=== PATIENT | male | born 1955 | race Caucasian/White ===

== ENCOUNTER 2021-06-13 21:01 | Inpatient (IN) ==
--- NOTE | 2021-06-13 21:17 | Emergency Department Note ---
Impression & Plan Respiratory failure, Abnormal EKG, Elevated troponin I level ED Provider Note Is whyNAME: KAMILA JOSE AGE: 65 SEX: M : 1955 ARRIVES VIA: Ambulance INFORMANT: Patient, EMS ED PROVIDER(S): Moises Young DO CHIEF COMPLAINT: Shortness of breath HPI: The patient is a 65-year-old male who presented to emergency department for an evaluation of shortness of breath. The patient has a history of renal disease. He had also has a history of hypertension. The patient was diagnosed with COVID-19 recently. He was treated with monoclonal antibody therapy recently as well. He was seen at [facility] after a fall. He presents emergency department today because of shortness of breath. He presented via ambulance. He was noted to have an oxygen saturation of 83%. He was placed on BiPAP. The patient's symptoms were moderate to severe. Upon arrival to the emergency department he states his symptoms are significantly improved after BiPAP. He denies having any hemoptysis. He denies having any lower extremity pain he does complain of lower extremity swelling which is not new. The patient has not seen his family doctor recently. He states has been compliant with his usual outpatient medications. ROS: See above HPI for pertinent positives & negatives. A total of 10 systems reviewed and were otherwise negative. PAST MEDICAL HISTORY: See Below PAST SURGICAL HISTORY: See Below FAMILY HISTORY: See Below SOCIAL HISTORY: See Below HOME MEDICATIONS: See Below ALLERGIES: See Below VITALS: See Below PHYSICAL EXAMINATION: GENERAL: The patient is awake and alert. The patient is somewhat anxious sanjiv earing. EYES: The conjunctivae are clear. The pupils are round and reactive. EARS, NOSE, MOUTH AND THROAT: The nose is without any evidence of any deformity. NECK: The neck is nontender and supple. RESPIRATORY: Shallow respirations were noted. Rales were noted throughout. There was significant conversational dyspnea. CARDIOVASCULAR: Tachycardic rate with regular rhythm was noted. There is no def inite murmur. GASTROINTESTINAL: Abdomen was pendulous. There is no tenderness guarding rigidity noted. MUSCULOSKELETAL/EXTREMITIES: There is no evidence of gross deformity full range of motion is noted in the hips and shoulders. SKIN: Chronic venous stasis changes were noted. There is pedal edema bi laterally. NEUROLOGIC: Patient is awake alert and oriented x3. MEDICAL DECISION MAKING: The patient is a 65-year-old male who presented to emergency department for an evaluation of difficulty breathing. The patient presented via ambulance from [facility]. He was placed on BiPAP prior to arrival. He was noted to have an oxygen saturation of 83%. He was recently diagnosed with COVID-19. History and physical exam appears to be consistent with COVID-19 but could also be consistent with a cardiac source given the patient's chest pain initially as well as EKG findings. I discussed the patient's laboratory and radiographic studies with him. Given his recent diagnosis of Covid he was treated with Decadron. He was continued on BiPAP. He was feeling somewhat better on subsequent reevaluation. I did discuss his case with the on-call [facility]. They have agreed to evaluate the patient in the emergency department for further management and disposition. Triage Nursing notes reviewed. Prior medical records reviewed Vital Signs: reviewed and remarkable for tachycardia and hypoxia Differential diagnosis: Reactive airway disease, pneumonia, pneumothorax, COPD, CHF, infections, cardiac ischemia, pulmonary embolism, musculoskeletal, gastrointestinal, as well as other pathologies. ER treatment provided: See below Diagnostics interpreted by me: ECG: EKG was obtained in the emergency department. My interpretation is sinus tachycardia 118 bpm. There is no ectopy. Left bundle branch block pattern was suggested. This was compared to a tracing from June 182013. Otherwise no significant changes were noted. Cardiac Monitoring: An order was placed for continuous cardiac monitoring. The monitor shows a rate of 105 bpm with sinus tachycardia. Laboratory studies: As stated above and show below. Imaging studies: See below Consultation(s): I discussed this case with Dr. Butler who is on-call for the [facility] group. He will evaluate the patient in the emergency department for further management and disposition. ED COURSE: Procedures: none PDMP:reviewed and no issues Critical Care: I have personally spent greater than 40 minutes of critical care time in the direct management of this patient. This includes bedside care, interpretation of diagnostic studies, and testing, discussion with consultants, patient, and family members, and other required patient management activities. This 40 minutes is in excess of all separately billable procedures. Past Med/Surg History Medical History Diabetes High cholesterol Hypertension Social History Smoking Status: Never smoker Feels Safe at Home: Yes Allergies Allergies Allergy/AdvReac Type Severity Reaction Status Date / Time No Known Allergies Allergy Unverified 06/18/13 09:21 Home Meds Home Medications Medication Instructions Recorded Confirmed aspirin 81 mg tablet,delayed 81 mg PO DAILY 06/13/21 06/13/21 release (Aspirin Low Dose) carvedilol 6.25 mg tablet 6.25 mg PO BID 06/13/21 06/13/21 duloxetine 30 mg capsule,delayed 30 mg PO DAILY 06/13/21 06/13/21 release folic acid 1 mg tablet 1 mg PO DAILY 06/13/21 06/13/21 gabapentin 300 mg capsule 300 mg PO BID 06/13/21 06/13/21 losartan 50 mg tablet 50 mg PO DAILY 06/13/21 06/13/21 metformin 500 mg tablet 500 mg PO BID 06/13/21 06/13/21 pantoprazole 40 mg tablet,delayed 40 mg PO DAILYBB 06/13/21 06/13/21 release rosuvastatin 40 mg tablet 40 mg PO DAILY 06/13/21 06/13/21 semaglutide (Ozempic) 0.5 mg SUBCUT WK 06/13/21 06/13/21 spironolactone 25 mg tablet 25 mg PO DAILY 06/13/21 06/13/21 Results & Data (ED) Vital Signs Vital Signs - 24 hr 06/13/21 21:00 06/13/21 21:10 06/13/21 21:20 Temperature 36.8 C Temperature Source Axillary Pulse Rate 117 H 117 H Pulse Rate [Right Finger] Respiratory Rate 36 H 32 H Respiratory Effort / Characteristics Spontaneous Labored Short of Breath SOB on Exertion Respiratory Depth Shallow Normal Respiratory Pattern Tachypnea Regular Blood Pressure 125/78 Blood Pressure [Right Arm] Blood Pressure Mean 93 Blood Pressure Mean [Right Arm] Blood Pressure Position Lying Blood Pressure Position [Right Arm] Pulse Oximetry 100 98 98 Oxygen Delivery Method BiPAP BiPAP Fraction of Inspired Oxygen 100 Sepsis Recent Fever Within 48 Hours No Sepsis New/Unexplained Change in Mental Status No Sepsis Action Taken by Nursing No Action Required 06/13/21 21:49 06/13/21 23:29 Temperature Temperature Source Pulse Rate 108 H Pulse Rate [Right Finger] 105 H 108 H Respiratory Rate 16 36 H Respiratory Effort / Characteristics Spontaneous Labored Short of Breath SOB on Exertion Respiratory Depth Normal Respiratory Pattern Tachypnea Blood Pressure Blood Pressure [Right Arm] 112/72 Blood Pressure Mean Blood Pressure Mean [Right Arm] 85 Blood Pressure Position Blood Pressure Position [Right Arm] Lying Pulse Oximetry 97 97 Oxygen Delivery Method Room Air BiPAP Fraction of Inspired Oxygen 40 Sepsis Recent Fever Within 48 Hours Sepsis New/Unexplained Change in Mental Status Sepsis Action Taken by [facility] Medications Current Medication List: was personally reviewed by me Laboratory Data Attestation: I reviewed the patient's lab results. Result diagrams: 06/13/21 21:10 06/13/21 21:10 Lab Results 06/13/21 06/13/21 06/13/21 Range/Units 21:10 21:10 21:10 WBC 15.79 H (4.8-10.8) K/uL RBC 4.19 L (4.7-6.1) M/uL Hgb 12.3 L (14.0-18.0) g/dL Hct 39.0 L (42-52) % MCV 93.1 (80-100) fL MCH 29.4 (25-34) pg MCHC 31.5 L (32-36) g/dL RDW Std Deviation 48.6 H (36.4-46.3) fL RDW Coeff of Miguel 14.2 (11.5-14.5) % Plt Count 164 (130-400) K/uL MPV 10.4 (7.4-10.4) fL Immature Gran % (Auto) 0.2 % Neut % (Auto) 43.4 % Lymph % (Auto) 51.6 % [place] % (Auto) 4.3 % Eos % (Auto) 0.4 % Baso % (Auto) 0.1 % Neut # (Auto) 6.87 H (1.4-6.5) K/uL Lymph # (Auto) 8.14 H (1.2-3.4) K/uL [place] # (Auto) 0.68 H (0.11-0.59) K/uL Eos # (Auto) 0.06 (0-0.5) K/uL Baso # (Auto) 0.01 (0-0.2) K/uL Immature Gran # (Auto) 0.03 H (0.00-0.02) K/uL ESR (0-20) mm/hr PT 10.5 (9.0-12.0) Seconds INR 1.0 (0.9-1.1) APTT 28.2 (21.0-31.0) Seconds PTT Ratio 1.1 ABG pH (7.35-7.45) ABG pCO2 (35-46) mmHg ABG pO2 (80-95) mmHg ABG HCO3 (19-24) mmol/L ABG O2 Saturation (90-95) % ABG Base Excess (-9-1.8) mEq/L Ten Test (Pos) VBG pH (7.36-7.41) VBG pCO2 (38-50) mmHg VBG pO2 mmHg VBG HCO3 mmol/L VBG O2 Saturation % VBG Base Excess mEq/L Barometric Pressure mm/Hg Oxygen Given Sodium 138 (136-145) mmol/L Potassium 4.2 (3.5-5.1) mmol/L Chloride 105 (98-107) mmol/L Carbon Dioxide 27 (21-32) mmol/L Anion Gap 6.0 (3-11) BUN 38 H (7-18) mg/dl Creatinine 2.22 H (0.6-1.4) mg/dl Est Cr Clr Drug Dosing 51.0 ml/min Est GFR ( Amer) 34.7 ml/min Est GFR (Non-Af Amer) 30.0 ml/min BUN/Creatinine Ratio 17.1 (10-20) Glucose 248 H (70-99) mg/dl Lactate (0.4-2.0) mmol/L Calcium 8.7 (8.5-10.1) mg/dl Magnesium 2.1 (1.8-2.4) mg/dl Total Bilirubin 0.4 (0.2-1) mg/dl AST 46 H (15-37) U/L ALT 32 (12-78) Alkaline Phosphatase 90 (45-117) U/L Troponin I 0.184 H* (0-0.045) ng/ml C-Reactive Protein 3.84 H (0-0.29) mg/dl NT-Pro-B Natriuret Pep 724 (0-900) pg/ml Total Protein 7.5 (6.4-8.2) gm/dl Albumin 3.0 L (3.4-5.0) gm/dl Globulin 4.5 H (2.5-4.0) gm/dl Albumin/Globulin Ratio 0.7 L (0.9-2) SARS-CoV-2 (PCR) (Negative) Influenza Type A (PCR) (Neg) Influenza Type B (PCR) (Neg) RSV (RT-PCR) (Neg) 06/13/21 06/13/21 06/13/21 Range/Units 21:10 21:19 21:29 WBC (4.8-10.8) K/uL RBC (4.7-6.1) M/uL Hgb (14.0-18.0) g/dL Hct (42-52) % MCV (80-100) fL MCH (25-34) pg MCHC (32-36) g/dL RDW Std Deviation (36.4-46.3) fL RDW Coeff of Miguel (11.5-14.5) % Plt Count (130-400) K/uL MPV (7.4-10.4) fL Immature Gran % (Auto) % Neut % (Auto) % Lymph % (Auto) % [place] % (Auto) % Eos % (Auto) % Baso % (Auto) % Neut # (Auto) (1.4-6.5) K/uL Lymph # (Auto) (1.2-3.4) K/uL [place] # (Auto) (0.11-0.59) K/uL Eos # (Auto) (0-0.5) K/uL Baso # (Auto) (0-0.2) K/uL Immature Gran # (Auto) (0.00-0.02) K/uL ESR 94 H (0-20) mm/hr PT (9.0-12.0) Seconds INR (0.9-1.1) APTT (21.0-31.0) Seconds PTT Ratio ABG pH (7.35-7.45) ABG pCO2 (35-46) mmHg ABG pO2 (80-95) mmHg ABG HCO3 (19-24) mmol/L ABG O2 Saturation (90-95) % ABG Base Excess (-9-1.8) mEq/L Ten Test (Pos) VBG pH 7.43 H (7.36-7.41) VBG pCO2 42 (38-50) mmHg VBG pO2 55 mmHg VBG HCO3 28 mmol/L VBG O2 Saturation 89.0 % VBG Base Excess 3.1 mEq/L Barometric Pressure 733.5 mm/Hg Oxygen Given Sodium (136-145) mmol/L Potassium (3.5-5.1) mmol/L Chloride (98-107) mmol/L Carbon Dioxide (21-32) mmol/L Anion Gap (3-11) BUN (7-18) mg/dl Creatinine (0.6-1.4) mg/dl Est Cr Clr Drug Dosing ml/min Est GFR ( Amer) ml/min Est GFR (Non-Af Amer) ml/min BUN/Creatinine Ratio (10-20) Glucose (70-99) mg/dl Lactate (0.4-2.0) mmol/L Calcium (8.5-10.1) mg/dl Magnesium (1.8-2.4) mg/dl Total Bilirubin (0.2-1) mg/dl AST (15-37) U/L ALT (12-78) Alkaline Phosphatase (45-117) U/L Troponin I (0-0.045) ng/ml C-Reactive Protein (0-0.29) mg/dl NT-Pro-B Natriuret Pep (0-900) pg/ml Total Protein (6.4-8.2) gm/dl Albumin (3.4-5.0) gm/dl Globulin (2.5-4.0) gm/dl Albumin/Globulin Ratio (0.9-2) SARS-CoV-2 (PCR) POSITIVE A* (Negative) Influenza Type A (PCR) Negative (Neg) Influenza Type B (PCR) Negative (Neg) RSV (RT-PCR) Negative (Neg) 06/13/21 06/13/21 Range/Units 23:36 23:36 WBC (4.8-10.8) K/uL RBC (4.7-6.1) M/uL Hgb (14.0-18.0) g/dL Hct (42-52) % MCV (80-100) fL MCH (25-34) pg MCHC (32-36) g/dL RDW Std Deviation (36.4-46.3) fL RDW Coeff of Miguel (11.5-14.5) % Plt Count (130-400) K/uL MPV (7.4-10.4) fL Immature Gran % (Auto) % Neut % (Auto) % Lymph % (Auto) % [place] % (Auto) % Eos % (Auto) % Baso % (Auto) % Neut # (Auto) (1.4-6.5) K/uL Lymph # (Auto) (1.2-3.4) K/uL [place] # (Auto) (0.11-0.59) K/uL Eos # (Auto) (0-0.5) K/uL Baso # (Auto) (0-0.2) K/uL Immature Gran # (Auto) (0.00-0.02) K/uL ESR (0-20) mm/hr PT (9.0-12.0) Seconds INR (0.9-1.1) APTT (21.0-31.0) Seconds PTT Ratio ABG pH 7.43 (7.35-7.45) ABG pCO2 39 (35-46) mmHg ABG pO2 77 L (80-95) mmHg ABG HCO3 25 H (19-24) mmol/L ABG O2 Saturation 96.0 H (90-95) % ABG Base Excess 0.5 (-9-1.8) mEq/L Ten Test POS (Pos) VBG pH (7.36-7.41) VBG pCO2 (38-50) mmHg VBG pO2 mmHg VBG HCO3 mmol/L VBG O2 Saturation % VBG Base Excess mEq/L Barometric Pressure 733.8 mm/Hg Oxygen Given FIO2 40% Sodium (136-145) mmol/L Potassium (3.5-5.1) mmol/L Chloride (98-107) mmol/L Carbon Dioxide (21-32) mmol/L Anion Gap (3-11) BUN (7-18) mg/dl Creatinine (0.6-1.4) mg/dl Est Cr Clr Drug Dosing ml/min Est GFR ( Amer) ml/min Est GFR (Non-Af Amer) ml/min BUN/Creatinine Ratio (10-20) Glucose (70-99) mg/dl Lactate 0.9 (0.4-2.0) mmol/L Calcium (8.5-10.1) mg/dl Magnesium (1.8-2.4) mg/dl Total Bilirubin (0.2-1) mg/dl AST (15-37) U/L ALT (12-78) Alkaline Phosphatase (45-117) U/L Troponin I (0-0.045) ng/ml C-Reactive Protein (0-0.29) mg/dl NT-Pro-B Natriuret Pep (0-900) pg/ml Total Protein (6.4-8.2) gm/dl Albumin (3.4-5.0) gm/dl Globulin (2.5-4.0) gm/dl Albumin/Globulin Ratio (0.9-2) SARS-CoV-2 (PCR) (Negative) Influenza Type A (PCR) (Neg) Influenza Type B (PCR) (Neg) RSV (RT-PCR) (Neg) Administered Medications Discontinued Medications Dexamethasone Sodium Phosphate (DexamethasonePf 10 Mg/Ml Vial) 10 mg IV NOW ONE Stop: 06/13/21 22:00 Last Admin: 06/13/21 22:36 Dose: 10 mg Documented by: [id number] Ipratropium [place] (Ipratropium [place] Neb Soln 0.02% 2.5 Ml Vial) 0.5 mg INH NOW STA Stop: 06/13/21 23:11 Last Admin: 06/13/21 23:28 Dose: 0.5 mg Documented by: [id number] Levalbuterol HCl (Levalbuterol 1.25mg/0.5ml Neb) 1.25 mg INH NOW STA Stop: 06/13/21 23:12 Last Admin: 06/13/21 23:28 Dose: 1.25 mg Documented by: [id number] Imaging Data Radiologist's Impression: Chest X-Ray 06/13/21 21:13 XR chest 1V portable CLINICAL HISTORY: Dyspnea. COMPARISON STUDY: No previous studies for comparison. TECHNIQUE: 1 view of the chest FINDINGS: Single frontal view of the chest demonstrates heart size to be enlarged. There is indistinctness of the central hilar vessels characteristic of mild vascular congestion. Minimal peripheral interstitial edema is also seen. There is no evidence for pleural effusion. No confluent alveolar opacities are identified. There is no acute osseous pathology. IMPRESSION: Cardiomegaly with evidence for vascular congestion and early cardiac decompensation. ACT 112: Negative or not required by law. Electronically signed by: James Mcneal M.D. 06/13/2021 9:47 PM Discharge Plan Visit Data Chief Complaint: Shortness of Breath/Dyspnea ED Provider: Moises Young Discharge Problem: Respiratory failure, Abnormal EKG, Elevated troponin I level Patient Disposition: Being Evaluated by Hospitalist Forms Stand Alone Forms: My [facility] Prescriptions Prescriptions: No Action losartan 50 mg tablet 50 mg PO DAILY RF: 0 metformin 500 mg tablet 500 mg PO BID RF: 0 carvedilol 6.25 mg tablet 6.25 mg PO BID RF: 0 spironolactone 25 mg tablet 25 mg PO DAILY RF: 0 pantoprazole 40 mg tablet,delayed release (DR/EC) 40 mg PO DAILYBB RF: 0 gabapentin 300 mg capsule 300 mg PO BID RF: 0 folic acid 1 mg tablet 1 mg PO DAILY RF: 0 rosuvastatin 40 mg tablet 40 mg PO DAILY RF: 0 duloxetine 30 mg capsule,delayed release(DR/EC) 30 mg PO DAILY RF: 0 Ozempic 0.25 mg or 0.5 mg(2 mg/1.5 mL) pen injector 0.5 mg SUBCUT WK RF: 0 aspirin [Aspirin Low Dose] 81 mg Tablet,Delayed Release (Dr/Ec) 81 mg PO DAILY RF: 0 Referrals Referrals: PCP,NO [Primary Care Provider] - Discharge Problem: Respiratory failure Qualifiers: Chronicity: acute Respiratory failure complication: hypoxia Qualified Code(s): J96.01 - Acute respiratory failure with hypoxia
[2021-06-13 21:20] LABS: Hemoglobin 12.3 g/dL (14.0-18.0); Mean Corpuscular Hemoglobin 29.4 pg (25-34); Mean Corpuscular Hgb Conc 31.5 g/dL (32-36); Mean Corpuscular Volume 93.1 fL (80-100); Mean Platelet Volume 10.4 fL (7.4-10.4); Platelet Count 164 K/uL (130-400); RDW Coefficient of Variation 14.2 % (11.5-14.5); RDW Standard Deviation 48.6 fL (36.4-46.3); Red Blood Count 4.19 M/uL (4.7-6.1); White Blood Count 15.79 K/uL (4.8-10.8)
[2021-06-13 21:35] LABS: Base Excess VBG 3.1 mEq/L; pH VBG 7.43 (7.36-7.41)
[2021-06-13 21:35] LABS: Partial Thromboplastin Ratio 1.1; Partial Thromboplastin Time 28.2 Seconds (21.0-31.0); Prothrombin Time 10.5 Seconds (9.0-12.0)
[2021-06-13 21:37] LABS: BUN Creatinine Ratio 17.1 (10-20); Calcium 8.7 mg/dl (8.5-10.1); Est GFR (African American) 34.7 ml/min; Magnesium 2.1 mg/dl (1.8-2.4); Potassium 4.2 mmol/L (3.5-5.1)
--- NOTE | 2021-06-13 21:48 | XRay Report ---
XR chest 1V portable CLINICAL HISTORY: Dyspnea. COMPARISON STUDY: No previous studies for comparison. TECHNIQUE: 1 view of the chest FINDINGS: Single frontal view of the chest demonstrates heart size to be enlarged. There is indistinctness of t he central hilar vessels characteristic of mild vascular congestion. Minimal peripheral interstitial edema is also seen. There is no evidence for pleural effusion. No confluent alveolar opacities are id entified. There is no acute osseous pathology. IMPRESSION: Cardiomegaly with evidence for vascular congestion and early cardiac decompensation. ACT 112: Negative or not required by law. Electronically signed by: James Mcneal M.D. 06/13/2021 9:47 PM
[2021-06-13 21:50] LABS: Albumin Globulin Ratio 0.7 (0.9-2); Globulin 4.5 gm/dl (2.5-4.0); Total Protein 7.5 gm/dl (6.4-8.2); Troponin I 0.184 ng/ml (0-0.045)
[2021-06-13] MEDS ORDERED: dexAMETHasone**PF** 10 MG/ML VIAL IV ONE (21:59)
[2021-06-13 22:17] LABS: Influenza A virus by PCR Negative (Neg); Influenza B virus by PCR Negative (Neg); RSV by PCR Negative (Neg)
[2021-06-13 22:42] LABS: C Reactive Protein 3.84 mg/dl (0-0.29)
[2021-06-13 22:45] LABS: SARS CoV2 RNA(COVID-19) InHosp POSITIVE (Negative)
[2021-06-13 22:47] LABS: Bilirubin,Total 0.4 mg/dl (0.2-1)
--- NOTE | 2021-06-13 22:57 | History & Physical Report ---
Date of Service June 13, 2021 Assessment & Plan (1) Respiratory failure: Plan: Secondary to severe COVID-19 pneumonia Status post outpatient monoclonal antibody infusion Possible pulmonary embolism given significant troponin elevation chronic systolic heart failure EF 45 to 49% (TTE 2020) secondary to nonischemic cardiomyopathy, euvolemic to baseline congestion hx LBBB pulmonary hypertension secondary to DICK/pickwickian syndrome on CPAP hypertension, stable hyperlipidemia on statin Rx DM2 on oral medications and Ozempic, suboptimal control as of recent hemoglobin A1c of 9.08 January 2021 CRI, creatinine better than baseline chronic anemia, hemoglobin at baseline PCU Continue BiPAP Decadron course Remdesivir contraindicated with abnormal kidney function. IV Heparin for NSTEMI/possible pulmonary embolism TTE Re: NSTEMI LE venous Dopplers for PE work-up, CT angio precluded by abnormal kidney function Pulmonary consult for severe Covid-19 pneumonia if without improvement. Cardiology consult for NSTEMI if PE work-up unremarkable Basal insulin, ISS BG goal 1 10-1 40, update hemoglobin A1c DVT prophylaxis IV Heparin Full code Total critical care time was 50 minutes. Text document was generated using [employer] voice recognition software. It may contain grammatical or spelling errors. Kindly contact undersigned for clarification of any documentation item in question. History of Present Illness Chief Complaint: Covid, worsening shortness of breath Primary Care Provider: Dr. Hernández History obtained from patient and records. History somewhat limited by patient's current BiPAP use. Medical history significant for chronic systolic heart failure EF 45 to 49% (TTE 2020) secondary to nonischemic cardiomyopathy, chronic LBBB, pulmonary hypertension secondary to DICK/pickwickian syndrome on CPA, hypertension, hyperlipidemia, DM2 on oral medications and Ozempic, CRI (baseline creatinine 2.5), chronic anemia (baseline hemoglobin 11-12). 3 days history of dry cough symptoms, flulike symptoms with shortness of breath without fluid retention as per patient. Patient has not received COVID-19 vaccination. No known recent sick contacts but also sick with respiratory illness as per patient. Patient seen at [facility] ER after a fall and positive outpatient COVID-19 test2 days ago. Chest x-ray showed mild CHF. Monoclonal antibody infusion administered at the ER. Patient noted worsening symptoms at home. O2 sats noted to be 80s on room air. No chest pain or unusual fluid retention as per patient. BiPAP initiated by EMS at patient's home. Patient brought to the ER for evaluation. IV Decadron given at the ER. Medical History as above Surgical History : None Family History : DM, heart disease Personal/Social history : Non-smoker, no EtOH intake, retired cook Allergies Allergy/AdvReac Type Severity Reaction Status Date / Time No Known Allergies Allergy Unverified 06/18/13 09:21 Home Medications Medication Instructions Recorded Confirmed Type aspirin 81 mg tablet,delayed 81 mg PO DAILY 06/13/21 06/13/21 History release (Aspirin Low Dose) carvedilol 6.25 mg tablet 6.25 mg PO BID 06/13/21 06/13/21 History duloxetine 30 mg capsule,delayed 30 mg PO DAILY 06/13/21 06/13/21 History release folic acid 1 mg tablet 1 mg PO DAILY 06/13/21 06/13/21 History gabapentin 300 mg capsule 300 mg PO BID 06/13/21 06/13/21 History losartan 50 mg tablet 50 mg PO DAILY 06/13/21 06/13/21 History metformin 500 mg tablet 500 mg PO BID 06/13/21 06/13/21 History pantoprazole 40 mg tablet,delayed 40 mg PO DAILYBB 06/13/21 06/13/21 History release rosuvastatin 40 mg tablet 40 mg PO DAILY 06/13/21 06/13/21 History semaglutide (Ozempic) 0.5 mg SUBCUT WK 06/13/21 06/13/21 History spironolactone 25 mg tablet 25 mg PO DAILY 06/13/21 06/13/21 History Past Med/Surg History Medical History Diabetes High cholesterol Hypertension Social History Smoking Status: Never smoker Feels Safe at Home: Yes Review of Systems Review of Systems: As per HPI, all 10 systems reviewed, all other ROS negative Physical Exam Physical Exam: GENERAL: Slightly uncomfortable, morbidly obese, respiratory distress SKIN: Pallor , warm HEENT: Partial alopecia, pale palpebral conjunctivae, no ptosis, dry buccal mucosa, BiPAP in place NECK : Supple, short neck, no tenderness CHEST : Decreased breath sounds, expiratory wheezes, no tenderness HEART : Tachycardic, no obvious murmurs ABDOMEN: Some distention, nontender EXTREMITIES : Bilateral LE venous stasis, no LE tenderness, no other conspicuous deformities noted NEUROLOGIC : Coherent, no facial asymmetry, no other gross focality Results & Data Results & Data ([facility]) Vital Signs (Past 12 Hours) Vital Signs Temp Pulse Pulse Resp BP BP Pulse Ox 06/13/21 21:49 105 H 16 112/72 97 06/13/21 21:20 98 06/13/21 21:10 36.8 C 117 H 32 H 125/78 98 06/13/21 21:00 117 H 36 H 100 Laboratory Results Laboratory Results WBC 15.79 K/uL (4.8-10.8) H 06/13/21 21:10 RBC 4.19 M/uL (4.7-6.1) L 06/13/21 21:10 Hgb 12.3 g/dL (14.0-18.0) L 06/13/21 21:10 Hct 39.0 % (42-52) L 06/13/21 21:10 MCV 93.1 fL (80-100) 06/13/21 21:10 MCH 29.4 pg (25-34) 06/13/21 21:10 MCHC 31.5 g/dL (32-36) L 06/13/21 21:10 RDW Std Deviation 48.6 fL (36.4-46.3) H 06/13/21 21:10 RDW Coeff of Miguel 14.2 % (11.5-14.5) 06/13/21 21:10 Plt Count 164 K/uL (130-400) 06/13/21 21:10 MPV 10.4 fL (7.4-10.4) 06/13/21 21:10 PT 10.5 Seconds (9.0-12.0) 06/13/21 21:10 INR 1.0 (0.9-1.1) 06/13/21 21:10 APTT 28.2 Seconds (21.0-31.0) 06/13/21 21:10 PTT Ratio 1.1 06/13/21 21:10 VBG pH 7.43 (7.36-7.41) H 06/13/21 21:19 VBG pCO2 42 mmHg (38-50) 06/13/21 21:19 VBG pO2 55 mmHg 06/13/21 21:19 VBG HCO3 28 mmol/L 06/13/21 21:19 VBG O2 Saturation 89.0 % 06/13/21 21:19 VBG Base Excess 3.1 mEq/L 06/13/21 21:19 Barometric Pressure 733.5 mm/Hg 06/13/21 21:19 Sodium 138 mmol/L (136-145) 06/13/21 21:10 Potassium 4.2 mmol/L (3.5-5.1) 06/13/21 21:10 Chloride 105 mmol/L (98-107) 06/13/21 21:10 Carbon Dioxide 27 mmol/L (21-32) 06/13/21 21:10 Anion Gap 6.0 (3-11) 06/13/21 21:10 BUN 38 mg/dl (7-18) H 06/13/21 21:10 Creatinine 2.22 mg/dl (0.6-1.4) H 06/13/21 21:10 Est Cr Clr Drug Dosing 51.0 ml/min 06/13/21 21:10 Est GFR ( Amer) 34.7 ml/min 06/13/21 21:10 Est GFR (Non-Af Amer) 30.0 ml/min 06/13/21 21:10 BUN/Creatinine Ratio 17.1 (10-20) 06/13/21 21:10 Glucose 248 mg/dl (70-99) H 06/13/21 21:10 Calcium 8.7 mg/dl (8.5-10.1) 06/13/21 21:10 Magnesium 2.1 mg/dl (1.8-2.4) 06/13/21 21:10 Total Bilirubin 0.4 mg/dl (0.2-1) 06/13/21 21:10 AST 46 U/L (15-37) H 06/13/21 21:10 ALT 32 (12-78) 06/13/21 21:10 Alkaline Phosphatase 90 U/L (45-117) 06/13/21 21:10 Troponin I 0.184 ng/ml (0-0.045) H* 06/13/21 21:10 C-Reactive Protein 3.84 mg/dl (0-0.29) H 06/13/21 21:10 NT-Pro-B Natriuret Pep 724 pg/ml (0-900) 06/13/21 21:10 Total Protein 7.5 gm/dl (6.4-8.2) 06/13/21 21:10 Albumin 3.0 gm/dl (3.4-5.0) L 06/13/21 21:10 Globulin 4.5 gm/dl (2.5-4.0) H 06/13/21 21:10 Albumin/Globulin Ratio 0.7 (0.9-2) L 06/13/21 21:10 SARS-CoV-2 (PCR) POSITIVE (Negative) A* 06/13/21 21:29 Influenza Type A (PCR) Negative (Neg) 06/13/21 21: Influenza Type B (PCR) Negative (Neg) 06/13/21 21: RSV (RT-PCR) Negative (Neg) 06/13/21 21:29 Impressions Chest X-Ray 06/13/21 21:13 XR chest 1V portable CLINICAL HISTORY: Dyspnea. COMPARISON STUDY: No previous studies for comparison. TECHNIQUE: 1 view of the chest FINDINGS: Single frontal view of the chest demonstrates heart size to be enlarged. There is indistinctness of the central hilar vessels characteristic of mild vascular congestion. Minimal peripheral interstitial edema is also seen. There is no evidence for pleural effusion. No confluent alveolar opacities are identified. There is no acute osseous pathology. IMPRESSION: Cardiomegaly with evidence for vascular congestion and early cardiac decompensation. ACT 112: Negative or not required by law. Electronically signed by: James Mcneal M.D. 06/13/2021 9:47 PM Diagnostic Findings EKG as per my interpretation: Rate 120, sinus tachycardia, LAD, LAFB, LBBB (1) Respiratory failure Chronicity: acute Respiratory failure complication: hypoxia Qualified Code(s): J96.01 - Acute respiratory failure with hypoxia
[2021-06-13] MEDS ORDERED: XOPENEX/ATROVENT 1.25mg/0.5MG NEB COMBO NEB STA (22:58)
[2021-06-13 22:59] LABS: Basophils # (auto) 0.01 K/uL (0-0.2); Basophils % (auto) 0.1 %; Eosinophils # (auto) 0.06 K/uL (0-0.5); Eosinophils % (auto) 0.4 %; Immature Granulocytes # (auto) 0.03 K/uL (0.00-0.02); Immature Granulocytes % (auto) 0.2 %; Lymphocytes # (auto) 8.14 K/uL (1.2-3.4); Lymphocytes % (auto) 51.6 %; Monocytes # (auto) 0.68 K/uL (0.11-0.59); Monocytes % (auto) 4.3 %; Neutrophils # (auto) 6.87 K/uL (1.4-6.5); Neutrophils % (auto) 43.4 %
[2021-06-13] MEDS ORDERED: ALBUMIN 25% 100 mL 25 GM/100 ML VIAL IV ONE (22:59)
[2021-06-13] MEDS ORDERED: INSULIN ASPART PER UNIT SC SCH (23:10)
[2021-06-13] MEDS ORDERED: IPRATROPIUM BROMIDE NEB SOLN 0.02% 2.5 ML VIAL INH STA (23:10)
[2021-06-13] MEDS ORDERED: CARBOHYDRATES FOR HYPOGLYCEMIA PO PRN (23:10)
[2021-06-13] MEDS ORDERED: DEXTROSE 50% 50 ML SYRINGE IV PRN (23:10)
[2021-06-13] MEDS ORDERED: GLUCOSE 40% GEL 15 GM TUBE PO PRN (23:10)
[2021-06-13] MEDS ORDERED: GLUCOSE 10 TABS/TUBE PO PRN (23:10)
[2021-06-13] MEDS ORDERED: INSULIN GLARGINE SOLOSTAR 100 UNITS/ML 3 ML PEN SC STA (23:10)
[2021-06-13] MEDS ORDERED: GLUCAGON FOR INJ 1 MG VIAL SQ PRN (23:10)
[2021-06-13] MEDS ORDERED: LEVALBUTEROL 1.25MG/0.5ML NEB INH STA (23:11)
[2021-06-14] LABS: Base Excess ABG 0.5 mEq/L (-9-1.8); HCO3 ABG 25 mmol/L (19-24); PCO2 ABG 39 mmHg (35-46); PO2 ABG 77 mmHg (80-95); pH ABG 7.43 (7.35-7.45)
[2021-06-14 00:01] LABS: Allen Test POS (Pos)
[2021-06-14 00:29] LABS: Thyroid Stimulating Hormone 1.17 uIu/ml (0.300-4.500); Troponin I 1.3 ng/ml (0-0.045)
[2021-06-14] MEDS ORDERED: LEVALBUTEROL 1.25MG/0.5ML NEB INH PRN (01:07)
[2021-06-14] MEDS ORDERED: IPRATROPIUM BROMIDE NEB SOLN 0.02% 2.5 ML VIAL INH PRN (01:07)
[2021-06-14] MEDS ORDERED: PROMETHAZINE HCL 12.5 MG in SODIUM CHLORIDE 0.9% 50 ML IV PRN (01:07)
[2021-06-14] MEDS ORDERED: XOPENEX/ATROVENT 1.25mg/0.5MG NEB COMBO NEB PRN (01:07)
[2021-06-14] MEDS ORDERED: Heparin IV Adult Wt-Based Standard *NO* Bolus Protocol IV SCH (01:12)
[2021-06-14] MEDS: HEPARIN SODIUM/DEXTROSE 25,000 UNITS/500 ML BAG IV SCH ×3 (03:58→20:26)
[2021-06-14 05:57] LABS: Hematocrit (blood only) 37.2 % (42-52); Hemoglobin 11.7 g/dL (14.0-18.0); Mean Corpuscular Hemoglobin 29.5 pg (25-34); Mean Corpuscular Hgb Conc 31.5 g/dL (32-36); Mean Corpuscular Volume 93.9 fL (80-100); Mean Platelet Volume 10.8 fL (7.4-10.4); Platelet Count 163 K/uL (130-400); RDW Coefficient of Variation 14.1 % (11.5-14.5); RDW Standard Deviation 48.8 fL (36.4-46.3); Red Blood Count 3.96 M/uL (4.7-6.1); White Blood Count 18.57 K/uL (4.8-10.8)
[2021-06-14] MEDS ORDERED: HEPARIN SOD 5,000 UNIT/0.5 ML VIAL SQ SCH (06:00)
[2021-06-14] MEDS: PANTOprazole 40 MG TAB PO SCH (06:21)
[2021-06-14] MEDS: INSULIN ASPART PER UNIT SC SCH ×4 (06:21→21:58)
[2021-06-14] MEDS ORDERED: INSULIN GLARGINE SOLOSTAR 100 UNITS/ML 3 ML PEN SC STA ×2 (06:34)
[2021-06-14 06:50] LABS: Albumin Globulin Ratio 0.7 (0.9-2); BUN Creatinine Ratio 16.4 (10-20); Bilirubin,Total 0.5 mg/dl (0.2-1); C Reactive Protein 6.29 mg/dl (0-0.29); Creatinine Clr Calc Pharmacy 53.7 ml/min; Est GFR (Non-African American) 31.9 ml/min; Globulin 4.5 gm/dl (2.5-4.0); Magnesium 2.1 mg/dl (1.8-2.4); Potassium 4.2 mmol/L (3.5-5.1); Total Protein 7.5 gm/dl (6.4-8.2); Troponin I 3.76 ng/ml (0-0.045)
[2021-06-14 07:05] LABS: Basophils # (auto) 0.01 K/uL (0-0.2); Basophils % (auto) 0.1 %; Eosinophils # (auto) 0.01 K/uL (0-0.5); Eosinophils % (auto) 0.1 %; Immature Granulocytes # (auto) 0.03 K/uL (0.00-0.02); Immature Granulocytes % (auto) 0.2 %; Lymphocytes # (auto) 9.13 K/uL (1.2-3.4); Lymphocytes % (auto) 49.2 %; Monocytes # (auto) 0.61 K/uL (0.11-0.59); Monocytes % (auto) 3.3 %; Neutrophils # (auto) 8.78 K/uL (1.4-6.5); Neutrophils % (auto) 47.1 %; Smudge Cells Present
[2021-06-14 07:07] LABS: Beta-Hydroxybutyrate 7.73 mg/dl (0.2-2.81)
--- NOTE | 2021-06-14 07:09 | Ultrasound Report ---
BILATERAL LOWER EXTREMITY VENOUS DOPPLER HISTORY: leg swelling COMPARISON STUDY: None. FINDINGS: There is normal compressibility, flow, and augmentation within the bilateral lower extremit y deep venous systems. IMPRESSION: No DVT within the right or left lower extremity. ACT 112: Negative or not required by law. Electronically signed by: Juan Benjamin M.D. 06/14/2021 7:08 AM
[2021-06-14] MEDS: ASPIRIN 81 MG ECTAB PO SCH (08:23)
[2021-06-14] MEDS: dexAMETHasone 6 MG in SYRINGE 0 ML IV SCH (08:25)
[2021-06-14] MEDS: DULoxetine HCL 30 MG CAP PO SCH (08:25)
[2021-06-14] MEDS: carvediloL 6.25 MG TAB PO SCH ×2 (08:26→23:25)
[2021-06-14 08:27] LABS: Estimated Average Glucose 206 mg/dl; Hemoglobin A1C 8.8 % (4.5-5.6)
[2021-06-14] MEDS: FOLIC ACID 1 MG TAB PO SCH (08:27)
[2021-06-14] MEDS: GABAPENTIN 300 MG CAP PO SCH ×2 (08:27→23:25)
[2021-06-14] MEDS: LOSARTAN POTASSIUM 50 MG TAB PO SCH (08:30)
[2021-06-14] MEDS: ROSUVASTATIN CALCIUM 20 MG TAB PO SCH (08:31)
[2021-06-14] MEDS: SPIRONOLACTONE 25 MG TAB PO SCH (08:31)
[2021-06-14 10:42] LABS: Partial Thromboplastin Ratio 2.6
[2021-06-14 10:44] LABS: Partial Thromboplastin Time 66.7 Seconds (21.0-31.0)
--- NOTE | 2021-06-14 12:49 | Electrocardiogram Report ---
Test Reason : Blood Pressure : / mmHG Vent. Rate : 118 BPM Atrial Rate : 118 BPM P-R Int : 146 ms QRS Dur : 132 ms QT Int : 350 ms P-R-T Axes : -21 -31 044 degrees QTc Int : 490 ms Sinus tachycardia with Premature atrial complexes Left axis deviation Left bundle branch block Abnormal ECG When compared with ECG of 18-JUN-2013 09:00, Premature atrial complexes are now Present Vent. rate has increased BY 47 BPM Left bundle branch block is now Present Confirmed by Moises Mak ([id number]) on 06/14/2021 12:49:08 PM Referred By: REFERRED SELF Confirmed By:Moises Mak
[2021-06-14] MEDS ORDERED: PNEUMOCOCCAL Polysaccharide Vaccine 25mcg/0.5mL vial/Syr IM ONE (14:00)
--- NOTE | 2021-06-14 15:16 | Cardiology Consultation ---
Date of Consultation June 14, 2021 Assessment & Plan (1) Respiratory failure: (2) Elevated troponin I level: (3) COVID: (4) LBBB (left bundle branch block): The patient's left bundle branch block is old. The patient's elevated troponin can certainly be multifactorial including strain from hypoxia and/or chronic renal insufficiency. I would treat the patient conservatively. He needs to be treated for his Covid. He is high risk with this disease because of his morbid obesity and other risk factors. Currently he is comfortable on supplemental oxygen. History of Present Illness Attending Physician: Donna Adams MD History of Present Illness This is a 65-year-old male patient with a past history as outlined below. He is unvaccinated. He was infected with Covid several days ago and has been trying to remain at home but has gotten progressively more short of breath. Paramedics were dispatched and the patient was markedly hypoxic and recovered after being placed on supplemental oxygen. After reviewing his previous clinic EKGs he has a chronic left bundle branch block. His cardiac markers are mildly elevated which may be multifactorial including chronic renal insufficiency and several days of hypoxia. He has no current cardiac complaints currently. No chest pain no dizziness or lightheadedness. His shortness of breath has improved with oxygen. Past medical history: 1. Past nonischemic congestive cardiomyopathy. 2. Cardiac catheterization demonstrating no obstructive coronary disease June 2013. 3. Chronic left bundle branch block. 4. Obstructive sleep apnea with chronic hypoxia and right heart failure secondary to morbid obesity with pickwickian syndrome. 5. Hypertension. Allergies Allergy/AdvReac Type Severity Reaction Status Date / Time No Known Allergies Allergy Unverified 06/18/13 09:21 Home Medications Medication Instructions Recorded Confirmed Type aspirin 81 mg tablet,delayed 81 mg PO DAILY 06/13/21 06/13/21 History release (Aspirin Low Dose) carvedilol 6.25 mg tablet 6.25 mg PO BID 06/13/21 06/13/21 History duloxetine 30 mg capsule,delayed 30 mg PO DAILY 06/13/21 06/13/21 History release folic acid 1 mg tablet 1 mg PO DAILY 06/13/21 06/13/21 History gabapentin 300 mg capsule 300 mg PO BID 06/13/21 06/13/21 History losartan 50 mg tablet 50 mg PO DAILY 06/13/21 06/13/21 History metformin 500 mg tablet 500 mg PO BID 06/13/21 06/13/21 History pantoprazole 40 mg tablet,delayed 40 mg PO DAILYBB 06/13/21 06/13/21 History release rosuvastatin 40 mg tablet 40 mg PO DAILY 06/13/21 06/13/21 History semaglutide (Ozempic) 0.5 mg SUBCUT WK 06/13/21 06/13/21 History spironolactone 25 mg tablet 25 mg PO DAILY 06/13/21 06/13/21 History Patient History Medical History Diabetes High cholesterol Hypertension Social History Smoking Status: Never smoker Hx Alcohol Use: No Hx Substance Use: No Preferred Language: Maltese Communication Ability: Effective Hydrodynamics Professor Required: No Beliefs That Will Affect Care: None Current Living Situation: Spouse and Family Feels Safe at Home: Yes Safety Concerns: Feels Safe At This Time Assistive Devices: None Assistive Devices Comment: CPAP on 2 per patient Review of Systems Review of Systems: Review of Systems: See HPI for pertinent positives. All other 10 point review of systems are negative. Physical Exam Physical Exam: General: no acute distress and stated age Head: normocephalic, no masses, lesions, tenderness or abnormalities Eyes: conjunctiva are pink and non-injected, sclera clear Neck: supple, no adenopathy, no bruits, normal jugular venous pulse, no hepatoj ugular reflux Chest: normal shape and normal respiratory effort Lungs: clear to auscultation and percussion Cardiac Exam: - regular rate & rhythm, no murmurs gallops or rubs - normal S1, normal S2 Pulses: 2(+) throughout Abdomen: abdomen soft, non-tender, no abnormal masses and no hepatosplenomegaly Musculoskeletal: no gait disturbance, no joint inflammation, no deforming arthritis Extremities: no edema and no cyanosis Neuro: grossly normal exam Results & Data ([facility]) Vital Signs (Past 12 Hours) Vital Signs Pulse Pulse Resp BP BP Pulse Ox Pulse Ox 06/14/21 14:00 88 21 110/77 95 06/14/21 13:00 81 31 H 102/69 94 06/14/21 11:12 87 21 120/65 95 06/14/21 09:00 86 12 157/126 H 94 06/14/21 08:34 91 H 14 114/75 98 06/14/21 07:22 82 24 92 06/14/21 05:47 100 H 23 128/86 97 06/14/21 04:18 96 06/14/21 04:17 90 28 H 128/80 96 06/14/21 03:40 101 H 34 H 97 Laboratory Results Laboratory Results - last 24 hr 06/13/21 06/13/21 06/13/21 21:10 21:10 21:10 WBC 15.79 H RBC 4.19 L Hgb 12.3 L Hct 39.0 L MCV 93.1 MCH 29.4 MCHC 31.5 L RDW Std Deviation 48.6 H RDW Coeff of Miguel 14.2 Plt Count 164 MPV 10.4 Immature Gran % (Auto) 0.2 Neut % (Auto) 43.4 Lymph % (Auto) 51.6 Hooker % (Auto) 4.3 Eos % (Auto) 0.4 Baso % (Auto) 0.1 Neut # (Auto) 6.87 H Lymph # (Auto) 8.14 H Hooker # (Auto) 0.68 H Eos # (Auto) 0.06 Baso # (Auto) 0.01 Immature Gran # (Auto) 0.03 H Smudge Cells Blood Smear Review ESR PT 10.5 INR 1.0 APTT 28.2 PTT Ratio 1.1 ABG pH ABG pCO2 ABG pO2 ABG HCO3 ABG O2 Saturation ABG Base Excess Ten Test VBG pH VBG pCO2 VBG pO2 VBG HCO3 VBG O2 Saturation VBG Base Excess Barometric Pressure Oxygen Given Sodium 138 Potassium 4.2 Chloride 105 Carbon Dioxide 27 Anion Gap 6.0 BUN 38 H Creatinine 2.22 H Est Cr Clr Drug Dosing 51.0 Est GFR ( Amer) 34.7 Est GFR (Non-Af Amer) 30.0 BUN/Creatinine Ratio 17.1 Glucose 248 H POC Glucose Estimat Average Glucose Hemoglobin A1c Lactate Calcium 8.7 Magnesium 2.1 Total Bilirubin 0.4 AST 46 H ALT 32 Alkaline Phosphatase 90 Troponin I 0.184 H* C-Reactive Protein 3.84 H NT-Pro-B Natriuret Pep 724 Total Protein 7.5 Albumin 3.0 L Globulin 4.5 H Albumin/Globulin Ratio 0.7 L Beta-Hydroxybutyric Acd Procalcitonin TSH SARS-CoV-2 (PCR) Influenza Type A (PCR) Influenza Type B (PCR) RSV (RT-PCR) Flow Cytometry Comment 06/13/21 06/13/21 06/13/21 21:10 21:19 21:29 WBC RBC Hgb Hct MCV MCH MCHC RDW Std Deviation RDW Coeff of Miguel Plt Count MPV Immature Gran % (Auto) Neut % (Auto) Lymph % (Auto) Hooker % (Auto) Eos % (Auto) Baso % (Auto) Neut # (Auto) Lymph # (Auto) Hooker # (Auto) Eos # (Auto) Baso # (Auto) Immature Gran # (Auto) Smudge Cells Blood Smear Review ESR 94 H PT INR APTT PTT Ratio ABG pH ABG pCO2 ABG pO2 ABG HCO3 ABG O2 Saturation ABG Base Excess Ten Test VBG pH 7.43 H VBG pCO2 42 VBG pO2 55 VBG HCO3 28 VBG O2 Saturation 89.0 VBG Base Excess 3.1 Barometric Pressure 733.5 Oxygen Given Sodium Potassium Chloride Carbon Dioxide Anion Gap BUN Creatinine Est Cr Clr Drug Dosing Est GFR ( Amer) Est GFR (Non-Af Amer) BUN/Creatinine Ratio Glucose POC Glucose Estimat Average Glucose Hemoglobin A1c Lactate Calcium Magnesium Total Bilirubin AST ALT Alkaline Phosphatase Troponin I C-Reactive Protein NT-Pro-B Natriuret Pep Total Protein Albumin Globulin Albumin/Globulin Ratio Beta-Hydroxybutyric Acd Procalcitonin TSH SARS-CoV-2 (PCR) POSITIVE A* Influenza Type A (PCR) Negative Influenza Type B (PCR) Negative RSV (RT-PCR) Negative Flow Cytometry Comment 06/13/21 06/13/21 06/13/21 23:35 23:35 23:35 WBC RBC Hgb Hct MCV MCH MCHC RDW Std Deviation RDW Coeff of Miguel Plt Count MPV Immature Gran % (Auto) Neut % (Auto) Lymph % (Auto) Hooker % (Auto) Eos % (Auto) Baso % (Auto) Neut # (Auto) Lymph # (Auto) Hooker # (Auto) Eos # (Auto) Baso # (Auto) Immature Gran # (Auto) Smudge Cells Blood Smear Review ESR PT INR APTT PTT Ratio ABG pH ABG pCO2 ABG pO2 ABG HCO3 ABG O2 Saturation ABG Base Excess Etn Test VBG pH VBG pCO2 VBG pO2 VBG HCO3 VBG O2 Saturation VBG Base Excess Barometric Pressure Oxygen Given Sodium Potassium Chloride Carbon Dioxide Anion Gap BUN Creatinine Est Cr Clr Drug Dosing Est GFR ( Amer) Est GFR (Non-Af Amer) BUN/Creatinine Ratio Glucose POC Glucose Estimat Average Glucose 206 Hemoglobin A1c 8.8 H Lactate Calcium Magnesium Total Bilirubin AST ALT Alkaline Phosphatase Troponin I 1.300 H* C-Reactive Protein NT-Pro-B Natriuret Pep Total Protein Albumin Globulin Albumin/Globulin Ratio Beta-Hydroxybutyric Acd Procalcitonin 0.18 TSH 1.170 SARS-CoV-2 (PCR) Influenza Type A (PCR) Influenza Type B (PCR) RSV (RT-PCR) Flow Cytometry Comment 06/13/21 06/13/21 06/14/21 23:36 23:36 00:16 WBC RBC Hgb Hct MCV MCH MCHC RDW Std Deviation RDW Coeff of Miguel Plt Count MPV Immature Gran % (Auto) Neut % (Auto) Lymph % (Auto) Hooker % (Auto) Eos % (Auto) Baso % (Auto) Neut # (Auto) Lymph # (Auto) Hooker # (Auto) Eos # (Auto) Baso # (Auto) Immature Gran # (Auto) Smudge Cells Blood Smear Review ESR PT INR APTT PTT Ratio ABG pH 7.43 ABG pCO2 39 ABG pO2 77 L ABG HCO3 25 H ABG O2 Saturation 96.0 H ABG Base Excess 0.5 Ten Test POS VBG pH VBG pCO2 VBG pO2 VBG HCO3 VBG O2 Saturation VBG Base Excess Barometric Pressure 733.8 Oxygen Given FIO2 40% Sodium Potassium Chloride Carbon Dioxide Anion Gap BUN Creatinine Est Cr Clr Drug Dosing Est GFR ( Amer) Est GFR (Non-Af Amer) BUN/Creatinine Ratio Glucose POC Glucose 281 H Estimat Average Glucose Hemoglobin A1c Lactate 0.9 Calcium Magnesium Total Bilirubin AST ALT Alkaline Phosphatase Troponin I C-Reactive Protein NT-Pro-B Natriuret Pep Total Protein Albumin Globulin Albumin/Globulin Ratio Beta-Hydroxybutyric Acd Procalcitonin TSH SARS-CoV-2 (PCR) Influenza Type A (PCR) Influenza Type B (PCR) RSV (RT-PCR) Flow Cytometry Comment 06/14/21 06/14/21 06/14/21 05:30 05:30 05:30 WBC 18.57 H RBC 3.96 L Hgb 11.7 L Hct 37.2 L MCV 93.9 MCH 29.5 MCHC 31.5 L RDW Std Deviation 48.8 H RDW Coeff of Miguel 14.1 Plt Count 163 MPV 10.8 H Immature Gran % (Auto) 0.2 Neut % (Auto) 47.1 Lymph % (Auto) 49.2 Hooker % (Auto) 3.3 Eos % (Auto) 0.1 Baso % (Auto) 0.1 Neut # (Auto) 8.78 H Lymph # (Auto) 9.13 H Hooker # (Auto) 0.61 H Eos # (Auto) 0.01 Baso # (Auto) 0.01 Immature Gran # (Auto) 0.03 H Smudge Cells Present Blood Smear Review ESR PT INR APTT PTT Ratio ABG pH ABG pCO2 ABG pO2 ABG HCO3 ABG O2 Saturation ABG Base Excess Ten Test VBG pH VBG pCO2 VBG pO2 VBG HCO3 VBG O2 Saturation VBG Base Excess Barometric Pressure Oxygen Given Sodium 136 Potassium 4.2 Chloride 104 Carbon Dioxide 24 Anion Gap 8.0 BUN 35 H Creatinine 2.11 H Est Cr Clr Drug Dosing 53.7 Est GFR ( Amer) 37.0 Est GFR (Non-Af Amer) 31.9 BUN/Creatinine Ratio 16.4 Glucose 362 H* POC Glucose Estimat Average Glucose Hemoglobin A1c Lactate Calcium 9.0 Magnesium 2.1 Total Bilirubin 0.5 AST 98 H ALT 34 Alkaline Phosphatase 81 Troponin I 3.760 H* C-Reactive Protein 6.29 H NT-Pro-B Natriuret Pep Total Protein 7.5 Albumin 3.0 L Globulin 4.5 H Albumin/Globulin Ratio 0.7 L Beta-Hydroxybutyric Acd 7.73 H Procalcitonin TSH SARS-CoV-2 (PCR) Influenza Type A (PCR) Influenza Type B (PCR) RSV (RT-PCR) Flow Cytometry Comment Pending 06/14/21 06/14/21 06/14/21 06:04 08:19 09:48 WBC RBC Hgb Hct MCV MCH MCHC RDW Std Deviation RDW Coeff of Miguel Plt Count MPV Immature Gran % (Auto) Neut % (Auto) Lymph % (Auto) Hooker % (Auto) Eos % (Auto) Baso % (Auto) Neut # (Auto) Lymph # (Auto) Hooker # (Auto) Eos # (Auto) Baso # (Auto) Immature Gran # (Auto) Smudge Cells Blood Smear Review ESR PT INR APTT 66.7 H* PTT Ratio 2.6 ABG pH ABG pCO2 ABG pO2 ABG HCO3 ABG O2 Saturation ABG Base Excess Ten Test VBG pH VBG pCO2 VBG pO2 VBG HCO3 VBG O2 Saturation VBG Base Excess Barometric Pressure Oxygen Given Sodium Potassium Chloride Carbon Dioxide Anion Gap BUN Creatinine Est Cr Clr Drug Dosing Est GFR ( Amer) Est GFR (Non-Af Amer) BUN/Creatinine Ratio Glucose POC Glucose 352 H* 365 H* Estimat Average Glucose Hemoglobin A1c Lactate Calcium Magnesium Total Bilirubin AST ALT Alkaline Phosphatase Troponin I C-Reactive Protein NT-Pro-B Natriuret Pep Total Protein Albumin Globulin Albumin/Globulin Ratio Beta-Hydroxybutyric Acd Procalcitonin TSH SARS-CoV-2 (PCR) Influenza Type A (PCR) Influenza Type B (PCR) RSV (RT-PCR) Flow Cytometry Comment 06/14/21 06/14/21 11:16 15:17 WBC RBC Hgb Hct MCV MCH MCHC RDW Std Deviation RDW Coeff of Miguel Plt Count MPV Immature Gran % (Auto) Neut % (Auto) Lymph % (Auto) Hooker % (Auto) Eos % (Auto) Baso % (Auto) Neut # (Auto) Lymph # (Auto) Hooker # (Auto) Eos # (Auto) Baso # (Auto) Immature Gran # (Auto) Smudge Cells Blood Smear Review ESR PT INR APTT PTT Ratio ABG pH ABG pCO2 ABG pO2 ABG HCO3 ABG O2 Saturation ABG Base Excess Ten Test VBG pH VBG pCO2 VBG pO2 VBG HCO3 VBG O2 Saturation VBG Base Excess Barometric Pressure Oxygen Given Sodium Potassium Chloride Carbon Dioxide Anion Gap BUN Creatinine Est Cr Clr Drug Dosing Est GFR ( Amer) Est GFR (Non-Af Amer) BUN/Creatinine Ratio Glucose POC Glucose 361 H* Estimat Average Glucose Hemoglobin A1c Lactate Calcium Magnesium Total Bilirubin AST ALT Alkaline Phosphatase Troponin I 3.940 H* C-Reactive Protein NT-Pro-B Natriuret Pep Total Protein Albumin Globulin Albumin/Globulin Ratio Beta-Hydroxybutyric Acd Procalcitonin TSH SARS-CoV-2 (PCR) Influenza Type A (PCR) Influenza Type B (PCR) RSV (RT-PCR) Flow Cytometry Comment Diagnostic Findings Echocardiogram report reviewed dated August 15, 2017, performed at [facility], scanned into chart: The left ventricle is normal in size with borderline normal ejection fraction. EF = 50%. Mild concentric LVH. Left atrium is mildly dilated. Right ventricle is mildly dilated with normal function. Trace mitral regurgitation. Aortic valve is not well seen. Medications Administered Current Inpatient Medications Acetaminophen (Acetaminophen 325 Mg Tab) 650 mg PO Q4H PRN PRN Reason: Pain or Fever Stop: 07/14/21 01:06 Aspirin (Aspirin 81 Mg Ectab) 81 mg PO DAILY IRENE Stop: 07/14/21 08:59 Last Admin: 06/14/21 08:23 Dose: 81 mg Documented by: Carvedilol (Carvedilol 6.25 Mg Tab) 6.25 mg PO BID IRENE Stop: 07/14/21 08:59 Last Admin: 06/14/21 08:26 Dose: 6.25 mg Documented by: Dextrose (Dextrose 50% 50 Ml Syringe) 25 - 50 ml IV UD PRN; Protocol PRN Reason: Hypoglycemia Protocol Stop: 07/13/21 23:09 Duloxetine HCl (Duloxetine Hcl 30 Mg Cap) 30 mg PO DAILY IRENE Stop: 07/14/21 08:59 Last Admin: 06/14/21 08:25 Dose: 30 mg Documented by: Folic Acid (Folic Acid 1 Mg Tab) 1 mg PO DAILY IRENE Stop: 07/14/21 08:59 Last Admin: 06/14/21 08:27 Dose: 1 mg Documented by: Gabapentin (Gabapentin 300 Mg Cap) 300 mg PO BID IRENE Stop: 07/14/21 08:59 Last Admin: 06/14/21 08:27 Dose: 300 mg Documented by: Glucagon (Glucagon For Inj 1 Mg Vial) 1 mg SQ UD PRN; Protocol PRN Reason: Hypoglycemia Protocol Stop: 07/13/21 23:09 Glucose (Glucose 10 Tabs/Tube) 4 - 8 tabs PO UD PRN; Protocol PRN Reason: Hypoglycemia Protocol Stop: 07/13/21 23:09 Glucose (Glucose 40% Gel 15 Gm Tube) 15 - 30 gm PO UD PRN; Protocol PRN Reason: Hypoglycemia Protocol Stop: 07/13/21 23:09 Dexamethasone 6 mg/ Syringe 1.5 mls @ 1 mls/min IV DAILY IRENE Stop: 07/14/21 08:59 Last Admin: 06/14/21 08:25 Dose: 1 mls/min Documented by: Promethazine HCl 12.5 mg/ (Sodium Chloride) 50.5 mls @ 202 mls/hr IV Q6H PRN PRN Reason: Nausea And Vomiting Stop: 07/14/21 01:06 Heparin Sodium/Dextrose (Heparin Sodium/Dextrose) 25,000 units in 500 mls @ 37 mls/hr IV .[id number] [facility]; Protocol Stop: 07/14/21 01:29 Last Admin: 06/14/21 14:17 Dose: 1,850 units/hr, 37 mls/hr Documented by: Insulin Aspart (Insulin Aspart Per Unit) 0 units SC ACHS [facility] Stop: 07/14/21 05:34 Last Admin: 06/14/21 11:50 Dose: 9 units Documented by: Insulin Glargine (Insulin Glargine Solostar 100 Units/Ml 3 Ml Pen) 30 units SC BID [facility] Stop: 07/14/21 20:59 Ipratropium [place] (Ipratropium [place] Neb Soln 0.02% 2.5 Ml Vial) 0.5 mg INH Q4H PRN PRN Reason: SOB, WHEEZE Stop: 07/14/21 01:06 Levalbuterol HCl (Levalbuterol 1.25mg/0.5ml Neb) 1.25 mg INH Q4H PRN PRN Reason: SOB, WHEEZE Stop: 07/14/21 01:06 Losartan Potassium (Losartan Potassium 50 Mg Tab) 50 mg PO DAILY [facility] Stop: 07/14/21 08:59 Last Admin: 06/14/21 08:30 Dose: 50 mg Documented by: Miscellaneous (Carbohydrates For Hypoglycemia ) 15 - 30 gm PO UD PRN PRN Reason: Hypoglycemia Protocol Stop: 07/13/21 23:09 Miscellaneous Information (Pharmacy Glycemic Mgmt Consult) 1 ea N/A UD PRN PRN Reason: Consult Stop: 07/14/21 15:23 Pantoprazole Sodium (Pantoprazole 40 Mg Tab) 40 mg PO DAILYBB [facility] Stop: 07/14/21 06:29 Last Admin: 06/14/21 06:21 Dose: 40 mg Documented by: Rosuvastatin Calcium (Rosuvastatin Calcium 20 Mg Tab) 40 mg PO DAILY [facility] Stop: 07/14/21 08:59 Last Admin: 06/14/21 08:31 Dose: 40 mg Documented by: Spironolactone (Spironolactone 25 Mg Tab) 25 mg PO DAILY IRENE Stop: 07/14/21 08:59 Last Admin: 06/14/21 08:31 Dose: 25 mg Documented by: (1) Respiratory failure Chronicity: acute Respiratory failure complication: hypoxia Qualified Code(s): J96.01 - Acute respiratory failure with hypoxia
[2021-06-14] MEDS ORDERED: PHARMACY GLYCEMIC MGMT CONSULT PRN (15:24)
--- NOTE | 2021-06-14 15:27 | Hospitalist Progress Note ---
Date of Service June 14, 2021 Assessment & Plan (1) Respiratory failure: Plan: Acute hypoxic respiratory failure due to COVID-19 pneumonia Status post outpatient monoclonal antibody infusion SIRS+ likely due to COVID 19 pneumonia. Sepsis is possible. Follow up blood cultures Procal is 0.18 Continue oxygen supplementation. Educated on self proning if able, incentive spirometry and flutter Continue CPAP at bedtime Continue dexamethasone Remdesivir is contraindicated due to renal function Elevated troponin Elevated troponin could be multifactorial with possibilities including NSTEMI, PE, background of CKD/HFrEF Continue to trend troponin and monitor Appreciate cardiology evaluation and recommendations Continue heparin drip EKG showed LBBB which is old Cannot get CT PE due to renal function Get VQ scan. Dopplers negative Patient has chronic systolic heart failure EF 45 to 49% (TTE 2020) secondary to nonischemic cardiomyopathy, euvolemic to baseline congestion Pulmonary hypertension secondary to DICK/pickwickian syndrome on CPAP Get 2D Echo Hypertension BP is stable DM2 On oral medications and Ozempic, Last hemoglobin A1c of 9.08 January 2021 Currently 8.8 yes Hold home meds Pharm on board for glycemic control CKD 3-4 Creatinine better than baseline (2.5-2.7 in the past 3 months) Monitor Avoid nephrotonxins Chronic anemia Monitor DVT prophylaxis IV Heparin Full code Admission and Anticipated Discharge Date Admission Date: June 13, 2021 Subjective Patient seen and examined. Reports cough and occasional shortness of breath. Currently on oxygen mask at 7 L/min Denies chest pain, sore throat, congestion Denies fever, chills, nausea, vomiting, abdominal pain or diarrhea Denies dysuria, frequency or urgency. Physical Exam Constitutional: + well hydrated and + morbidly obese; no acute distress Eyes: PERRL, conjunctivae normal, anicteric sclerae ENMT: external ear and nose normal, oropharynx normal Respiratory: On oxygen mask, diminished breath sounds globally Cardiovascular: Rate/Rhythm: regular rate and regular rhythm S1-S2 Gastrointestinal (Abdomen): normal bowel sounds, soft, nontender, no hepatosplenomegaly Musculoskeletal: no cyanosis or clubbing, extremities motor strength 5/5 Neurologic: PERRL, EOMI, accommodation nl, no face palsy, no dysarthria Psychiatric: A+Ox3, euthymic affect Results & Data Results & Data ([facility]) Vital Signs (Past 12 Hours) Vital Signs Pulse Pulse Resp BP BP Pulse Ox Pulse Ox 06/14/21 14:00 88 21 110/77 95 06/14/21 13:00 81 31 H 102/69 94 06/14/21 11:12 87 21 120/65 95 06/14/21 09:00 86 12 157/126 H 94 06/14/21 08:34 91 H 14 114/75 98 06/14/21 07:22 82 24 92 06/14/21 05:47 100 H 23 128/86 97 06/14/21 04:18 96 06/14/21 04:17 90 28 H 128/80 96 06/14/21 03:40 101 H 34 H 97 Laboratory Results Abnormal lab results 06/13/21 06/13/21 06/13/21 Range/Units 21:10 21:10 21:10 WBC 15.79 H (4.8-10.8) K/uL RBC 4.19 L (4.7-6.1) M/uL Hgb 12.3 L (14.0-18.0) g/dL Hct 39.0 L (42-52) % MCHC 31.5 L (32-36) g/dL RDW Std Deviation 48.6 H (36.4-46.3) fL MPV (7.4-10.4) fL Neut # (Auto) 6.87 H (1.4-6.5) K/uL Lymph # (Auto) 8.14 H (1.2-3.4) K/uL [place] # (Auto) 0.68 H (0.11-0.59) K/uL Immature Gran # (Auto) 0.03 H (0.00-0.02) K/uL ESR 94 H (0-20) mm/hr APTT (21.0-31.0) Seconds ABG pO2 (80-95) mmHg ABG HCO3 (19-24) mmol/L ABG O2 Saturation (90-95) % VBG pH (7.36-7.41) BUN 38 H (7-18) mg/dl Creatinine 2.22 H (0.6-1.4) mg/dl Glucose 248 H (70-99) mg/dl POC Glucose (70-99) mg/dl Hemoglobin A1c (4.5-5.6) % AST 46 H (15-37) U/L Troponin I 0.184 H* (0-0.045) ng/ml C-Reactive Protein 3.84 H (0-0.29) mg/dl Albumin 3.0 L (3.4-5.0) gm/dl Globulin 4.5 H (2.5-4.0) gm/dl Albumin/Globulin Ratio 0.7 L (0.9-2) Beta-Hydroxybutyric Acd (0.2-2.81) mg/dl SARS-CoV-2 (PCR) (Negative) 06/13/21 06/13/21 06/13/21 Range/Units 21:19 21:29 23:35 WBC (4.8-10.8) K/uL RBC (4.7-6.1) M/uL Hgb (14.0-18.0) g/dL Hct (42-52) % MCHC (32-36) g/dL RDW Std Deviation (36.4-46.3) fL MPV (7.4-10.4) fL Neut # (Auto) (1.4-6.5) K/uL Lymph # (Auto) (1.2-3.4) K/uL [place] # (Auto) (0.11-0.59) K/uL Immature Gran # (Auto) (0.00-0.02) K/uL ESR (0-20) mm/hr APTT (21.0-31.0) Seconds ABG pO2 (80-95) mmHg ABG HCO3 (19-24) mmol/L ABG O2 Saturation (90-95) % VBG pH 7.43 H (7.36-7.41) BUN (7-18) mg/dl Creatinine (0.6-1.4) mg/dl Glucose (70-99) mg/dl POC Glucose (70-99) mg/dl Hemoglobin A1c 8.8 H (4.5-5.6) % AST (15-37) U/L Troponin I (0-0.045) ng/ml C-Reactive Protein (0-0.29) mg/dl Albumin (3.4-5.0) gm/dl Globulin (2.5-4.0) gm/dl Albumin/Globulin Ratio (0.9-2) Beta-Hydroxybutyric Acd (0.2-2.81) mg/dl SARS-CoV-2 (PCR) POSITIVE A* (Negative) 06/13/21 06/13/21 06/14/21 Range/Units 23:35 23:36 00:16 WBC (4.8-10.8) K/uL RBC (4.7-6.1) M/uL Hgb (14.0-18.0) g/dL Hct (42-52) % MCHC (32-36) g/dL RDW Std Deviation (36.4-46.3) fL MPV (7.4-10.4) fL Neut # (Auto) (1.4-6.5) K/uL Lymph # (Auto) (1.2-3.4) K/uL Clayton # (Auto) (0.11-0.59) K/uL Immature Gran # (Auto) (0.00-0.02) K/uL ESR (0-20) mm/hr APTT (21.0-31.0) Seconds ABG pO2 77 L (80-95) mmHg ABG HCO3 25 H (19-24) mmol/L ABG O2 Saturation 96.0 H (90-95) % VBG pH (7.36-7.41) BUN (7-18) mg/dl Creatinine (0.6-1.4) mg/dl Glucose (70-99) mg/dl POC Glucose 281 H (70-99) mg/dl Hemoglobin A1c (4.5-5.6) % AST (15-37) U/L Troponin I 1.300 H* (0-0.045) ng/ml C-Reactive Protein (0-0.29) mg/dl Albumin (3.4-5.0) gm/dl Globulin (2.5-4.0) gm/dl Albumin/Globulin Ratio (0.9-2) Beta-Hydroxybutyric Acd (0.2-2.81) mg/dl SARS-CoV-2 (PCR) (Negative) 06/14/21 06/14/21 06/14/21 Range/Units 05:30 05:30 06:04 WBC 18.57 H (4.8-10.8) K/uL RBC 3.96 L (4.7-6.1) M/uL Hgb 11.7 L (14.0-18.0) g/dL Hct 37.2 L (42-52) % MCHC 31.5 L (32-36) g/dL RDW Std Deviation 48.8 H (36.4-46.3) fL MPV 10.8 H (7.4-10.4) fL Neut # (Auto) 8.78 H (1.4-6.5) K/uL Lymph # (Auto) 9.13 H (1.2-3.4) K/uL Clayton # (Auto) 0.61 H (0.11-0.59) K/uL Immature Gran # (Auto) 0.03 H (0.00-0.02) K/uL ESR (0-20) mm/hr APTT (21.0-31.0) Seconds ABG pO2 (80-95) mmHg ABG HCO3 (19-24) mmol/L ABG O2 Saturation (90-95) % VBG pH (7.36-7.41) BUN 35 H (7-18) mg/dl Creatinine 2.11 H (0.6-1.4) mg/dl Glucose 362 H* (70-99) mg/dl POC Glucose 352 H* (70-99) mg/dl Hemoglobin A1c (4.5-5.6) % AST 98 H (15-37) U/L Troponin I 3.760 H* (0-0.045) ng/ml C-Reactive Protein 6.29 H (0-0.29) mg/dl Albumin 3.0 L (3.4-5.0) gm/dl Globulin 4.5 H (2.5-4.0) gm/dl Albumin/Globulin Ratio 0.7 L (0.9-2) Beta-Hydroxybutyric Acd 7.73 H (0.2-2.81) mg/dl SARS-CoV-2 (PCR) (Negative) 06/14/21 06/14/21 06/14/21 Range/Units 08:19 09:48 11:16 WBC (4.8-10.8) K/uL RBC (4.7-6.1) M/uL Hgb (14.0-18.0) g/dL Hct (42-52) % MCHC (32-36) g/dL RDW Std Deviation (36.4-46.3) fL MPV (7.4-10.4) fL Neut # (Auto) (1.4-6.5) K/uL Lymph # (Auto) (1.2-3.4) K/uL Clayton # (Auto) (0.11-0.59) K/uL Immature Gran # (Auto) (0.00-0.02) K/uL ESR (0-20) mm/hr APTT 66.7 H* (21.0-31.0) Seconds ABG pO2 (80-95) mmHg ABG HCO3 (19-24) mmol/L ABG O2 Saturation (90-95) % VBG pH (7.36-7.41) BUN (7-18) mg/dl Creatinine (0.6-1.4) mg/dl Glucose (70-99) mg/dl POC Glucose 365 H* 361 H* (70-99) mg/dl Hemoglobin A1c (4.5-5.6) % AST (15-37) U/L Troponin I (0-0.045) ng/ml C-Reactive Protein (0-0.29) mg/dl Albumin (3.4-5.0) gm/dl Globulin (2.5-4.0) gm/dl Albumin/Globulin Ratio (0.9-2) Beta-Hydroxybutyric Acd (0.2-2.81) mg/dl SARS-CoV-2 (PCR) (Negative) 06/14/21 06/14/21 Range/Units 15:17 16:20 WBC (4.8-10.8) K/uL RBC (4.7-6.1) M/uL Hgb (14.0-18.0) g/dL Hct (42-52) % MCHC (32-36) g/dL RDW Std Deviation (36.4-46.3) fL MPV (7.4-10.4) fL Neut # (Auto) (1.4-6.5) K/uL Lymph # (Auto) (1.2-3.4) K/uL Clayton # (Auto) (0.11-0.59) K/uL Immature Gran # (Auto) (0.00-0.02) K/uL ESR (0-20) mm/hr APTT (21.0-31.0) Seconds ABG pO2 (80-95) mmHg ABG HCO3 (19-24) mmol/L ABG O2 Saturation (90-95) % VBG pH (7.36-7.41) BUN (7-18) mg/dl Creatinine (0.6-1.4) mg/dl Glucose (70-99) mg/dl POC Glucose 353 H* (70-99) mg/dl Hemoglobin A1c (4.5-5.6) % AST (15-37) U/L Troponin I 3.940 H* (0-0.045) ng/ml C-Reactive Protein (0-0.29) mg/dl Albumin (3.4-5.0) gm/dl Globulin (2.5-4.0) gm/dl Albumin/Globulin Ratio (0.9-2) Beta-Hydroxybutyric Acd (0.2-2.81) mg/dl SARS-CoV-2 (PCR) (Negative) (1) Respiratory failure Chronicity: acute Respiratory failure complication: hypoxia Qualified Code(s): J96.01 - Acute respiratory failure with hypoxia
[2021-06-14 16:43] LABS: Partial Thromboplastin Ratio 4.9
[2021-06-14 18:17] LABS: Partial Thromboplastin Time 128.2 Seconds (21.0-31.0)
[2021-06-14] MEDS ORDERED: INSULIN ASPART PER UNIT SC ONE (19:00)
[2021-06-14] MEDS ORDERED: INSULIN GLARGINE SOLOSTAR 100 UNITS/ML 3 ML PEN SC SCH ×2 (21:00)
[2021-06-14] MEDS ORDERED: diphenhydrAMINE HCL 25 MG/10 ML UDC PO ONE (22:31)
[2021-06-15] MEDS: INSULIN ASPART PER UNIT SC SCH ×6 (00:44→22:50)
[2021-06-15 04:24] LABS: Partial Thromboplastin Ratio 2.9
[2021-06-15] MEDS: PANTOprazole 40 MG TAB PO SCH (06:12)
[2021-06-15 07:29] LABS: Hematocrit (blood only) 36.6 % (42-52); Hemoglobin 11.5 g/dL (14.0-18.0); Mean Corpuscular Hemoglobin 29.2 pg (25-34); Mean Corpuscular Hgb Conc 31.4 g/dL (32-36); Mean Corpuscular Volume 92.9 fL (80-100); Mean Platelet Volume 10.7 fL (7.4-10.4); Platelet Count 185 K/uL (130-400); RDW Coefficient of Variation 14.2 % (11.5-14.5); RDW Standard Deviation 48.3 fL (36.4-46.3); Red Blood Count 3.94 M/uL (4.7-6.1); White Blood Count 22.09 K/uL (4.8-10.8)
[2021-06-15 07:57] LABS: BUN Creatinine Ratio 19.9 (10-20); Calcium 8.9 mg/dl (8.5-10.1); Creatinine Clr Calc Pharmacy 44.9 ml/min; Est GFR (African American) 29.8 ml/min; Est GFR (Non-African American) 25.7 ml/min; Magnesium 2.4 mg/dl (1.8-2.4)
[2021-06-15 08:12] LABS: Basophils # (auto) 0.01 K/uL (0-0.2); Immature Granulocytes # (auto) 0.05 K/uL (0.00-0.02); Immature Granulocytes % (auto) 0.2 %; Lymphocytes # (auto) 10.95 K/uL (1.2-3.4); Lymphocytes % (auto) 49.6 %; Monocytes # (auto) 1.17 K/uL (0.11-0.59); Monocytes % (auto) 5.3 %; Neutrophils # (auto) 9.91 K/uL (1.4-6.5); Neutrophils % (auto) 44.9 %; Smudge Cells Present
[2021-06-15] MEDS: GABAPENTIN 300 MG CAP PO SCH ×2 (08:15→22:50)
[2021-06-15] MEDS: ASPIRIN 81 MG ECTAB PO SCH (08:15)
[2021-06-15] MEDS: LOSARTAN POTASSIUM 50 MG TAB PO SCH (08:16)
[2021-06-15] MEDS: DULoxetine HCL 30 MG CAP PO SCH (08:16)
[2021-06-15] MEDS: SPIRONOLACTONE 25 MG TAB PO SCH (08:16)
[2021-06-15] MEDS: carvediloL 6.25 MG TAB PO SCH ×2 (08:16→22:50)
[2021-06-15] MEDS: ROSUVASTATIN CALCIUM 20 MG TAB PO SCH (08:17)
[2021-06-15] MEDS: FOLIC ACID 1 MG TAB PO SCH (08:52)
[2021-06-15] MEDS: dexAMETHasone 6 MG in SYRINGE 0 ML IV SCH (08:53)
[2021-06-15] MEDS: INSULIN GLARGINE SOLOSTAR 100 UNITS/ML 3 ML PEN SC SCH (08:58)
[2021-06-15] MEDS ORDERED: INSULIN HUMAN NPH SC SCH (09:00)
[2021-06-15] MEDS: HEPARIN SODIUM/DEXTROSE 25,000 UNITS/500 ML BAG IV SCH (09:12)
[2021-06-15 11:31] LABS: Partial Thromboplastin Ratio 2.6
[2021-06-15 11:31] LABS: Appearance Urine Cloudy (Clear); Bacteria Urine Automated Negative (Negative); Bilirubin Urine Negative (Negative); Blood Urine 2+ (Negative); Color Urine Dark Yellow; Epithelial Cell Urine Auto >30 /lpf (0-5); Glucose Urine UA Negative (Negative); Ketones Urine Trace (Negative); Leukocyte Esterase Urine Negative (Negative); Nitrite Urine Negative (Negative); Protein Urine 2+ (Negative); RBC Urine Automated 0-4 /hpf (0-4); Specific Gravity Urine 1.021 (1.000-1.030); Urobilinogen Urine Negative (Negative)
[2021-06-15 11:36] LABS: Partial Thromboplastin Time 69.4 Seconds (21.0-31.0)
--- NOTE | 2021-06-15 11:36 | Hospitalist Progress Note ---
Date of Service June 15, 2021 Assessment & Plan (1) Respiratory failure: Plan: Acute hypoxic respiratory failure due to COVID-19 pneumonia Status post outpatient monoclonal antibody infusion SIRS+ likely due to COVID 19 pneumonia. Blood cultures negative so far Procal is 0.18 Continue oxygen supplementation. Continue incentive spirometry and flutter Continue CPAP at bedtime. Patient reported daughter is bringing own CPAP Continue dexamethasone Remdesivir is contraindicated due to renal function Monitor inflammatory markers Elevated troponin Elevated troponin could be multifactorial with possibilities including NSTEMI, PE, background of CKD/HFrEF Trop peaked at 3.9 and trended down Appreciate cardiology evaluation and recommendations Continue heparin drip EKG showed LBBB which is old Cannot get CT PE due to renal function Dopplers negative Awaiting VQ scan Patient has chronic systolic heart failure EF 45 to 49% (TTE 2020) secondary to nonischemic cardiomyopathy, euvolemic to baseline congestion Pulmonary hypertension secondary to DICK/pickwickian syndrome on CPAP Echo reviewed reduced EF of between 30 and 35% which is worse than before. cardiology on board Hypertension BP is stable DM2 On oral medications and Ozempic, Last hemoglobin A1c of 9.08 January 2021 Currently 8.8 Hold home meds Pharm on board for glycemic control CKD 3-4 Cr baseline (2.5-2.7 in the past 3 months) Cr is 2.52 today Monitor Avoid nephrotonxins Chronic anemia Monitor DVT prophylaxis IV Heparin Full code Admission and Anticipated Discharge Date Admission Date: June 13, 2021 Subjective Patient seen and examined. Still reports cough and occasional shortness of breath. Currently on oxygen mask at 4 L/min Denies chest pain, sore throat, congestion Denies fever, chills, nausea, vomiting, abdominal pain or diarrhea Denies dysuria, frequency or urgency. Per RN, not on CPAP overnight possibly due to none available Physical Exam Constitutional: + well hydrated and + morbidly obese; no acute distress Eyes: PERRL, conjunctivae normal, anicteric sclerae ENMT: external ear and nose normal, oropharynx normal Respiratory: On oxymask, diminished breath sounds globally Cardiovascular: Rate/Rhythm: regular rate and regular rhythm S1 S2 Gastrointestinal (Abdomen): normal bowel sounds, soft, nontender, no hepatosplenomegaly Musculoskeletal: no cyanosis or clubbing, extremities motor strength 5/5 Neurologic: PERRL, EOMI, accommodation nl, no face palsy, no dysarthria Psychiatric: A+Ox3, euthymic affect Results & Data Results & Data ([facility]) Vital Signs (Past 12 Hours) Vital Signs Temp Pulse Resp BP Pulse Ox 06/15/21 11:11 36.8 C 78 13 115/65 91 06/15/21 07:44 36.9 C 76 22 112/72 95 06/15/21 03:57 36.6 C 75 18 104/59 L 95 06/14/21 23:37 36.8 C 79 22 106/60 95 Laboratory Results Abnormal lab results 06/14/21 06/14/21 06/14/21 Range/Units 15:17 16:11 16:20 WBC (4.8-10.8) K/uL RBC (4.7-6.1) M/uL Hgb (14.0-18.0) g/dL Hct (42-52) % MCHC (32-36) g/dL RDW Std Deviation (36.4-46.3) fL MPV (7.4-10.4) fL Neut # (Auto) (1.4-6.5) K/uL Lymph # (Auto) (1.2-3.4) K/uL [place] # (Auto) (0.11-0.59) K/uL Immature Gran # (Auto) (0.00-0.02) K/uL APTT 128.2 H* (21.0-31.0) Seconds BUN (7-18) mg/dl Creatinine (0.6-1.4) mg/dl Glucose (70-99) mg/dl POC Glucose 353 H* (70-99) mg/dl Troponin I 3.940 H* (0-0.045) ng/ml C-Reactive Protein (0-0.29) mg/dl Procalcitonin (0-0.5) ng/ml Urine Appearance (Clear) Urine Protein (Negative) Urine Ketones (Negative) Urine Blood (Negative) 06/14/21 06/14/21 06/14/21 Range/Units 20:40 21:30 23:56 WBC (4.8-10.8) K/uL RBC (4.7-6.1) M/uL Hgb (14.0-18.0) g/dL Hct (42-52) % MCHC (32-36) g/dL RDW Std Deviation (36.4-46.3) fL MPV (7.4-10.4) fL Neut # (Auto) (1.4-6.5) K/uL Lymph # (Auto) (1.2-3.4) K/uL [place] # (Auto) (0.11-0.59) K/uL Immature Gran # (Auto) (0.00-0.02) K/uL APTT (21.0-31.0) Seconds BUN (7-18) mg/dl Creatinine (0.6-1.4) mg/dl Glucose (70-99) mg/dl POC Glucose 267 H 224 H (70-99) mg/dl Troponin I 2.790 H* (0-0.045) ng/ml C-Reactive Protein (0-0.29) mg/dl Procalcitonin (0-0.5) ng/ml Urine Appearance (Clear) Urine Protein (Negative) Urine Ketones (Negative) Urine Blood (Negative) 06/15/21 06/15/21 06/15/21 Range/Units 03:40 03:40 03:58 WBC (4.8-10.8) K/uL RBC (4.7-6.1) M/uL Hgb (14.0-18.0) g/dL Hct (42-52) % MCHC (32-36) g/dL RDW Std Deviation (36.4-46.3) fL MPV (7.4-10.4) fL Neut # (Auto) (1.4-6.5) K/uL Lymph # (Auto) (1.2-3.4) K/uL [place] # (Auto) (0.11-0.59) K/uL Immature Gran # (Auto) (0.00-0.02) K/uL APTT 75.0 H* (21.0-31.0) Seconds BUN (7-18) mg/dl Creatinine (0.6-1.4) mg/dl Glucose (70-99) mg/dl POC Glucose 199 H (70-99) mg/dl Troponin I 2.210 H* (0-0.045) ng/ml C-Reactive Protein (0-0.29) mg/dl Procalcitonin (0-0.5) ng/ml Urine Appearance (Clear) Urine Protein (Negative) Urine Ketones (Negative) Urine Blood (Negative) 06/15/21 06/15/21 06/15/21 Range/Units 07:01 07:01 07:01 WBC 22.09 H (4.8-10.8) K/uL RBC 3.94 L (4.7-6.1) M/uL Hgb 11.5 L (14.0-18.0) g/dL Hct 36.6 L (42-52) % MCHC 31.4 L (32-36) g/dL RDW Std Deviation 48.3 H (36.4-46.3) fL MPV 10.7 H (7.4-10.4) fL Neut # (Auto) 9.91 H (1.4-6.5) K/uL Lymph # (Auto) 10.95 H (1.2-3.4) K/uL [place] # (Auto) 1.17 H (0.11-0.59) K/uL Immature Gran # (Auto) 0.05 H (0.00-0.02) K/uL APTT (21.0-31.0) Seconds BUN 50 H (7-18) mg/dl Creatinine 2.52 H D (0.6-1.4) mg/dl Glucose 185 H (70-99) mg/dl POC Glucose (70-99) mg/dl Troponin I (0-0.045) ng/ml C-Reactive Protein 5.11 H (0-0.29) mg/dl Procalcitonin (0-0.5) ng/ml Urine Appearance (Clear) Urine Protein (Negative) Urine Ketones (Negative) Urine Blood (Negative) 06/15/21 06/15/21 06/15/21 Range/Units 07:01 07:42 10:54 WBC (4.8-10.8) K/uL RBC (4.7-6.1) M/uL Hgb (14.0-18.0) g/dL Hct (42-52) % MCHC (32-36) g/dL RDW Std Deviation (36.4-46.3) fL MPV (7.4-10.4) fL Neut # (Auto) (1.4-6.5) K/uL Lymph # (Auto) (1.2-3.4) K/uL [place] # (Auto) (0.11-0.59) K/uL Immature Gran # (Auto) (0.00-0.02) K/uL APTT 69.4 H* (21.0-31.0) Seconds BUN (7-18) mg/dl Creatinine (0.6-1.4) mg/dl Glucose (70-99) mg/dl POC Glucose 186 H (70-99) mg/dl Troponin I (0-0.045) ng/ml C-Reactive Protein (0-0.29) mg/dl Procalcitonin 1.20 H (0-0.5) ng/ml Urine Appearance (Clear) Urine Protein (Negative) Urine Ketones (Negative) Urine Blood (Negative) 06/15/21 Range/Units Unknown WBC (4.8-10.8) K/uL RBC (4.7-6.1) M/uL Hgb (14.0-18.0) g/dL Hct (42-52) % MCHC (32-36) g/dL RDW Std Deviation (36.4-46.3) fL MPV (7.4-10.4) fL Neut # (Auto) (1.4-6.5) K/uL Lymph # (Auto) (1.2-3.4) K/uL [place] # (Auto) (0.11-0.59) K/uL Immature Gran # (Auto) (0.00-0.02) K/uL APTT (21.0-31.0) Seconds BUN (7-18) mg/dl Creatinine (0.6-1.4) mg/dl Glucose (70-99) mg/dl POC Glucose (70-99) mg/dl Troponin I (0-0.045) ng/ml C-Reactive Protein (0-0.29) mg/dl Procalcitonin (0-0.5) ng/ml Urine Appearance Cloudy A (Clear) Urine Protein 2+ H (Negative) Urine Ketones Trace H (Negative) Urine Blood 2+ H (Negative) (1) Respiratory failure Chronicity: acute Respiratory failure complication: hypoxia Qualified Code(s): J96.01 - Acute respiratory failure with hypoxia
[2021-06-15 11:54] LABS: Amorphous Sediment Urine Present (None Prsent); Sperm Urine Present (None Prsent)
--- NOTE | 2021-06-15 12:06 | Pharmacy Report ---
Pharmacy Glycemic Short Note 2 - Date of Service June 15, 2021 - Glycemic Short BSG Results (Last 24 hours): 06/14/21 06/14/21 06/14/21 16:20 21:30 23:56 Glucose POC Glucose 353 H* 267 H 224 H 06/15/21 06/15/21 06/15/21 03:58 07:01 07:42 Glucose 185 H POC Glucose 199 H 186 H OUTPATIENT ANTIDIABETIC REGIMEN: * Metformin 500mg PO BID * Semaglutide 0.5mg SQ weekly * A1c = 8.8% 06/13/21 ASSESSMENT: * Type 2 diabetic admitted for COVID19 viral pneumonia * BSGs have improved over the last 24 hrs and are getting closer to goal. * 113 units SQ insulin given in the last 24 hrs. Uncertain how much PO patient consumed yesterday but it appears to be limited based upon Novolog doses given. * He is ordered dexamethasone IV once daily in the AM. Will given NPH in the AM with the dexamethasone dose to offset steroid induced hyperglycemia. Will reduce the Lantus dose given and move the majority of the dose to the AM to allow for some wearing off of effects overnight. * Novolog CF and CR are appropriate starting points for someone anticipated to require 120-130 units of insulin per day with current stressors. PLAN FOR INPATIENT GLYCEMIC CONTROL: * Hold outpatient oral diabetes medications (metformin, semaglutide) * Basal insulin * Lantus 30 units SQ Q AM. Will give additional 10 units this PM if BSG > 180 * NPH 30 units SQ Q AM with IV dexamethasone * Bolus insulin * NovoLog per scale ACHS and at 0000 + 0400 initially * Goal Range: Low 110 mg/dL - High 140 mg/dL * Correction Factor: 12 mg/dL/unit during the day, 15mg/dL/unit on overnight checks (will only admin correctional insulin overnight if BSG > 160) * Nutritional / Prandial insulin per carb ratio of 1 unit per 4 grams CHO consumed PLAN FOR DISCHARGE: * to be determined
--- NOTE | 2021-06-15 18:27 | Nuclear Medicine Report ---
NM pul perfusion CLINICAL HISTORY: Rule out PE Technique: Perfusion imaging was performed in multiple projections after the intravenous injection of 5.3 mCi of Tc-99m labeled macroaggregated albumin (MAA). Comparison: None available at the time of this dictation. FINDINGS/IMPRESSION: Homogeneous perfusion was seen bilaterally. Low probability of pulmonary emboli sm. ACT 112: Negative or not required by law. Electronically signed by: Tristian Benton M.D. 06/15/2021 6:26 PM
[2021-06-15 20:04] LABS: Partial Thromboplastin Time 53.2 Seconds (21.0-31.0)
[2021-06-15] MEDS ORDERED: INSULIN GLARGINE SOLOSTAR 100 UNITS/ML 3 ML PEN SC ONE (21:00)
[2021-06-16] MEDS: INSULIN ASPART PER UNIT SC SCH ×6 (00:30→22:42)
[2021-06-16] MEDS: HEPARIN SODIUM/DEXTROSE 25,000 UNITS/500 ML BAG IV SCH (00:30)
[2021-06-16 06:13] LABS: Hematocrit (blood only) 37.7 % (42-52); Hemoglobin 11.9 g/dL (14.0-18.0); Mean Corpuscular Hemoglobin 29.1 pg (25-34); Mean Corpuscular Hgb Conc 31.6 g/dL (32-36); Mean Corpuscular Volume 92.2 fL (80-100); Mean Platelet Volume 10.8 fL (7.4-10.4); Platelet Count 226 K/uL (130-400); RDW Coefficient of Variation 14.2 % (11.5-14.5); RDW Standard Deviation 47.9 fL (36.4-46.3); Red Blood Count 4.09 M/uL (4.7-6.1); White Blood Count 22.69 K/uL (4.8-10.8)
[2021-06-16] MEDS: PANTOprazole 40 MG TAB PO SCH ×2 (06:21→07:39)
[2021-06-16 06:47] LABS: BUN Creatinine Ratio 24.3 (10-20); Calcium 9.1 mg/dl (8.5-10.1); Creatinine Clr Calc Pharmacy 45.6 ml/min; D Dimer 480 ug/L FEU (0-500); Est GFR (African American) 32.6 ml/min; Est GFR (Non-African American) 28.1 ml/min; Potassium 4.2 mmol/L (3.5-5.1)
[2021-06-16 07:28] LABS: Partial Thromboplastin Time 53.9 Seconds (21.0-31.0)
[2021-06-16] MEDS: carvediloL 6.25 MG TAB PO SCH ×2 (07:37→20:05)
[2021-06-16] MEDS: DULoxetine HCL 30 MG CAP PO SCH (07:37)
[2021-06-16] MEDS: GABAPENTIN 300 MG CAP PO SCH ×2 (07:37→20:05)
[2021-06-16] MEDS: ASPIRIN 81 MG ECTAB PO SCH (07:37)
[2021-06-16] MEDS: FOLIC ACID 1 MG TAB PO SCH (07:37)
[2021-06-16] MEDS: LOSARTAN POTASSIUM 50 MG TAB PO SCH (07:37)
[2021-06-16] MEDS: SPIRONOLACTONE 25 MG TAB PO SCH (07:38)
[2021-06-16] MEDS: dexAMETHasone 6 MG in SYRINGE 0 ML IV SCH ×2 (07:38→08:56)
[2021-06-16] MEDS: ROSUVASTATIN CALCIUM 20 MG TAB PO SCH (07:38)
[2021-06-16] MEDS: INSULIN HUMAN NPH SC SCH (08:56)
[2021-06-16] MEDS: INSULIN GLARGINE SOLOSTAR 100 UNITS/ML 3 ML PEN SC SCH (08:56)
--- NOTE | 2021-06-16 11:06 | Hospitalist Progress Note ---
Date of Service June 16, 2021 Assessment & Plan (1) Respiratory failure: Plan: Acute hypoxic respiratory failure due to COVID-19 pneumonia Status post outpatient monoclonal antibody infusion SIRS+ likely due to COVID 19 pneumonia. Blood cultures negative so far Procal is 0.18>1.2>0.53 CRP trending down Was started on ceftriaxone and doxycycline Continue oxygen supplementation and wean as tolerated. Continue incentive spirometry and flutter Continue CPAP at bedtime. Continue dexamethasone Remdesivir is contraindicated due to renal function Monitor inflammatory markers Leukocytosis - ?due to infection + steroid. Will monitor Elevated troponin Elevated troponin could be multifactorial with possibilities including NSTEMI, PE, background of CKD/HFrEF Trop peaked at 3.9 and trended down Appreciate cardiology evaluation and recommendations Was on heparin drip EKG showed LBBB which is old Cannot get CT PE due to renal function Dopplers negative VQ scan negative Stop heparin drip Patient has chronic systolic heart failure EF 45 to 49% (TTE 2020) secondary to nonischemic cardiomyopathy, euvolemic to baseline congestion Pulmonary hypertension secondary to DICK/pickwickian syndrome on CPAP Echo reviewed reduced EF of between 30 and 35% which is worse than before. Possible acute on chronic systolic HF. Volume status tough to assess due to body habitus IV lasix Hypertension BP is stable DM2 On oral medications and Ozempic, Last hemoglobin A1c of 9.08 January 2021 Currently 8.8 Hold home meds Pharm on board for glycemic control Provided DM education Will need supplies on dc CKD 3-4 Cr baseline (2.5-2.7 in the past 3 months) Cr is 2.34 today Monitor Avoid nephrotoxins Chronic anemia Monitor DVT prophylaxis - Hep sq Full code Admission and Anticipated Discharge Date Admission Date: June 13, 2021 Subjective Patient seen and examined. Still reports cough and occasional shortness of breath. Currently on home nasal CPAP Denies chest pain, sore throat, congestion Denies fever, chills, nausea, vomiting, abdominal pain or diarrhea Denies dysuria, frequency or urgency. Physical Exam Constitutional: + well hydrated and + morbidly obese; no acute distress Eyes: PERRL, conjunctivae normal, anicteric sclerae ENMT: external ear and nose normal, oropharynx normal Respiratory: On CPAP (for comfort), diminished breath sounds globally Cardiovascular: Rate/Rhythm: regular rate and regular rhythm S1 S2 Gastrointestinal (Abdomen): normal bowel sounds, soft, nontender, no hepatosplenomegaly Musculoskeletal: no cyanosis or clubbing, extremities motor strength 5/5 Neurologic: PERRL, EOMI, accommodation nl, no face palsy, no dysarthria Psychiatric: A+Ox3, euthymic affect Results & Data Results & Data ([facility]) Vital Signs (Past 12 Hours) Vital Signs Temp Pulse Pulse Resp BP Pulse Ox 06/16/21 09:07 87 06/16/21 08:52 36.8 C 83 25 H 149/99 H 94 06/16/21 05:23 36.4 C L 82 20 133/77 95 Laboratory Results Abnormal lab results 06/15/21 06/15/21 06/15/21 Range/Units 16:31 19:15 20:01 WBC (4.8-10.8) K/uL RBC (4.7-6.1) M/uL Hgb (14.0-18.0) g/dL Hct (42-52) % MCHC (32-36) g/dL RDW Std Deviation (36.4-46.3) fL MPV (7.4-10.4) fL APTT 53.2 H* (21.0-31.0) Seconds BUN (7-18) mg/dl Creatinine (0.6-1.4) mg/dl BUN/Creatinine Ratio (10-20) Glucose (70-99) mg/dl POC Glucose 263 H 230 H (70-99) mg/dl C-Reactive Protein (0-0.29) mg/dl Procalcitonin (0-0.5) ng/ml 06/16/21 06/16/21 06/16/21 Range/Units 00:27 05:22 05:31 WBC 22.69 H (4.8-10.8) K/uL RBC 4.09 L (4.7-6.1) M/uL Hgb 11.9 L (14.0-18.0) g/dL Hct 37.7 L (42-52) % MCHC 31.6 L (32-36) g/dL RDW Std Deviation 47.9 H (36.4-46.3) fL MPV 10.8 H (7.4-10.4) fL APTT (21.0-31.0) Seconds BUN (7-18) mg/dl Creatinine (0.6-1.4) mg/dl BUN/Creatinine Ratio (10-20) Glucose (70-99) mg/dl POC Glucose 174 H 190 H (70-99) mg/dl C-Reactive Protein (0-0.29) mg/dl Procalcitonin (0-0.5) ng/ml 06/16/21 06/16/21 06/16/21 Range/Units 05:31 05:31 05:31 WBC (4.8-10.8) K/uL RBC (4.7-6.1) M/uL Hgb (14.0-18.0) g/dL Hct (42-52) % MCHC (32-36) g/dL RDW Std Deviation (36.4-46.3) fL MPV (7.4-10.4) fL APTT 53.9 H* (21.0-31.0) Seconds BUN 57 H (7-18) mg/dl Creatinine 2.34 H (0.6-1.4) mg/dl BUN/Creatinine Ratio 24.3 H (10-20) Glucose 174 H (70-99) mg/dl POC Glucose (70-99) mg/dl C-Reactive Protein 2.00 H (0-0.29) mg/dl Procalcitonin 0.53 H (0-0.5) ng/ml 06/16/21 06/16/21 Range/Units 07:56 11:55 WBC (4.8-10.8) K/uL RBC (4.7-6.1) M/uL Hgb (14.0-18.0) g/dL Hct (42-52) % MCHC (32-36) g/dL RDW Std Deviation (36.4-46.3) fL MPV (7.4-10.4) fL APTT (21.0-31.0) Seconds BUN (7-18) mg/dl Creatinine (0.6-1.4) mg/dl BUN/Creatinine Ratio (10-20) Glucose (70-99) mg/dl POC Glucose 162 H 274 H (70-99) mg/dl C-Reactive Protein (0-0.29) mg/dl Procalcitonin (0-0.5) ng/ml (1) Respiratory failure Chronicity: acute Respiratory failure complication: hypoxia Qualified Code(s): J96.01 - Acute respiratory failure with hypoxia
[2021-06-16] MEDS ORDERED: cefTRIAXone SODIUM 1,000 MG in DEXTROSE 5% 50 ML IV SCH (11:15)
[2021-06-16] MEDS: DOXYCYCLINE HYCLATE 100 MG CAP PO SCH ×2 (12:42→20:04)
[2021-06-16] MEDS: cefTRIAXone SODIUM 2,000 MG in DEXTROSE 5% 50 ML IV SCH (12:42)
--- NOTE | 2021-06-16 12:56 | Pharmacy Report ---
Pharmacy Glycemic Short Note 2 - Date of Service June 16, 2021 - Glycemic Short BSG Results (Last 24 hours): 06/15/21 06/15/21 06/16/21 16:31 20:01 00:27 Glucose POC Glucose 263 H 230 H 174 H 06/16/21 06/16/21 06/16/21 05:22 05:31 07:56 Glucose 174 H POC Glucose 190 H 162 H 06/16/21 11:55 Glucose POC Glucose 274 H OUTPATIENT ANTIDIABETIC REGIMEN: * Metformin 500mg PO BID * Semaglutide 0.5mg SQ weekly * A1c = 8.8% 06/13/21 ASSESSMENT: 06/16 * BSGs continue to improve however daytime steroid induced hyperglycemia still problematic. Will increase AM NPH dose and also increase the Novolog prandial insulin dose. 06/15 * Type 2 diabetic admitted for COVID19 viral pneumonia * BSGs have improved over the last 24 hrs and are getting closer to goal. * 113 units SQ insulin given in the last 24 hrs. Uncertain how much PO patient consumed yesterday but it appears to be limited based upon Novolog doses given. * He is ordered dexamethasone IV once daily in the AM. Will given NPH in the AM with the dexamethasone dose to offset steroid induced hyperglycemia. Will reduce the Lantus dose given and move the majority of the dose to the AM to allow for some wearing off of effects overnight. * Novolog CF and CR are appropriate starting points for someone anticipated to require 120-130 units of insulin per day with current stressors. PLAN FOR INPATIENT GLYCEMIC CONTROL: * Hold outpatient oral diabetes medications (metformin, semaglutide) * Basal insulin * Lantus 30 units SQ Q AM. Will give additional 10 units this PM if BSG > 180 * NPH 40 units SQ Q AM with IV dexamethasone * Bolus insulin * NovoLog per scale ACHS and at 0200 initially as insulin doses are still being titrated * Goal Range: Low 110 mg/dL - High 140 mg/dL * Correction Factor: 12 mg/dL/unit during the day, 15mg/dL/unit on overnight checks (will only admin correctional insulin overnight if BSG > 160) * Nutritional / Prandial insulin per carb ratio of 1 unit per 3 grams CHO consumed PLAN FOR DISCHARGE: * to be determined
[2021-06-16] MEDS ORDERED: FUROSEMIDE INJ 20 MG/2 ML VIAL IV ONE (15:23)
[2021-06-16] MEDS: ACETAMINOPHEN 325 MG TAB PO PRN (20:04)
[2021-06-16] MEDS: HEPARIN SOD 5,000 UNIT/0.5 ML VIAL SQ SCH (20:07)
[2021-06-16] MEDS ORDERED: INSULIN GLARGINE SOLOSTAR 100 UNITS/ML 3 ML PEN SC ONE (21:00)
[2021-06-17] MEDS: INSULIN ASPART PER UNIT SC SCH ×5 (02:40→22:15)
[2021-06-17] MEDS: ACETAMINOPHEN 325 MG TAB PO PRN ×4 (04:29→22:16)
[2021-06-17] MEDS: HEPARIN SOD 5,000 UNIT/0.5 ML VIAL SQ SCH ×3 (06:15→22:15)
[2021-06-17] MEDS: INSULIN GLARGINE SOLOSTAR 100 UNITS/ML 3 ML PEN SC SCH (08:00)
[2021-06-17] MEDS: INSULIN HUMAN NPH SC SCH (08:00)
[2021-06-17 08:21] LABS: Hematocrit (blood only) 37.8 % (42-52); Hemoglobin 12.1 g/dL (14.0-18.0); Mean Corpuscular Hemoglobin 29.6 pg (25-34); Mean Corpuscular Volume 92.4 fL (80-100); Mean Platelet Volume 10.4 fL (7.4-10.4); Platelet Count 235 K/uL (130-400); RDW Coefficient of Variation 14.1 % (11.5-14.5); RDW Standard Deviation 47.6 fL (36.4-46.3); Red Blood Count 4.09 M/uL (4.7-6.1)
[2021-06-17 08:38] LABS: BUN Creatinine Ratio 27.9 (10-20); Calcium 9.2 mg/dl (8.5-10.1); Creatinine Clr Calc Pharmacy 56.3 ml/min; Est GFR (African American) 38.7 ml/min; Est GFR (Non-African American) 33.4 ml/min; Potassium 4.1 mmol/L (3.5-5.1)
[2021-06-17] MEDS: ROSUVASTATIN CALCIUM 20 MG TAB PO SCH (08:48)
[2021-06-17] MEDS: ASPIRIN 81 MG ECTAB PO SCH (08:48)
[2021-06-17] MEDS: FOLIC ACID 1 MG TAB PO SCH (08:48)
[2021-06-17] MEDS: DULoxetine HCL 30 MG CAP PO SCH (08:48)
[2021-06-17] MEDS: SPIRONOLACTONE 25 MG TAB PO SCH (08:48)
[2021-06-17] MEDS: GABAPENTIN 300 MG CAP PO SCH ×2 (08:49→19:26)
[2021-06-17] MEDS: DOXYCYCLINE HYCLATE 100 MG CAP PO SCH ×2 (08:49→19:25)
[2021-06-17] MEDS: LOSARTAN POTASSIUM 50 MG TAB PO SCH (08:49)
[2021-06-17] MEDS: carvediloL 6.25 MG TAB PO SCH ×2 (08:50→19:26)
[2021-06-17] MEDS: cefTRIAXone SODIUM 2,000 MG in DEXTROSE 5% 50 ML IV SCH (10:53)
--- NOTE | 2021-06-17 12:55 | Hospitalist Progress Note ---
Date of Service June 17, 2021 Assessment & Plan (1) Respiratory failure: Plan: Acute hypoxic respiratory failure due to COVID-19 pneumonia Status post outpatient monoclonal antibody infusion SIRS+ likely due to COVID 19 pneumonia. Blood cultures negative so far Procal is 0.18>1.2>0.53 CRP trending down Was started on ceftriaxone and doxycycline Continue to wean oxygen as tolerated. Continue incentive spirometry and flutter Continue CPAP at bedtime. Continue dexamethasone Remdesivir is contraindicated due to renal function Monitor inflammatory markers Leukocytosis. Patient has known CLL. Follows with hematology outpatient Elevated troponin Elevated troponin could be multifactorial with possibilities including NSTEMI, PE, background of CKD/HFrEF Trop peaked at 3.9 and trended down Appreciate cardiology evaluation and recommendations Was on heparin drip, now off EKG showed LBBB which is old Could not get CT PE due to renal function Dopplers negative VQ scan negative Patient has chronic systolic heart failure EF 45 to 49% (TTE 2020) secondary to nonischemic cardiomyopathy, euvolemic to baseline congestion Pulmonary hypertension secondary to DICK/pickwickian syndrome on CPAP Echo reviewed reduced EF of between 30 and 35% which is worse than before. Possible acute on chronic systolic HF. Volume status tough to assess due to body habitus IV lasix 20mg today and monitor Hypertension BP is stable DM2 On oral medications and Ozempic, Last hemoglobin A1c of 9.08 January 2021 Currently 8.8 Hold home meds Pharm on board for glycemic control Provided DM education Will need supplies on dc CKD 3-4 Cr baseline (2.5-2.7 in the past 3 months) Cr is 2.03 today Monitor Avoid nephrotoxins Chronic anemia Monitor DVT prophylaxis - Hep sq Full code Admission and Anticipated Discharge Date Admission Date: June 13, 2021 Subjective Patient seen and examined. Reports improvement in cough and shortness of breath. Denies chest pain, sore throat, congestion Denies fever, chills, nausea, vomiting, abdominal pain or diarrhea Denies dysuria, frequency or urgency. Physical Exam Constitutional: + well hydrated and + morbidly obese; no acute distress Eyes: PERRL, conjunctivae normal, anicteric sclerae ENMT: external ear and nose normal, oropharynx normal Respiratory: On 2 L/min nasal cannula. Diminished breath sounds globally Cardiovascular: Rate/Rhythm: regular rate and regular rhythm S1-S2 Gastrointestinal (Abdomen): normal bowel sounds, soft, nontender, no hepatosplenomegaly Musculoskeletal: no cyanosis or clubbing, extremities motor strength 5/5 Neurologic: PERRL, EOMI, accommodation nl, no face palsy, no dysarthria Psychiatric: A+Ox3, euthymic affect Results & Data Results & Data ([facility]) Vital Signs (Past 12 Hours) Vital Signs Temp Pulse Pulse Resp BP Pulse Ox 06/17/21 11:09 36.6 C 78 19 114/66 93 06/17/21 11:06 17 89 L 06/17/21 09:11 73 06/17/21 07:26 36.4 C 86 16 130/73 97 06/17/21 04:06 36.6 C 73 24 139/92 94 Laboratory Results Abnormal lab results 06/16/21 06/16/21 06/17/21 Range/Units 16:23 19:35 02:02 WBC (4.8-10.8) K/uL RBC (4.7-6.1) M/uL Hgb (14.0-18.0) g/dL Hct (42-52) % RDW Std Deviation (36.4-46.3) fL BUN (7-18) mg/dl Creatinine (0.6-1.4) mg/dl BUN/Creatinine Ratio (10-20) Glucose (70-99) mg/dl POC Glucose 185 H 161 H 158 H (70-99) mg/dl 06/17/21 06/17/21 06/17/21 Range/Units 07:53 07:57 07:57 WBC 19.50 H (4.8-10.8) K/uL RBC 4.09 L (4.7-6.1) M/uL Hgb 12.1 L (14.0-18.0) g/dL Hct 37.8 L (42-52) % RDW Std Deviation 47.6 H (36.4-46.3) fL BUN 57 H (7-18) mg/dl Creatinine 2.03 H D (0.6-1.4) mg/dl BUN/Creatinine Ratio 27.9 H (10-20) Glucose 109 H (70-99) mg/dl POC Glucose 104 H (70-99) mg/dl 06/17/21 Range/Units 12:02 WBC (4.8-10.8) K/uL RBC (4.7-6.1) M/uL Hgb (14.0-18.0) g/dL Hct (42-52) % RDW Std Deviation (36.4-46.3) fL BUN (7-18) mg/dl Creatinine (0.6-1.4) mg/dl BUN/Creatinine Ratio (10-20) Glucose (70-99) mg/dl POC Glucose 208 H (70-99) mg/dl (1) Respiratory failure Chronicity: acute Respiratory failure complication: hypoxia Qualified Code(s): J96.01 - Acute respiratory failure with hypoxia
[2021-06-17] MEDS ORDERED: FUROSEMIDE INJ 20 MG/2 ML VIAL IV ONE (13:15)
[2021-06-17] MEDS: MELATONIN 3 MG TAB PO PRN (22:16)
[2021-06-18] MEDS: INSULIN ASPART PER UNIT SC SCH ×5 (02:36→22:48)
[2021-06-18] MEDS: ACETAMINOPHEN 325 MG TAB PO PRN ×3 (04:34→21:06)
[2021-06-18] MEDS: PANTOprazole 40 MG TAB PO SCH (05:47)
[2021-06-18] MEDS: HEPARIN SOD 5,000 UNIT/0.5 ML VIAL SQ SCH ×3 (05:47→21:02)
[2021-06-18 05:53] LABS: Hematocrit (blood only) 37.5 % (42-52); Hemoglobin 11.8 g/dL (14.0-18.0); Mean Corpuscular Hgb Conc 31.5 g/dL (32-36); Mean Corpuscular Volume 92.1 fL (80-100); Mean Platelet Volume 10.3 fL (7.4-10.4); Platelet Count 229 K/uL (130-400); Red Blood Count 4.07 M/uL (4.7-6.1); White Blood Count 18.72 K/uL (4.8-10.8)
[2021-06-18 06:42] LABS: BUN Creatinine Ratio 26.1 (10-20); C Reactive Protein 0.49 mg/dl (0-0.29); Calcium 9.3 mg/dl (8.5-10.1); Creatinine Clr Calc Pharmacy 56.1 ml/min; Est GFR (African American) 40.2 ml/min; Est GFR (Non-African American) 34.6 ml/min; Magnesium 2.2 mg/dl (1.8-2.4); Potassium 3.9 mmol/L (3.5-5.1)
[2021-06-18] MEDS: DOXYCYCLINE HYCLATE 100 MG CAP PO SCH ×2 (08:14→21:01)
[2021-06-18] MEDS: FOLIC ACID 1 MG TAB PO SCH (08:14)
[2021-06-18] MEDS: carvediloL 6.25 MG TAB PO SCH ×2 (08:14→21:02)
[2021-06-18] MEDS: ROSUVASTATIN CALCIUM 20 MG TAB PO SCH (08:14)
[2021-06-18] MEDS: SPIRONOLACTONE 25 MG TAB PO SCH (08:15)
[2021-06-18] MEDS: ASPIRIN 81 MG ECTAB PO SCH (08:15)
[2021-06-18] MEDS: DULoxetine HCL 30 MG CAP PO SCH (08:15)
[2021-06-18] MEDS: GABAPENTIN 300 MG CAP PO SCH ×2 (08:15→21:01)
[2021-06-18] MEDS: LOSARTAN POTASSIUM 50 MG TAB PO SCH (08:15)
[2021-06-18] MEDS: dexAMETHasone 6 MG in SYRINGE 0 ML IV SCH (09:19)
[2021-06-18] MEDS: INSULIN HUMAN NPH SC SCH (09:44)
[2021-06-18] MEDS: INSULIN GLARGINE SOLOSTAR 100 UNITS/ML 3 ML PEN SC SCH (09:44)
[2021-06-18] MEDS: cefTRIAXone SODIUM 2,000 MG in DEXTROSE 5% 50 ML IV SCH (11:39)
--- NOTE | 2021-06-18 13:41 | Hospitalist Progress Note ---
Date of Service June 18, 2021 Assessment & Plan (1) Respiratory failure: Plan: Acute hypoxic respiratory failure due to COVID-19 pneumonia Status post outpatient monoclonal antibody infusion SIRS+ likely due to COVID 19 pneumonia. Blood cultures negative so far Procal is 0.18>1.2>0.53 CRP trended down Continue incentive spirometry and flutter Continue CPAP at bedtime. Continue dexamethasone Currently on ceft + doxycycline Remdesivir is contraindicated due to renal function Leukocytosis. Patient has known CLL. Follows with hematology outpatient Plan to do 2 step tomorrow. Possible dc in 24-48h Elevated troponin Elevated troponin could be multifactorial with possibilities including NSTEMI, PE, background of CKD/HFrEF Trop peaked at 3.9 and trended down Appreciate cardiology evaluation and recommendations Was on heparin drip, now off EKG showed LBBB which is old Could not get CT PE due to renal function Dopplers negative VQ scan negative Patient has chronic systolic heart failure EF 45 to 49% (TTE 2020) secondary to nonischemic cardiomyopathy, euvolemic to baseline congestion Pulmonary hypertension secondary to DICK/pickwickian syndrome on CPAP Echo reviewed reduced EF of between 30 and 35% which is worse than before. Possible acute on chronic systolic HF. Volume status tough to assess due to body habitus IV lasix 20mg today and monitor. May benefit from low dose lasix on discharge Continue home spironolactone and carvedilol Hypertension BP is stable DM2 On oral medications and Ozempic, Last hemoglobin A1c of 9.08 January 2021 Currently 8.8 Hold home meds Pharm on board for glycemic control Provided DM education Will need supplies on dc CKD 3-4 Cr baseline (2.5-2.7 in the past 3 months) Cr is 1.97 today Monitor Avoid nephrotoxins Chronic anemia Monitor DVT prophylaxis - Hep sq Full code Admission and Anticipated Discharge Date Admission Date: June 13, 2021 Subjective Patient seen and examined. Cough and shortness of breath continue to improve Intermittently on room air Denies chest pain, sore throat, congestion Denies fever, chills, nausea, vomiting, abdominal pain or diarrhea Denies dysuria, frequency or urgency. Physical Exam Constitutional: + well hydrated and + morbidly obese; no acute distress Eyes: PERRL, conjunctivae normal, anicteric sclerae ENMT: external ear and nose normal, oropharynx normal Respiratory: Globally diminished breath sounds Cardiovascular: Rate/Rhythm: regular rate and regular rhythm S1 S2 Gastrointestinal (Abdomen): normal bowel sounds, soft, nontender, no hepatosplenomegaly Musculoskeletal: no cyanosis or clubbing, extremities motor strength 5/5 Neurologic: PERRL, EOMI, accommodation nl, no face palsy, no dysarthria Psychiatric: A+Ox3, euthymic affect Results & Data Results & Data ([facility]) Vital Signs (Past 12 Hours) Vital Signs Temp Pulse Pulse Resp BP Pulse Ox 06/18/21 11:21 36.6 C 82 19 126/71 92 06/18/21 10:11 67 06/18/21 07:17 36.7 C 75 24 123/59 L 90 06/18/21 04:30 36.7 C 74 20 143/72 H 90 Laboratory Results Abnormal lab results 06/17/21 06/17/21 06/18/21 Range/Units 16:47 20:59 05:40 WBC 18.72 H (4.8-10.8) K/uL RBC 4.07 L (4.7-6.1) M/uL Hgb 11.8 L (14.0-18.0) g/dL Hct 37.5 L (42-52) % MCHC 31.5 L (32-36) g/dL RDW Std Deviation 47.0 H (36.4-46.3) fL BUN (7-18) mg/dl Creatinine (0.6-1.4) mg/dl BUN/Creatinine Ratio (10-20) Glucose (70-99) mg/dl POC Glucose 164 H 141 H (70-99) mg/dl C-Reactive Protein (0-0.29) mg/dl 06/18/21 06/18/21 Range/Units 05:40 11:44 WBC (4.8-10.8) K/uL RBC (4.7-6.1) M/uL Hgb (14.0-18.0) g/dL Hct (42-52) % MCHC (32-36) g/dL RDW Std Deviation (36.4-46.3) fL BUN 51 H (7-18) mg/dl Creatinine 1.97 H (0.6-1.4) mg/dl BUN/Creatinine Ratio 26.1 H (10-20) Glucose 104 H (70-99) mg/dl POC Glucose 156 H (70-99) mg/dl C-Reactive Protein 0.49 H (0-0.29) mg/dl (1) Respiratory failure Chronicity: acute Respiratory failure complication: hypoxia Qualified Code(s): J96.01 - Acute respiratory failure with hypoxia
[2021-06-18] MEDS ORDERED: FUROSEMIDE INJ 20 MG/2 ML VIAL IV ONE (14:22)
--- NOTE | 2021-06-18 14:29 | Pharmacy Report ---
Pharmacy Glycemic Short Note 2 - Date of Service June 18, 2021 - Glycemic Short BSG Results (Last 24 hours): 06/17/21 06/17/21 06/18/21 16:47 20:59 02:04 Glucose POC Glucose 164 H 141 H 96 06/18/21 06/18/21 06/18/21 05:40 07:55 11:44 Glucose 104 H POC Glucose 84 156 H OUTPATIENT ANTIDIABETIC REGIMEN: * Metformin 500mg PO BID * Semaglutide 0.5mg SQ weekly * A1c = 8.8% 06/13/21 ASSESSMENT: 06/18: * Patient received total 133 units of insulin yesterday; 70 units basal (30 units Lantus + 40 units NPH) and 63 units bolus. * Fasting BSG = 84 mg/dl today. Basal insulin doses reduced slightly this AM. Pt continues to be on IV Dex 6 mg daily, so NPH is continued. * BSG trended down to 141 mg/dl at HS yesterday and pre-lunch BSG was 156 mg/dl today. Novolog CR loosened slightly with lunch today. 06/16 * BSGs continue to improve however daytime steroid induced hyperglycemia still problematic. Will increase AM NPH dose and also increase the Novolog prandial insulin dose. 06/15 * Type 2 diabetic admitted for COVID19 viral pneumonia * BSGs have improved over the last 24 hrs and are getting closer to goal. * 113 units SQ insulin given in the last 24 hrs. Uncertain how much PO patient consumed yesterday but it appears to be limited based upon Novolog doses given. * He is ordered dexamethasone IV once daily in the AM. Will given NPH in the AM with the dexamethasone dose to offset steroid induced hyperglycemia. Will reduce the Lantus dose given and move the majority of the dose to the AM to allow for some wearing off of effects overnight. * Novolog CF and CR are appropriate starting points for someone anticipated to require 120-130 units of insulin per day with current stressors. PLAN FOR INPATIENT GLYCEMIC CONTROL: * Hold outpatient oral diabetes medications (metformin, semaglutide) * Basal insulin: doses reduced * Lantus 25 units SQ Q AM. * NPH 35 units SQ Q AM with IV dexamethasone * Bolus insulin: loosened CR * NovoLog per scale ACHS and at 0200 initially as insulin doses are still being titrated * Goal Range: Low 110 mg/dL - High 140 mg/dL * Correction Factor: 12 mg/dL/unit during the day, 15mg/dL/unit on overnight checks (will only admin correctional insulin overnight if BSG > 160) * Nutritional / Prandial insulin per carb ratio of 1 unit per 4 grams CHO consumed PLAN FOR DISCHARGE: * to be determined
[2021-06-18] MEDS: MELATONIN 3 MG TAB PO PRN (21:12)
[2021-06-19] MEDS: INSULIN ASPART PER UNIT SC SCH ×3 (03:07→12:36)
[2021-06-19] MEDS: PANTOprazole 40 MG TAB PO SCH (05:58)
[2021-06-19] MEDS: HEPARIN SOD 5,000 UNIT/0.5 ML VIAL SQ SCH (05:58)
[2021-06-19] MEDS: ACETAMINOPHEN 325 MG TAB PO PRN ×2 (06:09→10:21)
[2021-06-19 06:38] LABS: Hematocrit (blood only) 38.2 % (42-52); Hemoglobin 12.2 g/dL (14.0-18.0); Mean Corpuscular Hemoglobin 29.3 pg (25-34); Mean Corpuscular Hgb Conc 31.9 g/dL (32-36); Mean Corpuscular Volume 91.6 fL (80-100); Mean Platelet Volume 10.7 fL (7.4-10.4); Platelet Count 259 K/uL (130-400); RDW Coefficient of Variation 14.1 % (11.5-14.5); RDW Standard Deviation 47.3 fL (36.4-46.3); Red Blood Count 4.17 M/uL (4.7-6.1); White Blood Count 19.82 K/uL (4.8-10.8)
[2021-06-19 07:05] LABS: BUN Creatinine Ratio 25.3 (10-20); Calcium 9.5 mg/dl (8.5-10.1); Creatinine Clr Calc Pharmacy 58.3 ml/min; Est GFR (African American) 42.2 ml/min; Est GFR (Non-African American) 36.4 ml/min; Magnesium 2.1 mg/dl (1.8-2.4)
[2021-06-19] MEDS: SPIRONOLACTONE 25 MG TAB PO SCH (08:17)
[2021-06-19] MEDS: carvediloL 6.25 MG TAB PO SCH (08:17)
[2021-06-19] MEDS: DULoxetine HCL 30 MG CAP PO SCH (08:18)
[2021-06-19] MEDS: LOSARTAN POTASSIUM 50 MG TAB PO SCH (08:18)
[2021-06-19] MEDS: FOLIC ACID 1 MG TAB PO SCH (08:18)
[2021-06-19] MEDS: ROSUVASTATIN CALCIUM 20 MG TAB PO SCH (08:18)
[2021-06-19] MEDS: GABAPENTIN 300 MG CAP PO SCH (08:19)
[2021-06-19] MEDS: ASPIRIN 81 MG ECTAB PO SCH (08:19)
[2021-06-19] MEDS: DOXYCYCLINE HYCLATE 100 MG CAP PO SCH (08:20)
[2021-06-19] MEDS: dexAMETHasone 6 MG in SYRINGE 0 ML IV SCH (08:23)
[2021-06-19] MEDS ORDERED: FUROSEMIDE 40 MG/4 ML VIAL IV ONE (08:32)
[2021-06-19] MEDS: INSULIN GLARGINE SOLOSTAR 100 UNITS/ML 3 ML PEN SC SCH (09:14)
[2021-06-19] MEDS: INSULIN HUMAN NPH SC SCH (09:14)
[2021-06-19] MEDS: cefTRIAXone SODIUM 2,000 MG in DEXTROSE 5% 50 ML IV SCH (10:57)
--- NOTE | 2021-06-19 12:50 | Discharge Summary ---
Date of Service June 19, 2021 Admission HPI Per Admitting Provider History obtained from patient and records. History somewhat limited by patient's current BiPAP use. Medical history significant for chronic systolic heart failure EF 45 to 49% (TTE 2020) secondary to nonischemic cardiomyopathy, chronic LBBB, pulmonary hypertension secondary to DICK/pickwickian syndrome on CPA, hypertension, hyperlipidemia, DM2 on oral medications and Ozempic, CRI (baseline creatinine 2.5), chronic anemia (baseline hemoglobin 11-12). 3 days history of dry cough symptoms, flulike symptoms with shortness of breath without fluid retention as per patient. Patient has not received COVID-19 vaccination. No known recent sick contacts but also sick with respiratory illness as per patient. Patient seen at [facility] ER after a fall and positive outpatient COVID-19 test2 days ago. Chest x-ray showed mild CHF. Monoclonal antibody infusion administered at the ER. Patient noted worsening symptoms at home. O2 sats noted to be 80s on room air. No chest pain or unusual fluid retention as per patient. BiPAP initiated by EMS at patient's home. Patient brought to the ER for evaluation. IV Decadron given at the ER. Medical History as above Surgical History : None Family History : DM, heart disease Personal/Social history : Non-smoker, no EtOH intake, retired [employer] Admission Exam Per Admitting Provider GENERAL: Slightly uncomfortable, morbidly obese, respiratory distress SKIN: Pallor , warm HEENT: Partial alopecia, pale palpebral conjunctivae, no ptosis, dry buccal mucosa, BiPAP in place NECK : Supple, short neck, no tenderness CHEST : Decreased breath sounds, expiratory wheezes, no tenderness HEART : Tachycardic, no obvious murmurs ABDOMEN: Some distention, nontender EXTREMITIES : Bilateral LE venous stasis, no LE tenderness, no other conspicuous deformities noted NEUROLOGIC : Coherent, no facial asymmetry, no other gross focality Principal Diagnosis Acute hypoxic respiratory failure due to COVID-19 pneumonia Acute on chronic systolic heart failure Discharge Exam Constitutional + well hydrated and + morbidly obese; no acute distress Eyes PERRL, conjunctivae normal, anicteric sclerae ENMT external ear and nose normal, oropharynx normal Respiratory Not in respiratory distress, on room air, diminished breath sounds lung bases Cardiovascular Rate/Rhythm: regular rate and regular rhythm S1 S2 Gastrointestinal (Abdomen) normal bowel sounds, soft, nontender, no hepatosplenomegaly Musculoskeletal no cyanosis or clubbing, extremities motor strength 5/5 Neurologic PERRL, EOMI, accommodation nl, no face palsy, no dysarthria Psychiatric A+Ox3, euthymic affect Discharge Data Allergies Allergy/AdvReac Type Severity Reaction Status Date / Time No Known Allergies Allergy Unverified 06/18/13 09:21 Consultations 06/13/21 22:07 ED Decision to Admit Stat 06/14/21 14:59 Consult Cardiology Routine Ordered Studies 06/14/21 01:14 US venous doppler LE BI Routine Hospital Course (1) Respiratory failure: Acute hypoxic respiratory failure due to COVID-19 pneumonia Status post outpatient monoclonal antibody infusion SIRS+ likely due to COVID 19 pneumonia. Blood cultures negative Procal is 0.18>1.2>0.53 CRP trended down Managed with dexamethasone Also got antibiotics ceftriaxone and doxycycline due to elevated procalcitonin Discharged on augmentin and doxycycline for another day to complete treatment Remdesivir is contraindicated due to renal function Leukocytosis. Patient has known CLL. Follows with hematology outpatient Required oxygen while inpatient which was weaned off. 2 Step did not indicate oxygen requirement with activity Elevated troponin Elevated troponin due to NSTEMI on background of CKD/HFrEF Trop peaked at 3.9 and trended down Was on heparin drip briefly EKG showed LBBB which is old Could not get CT PE due to renal function Dopplers negative VQ scan negative Patient has chronic systolic heart failure EF 45 to 49% (TTE 2020) secondary to nonischemic cardiomyopathy, euvolemic to baseline congestion Pulmonary hypertension secondary to DICK/pickwickian syndrome on CPAP Echo reviewed reduced EF of between 30 and 35% which is worse than before. Acute on chronic systolic HF Got IV lasix inpatient. Review of outpatient records show patient was also on lasix outpatient. Home meds list updated Continue home spironolactone, lasix and carvedilol Patient needs to follow up with Cardiology within 1-2 weeks Hypertension Continue home meds DM2 On oral medications and Ozempic, Last hemoglobin A1c of 9.08 January 2021 Currently 8.8 Continue home antidiabetics Provided DM education CKD 3-4 Cr baseline (2.5-2.7 in the past 3 months) Cr is 1.89 today Chronic anemia Monitor. Hb 12.2 today Total Time Total Time Spent Total Time Spent (In Minutes): 50 Total Time Includes: Examination of the Patient, Discharge Planning, Medication Reconciliation and Communication With Other Providers Discharge Plan Discharge Items Patient Disposition: Home - Self-Care Discharge Diagnosis: Acute hypoxic respiratory failure due to COVID-19 pneumonia Acute on chronic systolic heart failure Activity: Resume your previous activity Non-emergency contact: Primary Care Provider Call non-emergency contact if: you have any medication questions and your symptoms worsen Follow-up/Referrals: Gaetano Hernández MD [Outside Practitioners] - 06/26/21 12:00 pm (Date & Time 06/26/2021 12:00 PM Provider Ena Caba DO Department Family [facility] PLEASE NOTE THAT THIS IS A TELEHEALTH VIDEO APPOINTMENT. PLEASE FOLLOW THE INSTRUCTIONS PROVIDED IN YOUR EMAIL. IF YOU HAVE ANY QUESTIONS REGARDING THIS APPOINTMENT, PLEASE CALL ) Angel Putnam DO [Receiving And Processing Supervisor] - 08/08/21 9:00 am (Date & Time 08/08/2021 9:00 AM Provider Angel Putnam DO Department Cardiology, [place] [facility] will call you with an sooner appointment as Dr Putnam would like to see you in 1-2 weeks. ) Diet: Carb Consistent or DM2 and Heart Healthy Addtl Attending Provider Instructions: Mr. Vang Came to the hospital complaining of worsening cough and shortness of breath. You were evaluated and treated for COVID-19 pneumonia with acute hypoxic respiratory failure. You required oxygen but was successfully weaned off. Your Echocardiogram also showed worsening ejection fraction at 30-35%. Please ensure you continue to take your medications including your diuretics as prescribed. You are being discharged home. Please ensure follow up with your Primary Doctor, Wrap Checker and Receiving And Processing Supervisor. Please call your Cardiology office for an earlier appointment within 1 - 2 weeks. It was a pleasure taking care of you. Pending Studies at Discharge: No Stand-Alone Forms: My [employer], Smoking Cessation Medications and DC Order Prescriptions: New doxycycline hyclate 100 mg Capsule 100 mg PO BID Qty: 3 RF: 0 amoxicillin-pot clavulanate [Augmentin] 875-125 mg tablet 1 tab PO BID Qty: 3 RF: 0 (DME) lancets [OneTouch Delica Lancets] 33 gauge misc See Rx Instructions .Route Qty: 100 RF: 0 (DME) OneTouch Verio test strips Strip See Rx Instructions .Route Qty: 100 RF: 0 Continued losartan 50 mg tablet 50 mg PO DAILY RF: 0 metformin 500 mg tablet 500 mg PO BID RF: 0 carvedilol 6.25 mg tablet 6.25 mg PO BID RF: 0 spironolactone 25 mg tablet 25 mg PO DAILY RF: 0 pantoprazole 40 mg tablet,delayed release (DR/EC) 40 mg PO DAILYBB RF: 0 gabapentin 300 mg capsule 300 mg PO BID RF: 0 folic acid 1 mg tablet 1 mg PO DAILY RF: 0 rosuvastatin 40 mg tablet 40 mg PO DAILY RF: 0 duloxetine 30 mg capsule,delayed release(DR/EC) 30 mg PO DAILY RF: 0 Ozempic 0.25 mg or 0.5 mg(2 mg/1.5 mL) pen injector 0.5 mg SUBCUT WK RF: 0 aspirin [Aspirin Low Dose] 81 mg Tablet,Delayed Release (Dr/Ec) 81 mg PO DAILY RF: 0 furosemide 40 mg tablet 40 mg PO BID RF: 0 Discharge Orders: Discharge Order (Routine); Ordered 06/19/21 Ordered By: Donna Burrows/Other Patient Handouts: A1C, Managing Type 2 Diabetes, 5 Steps for Eating Healthier Admission Data Admit Date/Time: 06/13/21 23:04 Attending Provider: Donna Adams I. Admit Provider: Wilmar Butler Primary Care Provider: PCP,NO Other Providers: Wilmar Butler ; Dileep Mcallister Other Interventions: Discharge Summary Assessment (RN) Last Done: 06/19/21 13:06
== END 2021-06-19 14:01 | disposition home or self-care (01) | DRG 871 ==
LOC: ED 21:01 → EDINP 23:04 → 2E 06-14 20:39

== ENCOUNTER 2022-05-27 22:36 | Inpatient (IN) ==
[2022-05-27 23:24] LABS: Hematocrit (blood only) 34.1 % (40.1-51.0); Mean Corpuscular Hemoglobin 29.6 pg (25.0-34.0); Mean Corpuscular Hgb Conc 32.3 g/dL (32.0-36.0); Mean Corpuscular Volume 91.9 fL (80.0-100.0); Mean Platelet Volume 10.7 fL (9.4-12.4); Platelet Count 156 K/uL (130-400); RDW Coefficient of Variation 12.8 % (11.5-14.5); RDW Standard Deviation 42.7 fL (36.4-46.3); Red Blood Count 3.71 M/uL (4.63-6.08); White Blood Count 21.57 K/ul (4.8-10.8)
[2022-05-27 23:34] LABS: INR 1.1 (0.9-1.1); Prothrombin Time 11.9 Seconds (9.0-12.0)
[2022-05-27 23:52] LABS: Troponin I High Sensitivity 26.9 pg/ml (0-20)
[2022-05-28 00:03] LABS: Basophils # (auto) 0.06 K/uL (0-0.2); Basophils % (auto) 0.3 %; Eosinophils # (auto) 0.15 K/uL (0-0.50); Eosinophils % (auto) 0.7 %; Immature Granulocytes # (auto) 0.09 K/uL (0.00-0.02); Immature Granulocytes % (auto) 0.4 %; Lymphocytes # (auto) 8.71 K/uL (1.2-3.4); Lymphocytes % (auto) 40.4 %; Monocytes # (auto) 1.48 K/uL (0.24-0.82); Monocytes % (auto) 6.9 %; Neutrophils # (auto) 11.08 K/uL (1.4-6.5); Neutrophils % (auto) 51.3 %
[2022-05-28] MEDS ORDERED: ACETAMINOPHEN 1,000 MG/100 ML VIAL IV STA (00:09)
[2022-05-28] MEDS ORDERED: PIPERACILLIN/TAZOBACTAM 4.5 GM/120 ML BAG IV ONE (00:13)
--- NOTE | 2022-05-28 00:14 | Emergency Department Note ---
Impression & Plan Acute UTI, CKD (chronic kidney disease), stage IV, Weakness, Kidney stone ED Provider Note Provider: Steven Fraser MD DATE OF SERVICE: 05/27/2022 CHIEF COMPLAINT: Weakness HISTORY OF PRESENT ILLNESS: Patient is a 66-year-old gentleman with a history of CLL, CKD, and diabetes presenting via ambulance from his home. Patient evidently recently had kidney stones and urinary stents removed. Patient states he was feeling well but then this evening when getting to get out of bed became weak and slumped to the ground. Denies striking his head or significantly falling. Evidently was very weak and they were unable to get him up to walk much at all. States his legs just feel weak. Denies URI symptoms or chest pain. Denies nausea or vomiting. Bit of some chronic mid to right lower back discomfort. Denies any abdominal pain. Again denies any significant trauma to the head. No fevers reported. REVIEW OF SYSTEMS: A total of 10 review of systems was obtained and negative except as stated above in the HPI. PAST MEDICAL HISTORY: As noted above MEDICATIONS: Reviewed home medications SOCIAL HISTORY: Lives at home PHYSICAL EXAM: GENERAL: alert and oriented in no acute distress on stretcher Head: normocephalic and atraumatic EYES: No injection, discharge or icterus. PERRL, EOMI. NECK: Trachea midline. ENT: Mucous membranes pink and moist. LUNGS: Airway patent. No retractions. Breath sounds clear with good air entry bilaterally. HEART: Regular rate and rhythm. No chest wall tenderness ABDOMEN: Soft and non-tender, without guarding or rebound. BACK: No midline tenderness, No bilateral flank tenderness. SKIN: Acyanotic, warm, dry EXTREMITIES: No significant tenderness. Some chronic stasis change of the bilateral calves without significant tenderness or severe erythema. No bony tenderness of the lower extremities. NEUROLOGICAL: No focal deficits. No aphasia. No facial droop or slurred speech. Normal strength and tone in the extremities. Sensation to gross touch normal. Ambulatory. EK bpm sinus tachycardia with PVC. Left bundle branch block is noted. No acute ST segment elevation is noted. QTc 483. CONTINUOUS CARDIAC MONITORING: was ordered and showed a heart rate of 80s-100s bpm in normal sinus rhythm and sinus tachycardia 1 view chest x-ray by my interpretation without pneumonia or pneumothorax with cardiomegaly noted. No free air. Patient's laboratory studies and imaging reviewed. Differential includes Infection, dehydration, metabolic abnormality, hypo/hyperglycemia, electrolyte disturbance, anemia, hypoxia, cardiac sources, intracerebral event, toxicologic, neurologic, as well as other pathologies. IMPRESSION/MEDICAL DECISION MAKING: Patient with some generalized lower extremity weakness. Maybe a little bit of right lower back discomfort. No abdominal pain. No fevers reported. Does not sound like a significant trauma when he went to the floor. Not on Eliquis or formal anticoagulants but on low-dose aspirin. CT of the head as well as abdomen pelvis was obtained given his recent stenting and generalized weakness. Not having significant numbness focally in the extremities. Denies severe back pain. History of CLL but white count is elevated at 21 today as well as a mildly elevated procalcitonin. Stable mild anemia. Lactate is not elevated however. No fever or tachycardia or hypotension here. Imaging as below questions a possible small left-sided kidney stone. Urinalysis sent which appears grossly infected. History of CKD. We will give some Zosyn at this time. Later a bit of a headache and given some Tylenol. Not having significant left-sided pain or signs of sepsis at this point. Blood cultures are pending. Stable CKD. Was able ambulate some with nursing assistance to the bathroom. Still fairly weak and with the elevated white blood cell count and evidence of UTI will bring into the hospital. DIAGNOSIS: Weakness, UTI, left-sided kidney stone, CKD DISPOSITION: Hospitalist will evaluate Patient was agreeable with this plan. Preliminary Findings Only See Final Report For Complete Findings CT HEAD: No ICH, mass effect or edema. No evidence of acute cortical stroke. Visualized sinuses and mastoid air cells are clear. Radiologist: Aravind Costa MD Study ready at 23:56 and initial results transmitted at 23:58 Preliminary Findings Only See Final Report For Complete Findings CT ABDOMEN & PELVIS Without Contrast: Prior examination dated 04/06/22 is reviewed. Despite the given history, no ureteral stents are seen. There is persistent mild left-sided hydroureteronephrosis with multiple small calculi. There is a punctate left distal ureteral calculus (image 160 series 2). No change in small right lower pole intrarenal calculi. The patient is status post cholecystectomy. Radiologist: Aravind Costa MD Study ready at 23:56 and initial results transmitted at 00:00 Past Med/Surg History Medical History (Updated 05/28/22 @ 00:35 by Steven Fraser M.D.) KATRINA (acute kidney injury) Chronic back pain CKD (chronic kidney disease), stage IV CLL (chronic lymphocytic leukemia) Per records Pt's denies Depression DM type 2 (diabetes mellitus, type 2) Uncontrolled - Hgb A1C 13.9 on 04/08/22 Started on Lantus 30 units BID and Novolog after [facility] admission 04/09/22 ; Ozempic increased by PCP 04/12/22 DVT prophylaxis Dyslipidemia GERD (gastroesophageal reflux disease) Hydronephrosis with urinary obstruction due to renal calculus Hypertension LBBB (left bundle branch block) Follows with [facility]- last visit August 2021 Nonischemic cardiomyopathy EF 45-49% per 07/2021 ECHO (improved from 25% in Jun 2021 while admitted with Covid pneumonia and acute CHF- patient close to baseline EF per cardio records August 2021) DICK on CPAP Surgical History History of cholecystectomy History of cystoscopy Family History Father Diabetes Mother Diabetes Social History Smoking Status: Never smoker Second Hand Exposure: No; Hx Alcohol Use: No Hx Substance Use: No Preferred Language: Bahamian Communication Ability: Effective Cable Wirer Required: No Beliefs That Will Affect Care: None Current Living Situation: Spouse Feels Safe at Home: Yes Assistive Devices: CPAP and Denture - Upper Allergies Allergies Allergy/AdvReac Type Severity Reaction Status Date / Time No Known Allergies Allergy Verified 05/28/22 00:12 Home Meds Home Medications Medication Instructions Recorded Confirmed aspirin 81 mg tablet,delayed 81 mg PO DAILY 06/13/21 05/28/22 release (Alejandro Low Dose Aspirin) carvedilol 6.25 mg tablet 6.25 mg PO BID 06/13/21 05/28/22 duloxetine 30 mg capsule,delayed 30 mg PO QAM 06/13/21 05/28/22 release folic acid 1 mg tablet 1 mg PO QAM 06/13/21 05/28/22 gabapentin 300 mg capsule 300 mg PO BID 06/13/21 05/28/22 pantoprazole 40 mg tablet,delayed 40 mg PO DAILYBB 06/13/21 05/28/22 release rosuvastatin 40 mg tablet 40 mg PO QAM 06/13/21 05/28/22 semaglutide 0.25 mg or 0.5 mg (2 0.5 mg subcut WK 06/13/21 05/28/22 mg/1.5 mL) subcutaneous pen injector (Ozempic) tramadol 50 mg tablet 50 mg PO Q6H PRN Pain 04/06/22 05/28/22 trazodone 50 mg tablet 50 mg PO HS 04/06/22 05/28/22 ergocalciferol (vitamin D2) 50 mcg 50 mcg PO DAILY 05/28/22 05/28/22 (2,000 unit) tablet furosemide 40 mg tablet 40 mg PO .AM &HS 05/28/22 05/28/22 loperamide 2 mg tablet 2 mg PO Q4H PRN Diarrhea 05/28/22 05/28/22 losartan 50 mg tablet 50 mg PO QAM 05/28/22 05/28/22 oxybutynin chloride 5 mg tablet 5 mg PO BID PRN Bladder Spasms 05/28/22 05/28/22 potassium citrate 10 mEq (1,080 10 meq PO TID 05/28/22 05/28/22 mg) tablet,extended release tamsulosin 0.4 mg capsule 0.4 mg PO QPM 05/28/22 05/28/22 Previous Rx's Medication Instructions Recorded blood sugar diagnostic (Artisan MobileTouch #100 ea 06/19/21 Verio test strips) lancets 33 gauge (Artisan MobileTouch Delica #100 ea 06/19/21 Lancets) blood sugar diagnostic (OneTouch #100 ea 04/09/22 Verio test strips) insulin aspart U-100 100 unit/mL 20 unit (0.2 mL) subcut TID #15 mL 04/09/22 (3 mL) subcutaneous pen (Novolog Flexpen U-100 Insulin aspart) insulin glargine 100 unit/mL (3 30 unit (0.3 mL) subcut BID #15 mL 04/09/22 mL) subcutaneous pen (Basaglar KwikPen U-100 Insulin) lancets 33 gauge (Artisan MobileTouch Delica #100 ea 04/09/22 Lancets) pen needle, diabetic 32 gauge x #100 ea 04/09/22 5/32" (Pen Needle) Results & Data (ED) Vital Signs Vital Signs - 24 hr 05/27/22 22:56 05/27/22 23:08 05/28/22 00:06 Temperature 37.3 C Temperature Source Oral Pulse Rate 94 H Pulse Rate [Apical] 80 Respiratory Rate 18 16 Respiratory Effort / Characteristics Non-Labored Spontaneous Non-Labored Spontaneous Respiratory Depth Normal Normal Respiratory Pattern Regular Regular Blood Pressure 145/87 H Blood Pressure [Left Arm] 163/80 H Blood Pressure Mean 106 Blood Pressure Mean [Left Arm] 107 Blood Pressure Position Semi-fowlers Blood Pressure Position [Left Arm] Semi-fowlers Pulse Oximetry 93 92 94 Oxygen Delivery Method Room Air Room Air Room Air Sepsis Recent Fever Within 48 Hours No Sepsis New/Unexplained Change in Mental Status N/A Sepsis Action Taken by Nursing No Action Required 05/28/22 01:06 Temperature Temperature Source Pulse Rate Pulse Rate [Apical] 80 Respiratory Rate 16 Respiratory Effort / Characteristics Non-Labored Spontaneous Respiratory Depth Normal Respiratory Pattern Regular Blood Pressure Blood Pressure [Left Arm] 122/63 Blood Pressure Mean Blood Pressure Mean [Left Arm] 82 Blood Pressure Position Blood Pressure Position [Left Arm] Semi-fowlers Pulse Oximetry 91 Oxygen Delivery Method Room Air Sepsis Recent Fever Within 48 Hours Sepsis New/Unexplained Change in Mental Status Sepsis Action Taken by Nursing Laboratory Data Result diagrams: 05/27/22 22:50 05/27/22 22:50 Lab Results 05/27/22 05/27/22 05/27/22 Range/Units 22:50 22:50 22:50 WBC 21.57 H (4.8-10.8) K/ul RBC 3.71 L (4.63-6.08) M/uL Hgb 11.0 L (14.0-18.0) g/dl Hct 34.1 L (40.1-51.0) % MCV 91.9 (80.0-100.0) fL MCH 29.6 (25.0-34.0) pg MCHC 32.3 (32.0-36.0) g/dL RDW Std Deviation 42.7 (36.4-46.3) fL RDW Coeff of Miguel 12.8 (11.5-14.5) % Plt Count 156 (130-400) K/uL MPV 10.7 (9.4-12.4) fL Immature Gran % (Auto) 0.4 % Neut % (Auto) 51.3 % Lymph % (Auto) 40.4 % [place] % (Auto) 6.9 % Eos % (Auto) 0.7 % Baso % (Auto) 0.3 % Neut # (Auto) 11.08 H (1.4-6.5) K/uL Lymph # (Auto) 8.71 H (1.2-3.4) K/uL [place] # (Auto) 1.48 H (0.24-0.82) K/uL Eos # (Auto) 0.15 (0-0.50) K/uL Baso # (Auto) 0.06 (0-0.2) K/uL Immature Gran # (Auto) 0.09 H (0.00-0.02) K/uL PT 11.9 (9.0-12.0) Seconds INR 1.1 (0.9-1.1) Sodium 133 L (136-145) mmol/L Potassium 4.8 (3.5-5.1) mmol/L Chloride 102 (98-107) mmol/L Carbon Dioxide 21 (21-32) mmol/L Anion Gap 10 (3-11) BUN 40 H (6-23) mg/dl Creatinine 2.31 H (0.6-1.4) mg/dl Est Cr Clr Drug Dosing Not Reportable Est GFR ( Amer) 32.9 ml/min Est GFR (Non-Af Amer) 28.4 ml/min BUN/Creatinine Ratio 17.3 (10-20) Glucose 309 H* (70-99(Fasting)) mg/dl Lactate (0.4-2.0) mmol/L Calcium 8.3 L (8.5-10.1) mg/dl Magnesium 1.8 (1.7-2.4) mg/dl Total Bilirubin 0.5 (0.2-1.0) mg/dl AST 22 (13-39) U/L ALT 21 (7-52) U/L Alkaline Phosphatase 100 (34-104) U/L Total Creatine Kinase 103 (30-223) U/L Troponin I High Sens 26.9 H (0-20) pg/ml Total Protein 7.5 (6.0-8.3) gm/dl Albumin 3.8 (3.4-5.0) gm/dl Globulin 3.7 (2.5-4.0) gm/dl Albumin/Globulin Ratio 1.0 (0.9-2) Procalcitonin (0-0.5) ng/ml TSH (0.300-4.500) uIu/ml Urine Color Urine Appearance (Clear) Urine pH (4.5-7.5) Ur Specific [place] (1.000-1.030) Urine Protein (Negative) Urine Glucose (UA) (Negative) Urine Ketones (Negative) Urine Blood (Negative) Urine Nitrite (Negative) Urine Bilirubin (Negative) Urine Urobilinogen (Negative) Ur Leukocyte Esterase (Negative) Urine WBC (Auto) (0-5) /hpf Urine RBC (Auto) (0-4) /hpf U Hyaline Cast (Auto) (0-5) /lpf U Epithel Cells (Auto) (0-5) /lpf Urine Bacteria (Auto) (Negative) SARS-CoV-2 (PCR) (Negative) Influenza Type A (PCR) (Neg) Influenza Type B (PCR) (Neg) RSV (RT-PCR) (Neg) 05/27/22 05/27/22 05/27/22 Range/Units 22:50 22:50 22:50 WBC (4.8-10.8) K/ul RBC (4.63-6.08) M/uL Hgb (14.0-18.0) g/dl Hct (40.1-51.0) % MCV (80.0-100.0) fL MCH (25.0-34.0) pg MCHC (32.0-36.0) g/dL RDW Std Deviation (36.4-46.3) fL RDW Coeff of Miguel (11.5-14.5) % Plt Count (130-400) K/uL MPV (9.4-12.4) fL Immature Gran % (Auto) % Neut % (Auto) % Lymph % (Auto) % [place] % (Auto) % Eos % (Auto) % Baso % (Auto) % Neut # (Auto) (1.4-6.5) K/uL Lymph # (Auto) (1.2-3.4) K/uL [place] # (Auto) (0.24-0.82) K/uL Eos # (Auto) (0-0.50) K/uL Baso # (Auto) (0-0.2) K/uL Immature Gran # (Auto) (0.00-0.02) K/uL PT (9.0-12.0) Seconds INR (0.9-1.1) Sodium (136-145) mmol/L Potassium (3.5-5.1) mmol/L Chloride (98-107) mmol/L Carbon Dioxide (21-32) mmol/L Anion Gap (3-11) BUN (6-23) mg/dl Creatinine (0.6-1.4) mg/dl Est Cr Clr Drug Dosing Est GFR ( Amer) ml/min Est GFR (Non-Af Amer) ml/min BUN/Creatinine Ratio (10-20) Glucose (70-99(Fasting)) mg/dl Lactate (0.4-2.0) mmol/L Calcium (8.5-10.1) mg/dl Magnesium (1.7-2.4) mg/dl Total Bilirubin (0.2-1.0) mg/dl AST (13-39) U/L ALT (7-52) U/L Alkaline Phosphatase (34-104) U/L Total Creatine Kinase (30-223) U/L Troponin I High Sens (0-20) pg/ml Total Protein (6.0-8.3) gm/dl Albumin (3.4-5.0) gm/dl Globulin (2.5-4.0) gm/dl Albumin/Globulin Ratio (0.9-2) Procalcitonin 0.65 H (0-0.5) ng/ml TSH 2.687 (0.300-4.500) uIu/ml Urine Color Urine Appearance (Clear) Urine pH (4.5-7.5) Ur Specific [place] (1.000-1.030) Urine Protein (Negative) Urine Glucose (UA) (Negative) Urine Ketones (Negative) Urine Blood (Negative) Urine Nitrite (Negative) Urine Bilirubin (Negative) Urine Urobilinogen (Negative) Ur Leukocyte Esterase (Negative) Urine WBC (Auto) (0-5) /hpf Urine RBC (Auto) (0-4) /hpf U Hyaline Cast (Auto) (0-5) /lpf U Epithel Cells (Auto) (0-5) /lpf Urine Bacteria (Auto) (Negative) SARS-CoV-2 (PCR) NEGATIVE (Negative) Influenza Type A (PCR) Negative (Neg) Influenza Type B (PCR) Negative (Neg) RSV (RT-PCR) Negative (Neg) 05/27/22 05/27/22 Range/Units 23:25 23:53 WBC (4.8-10.8) K/ul RBC (4.63-6.08) M/uL Hgb (14.0-18.0) g/dl Hct (40.1-51.0) % MCV (80.0-100.0) fL MCH (25.0-34.0) pg MCHC (32.0-36.0) g/dL RDW Std Deviation (36.4-46.3) fL RDW Coeff of Miguel (11.5-14.5) % Plt Count (130-400) K/uL MPV (9.4-12.4) fL Immature Gran % (Auto) % Neut % (Auto) % Lymph % (Auto) % [place] % (Auto) % Eos % (Auto) % Baso % (Auto) % Neut # (Auto) (1.4-6.5) K/uL Lymph # (Auto) (1.2-3.4) K/uL [place] # (Auto) (0.24-0.82) K/uL Eos # (Auto) (0-0.50) K/uL Baso # (Auto) (0-0.2) K/uL Immature Gran # (Auto) (0.00-0.02) K/uL PT (9.0-12.0) Seconds INR (0.9-1.1) Sodium (136-145) mmol/L Potassium (3.5-5.1) mmol/L Chloride (98-107) mmol/L Carbon Dioxide (21-32) mmol/L Anion Gap (3-11) BUN (6-23) mg/dl Creatinine (0.6-1.4) mg/dl Est Cr Clr Drug Dosing Est GFR ( Amer) ml/min Est GFR (Non-Af Amer) ml/min BUN/Creatinine Ratio (10-20) Glucose (70-99(Fasting)) mg/dl Lactate 0.8 (0.4-2.0) mmol/L Calcium (8.5-10.1) mg/dl Magnesium (1.7-2.4) mg/dl Total Bilirubin (0.2-1.0) mg/dl AST (13-39) U/L ALT (7-52) U/L Alkaline Phosphatase (34-104) U/L Total Creatine Kinase (30-223) U/L Troponin I High Sens (0-20) pg/ml Total Protein (6.0-8.3) gm/dl Albumin (3.4-5.0) gm/dl Globulin (2.5-4.0) gm/dl Albumin/Globulin Ratio (0.9-2) Procalcitonin (0-0.5) ng/ml TSH (0.300-4.500) uIu/ml Urine Color Yellow Urine Appearance Turbid A (Clear) Urine pH 5.5 (4.5-7.5) Ur Specific [place] 1.016 (1.000-1.030) Urine Protein 3+ H (Negative) Urine Glucose (UA) 1+ H (Negative) Urine Ketones Negative (Negative) Urine Blood 3+ H (Negative) Urine Nitrite Positive A (Negative) Urine Bilirubin Negative (Negative) Urine Urobilinogen Negative (Negative) Ur Leukocyte Esterase 3+ H (Negative) Urine WBC (Auto) >30 H (0-5) /hpf Urine RBC (Auto) 5-10 H (0-4) /hpf U Hyaline Cast (Auto) 0 (0-5) /lpf U Epithel Cells (Auto) >30 H (0-5) /lpf Urine Bacteria (Auto) 1+ H (Negative) SARS-CoV-2 (PCR) (Negative) Influenza Type A (PCR) (Neg) Influenza Type B (PCR) (Neg) RSV (RT-PCR) (Neg) Administered Medications Discontinued Medications Acetaminophen (Ofirmev) 1,000 mg in 100 mls @ 400 mls/hr IV NOW STA Stop: 05/28/22 00:23 Last Infusion: 05/28/22 00:28 Dose: 0 mls/hr Documented By: Admin: 05/28/22 00:13 Dose: 400 mls/hr Documented By: SATNAM Piperacillin Sod/Tazobactam Sod (Zosyn) 4.5 gm in 120 mls @ 240 mls/hr IV NOW ONE Stop: 05/28/22 00:42 Last Admin: 05/28/22 00:39 Dose: 240 mls/hr Documented By: SATNAM Discharge Plan Visit Data Chief Complaint: Weakness Stated Complaint: fall ED Provider: Steven Fraser Discharge Problem: Acute UTI, CKD (chronic kidney disease), stage IV, Weakness, Kidney stone Patient Disposition: Being Evaluated by Hospitalist Forms Stand Alone Forms: [facility] Prescriptions Prescriptions: No Action carvedilol 6.25 mg tablet 6.25 mg PO BID pantoprazole 40 mg tablet,delayed release (DR/EC) 40 mg PO DAILYBB gabapentin 300 mg capsule 300 mg PO BID folic acid 1 mg tablet 1 mg PO QAM rosuvastatin 40 mg tablet 40 mg PO QAM duloxetine 30 mg capsule,delayed release(DR/EC) 30 mg PO QAM Ozempic 0.25 mg or 0.5 mg(2 mg/1.5 mL) pen injector 0.5 mg SUBCUT WK Rx Instructions: INJECT EVERY SATURDAY aspirin [Alejandro Low Dose Aspirin] 81 mg Tablet,Delayed Release (Dr/Ec) 81 mg PO DAILY (DME) lancets [Kupoya DelzePASS Lancets] 33 gauge misc See Rx Instructions .Route Qty: 100 0RF Rx Instructions: As directed. To check 1x/day (DME) OneTouch Verio test strips Strip See Rx Instructions .Route Qty: 100 0RF Rx Instructions: As directed. To check 1x/day trazodone 50 mg tablet 50 mg PO HS tramadol 50 mg tablet 50 mg PO Q6H PRN (Reason: Pain) insulin aspart U-100 [Novolog Flexpen U-100 Insulin] 100 unit/mL (3 mL) insulin pen 20 unit subcut TID Qty: 15 0RF insulin glargine [Basaglar KwikPen U-100 Insulin] 100 unit/mL (3 mL) insulin pen 30 unit subcut BID Qty: 15 0RF (DME) pen needle, diabetic [Pen Needle] 32 gauge x 5/32" needle See Rx Instructions .Route Qty: 100 0RF Rx Instructions: As directed (DME) OneTouch Verio test strips Strip See Rx Instructions .Route Qty: 100 0RF Rx Instructions: As directed (DME) lancets [OneTouch Delica Lancets] 33 gauge misc See Rx Instructions .Route Qty: 100 0RF Rx Instructions: As directed oxybutynin chloride 5 mg tablet 5 mg PO BID PRN (Reason: Bladder Spasms) Rx Instructions: May take for bladder spasms up to twice daily. tamsulosin 0.4 mg capsule 0.4 mg PO QPM Rx Instructions: Take one tablet at night time. losartan 50 mg tablet 50 mg PO QAM potassium citrate 10 mEq (1,080 mg) tablet extended release 10 meq PO TID ergocalciferol (vitamin D2) 50 mcg (2,000 unit) Tablet 50 mcg PO DAILY furosemide 40 mg tablet 40 mg PO .AM &HS Rx Instructions: MAY TAKE AN EXTRA TABLET IN THE AM FOR FLUID RETENTION. loperamide 2 mg Tablet 2 mg PO Q4H MDD 8MG PRN (Reason: Diarrhea) Rx Instructions: administer after each loose stool until symptoms controlled; do not exceed 8 mg per 24 hrs. Referrals Referrals: Valentina Scott DO [Primary Care Provider] -
[2022-05-28 00:16] LABS: Appearance Urine Turbid (Clear); Bacteria Urine Automated 1+ (Negative); Bilirubin Urine Negative (Negative); Blood Urine 3+ (Negative); Color Urine Yellow; Epithelial Cell Urine Auto >30 /lpf (0-5); Glucose Urine UA 1+ (Negative); Ketones Urine Negative (Negative); Leukocyte Esterase Urine 3+ (Negative); Nitrite Urine Positive (Negative); Protein Urine 3+ (Negative); Specific Gravity Urine 1.016 (1.000-1.030); Urobilinogen Urine Negative (Negative); WBC Urine Automated >30 /hpf (0-5); pH Urine 5.5 (4.5-7.5)
[2022-05-28 00:27] LABS: Alanine Aminotransferase 21 U/L (7-52); Albumin Level 3.8 gm/dl (3.4-5.0); Alkaline Phosphatase 100 U/L (34-104); Anion Gap 10 (3-11); Aspartate Aminotransferase 22 U/L (13-39); BUN Creatinine Ratio 17.3 (10-20); Bilirubin,Total 0.5 mg/dl (0.2-1.0); Blood Urea Nitrogen 40 mg/dl (6-23); Calcium 8.3 mg/dl (8.5-10.1); Carbon Dioxide 21 mmol/L (21-32); Chloride 102 mmol/L (98-107); Creatine Kinase 103 U/L (30-223); Est GFR (African American) 32.9 ml/min; Est GFR (Non-African American) 28.4 ml/min; Globulin 3.7 gm/dl (2.5-4.0); Glucose 309 mg/dl (70-99(Fasting)); Magnesium 1.8 mg/dl (1.7-2.4); Potassium 4.8 mmol/L (3.5-5.1); Sodium 133 mmol/L (136-145); Total Protein 7.5 gm/dl (6.0-8.3)
[2022-05-28 00:28] LABS: Cast Urine Automated 0 /lpf (0-5)
[2022-05-28 00:51] LABS: Influenza A virus by PCR Negative (Neg); Influenza B virus by PCR Negative (Neg); RSV by PCR Negative (Neg); SARS CoV2 RNA(COVID-19) Ceph NEGATIVE (Negative)
[2022-05-28] MEDS ORDERED: carvediloL 3.125 MG TAB PO STA (00:56)
[2022-05-28] MEDS ORDERED: ALBUMIN 25% 100 mL 25 GM/100 ML VIAL IV STA (01:20)
--- NOTE | 2022-05-28 01:27 | History & Physical Report ---
Date of Service May 28, 2022 Assessment & Plan (1) Complicated UTI (urinary tract infection): Plan: Persistent left hydroureteronephrosis, history urolithiasis History stent placement status post spontaneous extrusion Possible sepsis chronic systolic heart failure EF 45 to 49% (TTE 2020) secondary to nonischemic cardiomyopathy, euvolemic to baseline congestion hx nonobstructive CAD CAD/LBBB as per records pulmonary hypertension secondary to DICK/pickwickian syndrome on CPAP hypertension, stable hyperlipidemia on statin Rx DM2 on oral medications and Ozempic, suboptimal control as of recent hemoglobin A1c of 13.9 last March 2022 CLL, currently on folic acid supplementation, patient follows with [facility] [place] CRI, creatinine better than baseline chronic anemia, hemoglobin at baseline GMF CS, Cefepime Continue home Flomax Strain urine Urology consult Re: Obstructive uropathy, recurrent UTI N.p.o. until patient seen by Urology in anticipation of procedural intervention Basal bolus insulin adjusted for n.p.o. status, insulin, ISS BG goal 1 10-1 40 DVT prophylaxis Heparin subcu Full code Text document was generated using [employer] voice recognition software. It may contain grammatical or spelling errors. Kindly contact undersigned for clarification of any documentation item in question. History of Present Illness Chief Complaint: Weakness Primary Care Provider: Valentina Scott DO History obtained from patient and records. Medical history significant for chronic systolic heart failure secondary to nonischemic cardiomyopathy (EF 45 to 49% TTE 2021), chronic LBBB, nonobstructive CAD as per records, pulmonary hypertension secondary to DICK/pickwickian syndrome on CPAP,hypertension, hyperlipidemia, DM2 on oral medications and Ozempic, CLL, CRI (baseline creatinine 2.5), chronic anemia (baseline hemoglobin 11-12), buried penis as per records, urolithiasis. Last confinement March 2022 for ARF on CKD, hydronephrosis urinary obstruction secondary to renal calculus status post left ureter stent placement. [place] [facility] 2 weeks ago for stent removal. Strings no longer present and stent could not be identified when provider attempted to remove stent. No stents will be identified on KUB x-ray. Patient recalled finding a slightly curly shoelace like object on the bathroom floor sometime before visit as per documentation. Patient got out of bed feeling weak today. Slumped to the ground without syncope, chest pain, shortness of breath. Usual right flank discomfort similar to stent pain. No gross hematuria at home. Patient brought to the ER for evaluation. Zosyn administered at the ER for UTI. Medical Historyas above Surgical History : Cholecystectomy, urologic procedures Family History : DM, heart disease Personal/Social history : Non-smoker, no EtOH intake, retired cook Allergies Allergy/AdvReac Type Severity Reaction Status Date / Time No Known Allergies Allergy Verified 05/28/22 00:12 Home Medications Medication Instructions Recorded Confirmed Type aspirin 81 mg tablet,delayed 81 mg PO DAILY 06/13/21 05/28/22 History release (Alejandro Low Dose Aspirin) carvedilol 6.25 mg tablet 6.25 mg PO BID 06/13/21 05/28/22 History duloxetine 30 mg capsule,delayed 30 mg PO QAM 06/13/21 05/28/22 History release folic acid 1 mg tablet 1 mg PO QAM 06/13/21 05/28/22 History gabapentin 300 mg capsule 300 mg PO BID 06/13/21 05/28/22 History pantoprazole 40 mg tablet,delayed 40 mg PO DAILYBB 06/13/21 05/28/22 History release rosuvastatin 40 mg tablet 40 mg PO QAM 06/13/21 05/28/22 History semaglutide 0.25 mg or 0.5 mg (2 0.5 mg subcut WK 06/13/21 05/28/22 History mg/1.5 mL) subcutaneous pen injector (Ozempic) blood sugar diagnostic (FilecoinTouch #100 ea 06/19/21 05/01/22 Rx Verio test strips) lancets 33 gauge (OneTouch Delica #100 ea 06/19/21 05/01/22 Rx Lancets) tramadol 50 mg tablet 50 mg PO Q6H PRN Pain 04/06/22 05/28/22 History trazodone 50 mg tablet 50 mg PO HS 04/06/22 05/28/22 History blood sugar diagnostic (OneTouch #100 ea 04/09/22 05/01/22 Rx Verio test strips) insulin aspart U-100 100 unit/mL 20 unit (0.2 mL) subcut TID #15 mL 04/09/22 05/28/22 Rx (3 mL) subcutaneous pen (Novolog Flexpen U-100 Insulin aspart) insulin glargine 100 unit/mL (3 30 unit (0.3 mL) subcut BID #15 mL 04/09/22 05/28/22 Rx mL) subcutaneous pen (Basaglar KwikPen U-100 Insulin) lancets 33 gauge (OneTouch Delica #100 ea 04/09/22 05/01/22 Rx Lancets) pen needle, diabetic 32 gauge x #100 ea 04/09/22 05/01/22 Rx 5/32" (Pen Needle) ergocalciferol (vitamin D2) 50 mcg 50 mcg PO DAILY 05/28/22 05/28/22 History (2,000 unit) tablet furosemide 40 mg tablet 40 mg PO .AM &HS 05/28/22 05/28/22 History loperamide 2 mg tablet 2 mg PO Q4H PRN Diarrhea 05/28/22 05/28/22 History losartan 50 mg tablet 50 mg PO QAM 05/28/22 05/28/22 History oxybutynin chloride 5 mg tablet 5 mg PO BID PRN Bladder Spasms 05/28/22 05/28/22 History potassium citrate 10 mEq (1,080 10 meq PO TID 05/28/22 05/28/22 History mg) tablet,extended release tamsulosin 0.4 mg capsule 0.4 mg PO QPM 05/28/22 05/28/22 History Past Med/Surg History Medical History (Updated 05/28/22 @ 05:56 by Wilmar Butler MD) KATRINA (acute kidney injury) Chronic back pain CKD (chronic kidney disease), stage IV CLL (chronic lymphocytic leukemia) Per records Pt's denies Depression DM type 2 (diabetes mellitus, type 2) Uncontrolled - Hgb A1C 13.9 on 04/08/22 Started on Lantus 30 units BID and Novolog after [facility] admission 04/09/22 ; Ozempic increased by PCP 04/12/22 DVT prophylaxis Dyslipidemia GERD (gastroesophageal reflux disease) Hydronephrosis with urinary obstruction due to renal calculus Hypertension LBBB (left bundle branch block) Follows with [facility] Cardio- last visit August 2021 Nonischemic cardiomyopathy EF 45-49% per 07/2021 ECHO (improved from 25% in Jun 2021 while admitted with Covid pneumonia and acute CHF- patient close to baseline EF per cardio records August 2021) DICK on CPAP Surgical History History of cholecystectomy History of cystoscopy Family History Father Diabetes Mother Diabetes Social History Smoking Status: Never smoker Second Hand Exposure: No; Hx Alcohol Use: No Hx Substance Use: No Preferred Language: Yakut Communication Ability: Effective 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 Beliefs That Will Affect Care: None Current Living Situation: Spouse Feels Safe at Home: Yes Safety Concerns: Feels Safe At This Time Assistive Devices: CPAP Review of Systems Review of Systems: As per HPI, all other systems reviewed and negative Physical Exam Physical Exam: GENERAL: Slightly uncomfortable, morbidly obese, pleasant, respiratory distress SKIN: Pallor, warm HEENT: Partial alopecia, pale palpebral conjunctivae, no ptosis, dry buccal mucosa NECK : Supple, short neck, no tenderness CHEST : Decreased breath sounds, no tenderness HEART : RRR, no obvious murmurs ABDOMEN: Some distention, nontender EXTREMITIES : Bilateral LE venous stasis, no LE tenderness, no other conspicuous deformities noted NEUROLOGIC : Coherent, no facial asymmetry, no other gross focality Results & Data Results & Data ([facility] [place]) Vital Signs (Past 12 Hours) Vital Signs Temp Pulse Pulse Resp BP BP Pulse Ox 05/28/22 01:06 80 16 122/63 91 05/28/22 00:06 80 16 163/80 H 94 05/27/22 23:08 92 05/27/22 22:56 37.3 C 94 H 18 145/87 H 93 O2 Del Method 05/28/22 01:06 Room Air 05/28/22 00:06 Room Air 05/27/22 23:08 Room Air 05/27/22 22:56 Room Air Laboratory Results Laboratory Results WBC 21.57 K/ul (4.8-10.8) H 05/27/22 22:50 RBC 3.71 M/uL (4.63-6.08) L 05/27/22 22:50 Hgb 11.0 g/dl (14.0-18.0) L 05/27/22 22:50 Hct 34.1 % (40.1-51.0) L 05/27/22 22:50 MCV 91.9 fL (80.0-100.0) 05/27/22 22:50 MCH 29.6 pg (25.0-34.0) 05/27/22 22:50 MCHC 32.3 g/dL (32.0-36.0) 05/27/22 22:50 RDW Std Deviation 42.7 fL (36.4-46.3) 05/27/22 22:50 RDW Coeff of Miguel 12.8 % (11.5-14.5) 05/27/22 22:50 Plt Count 156 K/uL (130-400) 05/27/22 22:50 MPV 10.7 fL (9.4-12.4) 05/27/22 22:50 Immature Gran % (Auto) 0.4 % 05/27/22 22:50 Neut % (Auto) 51.3 % 05/27/22 22:50 Lymph % (Auto) 40.4 % 05/27/22 22:50 Traill % (Auto) 6.9 % 05/27/22 22:50 Eos % (Auto) 0.7 % 05/27/22 22:50 Baso % (Auto) 0.3 % 05/27/22 22:50 Neut # (Auto) 11.08 K/uL (1.4-6.5) H 05/27/22 22:50 Lymph # (Auto) 8.71 K/uL (1.2-3.4) H 05/27/22 22:50 Traill # (Auto) 1.48 K/uL (0.24-0.82) H 05/27/22 22:50 Eos # (Auto) 0.15 K/uL (0-0.50) 05/27/22 22:50 Baso # (Auto) 0.06 K/uL (0-0.2) 05/27/22 22:50 Immature Gran # (Auto) 0.09 K/uL (0.00-0.02) H 05/27/22 22:50 PT 11.9 Seconds (9.0-12.0) 05/27/22 22:50 INR 1.1 (0.9-1.1) 05/27/22 22:50 Sodium 133 mmol/L (136-145) L 05/27/22 22:50 Potassium 4.8 mmol/L (3.5-5.1) 05/27/22 22:50 Chloride 102 mmol/L (98-107) 05/27/22 22:50 Carbon Dioxide 21 mmol/L (21-32) 05/27/22 22:50 Anion Gap 10 (3-11) 05/27/22 22:50 BUN 40 mg/dl (6-23) H 05/27/22 22:50 Creatinine 2.31 mg/dl (0.6-1.4) H 05/27/22 22:50 Est Cr Clr Drug Dosing Not Reportable 05/27/22 22:50 Est GFR ( Amer) 32.9 ml/min 05/27/22 22:50 Est GFR (Non-Af Amer) 28.4 ml/min 05/27/22 22:50 BUN/Creatinine Ratio 17.3 (10-20) 05/27/22 22:50 Glucose 309 mg/dl (70-99(Fasting)) H* 05/27/22 22:50 Lactate 0.8 mmol/L (0.4-2.0) 05/27/22 23:25 Calcium 8.3 mg/dl (8.5-10.1) L 05/27/22 22:50 Magnesium 1.8 mg/dl (1.7-2.4) 05/27/22 22:50 Total Bilirubin 0.5 mg/dl (0.2-1.0) 05/27/22 22:50 AST 22 U/L (13-39) 05/27/22 22:50 ALT 21 U/L (7-52) 05/27/22 22:50 Alkaline Phosphatase 100 U/L (34-104) 05/27/22 22:50 Total Creatine Kinase 103 U/L (30-223) 05/27/22 22:50 Troponin I High Sens 26.9 pg/ml (0-20) H 05/27/22 22:50 Total Protein 7.5 gm/dl (6.0-8.3) 05/27/22 22:50 Albumin 3.8 gm/dl (3.4-5.0) 05/27/22 22:50 Globulin 3.7 gm/dl (2.5-4.0) 05/27/22 22:50 Albumin/Globulin Ratio 1.0 (0.9-2) 05/27/22 22:50 Procalcitonin 0.65 ng/ml (0-0.5) H 05/27/22 22:50 TSH 2.687 uIu/ml (0.300-4.500) 05/27/22 22:50 Urine Color Yellow 05/27/22 23:53 Urine Appearance Turbid (Clear) A 05/27/22 23:53 Urine pH 5.5 (4.5-7.5) 05/27/22 23:53 Ur Specific Ashley 1.016 (1.000-1.030) 05/27/22 23:53 Urine Protein 3+ (Negative) H 05/27/22 23:53 Urine Glucose (UA) 1+ (Negative) H 05/27/22 23:53 Urine Ketones Negative (Negative) 05/27/22 23:53 Urine Blood 3+ (Negative) H 05/27/22 23:53 Urine Nitrite Positive (Negative) A 05/27/22 23:53 Urine Bilirubin Negative (Negative) 05/27/22 23:53 Urine Urobilinogen Negative (Negative) 05/27/22 23:53 Ur Leukocyte Esterase 3+ (Negative) H 05/27/22 23:53 Urine WBC (Auto) >30 /hpf (0-5) H 05/27/22 23:53 Urine RBC (Auto) 5-10 /hpf (0-4) H 05/27/22 23:53 U Hyaline Cast (Auto) 0 /lpf (0-5) 05/27/22 23:53 U Epithel Cells (Auto) >30 /lpf (0-5) H 05/27/22 23:53 Urine Bacteria (Auto) 1+ (Negative) H 05/27/22 23:53 SARS-CoV-2 (PCR) NEGATIVE (Negative) 05/27/22 22:50 Influenza Type A (PCR) Negative (Neg) 05/27/22 22:50 Influenza Type B (PCR) Negative (Neg) 05/27/22 22:50 RSV (RT-PCR) Negative (Neg) 05/27/22 22:[address] head initial read: No ICH, mass effect or edema. No evidence of acute cortical stroke. Visualized sinuses and mastoid air cells are clear CT abdomen pelvis initial read: Despite the given history, no ureteral stents are seen. There is persistent mild left-sided hydroureteronephrosiswith multiple small calculi. There is a punctate left distal ureteral calculus (image 160 series 2). No change in small right lower pole intrarenal calculi. The patient is status post cholecystectomy EKG as per my interpretation :Rate 110, sinus tachycardia, LAD, LAFB, LBBB
[2022-05-28] MEDS ORDERED: LANTUS PER UNIT CHARGE SQ STA ×2 (01:36)
[2022-05-28] MEDS ORDERED: GLUCOSE 40% GEL 15 GM TUBE PO PRN (04:00)
[2022-05-28] MEDS ORDERED: CARBOHYDRATES FOR HYPOGLYCEMIA PO PRN (04:00)
[2022-05-28] MEDS ORDERED: HYDROmorphone INJ 0.5 MG/0.5 ML SYR IV PRN (04:00)
[2022-05-28] MEDS ORDERED: PROMETHAZINE HCL 12.5 MG in SODIUM CHLORIDE 0.9% 50 ML IV PRN (04:00)
[2022-05-28] MEDS ORDERED: INSULIN ASPART PER UNIT SC SCH ×2 (04:00→06:00)
[2022-05-28] MEDS ORDERED: GLUCAGON FOR INJ 1 MG VIAL SQ PRN (04:00)
[2022-05-28] MEDS ORDERED: DEXTROSE 50% 50 ML SYRINGE IV PRN (04:00)
[2022-05-28] MEDS ORDERED: OXYBUTYNIN CHLORIDE 5 MG TAB PO PRN (04:00)
[2022-05-28] MEDS ORDERED: GLUCOSE 10 TAB/TUBE PO PRN (04:00)
[2022-05-28] MEDS: traZODone HCL 50 MG TAB PO SCH ×2 (04:29→20:11)
[2022-05-28] MEDS: ACETAMINOPHEN 325 MG TAB PO PRN ×2 (04:29→19:10)
[2022-05-28] MEDS: HEPARIN SOD 5,000 UNIT/0.5 ML VIAL SQ SCH ×3 (06:13→21:15)
[2022-05-28] MEDS: PANTOprazole 40 MG TAB PO SCH (06:13)
--- NOTE | 2022-05-28 07:17 | CT Scan Report ---
HEAD CT NONCONTRAST CT DOSE: 687.98 mGy.cm HISTORY: weakness TECHNIQUE: Multiaxial CT images of the head were performed without the use of intravenous contrast. A utomated exposure control was utilized for this study. A dose lowering technique was utilized adheri ng to the principles of ALARA. Comparison: None. Findings: Small amount of bubbly secretions within the left maxillary sinus. The mastoid air cells ar e clear. The calvarium and skull base are intact. There is no mass, hematoma, midline shift, acute in farct. White matter hypodensity is nonspecific but suggestive of microvascular ischemic change. The v entricles and sulci demonstrate mild age-related involutional changes. Impression: No acute intracranial abnormality. ACT 112: Negative or not required by law. Electronically signed by: Juan Benjamin M.D. 05/28/2022 7:15 AM
[2022-05-28] MEDS ORDERED: CEFEPIME 2,000 MG in SYRINGE 0 ML IV SCH (08:00)
--- NOTE | 2022-05-28 08:09 | Urology Consultation ---
Date of Consultation May 28, 2022 Assessment & Plan (1) Complicated UTI (urinary tract infection): (2) Kidney stone: Plan 66yo M admitted with weakness, complicated UTI. -CT a/p demonstrated tiny stone fragments within the left renal collecting system, mild left hydronephrosis, a small calculus within the bladder lumen possibly representing a recently passed stone, question of a punctate calculus within/adjacent to the left UVJ, additional stones in the right kidney, no ri ght-sided hydronephrosis. -Pt subjectively feeling much better today. No reported pain. -He is afebrile and hemodynamically stable. -Labs reviewed -Leukocytosis improving 17.59 today, Creatinine 2.47. Continue to trend. -Urine and blood cultures pending, on IV Cefepime. -Voiding spontaneously, continue to monitor. Bladder scan prn. -No plan for intervention at this point. Ok to have a diet back from our standpoint. -Suspect the left hydro with associated urothelial thickening/inflammation due to possible recently passed stone and infection. -For now, would recommend continuing with supportive care and antibiotic therapy. -Please contact our service urgently if patient develops fevers or other acute changes, as we may need to consider ureteral stent placement. -Urology will follow closely. Case discussed with Dr. Higgins, on-call urologist. History of Present Illness Reason for Consultation: Urolithiasis, hydronephrosis Attending Physician: Jose Morales MD History of Present Illness 66yo M with a PMHx including CLL, CKD, DM2, DICK, HLD, HTN, CAD who presented with weakness and was admitted with complicated UTI. On arrival he was afebrile and hemodynamically stable. Labs revealed a leukocytosis of 21.57 and creatinine 2.31. Urinalysis appeared grossly infected. CT abdomen pelvis demonstrated- 1. There are tiny stone fragments within the left renal collecting system. There is mild left hydroureteronephrosis with associated urothelial thickening and perinephric/periureteric inflammation. A small calculus is seen within the bladder lumen and this could represent the sequelae of a recently passed kidney stone. Question a punctate calculus within or adjacent to the left vesicoureteral junction. Correlate with clinical findings for evidence of superimposed urinary tract infection. 2. Additional stones/fragments are seen in the right kidney. 3. There is no right-sided hydronephrosis. 4. Hepatomegaly and hepatic steatosis. Pt was admitted in March 2022 for ARF on CKD and obstructing left ureteral stone and underwent left ureteral stent placement. He then had cystoscopy, stone treatment, stent exchange in April 2022. The stent was left on a tether to facilitate removal. He presented 1 week later in the urology office for stent removal however the strings were no longer present and no stent could be identified. The patient did recall a slightly curly shoelace like object on his bathroom floorwhich could possibly have represented the stent. A KUB was obtained and did not identify a ureteral stent. Patient was examined at bedside this AM. Awake, resting bed on arrival. No acute distress. Denies any pain or discomfort. Denies fevers or chills. Denies nausea or vomiting. Voiding without issue, denies hematuria or dysuria. Feels he is emptying his bladder well. States he is feeling much better since his arrival in the ED. No additional complaints or concerns at time of exam. Allergies Allergy/AdvReac Type Severity Reaction Status Date / Time No Known Allergies Allergy Verified 05/28/22 00:12 Home Medications Medication Instructions Recorded Confirmed Type aspirin 81 mg tablet,delayed 81 mg PO DAILY 06/13/21 05/28/22 History release (Alejandro Low Dose Aspirin) carvedilol 6.25 mg tablet 6.25 mg PO BID 06/13/21 05/28/22 History duloxetine 30 mg capsule,delayed 30 mg PO QAM 06/13/21 05/28/22 History release folic acid 1 mg tablet 1 mg PO QAM 06/13/21 05/28/22 History gabapentin 300 mg capsule 300 mg PO BID 06/13/21 05/28/22 History pantoprazole 40 mg tablet,delayed 40 mg PO DAILYBB 06/13/21 05/28/22 History release rosuvastatin 40 mg tablet 40 mg PO QAM 06/13/21 05/28/22 History semaglutide 0.25 mg or 0.5 mg (2 0.5 mg subcut WK 06/13/21 05/28/22 History mg/1.5 mL) subcutaneous pen injector (Ozempic) blood sugar diagnostic (TabSys #100 ea 06/19/21 05/01/22 Rx Verio test strips) lancets 33 gauge (TabSys Delica #100 ea 06/19/21 05/01/22 Rx Lancets) tramadol 50 mg tablet 50 mg PO Q6H PRN Pain 04/06/22 05/28/22 History trazodone 50 mg tablet 50 mg PO HS 04/06/22 05/28/22 History blood sugar diagnostic (OneTouch #100 ea 04/09/22 05/01/22 Rx Verio test strips) insulin aspart U-100 100 unit/mL 20 unit (0.2 mL) subcut TID #15 mL 04/09/22 05/28/22 Rx (3 mL) subcutaneous pen (Novolog Flexpen U-100 Insulin aspart) insulin glargine 100 unit/mL (3 30 unit (0.3 mL) subcut BID #15 mL 04/09/22 05/28/22 Rx mL) subcutaneous pen (Basaglar KwikPen U-100 Insulin) lancets 33 gauge (OneTouch Delica #100 ea 04/09/22 05/01/22 Rx Lancets) pen needle, diabetic 32 gauge x #100 ea 04/09/22 05/01/22 Rx 5/32" (Pen Needle) ergocalciferol (vitamin D2) 50 mcg 50 mcg PO DAILY 05/28/22 05/28/22 History (2,000 unit) tablet furosemide 40 mg tablet 40 mg PO .AM &HS 05/28/22 05/28/22 History loperamide 2 mg tablet 2 mg PO Q4H PRN Diarrhea 05/28/22 05/28/22 History losartan 50 mg tablet 50 mg PO QAM 05/28/22 05/28/22 History oxybutynin chloride 5 mg tablet 5 mg PO BID PRN Bladder Spasms 05/28/22 05/28/22 History potassium citrate 10 mEq (1,080 10 meq PO TID 05/28/22 05/28/22 History mg) tablet,extended release tamsulosin 0.4 mg capsule 0.4 mg PO QPM 05/28/22 05/28/22 History Patient History Medical History (Updated 05/28/22 @ 05:56 by Wilmar Butler MD) KATRINA (acute kidney injury) Chronic back pain CKD (chronic kidney disease), stage IV CLL (chronic lymphocytic leukemia) Per records Pt's denies Depression DM type 2 (diabetes mellitus, type 2) Uncontrolled - Hgb A1C 13.9 on 04/08/22 Started on Lantus 30 units BID and Novolog after [facility] admission 04/09/22 ; Ozempic increased by PCP 04/12/22 DVT prophylaxis Dyslipidemia GERD (gastroesophageal reflux disease) Hydronephrosis with urinary obstruction due to renal calculus Hypertension LBBB (left bundle branch block) Follows with [facility]- last visit August 2021 Nonischemic cardiomyopathy EF 45-49% per 07/2021 ECHO (improved from 25% in Jun 2021 while admitted with Covid pneumonia and acute CHF- patient close to baseline EF per cardio records August 2021) DICK on CPAP Surgical History History of cholecystectomy History of cystoscopy Family History Father Diabetes Mother Diabetes Social History Smoking Status: Never smoker Second Hand Exposure: No; Hx Alcohol Use: No Hx Substance Use: No Preferred Language: Polish Communication Ability: Effective Record Changer Required: No Beliefs That Will Affect Care: None Current Living Situation: Spouse Feels Safe at Home: Yes Safety Concerns: Feels Safe At This Time Assistive Devices: CPAP Review of Systems Review of Systems: All systems reviewed & are unremarkable except as noted in HPI & below Physical Exam Constitutional: well developed, well nourished and + obese; no acute distress Neck: normal visual inspection Respiratory: no respiratory distress and no labored breathing Gastrointestinal (Abdomen): Percussion/Palpation: abdomen soft; abdomen nontender Musculoskeletal: Head/Neck/Chest: normocephalic Skin: No visible rashes or lesions to exposed skin areas Neurologic: awake Psychiatric: Orientation: alert and oriented x 3 Genitourinary: no CVA tenderness Results & Data ([facility]) Vital Signs (Past 12 Hours) Vital Signs Temp Pulse Pulse Pulse Resp BP BP 05/28/22 07:54 37.1 C 86 18 127/77 05/28/22 03:45 05/28/22 03:45 36.6 C 83 18 150/96 H 05/28/22 03:21 79 16 128/62 05/28/22 02:44 70 16 123/70 05/28/22 01:06 80 16 122/63 05/28/22 00:06 80 16 163/80 H 05/27/22 23:08 05/27/22 22:56 37.3 C 94 H 18 145/87 H Pulse Ox O2 Del Method 05/28/22 07:54 93 Room Air 05/28/22 03:45 CPAP 05/28/22 03:45 95 Room Air 05/28/22 03:21 97 Room Air 05/28/22 02:44 94 Room Air 05/28/22 01:06 91 Room Air 05/28/22 00:06 94 Room Air 05/27/22 23:08 92 Room Air 05/27/22 22:56 93 Room Air PG Care Time/CCT Total # of Minutes Spent Total Time Spent with Patient: Total time spent is greater than 50% in coordination of care (as documented) at patient's floor/unit and/or counseling patient: Coding Level of Care Code 02508 Initial Inpt Care Lvl 2 Diagnoses Complicated UTI (urinary tract infection) N39.0 Kidney stone N20.0
[2022-05-28 08:29] LABS: Hematocrit (blood only) 31.7 % (40.1-51.0); Hemoglobin 10.2 g/dl (14.0-18.0); Mean Corpuscular Hemoglobin 29.5 pg (25.0-34.0); Mean Corpuscular Hgb Conc 32.2 g/dL (32.0-36.0); Mean Corpuscular Volume 91.6 fL (80.0-100.0); Mean Platelet Volume 10.9 fL (9.4-12.4); Platelet Count 151 K/uL (130-400); RDW Coefficient of Variation 12.7 % (11.5-14.5); RDW Standard Deviation 42.3 fL (36.4-46.3); Red Blood Count 3.46 M/uL (4.63-6.08); White Blood Count 17.59 K/ul (4.8-10.8)
[2022-05-28] MEDS: FOLIC ACID 1 MG TAB PO SCH (08:39)
[2022-05-28] MEDS: carvediloL 6.25 MG TAB PO SCH ×2 (08:39→20:12)
[2022-05-28] MEDS: ROSUVASTATIN CALCIUM 20 MG TAB PO SCH (08:40)
[2022-05-28] MEDS: DULoxetine HCL 30 MG CAP PO SCH (08:40)
[2022-05-28] MEDS: GABAPENTIN 300 MG CAP PO SCH ×2 (08:40→20:12)
[2022-05-28] MEDS: ASPIRIN 81 MG ECTAB PO SCH (08:40)
[2022-05-28 08:48] LABS: Est GFR (African American) 30.3 ml/min; Potassium 4.2 mmol/L (3.5-5.1)
[2022-05-28 08:49] LABS: BUN Creatinine Ratio 16.2 (10-20); Calcium 8.4 mg/dl (8.5-10.1); Est GFR (Non-African American) 26.2 ml/min
--- NOTE | 2022-05-28 08:51 | CT Scan Report ---
CT SCAN OF THE ABDOMEN AND PELVIS WITHOUT IV CONTRAST CLINICAL HISTORY: Generalized weakness. Right buttock pain. COMPARISON STUDY: Abdominal CT dated 04/06/2022. TECHNIQUE: CT scan of the abdomen and pelvis is performed from the lung bases to the proximal femora. Images are reviewed in the axial, sagittal, and coronal planes. IV contrast was not administered for this examination. A dose lowering technique was utilized adhering to the principles of ALARA. The ex amination is degraded by large body habitus, and by streak artifact from the body wall abutting the C T gantry. CT DOSE: 2127.07 mGy.cm FINDINGS: Lung bases: The heart is top normal in size and without pericardial effusion. There are scattered cor onary artery calcifications. The lung bases are clear noted bibasilar scarring/atelectasis. A small h iatal hernia is noted. Liver: The unenhanced liver is enlarged, measuring 22 cm in length. The liver demonstrates diffusely diminished attenuation indicating steatosis. There is no intrahepatic biliary ductal dilatation. Gallbladder: Surgically absent noting clips in the gallbladder fossa. Spleen: Normal in size and attenuation. Pancreas: The unenhanced pancreas is moderately atrophic and grossly unremarkable. Adrenal glands: Unremarkable. Kidneys: The unenhanced kidneys demonstrate mild cortical atrophy. No ureteral stent is seen. There a re numerous tiny stones/fragments in the right renal collecting system and pelvis measuring up to 9 m m. Punctate stone fragments are seen within the lower pole of the left kidney. There may be a punctat e calculus within or adjacent to the distal left ureter on axial image #399. There is urothelial thic kening seen involving the left ureter and renal pelvis with surrounding inflammation. There is at brenda st mild left-sided hydronephrosis. No hydronephrosis is seen on the right. There is no evidence of co ntour deforming renal mass lesion. Abdominal vasculature: The abdominal aorta is normal in course and caliber. Bowel: There is moderate colonic fecal retention. No bowel obstruction is seen. There are scattered c olonic diverticula without CT evidence of acute diverticulitis. The appendix is well-visualized and normal. Peritoneum: There is no intraperitoneal free air or abdominal ascites. There is a large fat-containin g umbilical hernia. Lymphadenopathy: None. Pelvic viscera: The prostate gland is enlarged and heterogeneous. A punctate bladder calculus is seen image 418. The bladder wall is thickened/trabeculated indicating chronic outlet obstruction. Skeletal structures: The skeletal structures are osteopenic. Moderate lumbosacral spondylosis is obse rved. No lytic or blastic lesions are seen. IMPRESSION: 1. There are tiny stone fragments within the left renal collecting system. There is mild left hydrour eteronephrosis with associated urothelial thickening and perinephric/periureteric inflammation. A sma ll calculus is seen within the bladder lumen and this could represent the sequelae of a recently pass ed kidney stone. Question a punctate calculus within or adjacent to the left vesicoureteral junction. Correlate with clinical findings for evidence of superimposed urinary tract infection. 2. Additional stones/fragments are seen in the right kidney. 3. There is no right-sided hydronephrosis. 4. Hepatomegaly and hepatic steatosis. 5. Additional findings as above. ACT 112: Negative or not required by law. Electronically signed by: Enrique Sheppard M.D. 05/28/2022 8:50 AM
[2022-05-28] MEDS ORDERED: LANTUS PER UNIT CHARGE SQ SCH (09:00)
--- NOTE | 2022-05-28 09:04 | XRay Report ---
XR chest 1V portable HISTORY: weakness COMPARISON: Chest 06/13/2021. FINDINGS: No pneumothorax. No pleural effusions. The cardiac silhouette remains mildly enlarged. Ther e is mild central pulmonary vascular congestion without overt edema. This has improved in the interva l. No new focal lung consolidations. There are calcifications within the aortic knob. IMPRESSION: Interval improvement in the mild pulmonary vascular congestion. ACT 112: Negative or not required by law. Electronically signed by: Juan Benjamin M.D. 05/28/2022 9:03 AM
[2022-05-28 10:07] LABS: Basophils # (auto) 0.06 K/uL (0-0.2); Basophils % (auto) 0.3 %; Eosinophils # (auto) 0.19 K/uL (0-0.50); Eosinophils % (auto) 1.1 %; Immature Granulocytes # (auto) 0.07 K/uL (0.00-0.02); Immature Granulocytes % (auto) 0.4 %; Lymphocytes # (auto) 7.23 K/uL (1.2-3.4); Lymphocytes % (auto) 41.1 %; Monocytes # (auto) 1.33 K/uL (0.24-0.82); Monocytes % (auto) 7.6 %; Neutrophils # (auto) 8.71 K/uL (1.4-6.5); Neutrophils % (auto) 49.5 %; Smudge Cells Present
[2022-05-28] MEDS: INSULIN ASPART PER UNIT SC SCH ×3 (12:32→21:14)
[2022-05-28] MEDS: traMADol HCL 50 MG TABLET PO PRN ×3 (12:39→23:31)
--- NOTE | 2022-05-28 13:31 | Hospitalist Progress Note ---
Date of Service May 28, 2022 Assessment & Plan (1) Complicated UTI (urinary tract infection): Plan 66-year-old male with PMH of chronic systolic heart failure secondary to nonischemic CM [EF 45 to 49% TTE 2021], chronic LBBB, nonobstructive CAD, pulmonary HTN secondary to DICK/pickwickian syndrome on CPAP, HTN, HLD, DM2 on oral meds and Ozempic, CLL, CRI [baseline creatinine around 2.5], chronic anemia [baseline hemoglobin around 11-12], buried penis as per records, urolithiasis came into the ED 05/28 after he slipped to the floor while trying to get out of the bed and feeling weak. Patient also had usual right flank pain discomfort similar to stent pain. Is being managed for the following: Complicated UTI Persistent left hydroureteronephrosis, history of urolithiasis History of stent placement status post spontaneous extrusion Possible sepsis POA: Doubtful as patient has chronically elevated WBC, heart rate was elevated at presentation, UA positive for UTI. Patient came in with weakness and with history of recent spontaneous extrusion of his stent on the left side. Admitting UA suggestive of UTI, WBC elevated, Pro-Edis elevated. Admitting CTAP: Tiny stone fragments within the left renal collecting system with mild left hydroureteronephrosis with associated urothelial thickening and perinephric/periureteric inflammation. A small calculus is seen within the bladder lumen and this could represent the sequelae of recently passed kidney stone. Additional stone/fragments seen in the right kidney. No right-sided hydronephrosis. Admitting CT head and admitting CXR reviewed. Patient is started on cefepime 05/28, follow final urine culture results Urology evaluated, appreciate recommendation. History of chronic systolic heart failure: EF 45 to 49% on TTE 2021, secondary to nonischemic cardiomyopathy, euvolemic to baseline congestion, admitting CXR reviewed, continue home meds as able. Other chronic medical conditions: Nonobstructive CAD, LBBB, pulmonary hypertension secondary to DICK/pickwickian syndrome on CPAP, HTN, HLD, DM2, CLL, CRI, chronic anemia ---> home meds as able. Patient with poor control of diabetes, patient to follow-up with his diabetic clinic or PCP closely for ongoing management of his diabetes. DVT prophylaxis Heparin subcu Full code Admission and Anticipated Discharge Date Admission Date: May 28, 2022 Subjective Patient seen and examined at bedside as a follow-up of complicated UTI. Patient was lying in bed, on room air, NAD, reports no new acute event overnight, reports eating okay, reports some mild pain at right buttock where he landed when he slipped from bed while trying to get up, feels a lot better today, reports moving bowels okay, offers no other complaints. Reports being able to walk better today. Physical Exam Physical Exam: GENERAL: Alert and oriented x3. NAD, on RA. Obese Class III. HEENT: No pallor, no icterus. Pupils equal, round and reactive to light. Oral mucosa moist. NECK: No JVD, no neck masses. HEART: S1 and S2 heard. Regular rate and rhythm. No murmur, no gallop. RESPIRATORY SYSTEM: Normal AP diameter. No accessory muscle use. No wheezing, no crackles. ABDOMEN: Soft, bowel sounds present, nontender, no distention. CENTRAL NERVOUS SYSTEM: No facial droop. Speech is clear. Obeys simple commands. Moves extremities. EXTREMITIES: trace/1+ edema, dry scales ble noted. Results & Data Results & Data ([facility]) Vital Signs (Past 12 Hours) Vital Signs Temp Pulse Pulse Resp BP Pulse Ox O2 Del Method 05/28/22 10:58 Room Air 05/28/22 07:54 37.1 C 86 18 127/77 93 Room Air 05/28/22 03:45 CPAP 05/28/22 03:45 36.6 C 83 18 150/96 H 95 Room Air 05/28/22 03:21 79 16 128/62 97 Room Air 05/28/22 02:44 70 16 123/70 94 Room Air
[2022-05-28 18:44] LABS: A calco-baum cmplx NotReported Not Detected (NotDetected); Bact fragilis Not Reported Not Detected (NotDetected); C auris Not Reported Not Detected (NotDetected); Calbicans Not Reported Not Detected (NotDetected); Candida glabrata Not Reported Not Detected (NotDetected); Candida krusei Not Reported Not Detected (NotDetected); Cneoformans/gatti Not Reported Not Detected (NotDetected); Cparapsilosis Not Reported Not Detected (NotDetected); Ctropicalis Not Reported Not Detected (NotDetected); E cloacae compx Not Reported Not Detected (NotDetected); Efaecalis Not Reported Not Detected (NotDetected); Efaecium Not Reported Not Detected (NotDetected); Enterobacterales Not Reported Not Detected (NotDetected); Escherichia coli Not Reported Not Detected (NotDetected); H influenzae Not Reported Not Detected (NotDetected); K aerogenes Not Reported Not Detected (NotDetected); Koxytoca Not Reported Not Detected (NotDetected); Kpneumoniae grp Not Reported Not Detected (NotDetected); Lmonocyt Not Reported Not Detected (NotDetected); N meningitidis Not Reported Not Detected (NotDetected); P aeruginosa Not Reported Not Detected (NotDetected); Proteus spp Not Reported Not Detected (NotDetected); Salmonella spp Not Reported Not Detected (NotDetected); Smarcescens Not Reported Not Detected (NotDetected); Staph lugdunensis Not Reported Not Detected (NotDetected); Staph spp. Not Reported DETECTED (NotDetected); Staphaureus Not Reported DETECTED (NotDetected); Staphepi Not Reported Not Detected (NotDetected); Staphylococcus spp. DETECTED (NotDetected); Stenmaltophilia Not Reported Not Detected (NotDetected); Strep agal(GrpB) Not Reported Not Detected (NotDetected); Strep pneum Not Reported Not Detected (NotDetected); Strep pyog (GrpA) Not Reported Not Detected (NotDetected); Strep spp Not Reported Not Detected (NotDetected); mecAC+MREJ Resistant Gene MRSA Not Detected (NotDetected)
[2022-05-28] MEDS: LANTUS PER UNIT CHARGE SQ SCH (19:34)
[2022-05-28] MEDS: TAMSULOSIN HCL 0.4 MG CAP PO SCH (20:11)
[2022-05-29] MEDS: traMADol HCL 50 MG TABLET PO PRN (06:09)
[2022-05-29] MEDS: HEPARIN SOD 5,000 UNIT/0.5 ML VIAL SQ SCH ×3 (06:10→22:17)
[2022-05-29] MEDS: PANTOprazole 40 MG TAB PO SCH (06:10)
[2022-05-29 08:50] LABS: Hematocrit (blood only) 34.2 % (40.1-51.0); Hemoglobin 11.1 g/dl (14.0-18.0); Mean Corpuscular Hemoglobin 29.6 pg (25.0-34.0); Mean Corpuscular Hgb Conc 32.5 g/dL (32.0-36.0); Mean Corpuscular Volume 91.2 fL (80.0-100.0); Mean Platelet Volume 11.1 fL (9.4-12.4); Platelet Count 179 K/uL (130-400); RDW Coefficient of Variation 12.7 % (11.5-14.5); RDW Standard Deviation 41.9 fL (36.4-46.3); Red Blood Count 3.75 M/uL (4.63-6.08); White Blood Count 17.46 K/ul (4.8-10.8)
[2022-05-29] MEDS ORDERED: CEFEPIME 1,000 MG in SYRINGE 0 ML IV SCH (09:00)
[2022-05-29] MEDS: LANTUS PER UNIT CHARGE SQ SCH ×2 (09:05→22:24)
[2022-05-29] MEDS: INSULIN ASPART PER UNIT SC SCH ×4 (09:05→22:23)
[2022-05-29] MEDS: ASPIRIN 81 MG ECTAB PO SCH (09:28)
[2022-05-29] MEDS: carvediloL 6.25 MG TAB PO SCH ×2 (09:28→22:17)
[2022-05-29] MEDS: ceFAZolin 2000MG 2,000 MG/15 ML SYR IV SCH ×2 (09:28→17:52)
[2022-05-29] MEDS: GABAPENTIN 300 MG CAP PO SCH ×2 (09:29→22:17)
[2022-05-29] MEDS: DULoxetine HCL 30 MG CAP PO SCH (09:29)
[2022-05-29] MEDS: ROSUVASTATIN CALCIUM 20 MG TAB PO SCH (09:29)
[2022-05-29] MEDS: FOLIC ACID 1 MG TAB PO SCH (09:29)
[2022-05-29] MEDS: ACETAMINOPHEN 325 MG TAB PO PRN ×3 (09:38→22:22)
[2022-05-29 10:00] LABS: Creatinine Clr Calc Pharmacy 44.5 ml/min; Est GFR (African American) 29.9 ml/min; Est GFR (Non-African American) 25.8 ml/min; Magnesium 1.9 mg/dl (1.7-2.4); Phosphorus 2.5 mg/dl (2.5-4.9); Potassium 4.5 mmol/L (3.5-5.1)
--- NOTE | 2022-05-29 11:33 | Urology Progress Note ---
Date of Service May 29, 2022 Assessment & Plan (1) Complicated UTI (urinary tract infection): (2) Kidney stone: Plan 66yo M admitted with weakness, complicated UTI. -CT a/p demonstrated tiny stone fragments within the left renal collecting system, mild left hydronephrosis, a small calculus within the bladder lumen possibly representing a recently passed stone, question of a punctate calculus within/adjacent to the left UVJ, additional stones in the right kidney, no right-sided hydronephrosis. -Overall feeling well. No reported pain. -Remains afebrile and hemodynamically stable. -Labs reviewed -Leukocytosis improving 17.59 -17.46 today, Creatinine 2.50. Continue to trend. -Urine prelim with staph species, blood cultures prelim gram positive cocci/staph species, repeat pending -Voiding spontaneously, continue to monitor. Bladder scan prn. -Continue supportive care. -Continue antibiotics and tailor as culture data becomes available. -Urology will follow. Admission and Anticipated Discharge Date Admission Date: May 28, 2022 Subjective Patient examined at bedside this AM. Awake, sitting up in bedside chair on arrival. No acute distress. Denies any pain or discomfort. No fevers or chills. Denies nausea or vomiting. Voiding without issue. Denies hematuria dysuria. Feels he is emptying his bladder well. Eager to go home. Review of Systems Constitutional: as per Subjective / HPI Gastrointestinal: as per Subjective / HPI Genitourinary: + as per Subjective / HPI Physical Exam Constitutional: + obese; no acute distress Respiratory: no respiratory distress and no labored breathing Neurologic: moves all extremities and awake Psychiatric: Orientation: alert and oriented x 3 Results & Data ([facility]) Vital Signs (Past 12 Hours) Vital Signs Temp Pulse Resp BP Pulse Ox O2 Del Method 05/29/22 08:00 Room Air 05/29/22 08:07 36.7 C 90 20 119/60 93 Room Air 05/29/22 01:02 18 Room Air 05/28/22 23:37 36.7 C 95 H 22 149/88 H 94 Room Air PG Care Time/CCT Total # of Minutes Spent Total Time Spent with Patient: Total time spent is greater than 50% in coordination of care (as documented) at patient's floor/unit and/or counseling patient: Coding Level of Care Code 97065 Subseq Hosp Care Lvl 2 Diagnoses Complicated UTI (urinary tract infection) N39.0 Kidney stone N20.0
--- NOTE | 2022-05-29 15:03 | Hospitalist Progress Note ---
Date of Service May 29, 2022 Assessment & Plan (1) Complicated UTI (urinary tract infection): Plan 66-year-old male with PMH of chronic systolic heart failure secondary to nonischemic CM [EF 45 to 49% TTE 2021], chronic LBBB, nonobstructive CAD, pulmonary HTN secondary to DICK/pickwickian syndrome on CPAP, HTN, HLD, DM2 on oral meds and Ozempic, CLL, CRI [baseline creatinine around 2.5], chronic anemia [baseline hemoglobin around 11-12], buried penis as per records, urolithiasis came into the ED 05/28 after he slipped to the floor while trying to get out of the bed and feeling weak. Patient also had usual right flank pain discomfort similar to stent pain. Is being managed for the following: Complicated UTI Persistent left hydroureteronephrosis, history of urolithiasis History of stent placement status post spontaneous extrusion Possible sepsis POA: Doubtful as patient has chronically elevated WBC, heart rate was elevated at presentation, UA positive for UTI. Gram-positive cocci bacteremia Patient came in with weakness and with history of recent spontaneous extrusion of his stent on the left side. Admitting UA suggestive of UTI, WBC elevated, Pro-Edis elevated. Admitting CTAP: Tiny stone fragments within the left renal collecting system with mild left hydroureteronephrosis with associated urothelial thickening and perinephric/periureteric inflammation. A small calculus is seen within the bladder lumen and this could represent the sequelae of recently passed kidney stone. Additional stone/fragments seen in the right kidney. No right-sided hydronephrosis. Admitting CT head and admitting CXR reviewed. Admitting urine culture prelim staph species, follow final results Admitting blood culture prelim gram-positive cocci, follow final results 05/28 cefepime --> cefazolin 05/29 after serology Staph PCR negative for MRSA Echo ordered, follow. ID consult. Repeat blood culture sent 05/29 am, follow results. Repeat blood cultures until negative. Urology evaluated, appreciate recommendation. History of chronic systolic heart failure: EF 45 to 49% on TTE 2021, secondary to nonischemic cardiomyopathy, euvolemic to baseline congestion, admitting CXR reviewed, continue home meds as able. Other chronic medical conditions: Nonobstructive CAD, LBBB, pulmonary hypertension secondary to DICK/pickwickian syndrome on CPAP, HTN, HLD, DM2, CLL, CRI, chronic anemia ---> home meds as able. Patient with poor control of diabetes, patient to follow-up with his diabetic clinic or PCP closely for ongoing management of his diabetes. DVT prophylaxis Heparin subcu Full code Disposition: Pending negative blood culture results, pending ID eval, patient will likely need IV antibiotic upon discharge. Admission and Anticipated Discharge Date Admission Date: May 28, 2022 Subjective Patient seen and examined at bedside as a follow-up of complicated UTI. Patient was lying in bed, on room air, NAD, reports no new acute event overnight, reports eating okay, reports no pain today, feels better, reports moving bowels okay, offers no other complaints. Patient made aware of positive blood culture and plan of care necessitating his increased length of stay due to this, patient agreeable. Physical Exam Physical Exam: GENERAL: Alert and oriented x3. NAD, on RA. Obese Class III. HEENT: No pallor, no icterus. Pupils equal, round and reactive to light. Oral mucosa moist. NECK: No JVD, no neck masses. HEART: S1 and S2 heard. Regular rate and rhythm. No murmur, no gallop. RESPIRATORY SYSTEM: Normal AP diameter. No accessory muscle use. No wheezing, no crackles. ABDOMEN: Soft, bowel sounds present, nontender, no distention. CENTRAL NERVOUS SYSTEM: No facial droop. Speech is clear. Obeys simple commands. Moves extremities. EXTREMITIES: trace/1+ edema, dry scales ble noted. Results & Data Results & Data ([facility]) Vital Signs (Past 12 Hours) Vital Signs Temp Pulse Resp BP BP Pulse Ox O2 Del Method 05/29/22 14:45 36.6 C 82 20 162/76 H 95 Room Air 05/29/22 08:00 Room Air 05/29/22 08:07 36.7 C 90 20 119/60 93 Room Air
--- NOTE | 2022-05-29 21:32 | Electrocardiogram Report ---
Test Reason : Blood Pressure : / mmHG Vent. Rate : 107 BPM Atrial Rate : 107 BPM P-R Int : 186 ms QRS Dur : 140 ms QT Int : 362 ms P-R-T Axes : 039 -52 076 degrees QTc Int : 483 ms Sinus tachycardia with occasional Premature ventricular complexes Left bundle branch block Abnormal ECG When compared with ECG of 06-APR-2022 17:09, Premature ventricular complexes are now Present NH interval has decreased Confirmed by Jamie Menendez ([id number]) on 05/29/2022 9:31:33 PM Referred By: REFERRED SELF Confirmed By:Jamie Menendez
[2022-05-29] MEDS: traZODone HCL 50 MG TAB PO SCH (22:17)
[2022-05-29] MEDS: TAMSULOSIN HCL 0.4 MG CAP PO SCH (22:17)
[2022-05-30] MEDS: ceFAZolin 2000MG 2,000 MG/15 ML SYR IV SCH ×4 (00:22→23:31)
[2022-05-30] MEDS: PANTOprazole 40 MG TAB PO SCH (06:09)
[2022-05-30] MEDS: HEPARIN SOD 5,000 UNIT/0.5 ML VIAL SQ SCH ×3 (06:09→20:21)
[2022-05-30 06:24] LABS: Hematocrit (blood only) 32.8 % (40.1-51.0); Hemoglobin 10.5 g/dl (14.0-18.0); Mean Corpuscular Hemoglobin 29.3 pg (25.0-34.0); Mean Corpuscular Volume 91.6 fL (80.0-100.0); Mean Platelet Volume 10.8 fL (9.4-12.4); Platelet Count 186 K/uL (130-400); RDW Coefficient of Variation 12.8 % (11.5-14.5); RDW Standard Deviation 42.7 fL (36.4-46.3); Red Blood Count 3.58 M/uL (4.63-6.08); White Blood Count 14.23 K/ul (4.8-10.8)
[2022-05-30 06:36] LABS: Creatinine Clr Calc Pharmacy 44.5 ml/min; Est GFR (African American) 29.9 ml/min; Est GFR (Non-African American) 25.8 ml/min; Magnesium 1.9 mg/dl (1.7-2.4); Potassium 4.4 mmol/L (3.5-5.1)
[2022-05-30] MEDS: ACETAMINOPHEN 325 MG TAB PO PRN ×2 (08:21→23:30)
[2022-05-30] MEDS: LANTUS PER UNIT CHARGE SQ SCH ×2 (08:22→20:20)
[2022-05-30] MEDS: INSULIN ASPART PER UNIT SC SCH ×4 (08:23→20:20)
[2022-05-30] MEDS: GABAPENTIN 300 MG CAP PO SCH ×2 (08:24→20:08)
[2022-05-30] MEDS: carvediloL 6.25 MG TAB PO SCH ×2 (08:24→20:07)
[2022-05-30] MEDS: ASPIRIN 81 MG ECTAB PO SCH (08:25)
[2022-05-30] MEDS: DULoxetine HCL 30 MG CAP PO SCH (08:25)
[2022-05-30] MEDS: FOLIC ACID 1 MG TAB PO SCH (08:25)
[2022-05-30] MEDS: ROSUVASTATIN CALCIUM 20 MG TAB PO SCH (08:25)
--- NOTE | 2022-05-30 10:32 | Hospitalist Progress Note ---
Date of Service May 30, 2022 Assessment & Plan (1) Complicated UTI (urinary tract infection): Plan 66-year-old male with PMH of chronic systolic heart failure secondary to nonischemic CM [EF 45 to 49% TTE 2021], chronic LBBB, nonobstructive CAD, pulmonary HTN secondary to DICK/pickwickian syndrome on CPAP, HTN, HLD, DM2 on oral meds and Ozempic, CLL, CRI [baseline creatinine around 2.5], chronic anemia [baseline hemoglobin around 11-12], buried penis as per records, urolithiasis came into the ED 05/28 after he slipped to the floor while trying to get out of the bed and feeling weak. Patient also had usual right flank pain discomfort similar to stent pain. Is being managed for the following: Complicated UTI Persistent left hydroureteronephrosis, history of urolithiasis History of stent placement status post spontaneous extrusion Possible sepsis POA: Gram-positive cocci bacteremia Patient came in with weakness and with history of recent spontaneous extrusion of his stent on the left side. Has chronic leukocytosis likely due to CLL Admitting UA suggestive of UTI, WBC elevated, Pro-Edis elevated. Admitting CTAP: Tiny stone fragments within the left renal collecting system with mild left hydroureteronephrosis with associated urothelial thickening and perinephric/periureteric inflammation. A small calculus is seen within the bladder lumen and this could represent the sequelae of recently passed kidney stone. Additional stone/fragments seen in the right kidney. No right-sided hydronephrosis. Admitting urine culture growing MSSA Admitting blood culture growing MSSA Repeat blood culture from 05/29 negative so far Currently on Ancef Will follow up TTE. ID recs noted Urology recommendations noted History of chronic systolic heart failure: EF 45 to 49% on TTE 2021, secondary to nonischemic cardiomyopathy Continue home meds. Diabetes mellitus Last A1c was 13.9 on 04/08/22 Counselled on need for proper control Continue insulin per protocol while inpatient To continue follow up with PCp on discharge Morbid obesity BMI >50 Lifestyle modification counselling provided CKD3/4 Per Nephro outpatient note on 05/23/22, spironolactone was stopped but losartan and potassium were continued Resume home losartan Hypertension Continue carvedilol Resume home losartan Other chronic medical conditions: Nonobstructive CAD, LBBB, pulmonary hypertension secondary to DICK/pickwickian syndrome on CPAP, HTN, HLD, DM2, CLL, CRI, chronic anemia ---> home meds as able. P DVT prophylaxis Heparin subcu Full code Admission and Anticipated Discharge Date Admission Date: May 28, 2022 Subjective Patient seen and examined Reports feeling better today States generalized weakness is almost resolved Denied any headache, dizziness Denied nausea, vomiting,abd pain, diarrhea Denied dysuria, freq, urgency, hematuria Denied fevers, chills Denied chest pain, cough, shortness of breath Physical Exam Constitutional: + well hydrated and + morbidly obese; no acute distress Eyes: PERRL, conjunctivae normal, anicteric sclerae ENMT: external ear and nose normal, oropharynx normal Respiratory: normal respiratory effort, lungs clear to auscultation Cardiovascular: Rate/Rhythm: regular rate and regular rhythm S1 S2 Gastrointestinal (Abdomen): normal bowel sounds, soft, nontender, no hepatosplenomegaly Musculoskeletal: Trace pedal edema with stasis dermaititis changes Neurologic: PERRL, EOMI, accommodation nl, no face palsy, no dysarthria Psychiatric: A+Ox3, euthymic affect Genitourinary: No CVA tenderness Results & Data Results & Data ([facility] [place]) Vital Signs (Past 12 Hours) Vital Signs Temp Pulse Resp BP BP Pulse Ox O2 Del Method 05/30/22 08:06 36.9 C 76 16 145/81 H 96 Room Air 05/29/22 22:41 36.9 C 83 20 160/74 H 94 Room Air Laboratory Results Abnormal lab results 05/29/22 05/29/22 05/29/22 Range/Units 12:12 16:54 20:05 WBC (4.8-10.8) K/ul RBC (4.63-6.08) M/uL Hgb (14.0-18.0) g/dl Hct (40.1-51.0) % BUN (6-23) mg/dl Creatinine (0.6-1.4) mg/dl Glucose (70-99(Fasting)) mg/dl POC Glucose 284 H 182 H 184 H (70-99) mg/dl 05/30/22 05/30/22 05/30/22 Range/Units 05:55 05:55 08:00 WBC 14.23 H (4.8-10.8) K/ul RBC 3.58 L (4.63-6.08) M/uL Hgb 10.5 L (14.0-18.0) g/dl Hct 32.8 L (40.1-51.0) % BUN 45 H (6-23) mg/dl Creatinine 2.50 H (0.6-1.4) mg/dl Glucose 171 H (70-99(Fasting)) mg/dl POC Glucose 180 H (70-99) mg/dl
--- NOTE | 2022-05-30 10:54 | Urology Progress Note ---
Date of Service May 30, 2022 Assessment & Plan (1) Complicated UTI (urinary tract infection): (2) Kidney stone: Plan 66yo M admitted with weakness, complicated UTI. CT a/p on arrival demonstrated tiny stone fragments within the left renal collecting system, mild left hydronephrosis, a small calculus within the bladder lumen possibly representing a recently passed stone, question of a punctate calculus within/adjacent to the left UVJ, additional stones in the right kidney, no right-sided hydronephrosis. -Overall feeling well. No reported pain. -Remains afebrile and hemodynamically stable. -Labs reviewed -Leukocytosis improving, Creatinine 2.50. Continue to trend. -Urine/blood cultures with Staph aureus. Repeat blood cultures pending. -On IV cefazolin. ID consulted, note reviewed. -Voiding spontaneously, continue to monitor. Bladder scan prn. -Continue supportive care and antibiotic therapy. -Plan for outpatient follow-up as scheduled with our service. -Urology will follow peripherally. Admission and Anticipated Discharge Date Admission Date: May 28, 2022 Subjective Patient examined at bedside this AM. Awake, sitting up in bedside chair on arrival. No acute distress. Overall feeling well. Denies any pain or discomfort. No fevers or chills. Denies nausea or vomiting. Voiding without issue. Denies hematuria or dysuria. Feels he is emptying his bladder well. Review of Systems Constitutional: as per Subjective / HPI Gastrointestinal: as per Subjective / HPI Genitourinary: + as per Subjective / HPI Physical Exam Constitutional: + obese; no acute distress Respiratory: no respiratory distress and no labored breathing Neurologic: moves all extremities and awake Psychiatric: Orientation: alert and oriented x 3 Results & Data ([facility]) Vital Signs (Past 12 Hours) Vital Signs Temp Pulse Resp BP Pulse Ox O2 Del Method 05/30/22 08:06 36.9 C 76 16 145/81 H 96 Room Air PG Care Time/CCT Total # of Minutes Spent Total Time Spent with Patient: Total time spent is greater than 50% in coordination of care (as documented) at patient's floor/unit and/or counseling patient: Coding Level of Care Code 91529 Subseq Hosp Care Lvl 2 Diagnoses Complicated UTI (urinary tract infection) N39.0 Kidney stone N20.0
[2022-05-30] MEDS: LOSARTAN POTASSIUM 50 MG TAB PO SCH (11:31)
[2022-05-30] MEDS: traMADol HCL 50 MG TABLET PO PRN (12:13)
[2022-05-30] MEDS ORDERED: PHARMACY GLYCEMIC MGMT CONSULT PRN (12:14)
--- NOTE | 2022-05-30 15:00 | Pharmacy Report ---
Pharmacy Glycemic Short Note 2 - Date of Service May 30, 2022 - Glycemic Short BSG Results (Last 24 hours): 05/29/22 05/29/22 05/30/22 16:54 20:05 05:55 Glucose 171 H POC Glucose 182 H 184 H 05/30/22 05/30/22 08:00 11:48 Glucose POC Glucose 180 H 270 H OUTPATIENT ANTIDIABETIC REGIMEN: * Lantus 30 units BID * Novolog 20 units TIDM * Ozempic 0.5 mg SQ weekly * HbA1C - ordered for 05/31/22 ASSESSMENT: * Mr Whaley is a 66 y/o M with a PMH of T2DM. * Patient received 111 units of insulin yesterday (50 units of basal and 61 units of bolus) - BSGs yesterday were [phone] mg/dL. * BSGs today are 180-270 mg/dL. Pharmacy consulted after lunch BSG. * Increase basal to 30 units BID (20% increase) * Tighten CR since BSGs trend up throughout the day. PLAN FOR INPATIENT GLYCEMIC CONTROL: * Basal insulin * Lantus 30 units SQ BID * Bolus insulin * NovoLog per scale ACHS or Q6hrs while NPO * Goal Range: Low 110 mg/dL - High 140 mg/dL * Correction Factor: 15 mg/dL/unit * Nutritional / Prandial insulin per carb ratio of 1 unit per 4 grams CHO consumed
[2022-05-30] MEDS: TAMSULOSIN HCL 0.4 MG CAP PO SCH (20:07)
[2022-05-30] MEDS: traZODone HCL 50 MG TAB PO SCH (20:08)
[2022-05-31] MEDS: HEPARIN SOD 5,000 UNIT/0.5 ML VIAL SQ SCH ×3 (06:24→20:51)
[2022-05-31] MEDS: PANTOprazole 40 MG TAB PO SCH (06:24)
[2022-05-31] MEDS: ACETAMINOPHEN 325 MG TAB PO PRN ×2 (07:22→12:07)
[2022-05-31] MEDS: INSULIN ASPART PER UNIT SC SCH ×4 (08:09→20:49)
[2022-05-31] MEDS: LANTUS PER UNIT CHARGE SQ SCH ×2 (08:10→20:48)
[2022-05-31] MEDS: ceFAZolin 2000MG 2,000 MG/15 ML SYR IV SCH ×3 (08:10→23:30)
[2022-05-31] MEDS: ROSUVASTATIN CALCIUM 20 MG TAB PO SCH (08:11)
[2022-05-31] MEDS: DULoxetine HCL 30 MG CAP PO SCH (08:11)
[2022-05-31] MEDS: LOSARTAN POTASSIUM 50 MG TAB PO SCH (08:11)
[2022-05-31] MEDS: ASPIRIN 81 MG ECTAB PO SCH (08:11)
[2022-05-31] MEDS: carvediloL 6.25 MG TAB PO SCH ×2 (08:11→20:36)
[2022-05-31] MEDS: GABAPENTIN 300 MG CAP PO SCH ×2 (08:11→20:36)
[2022-05-31] MEDS: FOLIC ACID 1 MG TAB PO SCH (08:12)
[2022-05-31 08:17] LABS: Hematocrit (blood only) 35.6 % (40.1-51.0); Hemoglobin 11.3 g/dl (14.0-18.0); Mean Corpuscular Hemoglobin 29.1 pg (25.0-34.0); Mean Corpuscular Hgb Conc 31.7 g/dL (32.0-36.0); Mean Corpuscular Volume 91.8 fL (80.0-100.0); Platelet Count 212 K/uL (130-400); RDW Standard Deviation 42.8 fL (36.4-46.3); Red Blood Count 3.88 M/uL (4.63-6.08); White Blood Count 16.19 K/ul (4.8-10.8)
[2022-05-31 08:39] LABS: Estimated Average Glucose 258 mg/dl; Hemoglobin A1C 10.6 % (4.5-5.6)
[2022-05-31 08:50] LABS: BUN Creatinine Ratio 19.8 (10-20); Calcium 9.3 mg/dl (8.5-10.1); Est GFR (African American) 30.3 ml/min; Est GFR (Non-African American) 26.2 ml/min; Potassium 4.4 mmol/L (3.5-5.1)
--- NOTE | 2022-05-31 12:01 | Hospitalist Progress Note ---
Date of Service May 31, 2022 Assessment & Plan (1) Complicated UTI (urinary tract infection): Plan 66-year-old male with PMH of chronic systolic heart failure secondary to nonischemic CM [EF 45 to 49% TTE 2021], chronic LBBB, nonobstructive CAD, pulmonary HTN secondary to DICK/pickwickian syndrome on CPAP, HTN, HLD, DM2 on oral meds and Ozempic, CLL, CRI [baseline creatinine around 2.5], chronic anemia [baseline hemoglobin around 11-12], buried penis as per records, urolithiasis came into the ED 05/28 after he slipped to the floor while trying to get out of the bed and feeling weak. Patient also had usual right flank pain discomfort similar to stent pain. Is being managed for the following: Complicated UTI Persistent left hydroureteronephrosis, history of urolithiasis History of stent placement status post spontaneous extrusion Possible sepsis POA: Gram-positive cocci bacteremia Patient came in with weakness and with history of recent spontaneous extrusion of his stent on the left side. Has chronic leukocytosis likely due to CLL Admitting UA suggestive of UTI, WBC elevated, Pro-Edis elevated. Admitting CTAP: Tiny stone fragments within the left renal collecting system with mild left hydroureteronephrosis with associated urothelial thickening and perinephric/periureteric inflammation. A small calculus is seen within the bladder lumen and this could represent the sequelae of recently passed kidney stone. Additional stone/fragments seen in the right kidney. No right-sided hydronephrosis. Admitting urine culture growing MSSA Admitting blood culture growing MSSA Repeat blood culture from 05/29 negative so far Currently on Ancef TTE was limited with poor acoustic windows Will follow up with ID for final antibiotic recommendations Urology recommendations noted History of chronic systolic heart failure: EF 45 to 49% on TTE 2021, secondary to nonischemic cardiomyopathy Continue home meds. Diabetes mellitus Last A1c was 13.9 on 04/08/22 Counselled on need for proper control Continue insulin per protocol while inpatient To continue follow up with PCP on discharge Morbid obesity BMI >50 Lifestyle modification counselling provided CKD3/4 Per Nephro outpatient note on 05/23/22, spironolactone was stopped but losartan and potassium were continued Hypertension Continue carvedilol and losartan Other chronic medical conditions: Nonobstructive CAD, LBBB, pulmonary hypertension secondary to DICK/pickwickian syndrome on CPAP, HTN, HLD, DM2, CLL, CRI, chronic anemia ---> home meds as able. P DVT prophylaxis Heparin subcu Full code Admission and Anticipated Discharge Date Admission Date: May 28, 2022 Subjective Patient seen and examined Denied generalized weakness today Denied any headache, dizziness Denied nausea, vomiting,abd pain, diarrhea Denied dysuria, freq, urgency, hematuria Denied fevers, chills Denied chest pain, cough, shortness of breath Physical Exam Constitutional: + well hydrated and + morbidly obese; no acute distress Eyes: PERRL, conjunctivae normal, anicteric sclerae ENMT: external ear and nose normal, oropharynx normal Respiratory: normal respiratory effort, lungs clear to auscultation Cardiovascular: Rate/Rhythm: regular rate and regular rhythm S1 S2 Gastrointestinal (Abdomen): normal bowel sounds, soft, nontender, no hepatosplenomegaly Musculoskeletal: Trace pedal edema with stasis dermatitis changes Neurologic: PERRL, EOMI, accommodation nl, no face palsy, no dysarthria Psychiatric: A+Ox3, euthymic affect Results & Data Results & Data ([facility]) Vital Signs (Past 12 Hours) Vital Signs Temp Pulse Resp BP BP Pulse Ox O2 Del Method 05/31/22 11:45 36.8 C 60 16 143/72 H 96 Room Air 05/31/22 08:15 36.3 C L 82 16 168/67 H 96 Room Air 05/31/22 05:00 36.6 C 96 H 20 153/73 H 97 Room Air Laboratory Results Abnormal lab results 05/30/22 05/30/22 05/31/22 Range/Units 16:32 20:14 07:09 WBC 16.19 H (4.8-10.8) K/ul RBC 3.88 L (4.63-6.08) M/uL Hgb 11.3 L (14.0-18.0) g/dl Hct 35.6 L (40.1-51.0) % MCHC 31.7 L (32.0-36.0) g/dL BUN (6-23) mg/dl Creatinine (0.6-1.4) mg/dl Glucose (70-99(Fasting)) mg/dl POC Glucose 131 H 224 H (70-99) mg/dl Hemoglobin A1c (4.5-5.6) % 05/31/22 05/31/22 05/31/22 Range/Units 07:09 07:09 07:36 WBC (4.8-10.8) K/ul RBC (4.63-6.08) M/uL Hgb (14.0-18.0) g/dl Hct (40.1-51.0) % MCHC (32.0-36.0) g/dL BUN 49 H (6-23) mg/dl Creatinine 2.47 H (0.6-1.4) mg/dl Glucose 189 H (70-99(Fasting)) mg/dl POC Glucose 187 H (70-99) mg/dl Hemoglobin A1c 10.6 H (4.5-5.6) % 05/31/22 Range/Units 11:42 WBC (4.8-10.8) K/ul RBC (4.63-6.08) M/uL Hgb (14.0-18.0) g/dl Hct (40.1-51.0) % MCHC (32.0-36.0) g/dL BUN (6-23) mg/dl Creatinine (0.6-1.4) mg/dl Glucose (70-99(Fasting)) mg/dl POC Glucose 224 H (70-99) mg/dl Hemoglobin A1c (4.5-5.6) %
[2022-05-31] MEDS: FUROSEMIDE 40 MG TAB PO SCH (17:07)
[2022-05-31] MEDS: traZODone HCL 50 MG TAB PO SCH (20:36)
[2022-05-31] MEDS: TAMSULOSIN HCL 0.4 MG CAP PO SCH (20:36)
[2022-05-31] MEDS: traMADol HCL 50 MG TABLET PO PRN (23:30)
[2022-06-01] MEDS: ACETAMINOPHEN 325 MG TAB PO PRN ×2 (04:31→18:18)
[2022-06-01] MEDS: HEPARIN SOD 5,000 UNIT/0.5 ML VIAL SQ SCH ×3 (05:10→20:55)
[2022-06-01] MEDS: PANTOprazole 40 MG TAB PO SCH (05:10)
[2022-06-01 07:46] LABS: Hematocrit (blood only) 35.3 % (40.1-51.0); Hemoglobin 11.3 g/dl (14.0-18.0); Mean Corpuscular Hemoglobin 29.3 pg (25.0-34.0); Mean Corpuscular Volume 91.5 fL (80.0-100.0); Mean Platelet Volume 10.7 fL (9.4-12.4); Platelet Count 220 K/uL (130-400); RDW Standard Deviation 42.6 fL (36.4-46.3); Red Blood Count 3.86 M/uL (4.63-6.08); White Blood Count 16.06 K/ul (4.8-10.8)
[2022-06-01] MEDS: traMADol HCL 50 MG TABLET PO PRN (08:05)
[2022-06-01] MEDS: ceFAZolin 2000MG 2,000 MG/15 ML SYR IV SCH ×2 (08:06→17:50)
[2022-06-01] MEDS: GABAPENTIN 300 MG CAP PO SCH ×2 (08:07→20:54)
[2022-06-01] MEDS: carvediloL 6.25 MG TAB PO SCH ×2 (08:07→20:54)
[2022-06-01] MEDS: ROSUVASTATIN CALCIUM 20 MG TAB PO SCH (08:07)
[2022-06-01] MEDS: FUROSEMIDE 40 MG TAB PO SCH ×2 (08:07→17:50)
[2022-06-01] MEDS: ASPIRIN 81 MG ECTAB PO SCH (08:07)
[2022-06-01] MEDS: FOLIC ACID 1 MG TAB PO SCH (08:07)
[2022-06-01] MEDS: LOSARTAN POTASSIUM 50 MG TAB PO SCH (08:08)
[2022-06-01] MEDS: DULoxetine HCL 30 MG CAP PO SCH (08:08)
[2022-06-01 08:27] LABS: BUN Creatinine Ratio 21.4 (10-20); Calcium 9.6 mg/dl (8.5-10.1); Creatinine Clr Calc Pharmacy 44.9 ml/min; Est GFR (African American) 30.2 ml/min; Potassium 4.5 mmol/L (3.5-5.1)
--- NOTE | 2022-06-01 08:35 | Pharmacy Report ---
Pharmacy Glycemic Short Note 2 - Date of Service June 01, 2022 - Glycemic Short BSG Results (Last 24 hours): 05/31/22 05/31/22 05/31/22 07:09 11:42 17:46 Glucose 189 H POC Glucose 224 H 124 H 05/31/22 05/31/22 06/01/22 20:37 21:38 07:14 Glucose 221 H POC Glucose 142 H 162 H 06/01/22 08:14 Glucose POC Glucose 203 H OUTPATIENT ANTIDIABETIC REGIMEN: * Lantus 30 units BID * Novolog 20 units TIDM * Ozempic 0.5 mg SQ weekly * HbA1C - ordered for 05/31/22 ASSESSMENT: 06/01/22 * Patient's BSGs yesterday were [phone]/162 mg/dL. Patient received 135 units of insulin (60 units of basal and 75 units of bolus). This represents a 15% increase in insulin from 05/30/22. * Fasting today is 203 mg/dL. * Increase basal by 20% to 35 units BID. For tonight, if BSGs greater than 180 gm/dL give 40 units. * Continue Novolog as BSGs corrected through the day. Background * Mr Whaley is a 66 y/o M with a PMH of T2DM. * Patient received 111 units of insulin yesterday (50 units of basal and 61 units of bolus) - BSGs yesterday were [phone] mg/dL. * BSGs today are 180-270 mg/dL. Pharmacy consulted after lunch BSG. * Increase basal to 30 units BID (20% increase) * Tighten CR since BSGs trend up throughout the day. PLAN FOR INPATIENT GLYCEMIC CONTROL: * Basal insulin * Lantus 35 units SQ BID (Lantus 40 units if BSG greater than 180 mg/dL) * Bolus insulin * NovoLog per scale ACHS or Q6hrs while NPO * Goal Range: Low 110 mg/dL - High 140 mg/dL * Correction Factor: 15 mg/dL/unit * Nutritional / Prandial insulin per carb ratio of 1 unit per 3 grams CHO consumed
[2022-06-01] MEDS: LANTUS PER UNIT CHARGE SQ SCH ×2 (10:13→21:07)
[2022-06-01] MEDS: INSULIN ASPART PER UNIT SC SCH ×4 (10:17→21:08)
--- NOTE | 2022-06-01 13:42 | Hospitalist Progress Note ---
Date of Service June 01, 2022 Assessment & Plan (1) Complicated UTI (urinary tract infection): Plan 66-year-old male with PMH of chronic systolic heart failure secondary to nonischemic CM [EF 45 to 49% TTE 2021], chronic LBBB, nonobstructive CAD, pulmonary HTN secondary to DICK/pickwickian syndrome on CPAP, HTN, HLD, DM2 on oral meds and Ozempic, CLL, CRI [baseline creatinine around 2.5], chronic anemia [baseline hemoglobin around 11-12], buried penis as per records, urolithiasis came into the ED 05/28 after he slipped to the floor while trying to get out of the bed and feeling weak. Patient also had usual right flank pain discomfort similar to stent pain. Is being managed for the following: Complicated UTI Persistent left hydroureteronephrosis, history of urolithiasis History of stent placement status post spontaneous extrusion Possible sepsis POA: Gram-positive cocci bacteremia Patient came in with weakness and with history of recent spontaneous extrusion of his stent on the left side. Has chronic leukocytosis likely due to CLL Admitting UA suggestive of UTI, WBC elevated, Pro-Edis elevated. Admitting CTAP: Tiny stone fragments within the left renal collecting system with mild left hydroureteronephrosis with associated urothelial thickening and perinephric/periureteric inflammation. A small calculus is seen within the bladder lumen and this could represent the sequelae of recently passed kidney stone. Additional stone/fragments seen in the right kidney. No right-sided hydronephrosis. Admitting urine culture growing MSSA Admitting blood culture growing MSSA Repeat blood culture from 05/29 negative so far Currently on Ancef TTE was limited with poor acoustic windows Urology recommendations noted Discussed with ID Dr Ybarra today. He recommends getting MELVIN since TTE was a poor study Discussed with Recycling Center Operator Dr Mcallister. MELVIN cannot be done over the weekend. Will plan for saturday if possible Will follow up with ID once MELVIN is done Per ID, if patient needs urological intervention for stones in the future, they will have to discuss with ID if antibiotics is needed at that time too History of chronic systolic heart failure: EF 45 to 49% on TTE 2021, secondary to nonischemic cardiomyopathy Continue home meds. Diabetes mellitus Last A1c was 13.9 on 04/08/22 Counselled on need for proper control Continue insulin per protocol while inpatient To continue follow up with PCP on discharge Morbid obesity BMI >50 Lifestyle modification counselling provided CKD3/4 Per Nephro outpatient note on 05/23/22, spironolactone was stopped but losartan and potassium were continued Hypertension Continue carvedilol and losartan Other chronic medical conditions: Nonobstructive CAD, LBBB, pulmonary hypertension secondary to DICK/pickwickian syndrome on CPAP, HTN, HLD, DM2, CLL, CRI, chronic anemia ---> home meds as able. P DVT prophylaxis Heparin subcu Full code Admission and Anticipated Discharge Date Admission Date: May 28, 2022 Subjective Patient seen and examined Denied any complaints today Denied chest pain, cough, shortness of breath Denied nausea, vomiting,abd pain, diarrhea Denied dysuria, freq, urgency, hematuria Denied fevers, chills Physical Exam Constitutional: + well hydrated and + morbidly obese; no acute distress Eyes: PERRL, conjunctivae normal, anicteric sclerae ENMT: external ear and nose normal, oropharynx normal Respiratory: normal respiratory effort, lungs clear to auscultation Cardiovascular: Rate/Rhythm: regular rate and regular rhythm S1 S2 Gastrointestinal (Abdomen): normal bowel sounds, soft, nontender, no he patosplenomegaly Musculoskeletal: Trace pedal edema with stasis changes Neurologic: PERRL, EOMI, accommodation nl, no face palsy, no dysarthria Psychiatric: A+Ox3, euthymic affect Results & Data Results & Data ([facility]) Vital Signs (Past 12 Hours) Vital Signs Temp Pulse Resp BP Pulse Ox O2 Del Method 06/01/22 06:57 36.5 C 96 H 16 112/75 94 Room Air Laboratory Results Abnormal lab results 05/31/22 05/31/22 05/31/22 Range/Units 17:46 20:37 21:38 WBC (4.8-10.8) K/ul RBC (4.63-6.08) M/uL Hgb (14.0-18.0) g/dl Hct (40.1-51.0) % BUN (6-23) mg/dl Creatinine (0.6-1.4) mg/dl BUN/Creatinine Ratio (10-20) Glucose (70-99(Fasting)) mg/dl POC Glucose 124 H 142 H 162 H (70-99) mg/dl 06/01/22 06/01/22 06/01/22 Range/Units 07:14 07:14 08:14 WBC 16.06 H (4.8-10.8) K/ul RBC 3.86 L (4.63-6.08) M/uL Hgb 11.3 L (14.0-18.0) g/dl Hct 35.3 L (40.1-51.0) % BUN 53 H (6-23) mg/dl Creatinine 2.48 H (0.6-1.4) mg/dl BUN/Creatinine Ratio 21.4 H (10-20) Glucose 221 H (70-99(Fasting)) mg/dl POC Glucose 203 H (70-99) mg/dl 06/01/22 Range/Units 12:00 WBC (4.8-10.8) K/ul RBC (4.63-6.08) M/uL Hgb (14.0-18.0) g/dl Hct (40.1-51.0) % BUN (6-23) mg/dl Creatinine (0.6-1.4) mg/dl BUN/Creatinine Ratio (10-20) Glucose (70-99(Fasting)) mg/dl POC Glucose 191 H (70-99) mg/dl
[2022-06-01] MEDS: TAMSULOSIN HCL 0.4 MG CAP PO SCH (20:54)
[2022-06-01] MEDS: traZODone HCL 50 MG TAB PO SCH (20:55)
[2022-06-02] MEDS: ceFAZolin 2000MG 2,000 MG/15 ML SYR IV SCH ×3 (00:11→16:23)
[2022-06-02] MEDS: HEPARIN SOD 5,000 UNIT/0.5 ML VIAL SQ SCH ×3 (05:04→22:21)
[2022-06-02] MEDS: PANTOprazole 40 MG TAB PO SCH (05:04)
[2022-06-02] MEDS: ACETAMINOPHEN 325 MG TAB PO PRN ×3 (05:05→20:05)
[2022-06-02 07:36] LABS: Hematocrit (blood only) 34.3 % (40.1-51.0); Hemoglobin 11.1 g/dl (14.0-18.0); Mean Corpuscular Hemoglobin 29.5 pg (25.0-34.0); Mean Corpuscular Hgb Conc 32.4 g/dL (32.0-36.0); Mean Corpuscular Volume 91.2 fL (80.0-100.0); Mean Platelet Volume 10.4 fL (9.4-12.4); Platelet Count 207 K/uL (130-400); RDW Coefficient of Variation 13.1 % (11.5-14.5); RDW Standard Deviation 43.3 fL (36.4-46.3); Red Blood Count 3.76 M/uL (4.63-6.08); White Blood Count 17.75 K/ul (4.8-10.8)
[2022-06-02] MEDS: ASPIRIN 81 MG ECTAB PO SCH (08:00)
[2022-06-02] MEDS: LOSARTAN POTASSIUM 50 MG TAB PO SCH (08:00)
[2022-06-02] MEDS: FUROSEMIDE 40 MG TAB PO SCH ×2 (08:00→16:23)
[2022-06-02] MEDS: FOLIC ACID 1 MG TAB PO SCH (08:01)
[2022-06-02] MEDS: ROSUVASTATIN CALCIUM 20 MG TAB PO SCH (08:01)
[2022-06-02] MEDS: GABAPENTIN 300 MG CAP PO SCH ×2 (08:01→20:51)
[2022-06-02] MEDS: carvediloL 6.25 MG TAB PO SCH ×2 (08:01→20:51)
[2022-06-02] MEDS: DULoxetine HCL 30 MG CAP PO SCH (08:01)
[2022-06-02 08:06] LABS: BUN Creatinine Ratio 23.5 (10-20); Calcium 9.2 mg/dl (8.5-10.1); Creatinine Clr Calc Pharmacy 42.8 ml/min; Est GFR (African American) 28.5 ml/min; Est GFR (Non-African American) 24.6 ml/min; Potassium 4.2 mmol/L (3.5-5.1)
[2022-06-02] MEDS: INSULIN ASPART PER UNIT SC SCH ×4 (09:14→20:54)
[2022-06-02] MEDS: LANTUS PER UNIT CHARGE SQ SCH ×2 (09:15→20:55)
--- NOTE | 2022-06-02 13:37 | Hospitalist Progress Note ---
Date of Service June 02, 2022 Assessment & Plan (1) Complicated UTI (urinary tract infection): Plan 66-year-old male with PMH of chronic systolic heart failure secondary to nonischemic CM [EF 45 to 49% TTE 2021], chronic LBBB, nonobstructive CAD, pulmonary HTN secondary to DICK/pickwickian syndrome on CPAP, HTN, HLD, DM2 on oral meds and Ozempic, CLL, CRI [baseline creatinine around 2.5], chronic anemia [baseline hemoglobin around 11-12], buried penis as per records, urolithiasis came into the ED 05/28 after he slipped to the floor while trying to get out of the bed and feeling weak. Patient also had usual right flank pain discomfort similar to stent pain. Is being managed for the following: Complicated UTI Persistent left hydroureteronephrosis, history of urolithiasis History of stent placement status post spontaneous extrusion Possible sepsis POA: Gram-positive cocci bacteremia Patient came in with weakness and with history of recent spontaneous extrusion of his stent on the left side. Has chronic leukocytosis likely due to CLL Admitting UA suggestive of UTI, WBC elevated, Pro-Edis elevated. Admitting CTAP: Tiny stone fragments within the left renal collecting system with mild left hydroureteronephrosis with associated urothelial thickening and perinephric/periureteric inflammation. A small calculus is seen within the bladder lumen and this could represent the sequelae of recently passed kidney stone. Additional stone/fragments seen in the right kidney. No right-sided hydronephrosis. Admitting urine culture growing MSSA Admitting blood culture growing MSSA Repeat blood culture from 05/29 negative so far Currently on Ancef TTE was limited with poor acoustic windows Urology recommendations noted Discussed with ID Dr Ybarra on 06/01/22. He recommends getting MELVIN since TTE was a poor study Discussed with Compounding Scaler Dr Stinson today. MELVIN will be planned for the coming week after holiday weekend Will follow up with ID once MELVIN is done Per ID, if patient needs urological intervention for stones in the future, they will have to discuss with ID if antibiotics is needed at that time too History of chronic systolic heart failure: EF 45 to 49% on TTE 2021, secondary to nonischemic cardiomyopathy Continue home meds. Diabetes mellitus Last A1c was 13.9 on 04/08/22 Counselled on need for proper control Continue insulin per protocol while inpatient To continue follow up with PCP on discharge Morbid obesity BMI >50 Lifestyle modification counselling provided CKD3/4 Per Nephro outpatient note on 05/23/22, spironolactone was stopped but losartan and potassium were continued Hypertension Continue carvedilol and losartan Other chronic medical conditions: Nonobstructive CAD, LBBB, pulmonary hypertension secondary to DICK/pickwickian syndrome on CPAP, HTN, HLD, DM2, CLL, CRI, chronic anemia ---> home meds as able. P DVT prophylaxis Heparin subcu Full code Admission and Anticipated Discharge Date Admission Date: May 28, 2022 Subjective Patient seen and examined Denied any complaints today Denied chest pain, cough, shortness of breath Denied nausea, vomiting,abd pain, diarrhea Denied dysuria, freq, urgency, hematuria Denied fevers, chills Physical Exam Constitutional: + well hydrated and + morbidly obese; no acute distress Eyes: PERRL, conjunctivae normal, anicteric sclerae ENMT: external ear and nose normal, oropharynx normal Respiratory: normal respiratory effort, lungs clear to auscultation Cardiovascular: Rate/Rhythm: regular rate and regular rhythm S1 S2 Gastrointestinal (Abdomen): normal bowel sounds, soft, nontender, no hepatosplenomegaly Musculoskeletal: Trace pedal edema Neurologic: PERRL, EOMI, accommodation nl, no face palsy, no dysarthria Psychiatric: A+Ox3, euthymic affect Results & Data Results & Data ([facility]) Vital Signs (Past 12 Hours) Vital Signs Temp Pulse Resp BP Pulse Ox O2 Del Method 06/02/22 07:56 36.7 C 95 H 16 138/76 93 Room Air Laboratory Results Abnormal lab results 06/01/22 06/01/22 06/02/22 Range/Units 17:07 20:57 07:04 WBC 17.75 H (4.8-10.8) K/ul RBC 3.76 L (4.63-6.08) M/uL Hgb 11.1 L (14.0-18.0) g/dl Hct 34.3 L (40.1-51.0) % BUN (6-23) mg/dl Creatinine (0.6-1.4) mg/dl BUN/Creatinine Ratio (10-20) Glucose (70-99(Fasting)) mg/dl POC Glucose 160 H 131 H (70-99) mg/dl 06/02/22 06/02/22 06/02/22 Range/Units 07:04 07:51 12:15 WBC (4.8-10.8) K/ul RBC (4.63-6.08) M/uL Hgb (14.0-18.0) g/dl Hct (40.1-51.0) % BUN 61 H (6-23) mg/dl Creatinine 2.60 H (0.6-1.4) mg/dl BUN/Creatinine Ratio 23.5 H (10-20) Glucose 170 H (70-99(Fasting)) mg/dl POC Glucose 152 H 232 H (70-99) mg/dl
[2022-06-02] MEDS: traMADol HCL 50 MG TABLET PO PRN (14:57)
--- NOTE | 2022-06-02 18:00 | Anesthesiology Consultation ---
Date of Service June 02, 2022 Assessment & Plan (1) Encounter for pre-operative examination: Chart Review Chart Review: Acceptable Risk for Surgery ((MELVIN procedure)) History Height/Weight Height: 5 ft 7 in Weight: 171.5 kg Allergies Allergy/AdvReac Type Severity Reaction Status Date / Time No Known Allergies Allergy Verified 05/28/22 00:12 Medications Home Medications Medication Instructions Recorded Confirmed Last Taken aspirin 81 mg tablet,delayed 81 mg PO DAILY 06/13/21 05/28/22 05/08/22 09:00 release (Alejandro Low Dose Aspirin) carvedilol 6.25 mg tablet 6.25 mg PO BID 06/13/21 05/28/22 05/09/22 05:30 duloxetine 30 mg capsule,delayed 30 mg PO QAM 06/13/21 05/28/22 05/08/22 09:00 release folic acid 1 mg tablet 1 mg PO QAM 06/13/21 05/28/22 05/08/22 09:00 gabapentin 300 mg capsule 300 mg PO BID 06/13/21 05/28/22 05/09/22 05:30 pantoprazole 40 mg tablet,delayed 40 mg PO DAILYBB 06/13/21 05/28/22 05/08/22 09:00 release rosuvastatin 40 mg tablet 40 mg PO QAM 06/13/21 05/28/22 05/08/22 21:00 semaglutide 0.25 mg or 0.5 mg (2 0.5 mg subcut WK 06/13/21 05/28/22 05/07/22 21:00 mg/1.5 mL) subcutaneous pen injector (Ozempic) blood sugar diagnostic (OneTouch #100 ea 06/19/21 05/01/22 Unknown Verio test strips) lancets 33 gauge (OneTouch Delica #100 ea 06/19/21 05/01/22 Unknown Lancets) tramadol 50 mg tablet 50 mg PO Q6H PRN Pain 04/06/22 05/28/22 Unknown trazodone 50 mg tablet 50 mg PO HS 04/06/22 05/28/22 05/08/22 21:00 blood sugar diagnostic (OneTouch #100 ea 04/09/22 05/01/22 Unknown Verio test strips) insulin aspart U-100 100 unit/mL 20 unit (0.2 mL) subcut TID #15 mL 04/09/22 05/28/22 05/08/22 18:45 (3 mL) subcutaneous pen (Novolog Flexpen U-100 Insulin aspart) insulin glargine 100 unit/mL (3 30 unit (0.3 mL) subcut BID #15 mL 04/09/22 05/28/22 05/09/22 05:30 mL) subcutaneous pen (Basaglar KwikPen U-100 Insulin) lancets 33 gauge (OneTouch Delica #100 ea 04/09/22 05/01/22 Unknown Lancets) pen needle, diabetic 32 gauge x #100 ea 04/09/22 05/01/22 Unknown 5/32" (Pen Needle) ergocalciferol (vitamin D2) 50 mcg 50 mcg PO DAILY 05/28/22 05/28/22 Unknown (2,000 unit) tablet furosemide 40 mg tablet 40 mg PO .AM &HS 05/28/22 05/28/22 Unknown loperamide 2 mg tablet 2 mg PO Q4H PRN Diarrhea 05/28/22 05/28/22 Unknown losartan 50 mg tablet 50 mg PO QAM 05/28/22 05/28/22 Unknown oxybutynin chloride 5 mg tablet 5 mg PO BID PRN Bladder Spasms 05/28/22 05/28/22 Unknown potassium citrate 10 mEq (1,080 10 meq PO TID 05/28/22 05/28/22 Unknown mg) tablet,extended release tamsulosin 0.4 mg capsule 0.4 mg PO QPM 05/28/22 05/28/22 Unknown Active Medications Generic Name Dose Route Start Last Admin Trade Name Gayatri PRN Reason Stop Dose Admin Acetaminophen 650 mg 05/28/22 04:00 06/02/22 11:23 Acetaminophen 325 Mg Tab PO 06/27/22 03:59 650 mg Q4H PRN Administration pain/fever Aspirin 81 mg 05/28/22 09:00 06/02/22 08:00 Aspirin 81 Mg Ectab PO 06/27/22 08:59 81 mg DAILY IRENE Administration Carvedilol 6.25 mg 05/28/22 09:00 06/02/22 08:01 Carvedilol 6.25 Mg Tab PO 06/27/22 08:59 6.25 mg BID IRENE Administration Duloxetine HCl 30 mg 05/28/22 09:00 06/02/22 08:01 Duloxetine Hcl 30 Mg Cap PO 06/27/22 08:59 30 mg QAM IRENE Administration Folic Acid 1 mg 05/28/22 09:00 06/02/22 08:01 Folic Acid 1 Mg Tab PO 06/27/22 08:59 1 mg QAM IRENE Administration Furosemide 40 mg 05/31/22 17:00 06/02/22 16:23 Furosemide 40 Mg Tab PO 06/30/22 16:59 40 mg BID17 IRENE Administration Gabapentin 300 mg 05/28/22 09:00 06/02/22 08:01 Gabapentin 300 Mg Cap PO 06/27/22 08:59 300 mg BID IRENE Administration Heparin Sodium (Porcine) 5,000 units 05/28/22 06:00 06/02/22 13:18 Heparin Sod 5,000 Unit/0.5 Ml Vial SQ 06/27/22 05:59 5,000 units Q8 IRENE Administration Cefazolin Sodium 2,000 mg in 15 mls @ 3.75 mls/min 05/29/22 08:30 06/02/22 16:23 Ancef 2000mg IV 06/12/22 08:29 3.75 mls/min Q8H IRENE Administration Protocol Insulin Aspart 0 units 05/28/22 11:30 06/02/22 13:17 Insulin Aspart Per Unit SC 06/27/22 11:29 28 units ACHS IRENE Administration Insulin Glargine 0 units 06/01/22 09:00 06/02/22 09:15 Lantus Per Unit Charge SQ 07/01/22 08:59 30 units BID IRENE Administration Protocol Losartan Potassium 50 mg 05/30/22 11:00 06/02/22 08:00 Losartan Potassium 50 Mg Tab PO 06/29/22 10:59 50 mg QAM IRENE Administration Oxybutynin Chloride 5 mg 05/28/22 04:00 06/02/22 08:01 Oxybutynin Chloride 5 Mg Tab PO 06/27/22 03:59 5 mg BID PRN Administration Bladder Spasms Pantoprazole Sodium 40 mg 05/28/22 06:30 06/02/22 05:04 Pantoprazole 40 Mg Tab PO 06/27/22 06:29 40 mg DAILYBB IRENE Administration Rosuvastatin Calcium 40 mg 05/28/22 09:00 06/02/22 08:01 Rosuvastatin Calcium 20 Mg Tab PO 06/27/22 08:59 40 mg QAM IRENE Administration Tamsulosin HCl 0.4 mg 05/28/22 21:00 06/01/22 20:54 Tamsulosin Hcl 0.4 Mg Cap PO 06/27/22 20:59 0.4 mg QPM IRENE Administration Tramadol HCl 25 - 50 mg 05/28/22 04:00 06/02/22 14:57 Tramadol Hcl 50 Mg Tablet PO 06/27/22 03:59 50 mg Q4H PRN Administration Pain Trazodone HCl 50 mg 05/28/22 04:00 06/01/22 20:55 Trazodone Hcl 50 Mg Tab PO 06/27/22 03:59 50 mg HS IRENE Administration Past Medical History Medical History (Updated 06/02/22 @ 17:57 by Ferdinand Gillespie MD) KATRINA (acute kidney injury) Chronic back pain CKD (chronic kidney disease), stage IV CLL (chronic lymphocytic leukemia) Per records Pt's denies Depression DM type 2 (diabetes mellitus, type 2) Uncontrolled - Hgb A1C 13.9 on 04/08/22 Started on Lantus 30 units BID and Novolog after [facility] admission 04/09/22 ; Ozempic increased by PCP 04/12/22 DVT prophylaxis Dyslipidemia GERD (gastroesophageal reflux disease) Hydronephrosis with urinary obstruction due to renal calculus Hypertension LBBB (left bundle branch block) Follows with [facility]- last visit August 2021 Morbid obesity Nonischemic cardiomyopathy EF 45-49% per 07/2021 ECHO (improved from 25% in Jun 2021 while admitted with Covid pneumonia and acute CHF- patient close to baseline EF per cardio records August 2021) DICK on CPAP Past Family History Family History Father Diabetes Mother Diabetes Past Surgical History Surgical History History of cholecystectomy History of cystoscopy Social History Smoking Status: Never smoker Hx Alcohol Use: No Hx Substance Use: No substance use type: does not use Physical Exam Vital Signs Last Vital Signs Temp 36.9 C 06/02/22 16:33 Pulse 90 06/02/22 16:33 Resp 18 06/02/22 16:33 BP 143/75 H 06/02/22 16:33 Pulse Ox 94 06/02/22 16:33 O2 Del Method 06/02/22 16:33 Testing Laboratory Results 06/02/22 07:04 06/02/22 07:04 PT 11.9 Seconds (9.0-12.0) 05/27/22 22:50 INR 1.1 (0.9-1.1) 05/27/22 22:50 Hemoglobin A1c 10.6 % (4.5-5.6) H 05/31/22 07:09 Urine Color Yellow 05/27/22 23:53 Urine Appearance Turbid (Clear) A 05/27/22 23:53 Urine pH 5.5 (4.5-7.5) 05/27/22 23:53 Ur Specific Weinert 1.016 (1.000-1.030) 05/27/22 23:53 Urine Protein 3+ (Negative) H 05/27/22 23:53 Urine Glucose (UA) 1+ (Negative) H 05/27/22 23:53 Urine Ketones Negative (Negative) 05/27/22 23:53 Urine Nitrite Positive (Negative) A 05/27/22 23:53 Ur Leukocyte Esterase 3+ (Negative) H 05/27/22 23:53 Urine WBC (Auto) >30 /hpf (0-5) H 05/27/22 23:53 Urine RBC (Auto) 5-10 /hpf (0-4) H 05/27/22 23:53 U Hyaline Cast (Auto) 0 /lpf (0-5) 05/27/22 23:53 U Epithel Cells (Auto) >30 /lpf (0-5) H 05/27/22 23:53 Urine Bacteria (Auto) 1+ (Negative) H 05/27/22 23:53 05/27/22 22:50 Aerobic Blood Culture - Final Blood Staphylococcus aureus Anaerobic Blood Culture - Final Staphylococcus aureus 05/29/22 08:10 Aerobic Blood Culture - Preliminary Blood No growth in Aerobic bottle after 48 hours. Anaerobic Blood Culture - Preliminary No growth in Anaerobic bottle after 48 hours. 05/29/22 08:02 Aerobic Blood Culture - Preliminary Blood No growth in Aerobic bottle after 48 hours. Anaerobic Blood Culture - Preliminary No growth in Anaerobic bottle after 48 hours. 05/27/22 23:25 Aerobic Blood Culture - Final Blood Staphylococcus aureus Anaerobic Blood Culture - Final Staphylococcus aureus 05/27/22 23:53 Urine Culture - Final Urine,Clean Catch Staphylococcus aureus 06/02/22 06/02/22 06/02/22 17:20 12:15 07:51 POC Glucose 154 H 232 H 152 H Electrocardiogram Date: 05/27/22 Findings: + LBBB and + ST @ (107) PVC's
[2022-06-02] MEDS: TAMSULOSIN HCL 0.4 MG CAP PO SCH (20:51)
[2022-06-02] MEDS: traZODone HCL 50 MG TAB PO SCH (22:21)
[2022-06-03] MEDS: ceFAZolin 2000MG 2,000 MG/15 ML SYR IV SCH ×4 (00:06→23:43)
[2022-06-03] MEDS: HEPARIN SOD 5,000 UNIT/0.5 ML VIAL SQ SCH ×3 (06:20→20:39)
[2022-06-03] MEDS: PANTOprazole 40 MG TAB PO SCH (06:20)
[2022-06-03] MEDS: ACETAMINOPHEN 325 MG TAB PO PRN (06:21)
[2022-06-03] MEDS: GABAPENTIN 300 MG CAP PO SCH ×2 (08:18→20:37)
[2022-06-03] MEDS: FUROSEMIDE 40 MG TAB PO SCH ×2 (08:18→17:47)
[2022-06-03] MEDS: ASPIRIN 81 MG ECTAB PO SCH (08:18)
[2022-06-03] MEDS: DULoxetine HCL 30 MG CAP PO SCH (08:18)
[2022-06-03] MEDS: LOSARTAN POTASSIUM 50 MG TAB PO SCH (08:18)
[2022-06-03] MEDS: FOLIC ACID 1 MG TAB PO SCH (08:18)
[2022-06-03] MEDS: ROSUVASTATIN CALCIUM 20 MG TAB PO SCH (08:18)
[2022-06-03] MEDS: carvediloL 6.25 MG TAB PO SCH ×2 (08:19→20:40)
[2022-06-03] MEDS: traMADol HCL 50 MG TABLET PO PRN ×3 (08:23→22:41)
[2022-06-03] MEDS ORDERED: LANTUS PER UNIT CHARGE SQ SCH ×2 (09:00→21:00)
[2022-06-03] MEDS: INSULIN ASPART PER UNIT SC SCH ×4 (09:44→22:31)
--- NOTE | 2022-06-03 10:03 | Pharmacy Report ---
Pharmacy Glycemic Short Note 2 - Date of Service June 03, 2022 - Glycemic Short BSG Results (Last 24 hours): 06/02/22 06/02/22 06/02/22 12:15 17:20 20:26 POC Glucose 232 H 154 H 192 H 06/03/22 07:25 POC Glucose 222 H OUTPATIENT ANTIDIABETIC REGIMEN: * Lantus 30 units BID * Novolog 20 units TIDM * Ozempic 0.5 mg SQ weekly * HbA1C: 10.6% (05/31/22) ASSESSMENT: 06/03/22 * BSGs elevated yesterday, ranging 152-232 mg/dL with fasting BSG of 222 mg/dL this morning * Received 161 units of insulin (65 units of basal and 96 units of prandial/correctional bolus) * Will plan to increase basal insulin today and tighten carb coverage at least this morning * NPO after midnight tonight for MELVIN tomorrow (06/04) 06/01/22 * Patient's BSGs yesterday were [phone]/162 mg/dL. Patient received 135 units of insulin (60 units of basal and 75 units of bolus). This represents a 15% increase in insulin from 05/30/22. * Fasting today is 203 mg/dL. * Increase basal by 20% to 35 units BID. For tonight, if BSGs greater than 180 gm/dL give 40 units. * Continue Novolog as BSGs corrected through the day. Background * Mr Whaley is a 66 y/o M with a PMH of T2DM. * Patient received 111 units of insulin yesterday (50 units of basal and 61 units of bolus) - BSGs yesterday were [phone] mg/dL. * BSGs today are 180-270 mg/dL. Pharmacy consulted after lunch BSG. * Increase basal to 30 units BID (20% increase) * Tighten CR since BSGs trend up throughout the day. PLAN FOR INPATIENT GLYCEMIC CONTROL: * Basal insulin * Lantus 40 units SC x 1 this morning * Lantus 30-40 units SC x1 at HS (see EHR for details) * Reasses in AM given NPO * Bolus insulin * NovoLog per scale ACHS or Q6hrs while NPO * Goal Range: Low 110 mg/dL - High 140 mg/dL * Correction Factor: 15 mg/dL/unit * Nutritional / Prandial insulin per carb ratio of 1 unit per 2.5 grams CHO consumed with breakfast, then 1 unit per 3 grams CHO for rest of day
--- NOTE | 2022-06-03 11:38 | Hospitalist Progress Note ---
Date of Service June 03, 2022 Assessment & Plan (1) Complicated UTI (urinary tract infection): Plan 66-year-old male with PMH of chronic systolic heart failure secondary to nonischemic CM [EF 45 to 49% TTE 2021], chronic LBBB, nonobstructive CAD, pulmonary HTN secondary to DICK/pickwickian syndrome on CPAP, HTN, HLD, DM2 on oral meds and Ozempic, CLL, CRI [baseline creatinine around 2.5], chronic anemia [baseline hemoglobin around 11-12], buried penis as per records, urolithiasis came into the ED 05/28 after he slipped to the floor while trying to get out of the bed and feeling weak. Patient also had usual right flank pain discomfort similar to stent pain. Is being managed for the following: Complicated UTI Persistent left hydroureteronephrosis, history of urolithiasis History of stent placement status post spontaneous extrusion Possible sepsis POA: Gram-positive cocci bacteremia Patient came in with weakness and with history of recent spontaneous extrusion of his stent on the left side. Has chronic leukocytosis likely due to CLL Admitting UA suggestive of UTI, WBC elevated, Pro-Edis elevated. Admitting CTAP: Tiny stone fragments within the left renal collecting system with mild left hydroureteronephrosis with associated urothelial thickening and perinephric/periureteric inflammation. A small calculus is seen within the bladder lumen and this could represent the sequelae of recently passed kidney stone. Additional stone/fragments seen in the right kidney. No right-sided hydronephrosis. Admitting urine culture growing MSSA Admitting blood culture growing MSSA Repeat blood culture from 05/29 negative so far Currently on Anc TTE was limited with poor acoustic windows Urology recommendations noted Discussed with ID Dr Ybarra on 06/01/22. He recommends getting MELVIN since TTE was a poor study MELVIN planned for Saturday. Hence will need to be NPO PMN Saturday night Will follow up with ID once MELVIN is done Per ID, if patient needs urological intervention for stones in the future, they will have to discuss with ID if antibiotics is needed at that time too History of chronic systolic heart failure: EF 45 to 49% on TTE 2021, secondary to nonischemic cardiomyopathy Continue home meds. Diabetes mellitus Last A1c was 13.9 on 04/08/22 Counselled on need for proper control Continue insulin per protocol while inpatient To continue follow up with PCP on discharge Morbid obesity BMI >50 Lifestyle modification counselling provided CKD3/4 Per Nephro outpatient note on 05/23/22, spironolactone was stopped but losartan and potassium were continued Hypertension Continue carvedilol and losartan Other chronic medical conditions: Nonobstructive CAD, LBBB, pulmonary hypertension secondary to DICK/pickwickian syndrome on CPAP, HTN, HLD, DM2, CLL, CRI, chronic anemia ---> home meds as able. P DVT prophylaxis Heparin subcu Full code Admission and Anticipated Discharge Date Admission Date: May 28, 2022 Subjective Patient seen and examined Denied any complaints today Denied chest pain, cough, shortness of breath Denied nausea, vomiting,abd pain, diarrhea Denied dysuria, freq, urgency, hematuria Denied fevers, chills Physical Exam Constitutional: + well hydrated and + morbidly obese; no acute distress Eyes: PERRL, conjunctivae normal, anicteric sclerae ENMT: external ear and nose normal, oropharynx normal Respiratory: normal respiratory effort, lungs clear to auscultation Cardiovascular: Rate/Rhythm: regular rate and regular rhythm S1 S2 Gastrointestinal (Abdomen): normal bowel sounds, soft, nontender, no hepatosplenomegaly Musculoskeletal: Trace pedal edema Neurologic: PERRL, EOMI, accommodation nl, no face palsy, no dysarthria Psychiatric: A+Ox3, euthymic affect Results & Data Results & Data ([facility]) Vital Signs (Past 12 Hours) Vital Signs Temp Pulse Resp BP Pulse Ox O2 Del Method 06/03/22 07:22 36.3 C L 84 18 128/67 97 Room Air Laboratory Results Abnormal lab results 06/02/22 06/02/22 06/02/22 Range/Units 12:15 17:20 20:26 POC Glucose 232 H 154 H 192 H (70-99) mg/dl 06/03/22 Range/Units 07:25 POC Glucose 222 H (70-99) mg/dl
[2022-06-03] MEDS: TAMSULOSIN HCL 0.4 MG CAP PO SCH (20:40)
[2022-06-03] MEDS: traZODone HCL 50 MG TAB PO SCH (22:23)
[2022-06-04] MEDS: ACETAMINOPHEN 325 MG TAB PO PRN ×4 (01:43→23:36)
[2022-06-04] MEDS: PANTOprazole 40 MG TAB PO SCH (05:40)
[2022-06-04] MEDS: HEPARIN SOD 5,000 UNIT/0.5 ML VIAL SQ SCH ×3 (05:41→21:31)
[2022-06-04 07:07] LABS: Hematocrit (blood only) 34.3 % (40.1-51.0); Hemoglobin 10.8 g/dl (14.0-18.0); Mean Corpuscular Hemoglobin 29.3 pg (25.0-34.0); Mean Corpuscular Hgb Conc 31.5 g/dL (32.0-36.0); Mean Corpuscular Volume 93.2 fL (80.0-100.0); Mean Platelet Volume 10.4 fL (9.4-12.4); Platelet Count 205 K/uL (130-400); RDW Coefficient of Variation 13.2 % (11.5-14.5); RDW Standard Deviation 45.1 fL (36.4-46.3); Red Blood Count 3.68 M/uL (4.63-6.08); White Blood Count 19.02 K/ul (4.8-10.8)
[2022-06-04 07:25] LABS: BUN Creatinine Ratio 30.9 (10-20); Creatinine Clr Calc Pharmacy 51.3 ml/min; Est GFR (African American) 35.5 ml/min; Est GFR (Non-African American) 30.6 ml/min; Potassium 4.2 mmol/L (3.5-5.1)
[2022-06-04] MEDS ORDERED: LANTUS PER UNIT CHARGE SQ ONE (07:45)
[2022-06-04] MEDS: carvediloL 6.25 MG TAB PO SCH ×2 (08:14→21:30)
[2022-06-04] MEDS: FUROSEMIDE 40 MG TAB PO SCH ×2 (08:14→16:36)
[2022-06-04] MEDS: DULoxetine HCL 30 MG CAP PO SCH (08:14)
[2022-06-04] MEDS: GABAPENTIN 300 MG CAP PO SCH ×2 (08:15→21:30)
[2022-06-04] MEDS: ROSUVASTATIN CALCIUM 20 MG TAB PO SCH (08:15)
[2022-06-04] MEDS: LOSARTAN POTASSIUM 50 MG TAB PO SCH (08:15)
[2022-06-04] MEDS: ASPIRIN 81 MG ECTAB PO SCH (08:15)
[2022-06-04] MEDS: FOLIC ACID 1 MG TAB PO SCH (08:15)
[2022-06-04] MEDS: ceFAZolin 2000MG 2,000 MG/15 ML SYR IV SCH ×3 (08:17→23:41)
[2022-06-04] MEDS: INSULIN ASPART PER UNIT SC SCH ×4 (09:01→21:31)
--- NOTE | 2022-06-04 09:42 | Pharmacy Report ---
Pharmacy Glycemic Short Note 2 - Date of Service June 04, 2022 - Glycemic Short BSG Results (Last 24 hours): 06/03/22 06/03/22 06/03/22 12:15 17:13 20:51 Glucose POC Glucose 181 H 139 H 144 H 06/04/22 06/04/22 06:35 08:00 Glucose 145 H POC Glucose 138 H OUTPATIENT ANTIDIABETIC REGIMEN: * Lantus 30 units BID * Novolog 20 units TIDM * Ozempic 0.5 mg SQ weekly * HbA1C: 10.6% (05/31/22) ASSESSMENT: 06/04/22 * Blood sugars at goal over last 24 hours, received a total of 149 units of insulin yesterday, 75 units basal, fasting blood sugar 145mg/dl * NPO today for MELVIN, reduce AM dose of Lantus to 25 units this morning * Continue CF/CR and place HS Lantus on a scale tonight 06/03/22 * BSGs elevated yesterday, ranging 152-232 mg/dL with fasting BSG of 222 mg/dL this morning * Received 161 units of insulin (65 units of basal and 96 units of prandial/correctional bolus) * Will plan to increase basal insulin today and tighten carb coverage at least this morning * NPO after midnight tonight for MELVIN tomorrow (06/04) 06/01/22 * Patient's BSGs yesterday were [phone]/162 mg/dL. Patient received 135 units of insulin (60 units of basal and 75 units of bolus). This represents a 15% increase in insulin from 05/30/22. * Fasting today is 203 mg/dL. * Increase basal by 20% to 35 units BID. For tonight, if BSGs greater than 180 gm/dL give 40 units. * Continue Novolog as BSGs corrected through the day. Background * Mr Whaley is a 66 y/o M with a PMH of T2DM. * Patient received 111 units of insulin yesterday (50 units of basal and 61 units of bolus) - BSGs yesterday were [phone] mg/dL. * BSGs today are 180-270 mg/dL. Pharmacy consulted after lunch BSG. * Increase basal to 30 units BID (20% increase) * Tighten CR since BSGs trend up throughout the day. PLAN FOR INPATIENT GLYCEMIC CONTROL: * Basal insulin * Lantus 25 units SC x 1 this morning for NPO status * Lantus 30-40 units SC x1 at HS (see EHR for details) * Further dosing 06/05 AM * Bolus insulin * NovoLog per scale ACHS or Q6hrs while NPO * Goal Range: Low 110 mg/dL - High 140 mg/dL * Correction Factor: 15 mg/dL/unit * Nutritional / Prandial insulin per carb ratio of 1 unit per 3 grams CHO consumed
--- NOTE | 2022-06-04 10:46 | Cardiology Consultation ---
Date of Consultation June 04, 2022 Assessment & Plan (1) Complicated UTI (urinary tract infection): (2) Morbid obesity: (3) Nonischemic cardiomyopathy: Plan - Patient with longstanding history of nonischemic cardiomyopathy, left bundle branch block, previous ejection fraction in the range of 45 to 49%. Admitted with complicated UTI, staff aureus bacteremia. Afebrile, tolerating IV antibiotics well. Is volume status is stable. Transthoracic echocardiogram technically insufficient to assess for valvular abnormality in setting of bacteremia. Plan for MELVIN , am of 06/05 with anesthesia. Patient agreeable. Informed consent obtained. Case reviewed with Dr Cooney. History of Present Illness Attending Physician: Donna Adams MD History of Present Illness Mr Sameera Whaley is a 66-year-old male seen in cardiology consultation per the request of Dr. Cooney for evaluation of chronic left bundle branch block, nonischemic cardiomyopathy, and staff aureus bacteremia. His recent history dates back to March this year when he presented with left flank pain and was diagnosed with a left ureter stone. He underwent cystoscopy and left ureter stent placement, stent was exchanged a month later as an outpatient April, and he had a third cystoscopy for stent retrieval, however it was found that he had already passed the stent. Patient was readmitted with recurrent flank pain on 05/28/2022. CT of the abdomen pelvis performed 05/27/2022 revealed mild left hydroureteronephrosis with a small calculus seen in the bladder lumen possibly consistent with recently passed kidney stone. Patient seen by urology, ongoing conservative management recommended. Patient is found to have positive blood cultures, with findings of sensitive Staph aureus on 2/2 blood cultures performed 05/27/2022, and on urine culture performed 05/27/2022. Repeat blood cultures performed on appropriate antibiotics 05/29/2022 without growth thus far. Patient seen by infectious disease by telemedicine, and is on the recommended antibiotic, Ancef 2 mg every 8 hours. Patient afebrile, and treatment much improved. Transthoracic echocardiogram was attempted earlier this hospital stay, but was nondiagnostic, with poor acoustic windows related to the patient's body habitus, he weighs 400 pounds, BMI 52.2 kg/m. Outpatient Cardiology Problem List: 1. Nonischemic cardiomyopathy, most recent outpatient echocardiogram report, 2021, with ejection fraction estimated be 45 to 49%, with abnormal septal motion consistent with chronic left bundle branch block 2. No obstructive coronary artery disease, cardiac catheterization 2013 3. Morbid obesity, history of obstructive sleep apnea, chronic right heart failure with piquantly and syndrome 4. June,, hospitalized with severe COVID-19 infection, associated pneumonia 5. CKD stage 3b-4, baseline creatinine in range of 1.7 - 2, 2.17 mg /dl. 06/04/22. Allergies Allergy/AdvReac Type Severity Reaction Status Date / Time No Known Allergies Allergy Verified 05/28/22 00:12 Home Medications Medication Instructions Recorded Confirmed Type aspirin 81 mg tablet,delayed 81 mg PO DAILY 06/13/21 05/28/22 History release (Alejandro Low Dose Aspirin) carvedilol 6.25 mg tablet 6.25 mg PO BID 06/13/21 05/28/22 History duloxetine 30 mg capsule,delayed 30 mg PO QAM 06/13/21 05/28/22 History release folic acid 1 mg tablet 1 mg PO QAM 06/13/21 05/28/22 History gabapentin 300 mg capsule 300 mg PO BID 06/13/21 05/28/22 History pantoprazole 40 mg tablet,delayed 40 mg PO DAILYBB 06/13/21 05/28/22 History release rosuvastatin 40 mg tablet 40 mg PO QAM 06/13/21 05/28/22 History semaglutide 0.25 mg or 0.5 mg (2 0.5 mg subcut WK 06/13/21 05/28/22 History mg/1.5 mL) subcutaneous pen injector (OzColored Solar) blood sugar diagnostic (PrivateGriffeTouch #100 ea 06/19/21 05/01/22 Rx Verio test strips) lancets 33 gauge (OneTouch Delica #100 ea 06/19/21 05/01/22 Rx Lancets) tramadol 50 mg tablet 50 mg PO Q6H PRN Pain 04/06/22 05/28/22 History trazodone 50 mg tablet 50 mg PO HS 04/06/22 05/28/22 History blood sugar diagnostic (OneTouch #100 ea 04/09/22 05/01/22 Rx Verio test strips) insulin aspart U-100 100 unit/mL 20 unit (0.2 mL) subcut TID #15 mL 04/09/22 05/28/22 Rx (3 mL) subcutaneous pen (Novolog Flexpen U-100 Insulin aspart) insulin glargine 100 unit/mL (3 30 unit (0.3 mL) subcut BID #15 mL 04/09/2205/10 Rx mL) subcutaneous pen (Basaglar KwikPen U-100 Insulin) lancets 33 gauge (OneTouch Delica #100 ea 04/09/22 05/01/22 Rx Lancets) pen needle, diabetic 32 gauge x #100 ea 04/09/22 05/01/22 Rx " (Pen Needle) ergocalciferol (vitamin D2) 50 mcg 50 mcg PO DAILY 05/28/22 05/28/22 History (2,000 unit) tablet furosemide 40 mg tablet 40 mg PO .AM &HS 05/28/22 05/28/22 History loperamide 2 mg tablet 2 mg PO Q4H PRN Diarrhea 05/28/22 05/28/22 History losartan 50 mg tablet 50 mg PO QAM 05/28/22 05/28/22 History oxybutynin chloride 5 mg tablet 5 mg PO BID PRN Bladder Spasms 05/28/22 05/28/22 History potassium citrate 10 mEq (1,080 10 meq PO TID 05/28/22 05/28/22 History mg) tablet,extended release tamsulosin 0.4 mg capsule 0.4 mg PO QPM 05/28/22 05/28/22 History Patient History Medical History KATRINA (acute kidney injury) Chronic back pain CKD (chronic kidney disease), stage IV CLL (chronic lymphocytic leukemia) Per records Pt's denies Depression DM type 2 (diabetes mellitus, type 2) Uncontrolled - Hgb A1C 13.9 on 04/08/22 Started on Lantus 30 units BID and Novolog after [facility] admission 04/09/22 ; Ozempic increased by PCP 04/12/22 DVT prophylaxis Dyslipidemia GERD (gastroesophageal reflux disease) Hydronephrosis with urinary obstruction due to renal calculus Hypertension LBBB (left bundle branch block) Follows with [facility]- last visit August 2021 Morbid obesity Nonischemic cardiomyopathy EF 45-49% per 07/2021 ECHO (improved from 25% in Jun 2021 while admitted with Covid pneumonia and acute CHF- patient close to baseline EF per cardio records August 2021) DICK on CPAP Surgical History History of cholecystectomy History of cystoscopy Family History Father Diabetes Mother Diabetes Social History Smoking Status: Never smoker Second Hand Exposure: No; Hx Alcohol Use: No Hx Substance Use: No Preferred Language: Yi Communication Ability: Effective Draw Frame Operator Required: No Beliefs That Will Affect Care: Taoism Current Living Situation: Spouse Feels Safe at Home: Yes Safety Concerns: Feels Safe At This Time Assistive Devices: CPAP Review of Systems Review of Systems: All systems reviewed & are unremarkable except as noted in HPI & below Physical Exam Constitutional: WD/WN, vitals as above Respiratory: normal respiratory effort, lungs clear to auscultation Cardiovascular: Rate/Rhythm: regular rate Heart Sounds: no murmur Extremities: + edema (1+ LE edema , pt state is is baseline) Gastrointestinal (Abdomen): normal bowel sounds, soft, nontender, no hepatosplenomegaly Neurologic: PERRL, EOMI, accommodation nl, no face palsy, no dysarthria Results & Data ([facility]) Vital Signs (Past 12 Hours) Vital Signs Temp Pulse Resp BP Pulse Ox O2 Del Method 06/04/22 09:54 Room Air 06/04/22 07:26 36.6 C 89 18 154/82 H 95 Room Air Laboratory Results CBC 06/04/22 Range/Units 06:35 WBC 19.02 H (4.8-10.8) K/ul RBC 3.68 L (4.63-6.08) M/uL Hgb 10.8 L (14.0-18.0) g/dl Hct 34.3 L (40.1-51.0) % Plt Count 205 (130-400) K/uL Comprehensive Metabolic Panel 06/04/22 Range/Units 06:35 Sodium 136 (136-145) mmol/L Potassium 4.2 (3.5-5.1) mmol/L Chloride 102 (98-107) mmol/L Carbon Dioxide 25 (21-32) mmol/L BUN 67 H (6-23) mg/dl Creatinine 2.17 H D (0.6-1.4) mg/dl Glucose 145 H (70-99(Fasting)) mg/dl Calcium 9.0 (8.5-10.1) mg/dl Intake and Output 06/03/22 06/04/22 06/04/22 22:59 06:59 14:59 Other: # Unmeasured Voids 2
--- NOTE | 2022-06-04 11:58 | Hospitalist Progress Note ---
Date of Service June 04, 2022 Assessment & Plan (1) Complicated UTI (urinary tract infection): Plan 66-year-old male with PMH of chronic systolic heart failure secondary to nonischemic CM [EF 45 to 49% TTE 2021], chronic LBBB, nonobstructive CAD, pulmonary HTN secondary to DICK/pickwickian syndrome on CPAP, HTN, HLD, DM2 on oral meds and Ozempic, CLL, CRI [baseline creatinine around 2.5], chronic anemia [baseline hemoglobin around 11-12], buried penis as per records, urolithiasis came into the ED 05/28 after he slipped to the floor while trying to get out of the bed and feeling weak. Patient also had usual right flank pain discomfort similar to stent pain. Is being managed for the following: Complicated UTI Persistent left hydroureteronephrosis, history of urolithiasis History of stent placement status post spontaneous extrusion Possible sepsis POA: Gram-positive cocci bacteremia Patient came in with weakness and with history of recent spontaneous extrusion of his stent on the left side. Has chronic leukocytosis likely due to CLL Admitting UA suggestive of UTI, WBC elevated, Pro-Edis elevated. Admitting CTAP: Tiny stone fragments within the left renal collecting system with mild left hydroureteronephrosis with associated urothelial thickening and perinephric/periureteric inflammation. A small calculus is seen within the bladder lumen and this could represent the sequelae of recently passed kidney stone. Additional stone/fragments seen in the right kidney. No right-sided hydronephrosis. Admitting urine culture growing MSSA Admitting blood culture growing MSSA Repeat blood culture from 05/29 negative so far Currently on Ancef TTE was limited with poor acoustic windows Urology recommendations noted Discussed with ID Dr Ybarra on 06/01/22. He recommends getting MELVIN since TTE was a poor study Cardiology plan for MELVIN tomorrow. NPO MALLORY morgan Will follow up with ID once MELVIN is done Per ID, if patient needs urological intervention for stones in the future, they will have to discuss with ID if antibiotics is needed at that time too Consent for PICC line obtained History of chronic systolic heart failure: EF 45 to 49% on TTE 2021, secondary to nonischemic cardiomyopathy Continue home meds. Diabetes mellitus Last A1c was 13.9 on 04/08/22 Counselled on need for proper control Continue insulin per protocol while inpatient To continue follow up with PCP on discharge Morbid obesity BMI >50 Lifestyle modification counselling provided CKD3/4 Per Nephro outpatient note on 05/23/22, spironolactone was stopped but losartan and potassium were continued Hypertension Continue carvedilol and losartan Other chronic medical conditions: Nonobstructive CAD, LBBB, pulmonary hypertension secondary to DICK/pickwickian syndrome on CPAP, HTN, HLD, DM2, CLL, CRI, chronic anemia ---> home meds as able. P DVT prophylaxis Heparin subcu Full code Admission and Anticipated Discharge Date Admission Date: May 28, 2022 Subjective Patient seen and examined Denied any complaints today Denied chest pain, cough, shortness of breath Denied nausea, vomiting,abd pain, diarrhea Denied dysuria, freq, urgency, hematuria Denied fevers, chills Physical Exam Constitutional: + well hydrated and + morbidly obese; no acute distress Eyes: PERRL, conjunctivae normal, anicteric sclerae ENMT: external ear and nose normal, oropharynx normal Respiratory: normal respiratory effort, lungs clear to auscultation Cardiovascular: Rate/Rhythm: regular rate and regular rhythm S1 S2 Gastrointestinal (Abdomen): normal bowel sounds, soft, nontender, no hepatosplenomegaly Musculoskeletal: pedal edema Neurologic: PERRL, EOMI, accommodation nl, no face palsy, no dysarthria Psychiatric: A+Ox3, euthymic affect Results & Data Results & Data ([facility]) Vital Signs (Past 12 Hours) Vital Signs Temp Pulse Resp BP Pulse Ox O2 Del Method 06/04/22 09:54 Room Air 06/04/22 07:26 36.6 C 89 18 154/82 H 95 Room Air Laboratory Results Abnormal lab results 06/03/22 06/03/22 06/03/22 Range/Units 12:15 17:13 20:51 WBC (4.8-10.8) K/ul RBC (4.63-6.08) M/uL Hgb (14.0-18.0) g/dl Hct (40.1-51.0) % MCHC (32.0-36.0) g/dL BUN (6-23) mg/dl Creatinine (0.6-1.4) mg/dl BUN/Creatinine Ratio (10-20) Glucose (70-99(Fasting)) mg/dl POC Glucose 181 H 139 H 144 H (70-99) mg/dl 06/04/22 06/04/22 06/04/22 Range/Units 06:35 06:35 08:00 WBC 19.02 H (4.8-10.8) K/ul RBC 3.68 L (4.63-6.08) M/uL Hgb 10.8 L (14.0-18.0) g/dl Hct 34.3 L (40.1-51.0) % MCHC 31.5 L (32.0-36.0) g/dL BUN 67 H (6-23) mg/dl Creatinine 2.17 H D (0.6-1.4) mg/dl BUN/Creatinine Ratio 30.9 H (10-20) Glucose 145 H (70-99(Fasting)) mg/dl POC Glucose 138 H (70-99) mg/dl
[2022-06-04] MEDS: traMADol HCL 50 MG TABLET PO PRN (16:30)
[2022-06-04] MEDS ORDERED: LANTUS PER UNIT CHARGE SQ SCH (21:00)
[2022-06-04] MEDS: TAMSULOSIN HCL 0.4 MG CAP PO SCH (21:30)
[2022-06-04] MEDS: traZODone HCL 50 MG TAB PO SCH (21:30)
[2022-06-05] MEDS ORDERED: LORazepam 0.5 MG TAB PO STA (05:01)
[2022-06-05] MEDS: HEPARIN SOD 5,000 UNIT/0.5 ML VIAL SQ SCH ×3 (05:09→21:42)
[2022-06-05] MEDS: PANTOprazole 40 MG TAB PO SCH (05:21)
[2022-06-05] MEDS ORDERED: BENZOCAINE/TETRACAIN/BUTAM 50 APPLN/5 GM CAN EXT ONE (06:58)
--- NOTE | 2022-06-05 07:25 | History & Physical Bridge Note ---
Date of Service June 05, 2022 History & Physical Bridge Note I have examined the patient, reviewed the History & Physical and in the interval since the performance of the History & Physical I have noted the following changes of clinical significance: no changes noted. Informed consent for MELVIN obtained. Patient elects to proceed.
[2022-06-05] MEDS ORDERED: KETAMINE 50 MG/5 ML SYRINGE ONE (07:26)
--- NOTE | 2022-06-05 08:40 | Post Operative Brief Note ---
Cardiology Brief Post Op Date of Surgery June 05, 2022 Pre & Post Diagnosis Preprocedure diagnosis: Bacteremia, technically inadequate transthoracic echocardiogram, evaluate for endocarditis Postprocedure diagnosis: No evidence of vegetation or endocarditis Operation Date: 06/05/22 07:45 Procedure Transesophageal echocardiogram procedure: After informed consent was obtained and timeout was performed the patient was sedated with the assistance of the anesthesia service receiving a total of 100 mg of IV propofol and 20 mg of IV ketamine. The study was of technically adequate quality. There is no evidence of valvular vegetation. Abnormal septal motion noted consistent with patient's longstanding history of left bundle branch block, qualitative LVEF= 45-49%. Recommendations: Antibiotics for complicated UTI as per the advice of the infectious disease service. Block Hacker Paras Stinson DO Advertising Manager ARELY Perry Estimated Blood Loss 0 Findings Consistent with Post-Op Diagnosis Anesthesia Type MAC Complications none
[2022-06-05] MEDS ORDERED: LIDOCAINE 2% MPF LOCAL 5 ML VIAL INFIL ONE (08:46)
[2022-06-05] MEDS ORDERED: PROPOFOL IV EMULSION 10 MG/ML 20 ML VIAL IV ONE (08:46)
[2022-06-05] MEDS ORDERED: PHENYLEPHRINE HCL 10 MG/ML VIAL ONE (08:46)
--- NOTE | 2022-06-05 08:46 | Anesthesiology Progress Note ---
Date of Service June 05, 2022 Anesthesia Post Procedure Vital Signs Vital Signs: Temp Pulse Resp BP Pulse Ox O2 Del Method 06/05/22 07:48 98 H 16 120/69 98 Room Air 06/05/22 05:00 100 H 06/05/22 04:37 155/89 H 06/04/22 23:11 36.6 C 119 H 18 114/70 95 Room Air 06/04/22 09:54 Room Air Pain Intensity Right Hip: Pain Intensity: 7 Left Elbow: Pain Intensity: 7 Transfer of Care Handoff Completed per policy Notes Mental Status: alert / awake / arousable Patient Amnestic to Procedure: Yes Nausea / Vomiting: adequately controlled Pain: adequately controlled Airway Patency, RR, SpO2: stable & adequate BP & HR: stable & adequate Hydration State: stable & adequate Anesthetic Complications: no major complications apparent
[2022-06-05] MEDS: FUROSEMIDE 40 MG TAB PO SCH ×2 (09:31→18:31)
[2022-06-05] MEDS: GABAPENTIN 300 MG CAP PO SCH ×2 (09:31→21:42)
[2022-06-05] MEDS: ROSUVASTATIN CALCIUM 20 MG TAB PO SCH (09:31)
[2022-06-05] MEDS: LOSARTAN POTASSIUM 50 MG TAB PO SCH (09:31)
[2022-06-05] MEDS: carvediloL 6.25 MG TAB PO SCH ×2 (09:31→21:42)
[2022-06-05] MEDS: FOLIC ACID 1 MG TAB PO SCH (09:31)
[2022-06-05] MEDS: DULoxetine HCL 30 MG CAP PO SCH (09:31)
[2022-06-05] MEDS: ASPIRIN 81 MG ECTAB PO SCH (09:31)
--- NOTE | 2022-06-05 09:34 | Pharmacy Report ---
Pharmacy Glycemic Short Note 2 - Date of Service June 05, 2022 - Glycemic Short BSG Results (Last 24 hours): 06/04/22 06/04/22 06/04/22 11:55 17:10 20:34 POC Glucose 171 H 99 148 H 06/05/22 09:21 POC Glucose 151 H OUTPATIENT ANTIDIABETIC REGIMEN: * Lantus 30 units BID * Novolog 20 units TIDM * Ozempic 0.5 mg SQ weekly * HbA1C: 10.6% (05/31/22) ASSESSMENT: 06/05/22 * Blood sugars at goal over last 24 hours, received a total of 142 units of insulin yesterday, 60 units basal, fasting blood sugar 151mg/dl * NPO this AM for MELVIN, done and ordered meal for breakfast, will continue with same insulin dosing as yesterday at this time 06/04/22 * Blood sugars at goal over last 24 hours, received a total of 149 units of insulin yesterday, 75 units basal, fasting blood sugar 145mg/dl * NPO today for MELVIN, reduce AM dose of Lantus to 25 units this morning * Continue CF/CR and place HS Lantus on a scale tonight 06/03/22 * BSGs elevated yesterday, ranging 152-232 mg/dL with fasting BSG of 222 mg/dL this morning * Received 161 units of insulin (65 units of basal and 96 units of prandial/correctional bolus) * Will plan to increase basal insulin today and tighten carb coverage at least this morning * NPO after midnight tonight for MELVIN tomorrow (06/04) 06/01/22 * Patient's BSGs yesterday were [phone]/162 mg/dL. Patient received 135 units of insulin (60 units of basal and 75 units of bolus). This represents a 15% increase in insulin from 05/30/22. * Fasting today is 203 mg/dL. * Increase basal by 20% to 35 units BID. For tonight, if BSGs greater than 180 gm/dL give 40 units. * Continue Novolog as BSGs corrected through the day. Background * Mr Whaley is a 66 y/o M with a PMH of T2DM. * Patient received 111 units of insulin yesterday (50 units of basal and 61 units of bolus) - BSGs yesterday were [phone] mg/dL. * BSGs today are 180-270 mg/dL. Pharmacy consulted after lunch BSG. * Increase basal to 30 units BID (20% increase) * Tighten CR since BSGs trend up throughout the day. PLAN FOR INPATIENT GLYCEMIC CONTROL: * Basal insulin * Lantus 25 units SC AM * Lantus 30-40 units SC HS * Bolus insulin * NovoLog per scale ACHS or Q6hrs while NPO * Goal Range: Low 110 mg/dL - High 140 mg/dL * Correction Factor: 15 mg/dL/unit * Nutritional / Prandial insulin per carb ratio of 1 unit per 3 grams CHO consumed
[2022-06-05 09:54] LABS: Hematocrit (blood only) 36.2 % (40.1-51.0); Hemoglobin 11.4 g/dl (14.0-18.0); Mean Corpuscular Hemoglobin 29.4 pg (25.0-34.0); Mean Corpuscular Hgb Conc 31.5 g/dL (32.0-36.0); Mean Corpuscular Volume 93.3 fL (80.0-100.0); Mean Platelet Volume 10.2 fL (9.4-12.4); Platelet Count 194 K/uL (130-400); RDW Coefficient of Variation 13.2 % (11.5-14.5); Red Blood Count 3.88 M/uL (4.63-6.08); White Blood Count 18.14 K/ul (4.8-10.8)
[2022-06-05] MEDS: LANTUS PER UNIT CHARGE SQ SCH (10:10)
[2022-06-05] MEDS: ceFAZolin 2000MG 2,000 MG/15 ML SYR IV SCH ×3 (10:14→22:32)
[2022-06-05] MEDS: INSULIN ASPART PER UNIT SC SCH ×4 (10:14→21:15)
[2022-06-05 10:53] LABS: BUN Creatinine Ratio 28.9 (10-20); Calcium 9.6 mg/dl (8.5-10.1); Creatinine Clr Calc Pharmacy 54.5 ml/min; Est GFR (African American) 38.2 ml/min; Potassium 4.3 mmol/L (3.5-5.1)
[2022-06-05] MEDS: traMADol HCL 50 MG TABLET PO PRN (11:48)
--- NOTE | 2022-06-05 13:14 | Hospitalist Progress Note ---
Date of Service June 05, 2022 Assessment & Plan (1) Complicated UTI (urinary tract infection): Plan 66-year-old male with PMH of chronic systolic heart failure secondary to nonischemic CM [EF 45 to 49% TTE 2021], chronic LBBB, nonobstructive CAD, pulmonary HTN secondary to DICK/pickwickian syndrome on CPAP, HTN, HLD, DM2 on oral meds and Ozempic, CLL, CRI [baseline creatinine around 2.5], chronic anemia [baseline hemoglobin around 11-12], buried penis as per records, urolithiasis came into the ED 05/28 after he slipped to the floor while trying to get out of the bed and feeling weak. Patient also had usual right flank pain discomfort similar to stent pain. Is being managed for the following: Complicated UTI Persistent left hydroureteronephrosis, history of urolithiasis History of stent placement status post spontaneous extrusion Possible sepsis POA: Gram-positive cocci bacteremia Patient came in with weakness and with history of recent spontaneous extrusion of his stent on the left side. Has chronic leukocytosis likely due to CLL Admitting UA suggestive of UTI, WBC elevated, Pro-Edis elevated. Admitting CTAP: Tiny stone fragments within the left renal collecting system with mild left hydroureteronephrosis with associated urothelial thickening and perinephric/periureteric inflammation. A small calculus is seen within the bladder lumen and this could represent the sequelae of recently passed kidney stone. Additional stone/fragments seen in the right kidney. No right-sided hydronephrosis. Admitting urine culture growing MSSA Admitting blood culture growing MSSA Repeat blood culture from 05/29 negative so far Currently on Ancef TTE was limited with poor acoustic windows Urology recommendations noted MELVIN today did not show any signs of vegetation/endocarditis Discussed with Dr Tate ELKINS via [employer]. He recommended 4 weeks of IV ancef Patient already got 1 week of antibiotic from negative culture. Has PICC line Discussed with CM who arranged with HH/home infusion setup. They will be available for patient's afternoon dose at 2 pm tomorrow Hence plan will be to discharge tomorrow morning History of chronic systolic heart failure: EF 45 to 49% on TTE 2021, secondary to nonischemic cardiomyopathy Continue home meds. Diabetes mellitus Last A1c was 13.9 on 04/08/22 Counselled on need for proper control Continue insulin per protocol while inpatient To continue follow up with PCP on discharge Morbid obesity BMI >50 Lifestyle modification counselling provided CKD3/4 Per Nephro outpatient note on 05/23/22, spironolactone was stopped but losartan and potassium were continued Hypertension Continue carvedilol and losartan Other chronic medical conditions: Nonobstructive CAD, LBBB, pulmonary hypertension secondary to DICK/pickwickian syndrome on CPAP, HTN, HLD, DM2, CLL, CRI, chronic anemia ---> home meds as able. P DVT prophylaxis Heparin subcu Full code Admission and Anticipated Discharge Date Admission Date: May 28, 2022 Subjective Patient seen and examined Denied any complaints today Had MELVIN this morning Denied chest pain, cough, shortness of breath Denied nausea, vomiting,abd pain, diarrhea Denied dysuria, freq, urgency, hematuria Denied fevers, chills Physical Exam Constitutional: + well hydrated and + morbidly obese; no acute distress Eyes: PERRL, conjunctivae normal, anicteric sclerae ENMT: external ear and nose normal, oropharynx normal Respiratory: normal respiratory effort, lungs clear to auscultation Cardiovascular: Rate/Rhythm: regular rate and regular rhythm S1 S2 Gastrointestinal (Abdomen): normal bowel sounds, soft, nontender, no hepatosplenomegaly Musculoskeletal: Pedal edema Neurologic: PERRL, EOMI, accommodation nl, no face palsy, no dysarthria Psychiatric: A+Ox3, euthymic affect Results & Data Results & Data ([facility]) Vital Signs (Past 12 Hours) Vital Signs Temp Pulse Pulse Resp BP Pulse Ox O2 Del Method 06/05/22 09:34 36.6 C 101 H 18 117/71 95 Room Air 06/05/22 09:00 98 H 14 113/56 L 99 Room Air 06/05/22 08:45 98 H 16 109/60 98 Room Air 06/05/22 08:36 99 H 14 101/67 99 Room Air 06/05/22 07:48 98 H 16 120/69 98 Room Air 06/05/22 05:00 100 H 06/05/22 04:37 155/89 H Laboratory Results Abnormal lab results 06/04/22 06/05/22 06/05/22 Range/Units 20:34 09:21 09:40 WBC 18.14 H (4.8-10.8) K/ul RBC 3.88 L (4.63-6.08) M/uL Hgb 11.4 L (14.0-18.0) g/dl Hct 36.2 L (40.1-51.0) % MCHC 31.5 L (32.0-36.0) g/dL Anion Gap (3-11) BUN (6-23) mg/dl Creatinine (0.6-1.4) mg/dl BUN/Creatinine Ratio (10-20) Glucose (70-99(Fasting)) mg/dl POC Glucose 148 H 151 H (70-99) mg/dl 06/05/22 06/05/22 Range/Units 09:40 12:03 WBC (4.8-10.8) K/ul RBC (4.63-6.08) M/uL Hgb (14.0-18.0) g/dl Hct (40.1-51.0) % MCHC (32.0-36.0) g/dL Anion Gap 12 H (3-11) BUN 59 H (6-23) mg/dl Creatinine 2.04 H (0.6-1.4) mg/dl BUN/Creatinine Ratio 28.9 H (10-20) Glucose 123 H (70-99(Fasting)) mg/dl POC Glucose 205 H (70-99) mg/dl
--- NOTE | 2022-06-05 14:28 | Cardiology Progress Note ---
Date of Service June 05, 2022 Assessment & Plan (1) Complicated UTI (urinary tract infection): (2) Morbid obesity: (3) Nonischemic cardiomyopathy: Plan - Transesophageal echocardiogram performed due to nondiagnostic transthoracic echocardiogram (patient with poor acoustic windows).MELVIN reveals abnormal septal motion consistent with patient's history of left bundle branch block, with mild left ventricular systolic dysfunction, LVEF in the range of 45 to 49%, unchanged compared to previous baseline. -The valvular structure and function was normal without evidence of endocarditis. -Defer further antibiotic therapy to hospitalist service and ID. -Case discussed by phone with Dr Adams for the purpose of coordination of care. Admission and Anticipated Discharge Date Admission Date: May 28, 2022 Subjective Patient seen prior to, during, and post transesophageal echocardiogram. Reassessed on the third floor post procedure and results discussed with him. Echocardiogram was of technically good quality, with no evidence of endocarditis. Physical Exam Constitutional: WD/WN, vitals as above Respiratory: normal respiratory effort, lungs clear to auscultation Cardiovascular: Rate/Rhythm: regular rate Heart Sounds: no murmur Extremities: + edema (1+ LE edema , pt state is is baseline) Gastrointestinal (Abdomen): normal bowel sounds, soft, nontender, no hepatosplenomegaly Neurologic: PERRL, EOMI, accommodation nl, no face palsy, no dysarthria Results & Data ([facility]) Vital Signs (Past 12 Hours) Vital Signs Temp Pulse Pulse Resp BP Pulse Ox O2 Del Method 06/05/22 09:34 36.6 C 101 H 18 117/71 95 Room Air 06/05/22 09:00 98 H 14 113/56 L 99 Room Air 06/05/22 08:45 98 H 16 109/60 98 Room Air 06/05/22 08:36 99 H 14 101/67 99 Room Air 06/05/22 07:48 98 H 16 120/69 98 Room Air 06/05/22 05:00 100 H 06/05/22 04:37 155/89 H
[2022-06-05] MEDS ORDERED: LANTUS PER UNIT CHARGE SQ SCH (21:00)
[2022-06-05] MEDS: TAMSULOSIN HCL 0.4 MG CAP PO SCH (21:42)
[2022-06-05] MEDS: ACETAMINOPHEN 325 MG TAB PO PRN (21:45)
[2022-06-05] MEDS: traZODone HCL 50 MG TAB PO SCH (22:32)
[2022-06-06] MEDS: ceFAZolin 2000MG 2,000 MG/15 ML SYR IV SCH (05:59)
[2022-06-06] MEDS: HEPARIN SOD 5,000 UNIT/0.5 ML VIAL SQ SCH (05:59)
[2022-06-06] MEDS: PANTOprazole 40 MG TAB PO SCH (05:59)
[2022-06-06] MEDS: traMADol HCL 50 MG TABLET PO PRN (06:31)
[2022-06-06 07:24] VITALS: PULSE 93; TEMP 97.3; O2SAT 97
[2022-06-06] MEDS: INSULIN ASPART PER UNIT SC SCH (08:46)
[2022-06-06] MEDS: ASPIRIN 81 MG ECTAB PO SCH (08:47)
[2022-06-06] MEDS: carvediloL 6.25 MG TAB PO SCH (08:48)
[2022-06-06] MEDS: DULoxetine HCL 30 MG CAP PO SCH (08:48)
[2022-06-06] MEDS: FOLIC ACID 1 MG TAB PO SCH (08:48)
[2022-06-06] MEDS: FUROSEMIDE 40 MG TAB PO SCH (08:49)
[2022-06-06] MEDS: LOSARTAN POTASSIUM 50 MG TAB PO SCH (08:50)
[2022-06-06] MEDS: GABAPENTIN 300 MG CAP PO SCH (08:50)
[2022-06-06] MEDS: ROSUVASTATIN CALCIUM 20 MG TAB PO SCH (08:51)
[2022-06-06] MEDS: LANTUS PER UNIT CHARGE SQ SCH (09:09)
[2022-06-06 09:56] LABS: Hematocrit (blood only) 34.7 % (40.1-51.0); Mean Corpuscular Hemoglobin 28.9 pg (25.0-34.0); Mean Corpuscular Hgb Conc 31.7 g/dL (32.0-36.0); Mean Corpuscular Volume 91.1 fL (80.0-100.0); Mean Platelet Volume 10.5 fL (9.4-12.4); Platelet Count 198 K/uL (130-400); RDW Coefficient of Variation 13.2 % (11.5-14.5); RDW Standard Deviation 44.3 fL (36.4-46.3); Red Blood Count 3.81 M/uL (4.63-6.08); White Blood Count 17.41 K/ul (4.8-10.8)
[2022-06-06] MEDS: ACETAMINOPHEN 325 MG TAB PO PRN (10:19)
[2022-06-06 10:29] LABS: BUN Creatinine Ratio 28.6 (10-20); Calcium 9.1 mg/dl (8.5-10.1); Est GFR (African American) 36.9 ml/min; Est GFR (Non-African American) 31.8 ml/min; Potassium 4.2 mmol/L (3.5-5.1)
--- NOTE | 2022-06-06 10:55 | Hospitalist Progress Note ---
Date of Service June 06, 2022 Assessment & Plan (1) Complicated UTI (urinary tract infection): Plan Patient is a 66 yr male with H/O Chronic systolic heart failure secondary to nonischemic CM [EF 45 to 49% TTE 2021], chronic LBBB, nonobstructive CAD, pulmonary HTN secondary to DICK/pickwickian syndrome on CPAP, HTN, HLD, DM2 on oral meds and Ozempic, CLL, CRI [baseline creatinine around 2.5], chronic anemia [baseline hemoglobin around 11-12], buried penis as per records, urolithiasis came into the ED 05/28 after he slipped to the floor while trying to get out of the bed and feeling weak. Patient also had usual right flank pain discomfort similar to stent pain. Complicated UTI Persistent left hydroureteronephrosis, history of urolithiasis History of stent placement status post spontaneous extrusion Possible sepsis POA: MSSA Bacteremia H/O recent spontaneous extrusion of his stent on the left side. H/O Chronic leukocytosis likely due to CLL -CT ABD: Tiny stone fragments within the left renal collecting system with mild left hydroureteronephrosis with associated urothelial thickening and perinephric/periureteric inflammation. A small calculus is seen within the bladder lumen and this could represent the sequelae of recently passed kidney stone. Additional stone/fragments seen in the right kidney. No right-sided hydronephrosis. -TTE was limited with poor acoustic windows, did not show any signs of vegetation endocarditis -Urine culture/Blood Culture grew MSSA -Repeat blood culture from 05/29 negative -Continue Ancef -Appreciate Urology Input. Needs follow-up with urology upon discharge --Appreciate ID Dr Ybarra Input: recommended 4 weeks of IV Ancef --Advised to follow-up with urology, ID upon discharge H/O Chronic systolic heart failure: EF 45 to 49% on TTE 2021, secondary to nonischemic cardiomyopathy Continue home meds. Diabetes mellitus II Last A1c was 13.9 on 04/08/22 Continue insulin per protocol Needs follow up with PCP on discharge Morbid obesity BMI >50 Lifestyle modification counselling CKD III/IV Per Nephro outpatient note on 05/23/22, spironolactone was stopped but losartan and potassium were continued Monitor renal function Hypertension Continue carvedilol and losartan Other chronic medical conditions: Nonobstructive CAD, LBBB, pulmonary hypertension secondary to DICK/pickwickian syndrome on CPAP, HTN, HLD, DM2, CLL, CRI, chronic anemia Continue home meds DVT Px: Heparin SQ Code Status Full code Disposition Home with Admission and Anticipated Discharge Date Admission Date: May 28, 2022 Subjective Patient is seen and examined at bedside Eager to get discharged Currently denies any chest pain, shortness of air, dizziness, nausea, abdominal pain No other complaints Review of Systems Review of Systems: All systems reviewed & are unremarkable except as noted in Subjective Physical Exam Physical Exam: Physical Exam: Vitals signs as noted above General Appearance:Morbidly Obese, no apparent distress Head: normocephalic, Atraumatic Eyes: normal inspection, EOMI Neck: supple, Trachea midline Respiratory/Chest: Normal breath sounds, CTA, No accessory muscle use Cardiovascular: S1, S2, No murmur Abdomen/GI:Soft, Non tender, Bowel sounds present Extremities/Musculoskeletal:normal inspection, no edema Neurologic/Psych:AAOX3, grossly no focal neurological deficits Skin: normal color, warm Results & Data Results & Data ([facility]) Vital Signs (Past 12 Hours) Vital Signs Temp Pulse Resp BP Pulse Ox O2 Del Method 06/06/22 07:23 36.3 C L 93 H 14 142/88 H 97 Room Air Laboratory Results Short CBC 06/06/22 Range/Units 09:14 WBC 17.41 H (4.8-10.8) K/ul Hgb 11.0 L (14.0-18.0) g/dl Hct 34.7 L (40.1-51.0) % Plt Count 198 (130-400) K/uL BMP 06/06/22 09:14 Sodium 136 Potassium 4.2 Chloride 103 Carbon Dioxide 21 BUN 60 H Creatinine 2.10 H Glucose 214 H Calcium 9.1
[2022-06-06 11:30] VITALS: BP 117/71
--- NOTE | 2022-06-06 13:15 | Discharge Summary ---
Date of Service June 06, 2022 Admission HPI Per Admitting Provider History obtained from patient and records. Medical history significant for chronic systolic heart failure secondary to nonischemic cardiomyopathy (EF 45 to 49% TTE 2021), chronic LBBB, nonobstructive CAD as per records, pulmonary hypertension secondary to DICK/pickwickian syndrome on CPAP,hypertension, hyperlipidemia, DM2 on oral medications and Ozempic, CLL, CRI (baseline creatinine 2.5), chronic anemia (baseline hemoglobin 11-12), buried penis as per records, urolithiasis. Last confinement March 2022 for ARF on CKD, hydronephrosis urinary obstruction secondary to renal calculus status post left ureter stent placement. Patient seen on follow-up at [facility] urolog[place] office 2 weeks ago for stent removal. Strings no longer present and stent could not be identified when provider attempted to remove stent. No stents will be identified on KUB x-ray. Patient recalled finding a slightly curly shoelace like object on the bathroom floor sometime before visit as per documentation. Patient got out of bed feeling weak today. Slumped to the ground without syncope, chest pain, shortness of breath. Usual right flank discomfort similar to stent pain. No gross hematuria at home. Patient brought to the ER for evaluation. Zosyn administered at the ER for UTI. Medical Historyas above Surgical History : Cholecystectomy, urologic procedures Family History : DM, heart disease Personal/Social history : Non-smoker, no EtOH intake, retired cook Admission Exam Per Admitting Provider Physical Exam Physical Exam: GENERAL: Slightly uncomfortable, morbidly obese, pleasant, respiratory distress SKIN: Pallor, warm HEENT: Partial alopecia, pale palpebral conjunctivae, no ptosis, dry buccal mucosa NECK : Supple, short neck, no tenderness CHEST : Decreased breath sounds, no tenderness HEART : RRR, no obvious murmurs ABDOMEN: Some distention, nontender EXTREMITIES : Bilateral LE venous stasis, no LE tenderness, no other conspicuous deformities noted NEUROLOGIC : Coherent, no facial asymmetry, no other gross focality Principal Diagnosis MSSA (Staph aureus) bacteremia Complicated urinary tract infection Discharge Data Allergies Allergy/AdvReac Type Severity Reaction Status Date / Time No Known Allergies Allergy Verified 05/28/22 00:12 Consultations 05/28/22 00:43 ED Decision to Admit Stat 05/28/22 01:44 Consult Urology Routine 05/29/22 08:03 Consult Infectious Diseases Routine 06/02/22 15:27 Consult Anesthesiology Routine 06/04/22 08:24 Consult Cardiology Routine Procedures Performed Operation Date: 06/05/22 07:45 Actual Procedures p Echo Transesophageal - Paras Stinson DO Ordered Studies 05/27/22 23:08 CT abd pelvis wo con Stat CT head/brain wo con Stat Laboratory Results WBC 17.41 K/ul (4.8-10.8) H 06/06/22 09:14 RBC 3.81 M/uL (4.63-6.08) L 06/06/22 09:14 Hgb 11.0 g/dl (14.0-18.0) L 06/06/22 09:14 Hct 34.7 % (40.1-51.0) L 06/06/22 09:14 MCV 91.1 fL (80.0-100.0) 06/06/22 09:14 MCH 28.9 pg (25.0-34.0) 06/06/22 09:14 MCHC 31.7 g/dL (32.0-36.0) L 06/06/22 09:14 RDW Std Deviation 44.3 fL (36.4-46.3) 06/06/22 09:14 RDW Coeff of Miguel 13.2 % (11.5-14.5) 06/06/22 09:14 Plt Count 198 K/uL (130-400) 06/06/22 09:14 MPV 10.5 fL (9.4-12.4) 06/06/22 09:14 Immature Gran % (Auto) 0.4 % 05/28/22 07:35 Neut % (Auto) 49.5 % 05/28/22 07:35 Lymph % (Auto) 41.1 % 05/28/22 07:35 Juab % (Auto) 7.6 % 05/28/22 07:35 Eos % (Auto) 1.1 % 05/28/22 07:35 Baso % (Auto) 0.3 % 05/28/22 07:35 Neut # (Auto) 8.71 K/uL (1.4-6.5) H 05/28/22 07:35 Lymph # (Auto) 7.23 K/uL (1.2-3.4) H 05/28/22 07:35 Juab # (Auto) 1.33 K/uL (0.24-0.82) H 05/28/22 07:35 Eos # (Auto) 0.19 K/uL (0-0.50) 05/28/22 07:35 Baso # (Auto) 0.06 K/uL (0-0.2) 05/28/22 07:35 Immature Gran # (Auto) 0.07 K/uL (0.00-0.02) H 05/28/22 07:35 Smudge Cells Present 05/28/22 07:35 PT 11.9 Seconds (9.0-12.0) 05/27/22 22:50 INR 1.1 (0.9-1.1) 05/27/22 22:50 Sodium 136 mmol/L (136-145) 06/06/22 09:14 Potassium 4.2 mmol/L (3.5-5.1) 06/06/22 09:14 Chloride 103 mmol/L (98-107) 06/06/22 09:14 Carbon Dioxide 21 mmol/L (21-32) 06/06/22 09:14 Anion Gap 12 (3-11) H 06/06/22 09:14 BUN 60 mg/dl (6-23) H 06/06/22 09:14 Creatinine 2.10 mg/dl (0.6-1.4) H 06/06/22 09:14 Est Cr Clr Drug Dosing 53.0 ml/min 06/06/22 09:14 Est GFR ( Amer) 36.9 ml/min 06/06/22 09:14 Est GFR (Non-Af Amer) 31.8 ml/min 06/06/22 09:14 BUN/Creatinine Ratio 28.6 (10-20) H 06/06/22 09:14 Glucose 214 mg/dl (70-99(Fasting)) H 06/06/22 09:14 POC Glucose 163 mg/dl (70-99) H 06/06/22 08:16 Estimat Average Glucose 258 mg/dl 05/31/22 07:09 Hemoglobin A1c 10.6 % (4.5-5.6) H 05/31/22 07:09 Lactate 0.8 mmol/L (0.4-2.0) 05/27/22 23:25 Calcium 9.1 mg/dl (8.5-10.1) 06/06/22 09:14 Phosphorus 2.5 mg/dl (2.5-4.9) 05/29/22 08:02 Magnesium 1.9 mg/dl (1.7-2.4) 05/30/22 05:55 Total Bilirubin 0.5 mg/dl (0.2-1.0) 05/27/22 22:50 AST 22 U/L (13-39) 05/27/22 22:50 ALT 21 U/L (7-52) 05/27/22 22:50 Alkaline Phosphatase 100 U/L (34-104) 05/27/22 22:50 Total Creatine Kinase 103 U/L (30-223) 05/27/22 22:50 Troponin I High Sens 26.9 pg/ml (0-20) H 05/27/22 22:50 Total Protein 7.5 gm/dl (6.0-8.3) 05/27/22 22:50 Albumin 3.8 gm/dl (3.4-5.0) 05/27/22 22:50 Globulin 3.7 gm/dl (2.5-4.0) 05/27/22 22:50 Albumin/Globulin Ratio 1.0 (0.9-2) 05/27/22 22:50 Procalcitonin 0.45 ng/ml (0-0.5) 05/29/22 08:02 TSH 2.687 uIu/ml (0.300-4.500) 05/27/22 22:50 Urine Color Yellow 05/27/22 23:53 Urine Appearance Turbid (Clear) A 05/27/22 23:53 Urine pH 5.5 (4.5-7.5) 05/27/22 23:53 Ur Specific Economy 1.016 (1.000-1.030) 05/27/22 23:53 Urine Protein 3+ (Negative) H 05/27/22 23:53 Urine Glucose (UA) 1+ (Negative) H 05/27/22 23:53 Urine Ketones Negative (Negative) 05/27/22 23:53 Urine Blood 3+ (Negative) H 05/27/22 23:53 Urine Nitrite Positive (Negative) A 05/27/22 23:53 Urine Bilirubin Negative (Negative) 05/27/22 23:53 Urine Urobilinogen Negative (Negative) 05/27/22 23:53 Ur Leukocyte Esterase 3+ (Negative) H 05/27/22 23:53 Urine WBC (Auto) >30 /hpf (0-5) H 05/27/22 23:53 Urine RBC (Auto) 5-10 /hpf (0-4) H 05/27/22 23:53 U Hyaline Cast (Auto) 0 /lpf (0-5) 05/27/22 23:53 U Epithel Cells (Auto) >30 /lpf (0-5) H 05/27/22 23:53 Urine Bacteria (Auto) 1+ (Negative) H 05/27/22 23:53 Urine Yeast Not Reportable 05/27/22 23:53 SARS-CoV-2 (PCR) NEGATIVE (Negative) 05/27/22 22:50 Influenza Type A (PCR) Negative (Neg) 05/27/22 22:50 Influenza Type B (PCR) Negative (Neg) 05/27/22 22:50 RSV (RT-PCR) Negative (Neg) 05/27/22 22:50 Staphylococcus sp PCR DETECTED (NotDetected) A 05/28/22 23:25 Staph aureus (PCR) DETECTED (NotDetected) A 05/28/22 23:25 mecA/C & MREJ Resist Gene MRSA Not Detected (NotDetected) 05/28/22 23:25 Bld Cult ID Panel PCR See PCR Comment (NotDetected) 05/28/22 23:25 Impressions Abdomen/Pelvis CT 05/27/22 23:08 CT SCAN OF THE ABDOMEN AND PELVIS WITHOUT IV CONTRAST CLINICAL HISTORY: Generalized weakness. Right buttock pain. COMPARISON STUDY: Abdominal CT dated 04/06/2022. TECHNIQUE: CT scan of the abdomen and pelvis is performed from the lung bases to the proximal femora. Images are reviewed in the axial, sagittal, and coronal planes. IV contrast was not administered for this examination. A dose lowering technique was utilized adhering to the principles of ALARA. The examination is degraded by large body habitus, and by streak artifact from the body wall abutting the CT gantry. CT DOSE: 2127.07 mGy.cm FINDINGS: Lung bases: The heart is top normal in size and without pericardial effusion. There are scattered coronary artery calcifications. The lung bases are clear noted bibasilar scarring/atelectasis. A small hiatal hernia is noted. Liver: The unenhanced liver is enlarged, measuring 22 cm in length. The liver demonstrates diffusely diminished attenuation indicating steatosis. There is no intrahepatic biliary ductal dilatation. Gallbladder: Surgically absent noting clips in the gallbladder fossa. Spleen: Normal in size and attenuation. Pancreas: The unenhanced pancreas is moderately atrophic and grossly unremarkable. Adrenal glands: Unremarkable. Kidneys: The unenhanced kidneys demonstrate mild cortical atrophy. No ureteral stent is seen. There are numerous tiny stones/fragments in the right renal collecting system and pelvis measuring up to 9 mm. Punctate stone fragments are seen within the lower pole of the left kidney. There may be a punctate calculus within or adjacent to the distal left ureter on axial image #399. There is urothelial thickening seen involving the left ureter and renal pelvis with surrounding inflammation. There is at least mild left-sided hydronephrosis. No hydronephrosis is seen on the right. There is no evidence of contour deforming renal mass lesion. Abdominal vasculature: The abdominal aorta is normal in course and caliber. Bowel: There is moderate colonic fecal retention. No bowel obstruction is seen. There are scattered colonic diverticula without CT evidence of acute diverticulitis. The appendix is well-visualized and normal. Peritoneum: There is no intraperitoneal free air or abdominal ascites. There is a large fat-containing umbilical hernia. Lymphadenopathy: None. Pelvic viscera: The prostate gland is enlarged and heterogeneous. A punctate bladder calculus is seen image 418. The bladder wall is thickened/trabeculated indicating chronic outlet obstruction. Skeletal structures: The skeletal structures are osteopenic. Moderate lumbosacral spondylosis is observed. No lytic or blastic lesions are seen. IMPRESSION: 1. There are tiny stone fragments within the left renal collecting system. There is mild left hydroureteronephrosis with associated urothelial thickening and perinephric/periureteric inflammation. A small calculus is seen within the bladder lumen and this could represent the sequelae of a recently passed kidney stone. Question a punctate calculus within or adjacent to the left vesicoureteral junction. Correlate with clinical findings for evidence of superimposed urinary tract infection. 2. Additional stones/fragments are seen in the right kidney. 3. There is no right-sided hydronephrosis. 4. Hepatomegaly and hepatic steatosis. 5. Additional findings as above. ACT 112: Negative or not required by law. Electronically signed by: Enrique Sheppard M.D. 05/28/2022 8:50 AM Chest X-Ray 05/27/22 23:08 XR chest 1V portable HISTORY: weakness COMPARISON: Chest 06/13/2021. FINDINGS: No pneumothorax. No pleural effusions. The cardiac silhouette remains mildly enlarged. There is mild central pulmonary vascular congestion without overt edema. This has improved in the interval. No new focal lung consolidations. There are calcifications within the aortic knob. IMPRESSION: Interval improvement in the mild pulmonary vascular congestion. ACT 112: Negative or not required by law. Electronically signed by: Juan Benjamin M.D. 05/28/2022 9:[address] 05/27/22 23:[address] DOSE: 687.98 mGy.cm HISTORY: weakness TECHNIQUE: Multiaxial CT images of the head were performed without the use of intravenous contrast. Automated exposure control was utilized for this study. A dose lowering technique was utilized adhering to the principles of ALARA. Comparison: None. Findings: Small amount of bubbly secretions within the left maxillary sinus. The mastoid air cells are clear. The calvarium and skull base are intact. There is no mass, hematoma, midline shift, acute infarct. White matter hypodensity is non specific but suggestive of microvascular ischemic change. The ventricles and sulci demonstrate mild age-related involutional changes. Impression: No acute intracranial abnormality. ACT 112: Negative or not required by law. Electronically signed by: Juan Benjamin M.D. 05/28/2022 7:15 AM Diabetes Follow up Diabetes Follow-up Needed for HgbA1c >9% Hospital Course (1) Complicated UTI (urinary tract infection): Plan Patient is a 66 yr male with H/O Chronic systolic heart failure secondary to nonischemic CM [EF 45 to 49% TTE 2021], chronic LBBB, nonobstructive CAD, pulmonary HTN secondary to DICK/pickwickian syndrome on CPAP, HTN, HLD, DM2 on oral meds and Ozempic, CLL, CRI [baseline creatinine around 2.5], chronic anemia [baseline hemoglobin around 11-12], buried penis as per records, urolithiasis came into the ED 05/28 after he slipped to the floor while trying to get out of the bed and feeling weak. Patient also had usual right flank pain discomfort similar to stent pain. Complicated UTI Persistent left hydroureteronephrosis, history of urolithiasis History of stent placement status post spontaneous extrusion Possible sepsis POA: MSSA Bacteremia H/O recent spontaneous extrusion of his stent on the left side. H/O Chronic leukocytosis likely due to CLL -CT ABD: Tiny stone fragments within the left renal collecting system with mild left hydroureteronephrosis with associated urothelial thickening and perinephric/periureteric inflammation. A small calculus is seen within the bladder lumen and this could represent the sequelae of recently passed kidney stone. Additional stone/fragments seen in the right kidney. No right-sided hydronephrosis. -TTE was limited with poor acoustic windows, did not show any signs of vegetation endocarditis -Urine culture/Blood Culture grew MSSA -Repeat blood culture from 05/29 negative -Continue Ancef -Appreciate Urology Input. Needs follow-up with urology upon discharge --Appreciate ID Dr Ybarra Input: recommended 4 weeks of IV Ancef --Advised to follow-up with urology, ID upon discharge H/O Chronic systolic heart failure: EF 45 to 49% on TTE 2021, secondary to nonischemic cardiomyopathy Continue home meds. Diabetes mellitus II Last A1c was 13.9 on 04/08/22 Continue insulin per protocol Needs follow up with PCP on discharge Morbid obesity BMI >50 Lifestyle modification counselling CKD III/IV Per Nephro outpatient note on 05/23/22, spironolactone was stopped but losartan and potassium were continued Monitor renal function Hypertension Continue carvedilol and losartan Other chronic medical conditions: Nonobstructive CAD, LBBB, pulmonary hypertension secondary to DICK/pickwickian syndrome on CPAP, HTN, HLD, DM2, CLL, CRI, chronic anemia Continue home meds DVT Px: Heparin SQ Code Status Full code Disposition Home with Total Time Total Time Spent Total Time Spent (In Minutes): 50 minutes Discharge Plan Discharge Items Patient Disposition: Home - Home Health Services Reason For Visit: COMP UTI Discharge Diagnosis: MSSA (Staph aureus) bacteremia Complicated urinary tract infection Activity: Resume your previous activity Exercise/Sports: Wait until after follow-up appointment Non-emergency contact: Primary Care Provider and Urologist Call non-emergency contact if: you have any medication questions, your symptoms worsen, your pain is concerning for you and you have a fever Follow-up/Referrals: Maxx Thomas MD [Physician] - 08/13/22 2:00 pm Valentina Scott DO [Primary Care Provider] - Diet: Carb Consistent or DM2 and Heart Healthy Add Attending Provider Instructions: Mr Whaley You came to the hospital complaining of weakness You were evaluated and found to have urinary tract infection and bacteremia (bacteria in the blood) You were started on IV antibiotics. You need to be on this antibiotics (Ancef) 2g every 8 hours until 06/25/2022. Your PICC line should be removed afterwards. Please ensure your Urologist discuss with Infectious Disease Specialist if any procedure is planned for your kidney stones. Please ensure follow up with your Primary Doctors It was a pleasure taking care of you. Add Local Superintendent Provider Instructions: Follow-up with your primary care physician Dr. Valentina Scott in 1 week as advised Follow-up with your neurologist Dr. Thomas as scheduled Follow-up with your infectious disease DrHortencia Ybarra in 4 weeks/as needed. -- Complete IV antibiotic course as prescribed. Seek immediate medical attention if your symptoms reoccur or worsen Please take all medications as instructed on discharge list below. Please call if you have any questions or problems. You can reach a [facility] hospitalist on duty at [facility] 24 hours a day by calling [phone] Pending Studies at Discharge: No Stand-Alone Forms: My [facility], Smoking Cessation Medications and DC Order Prescriptions: Continued carvedilol 6.25 mg tablet 6.25 mg PO BID pantoprazole 40 mg tablet,delayed release (DR/EC) 40 mg PO DAILYBB gabapentin 300 mg capsule 300 mg PO BID folic acid 1 mg tablet 1 mg PO QAM rosuvastatin 40 mg tablet 40 mg PO QAM duloxetine 30 mg capsule,delayed release(DR/EC) 30 mg PO QAM Ozempic 0.25 mg or 0.5 mg(2 mg/1.5 mL) pen injector 0.5 mg SUBCUT WK Rx Instructions: INJECT EVERY SATURDAY aspirin [Alejandro Low Dose Aspirin] 81 mg Tablet,Delayed Release (Dr/Ec) 81 mg PO DAILY (DME) lancets [OneTouch Delica Lancets] 33 gauge misc See Rx Instructions .Route Qty: 100 0RF Rx Instructions: As directed. To check 1x/day (DME) OneTouch Verio test strips Strip See Rx Instructions .Route Qty: 100 0RF Rx Instructions: As directed. To check 1x/day trazodone 50 mg tablet 50 mg PO HS tramadol 50 mg tablet 50 mg PO Q6H PRN (Reason: Pain) insulin aspart U-100 [Novolog Flexpen U-100 Insulin] 100 unit/mL (3 mL) insulin pen 20 unit subcut TID Qty: 15 0RF insulin glargine [Basaglar KwikPen U-100 Insulin] 100 unit/mL (3 mL) insulin pen 30 unit subcut BID Qty: 15 0RF (DME) pen needle, diabetic [Pen Needle] 32 gauge x 5/32" needle See Rx Instructions .Route Qty: 100 0RF Rx Instructions: As directed (DME) OneTouch Verio test strips Strip See Rx Instructions .Route Qty: 100 0RF Rx Instructions: As directed (DME) lancets [OneTouch Delica Lancets] 33 gauge misc See Rx Instructions .Route Qty: 100 0RF Rx Instructions: As directed oxybutynin chloride 5 mg tablet 5 mg PO BID PRN (Reason: Bladder Spasms) Rx Instructions: May take for bladder spasms up to twice daily. tamsulosin 0.4 mg capsule 0.4 mg PO QPM Rx Instructions: Take one tablet at night time. losartan 50 mg tablet 50 mg PO QAM potassium citrate 10 mEq (1,080 mg) tablet extended release 10 meq PO TID ergocalciferol (vitamin D2) 50 mcg (2,000 unit) Tablet 50 mcg PO DAILY furosemide 40 mg tablet 40 mg PO .AM &HS Rx Instructions: MAY TAKE AN EXTRA TABLET IN THE AM FOR FLUID RETENTION. loperamide 2 mg Tablet 2 mg PO Q4H MDD 8MG PRN (Reason: Diarrhea) Rx Instructions: administer after each loose stool until symptoms controlled; do not exceed 8 mg per 24 hrs. Discharge Orders: Discharge Order (Routine); Ordered 06/06/22 Ordered By: Angel Burrows/Other Patient Handouts: Managing Type 2 Diabetes, 5 Steps for Eating Healthier, ED Bladder Infection, Male (Adult) Admission Data Admit Date/Time: 05/28/22 01:40 Attending Provider: Angel Holloway Admit Provider: Wilmar Butler Primary Care Provider: Valentina Scott Other Providers: Genaro Woods ; Norm Rock ; Ranjan Rodriguez ; May Lombardo ; Ronni Higgins ; Ena Samson ; Dyana Leonard ; Maxx Thomas ; Moiz Cantu ; Bernadette Melendez ; Angel Mark ; Michael Hayes ; Wilmar Butler ; Francisco Javier Delatorre ; Wang Hernandez ; Tony Jain I. ; Moody Jonas II ; Tanja Auguste ; Tono Triplett ; Marcellus Ybarra ; Monroe Khanna ; Jose Morales ; Ferdinand Gillespie ; Paras Stinson Other Interventions: Discharge Summary Assessment (RN) Last Done: 06/06/22 11:26
== END 2022-06-06 11:59 | disposition home health service (06) | DRG 872 ==
LOC: ED 22:36 → 2N 05-28 01:40 → SUATTDRO 05-28 01:40 → 2N 05-28 03:28 → 3N 05-31 13:51

== ENCOUNTER 2023-01-14 13:29 | Inpatient (IN) ==
[2023-01-14 14:35] LABS: Hematocrit (blood only) 37.3 % (42.0-52.0); Hemoglobin 11.7 g/dl (14.0-18.0); Mean Corpuscular Hemoglobin 27.7 pg (25.0-34.0); Mean Corpuscular Hgb Conc 31.4 g/dL (32.0-36.0); Mean Corpuscular Volume 88.4 fL (80.0-100.0); Mean Platelet Volume 11.1 fL (9.4-12.4); Platelet Count 170 K/uL (130-400); RDW Coefficient of Variation 14.9 % (11.5-14.5); RDW Standard Deviation 47.8 fL (36.4-46.3); Red Blood Count 4.22 M/uL (4.70-6.10); White Blood Count 28.51 K/ul (4.8-10.8)
[2023-01-14 14:53] LABS: Alanine Aminotransferase 19 U/L (7-52); Albumin Globulin Ratio 1.1 (0.9-2); Albumin Level 3.7 gm/dl (3.4-5.0); Alkaline Phosphatase 97 U/L (34-104); Anion Gap 10 (3-11); Aspartate Aminotransferase 19 U/L (13-39); BUN Creatinine Ratio 20.1 (10-20); Bilirubin,Total 0.4 mg/dl (0.2-1.0); Blood Urea Nitrogen 62 mg/dl (6-23); Calcium 9.1 mg/dl (8.6-10.3); Carbon Dioxide 23 mmol/L (21-32); Chloride 102 mmol/L (98-107); Est GFR (Non-African American) 19.8 ml/min; Globulin 3.5 gm/dl (2.5-4.0); Glucose 156 mg/dl (70-99(Fasting)); Potassium 4.4 mmol/L (3.5-5.1); Sodium 135 mmol/L (136-145); Total Protein 7.2 gm/dl (6.0-8.3)
[2023-01-14 15:18] LABS: Basophils # (auto) 0.11 K/uL (0-0.2); Basophils % (auto) 0.4 %; Eosinophils # (auto) 0.23 K/uL (0-0.50); Eosinophils % (auto) 0.8 %; Immature Granulocytes # (auto) 0.11 K/uL (0.01-0.20); Immature Granulocytes % (auto) 0.4 %; Lymphocytes # (auto) 17.45 K/uL (1.2-3.4); Lymphocytes % (auto) 61.2 %; Monocytes # (auto) 0.78 K/uL (0.11-0.59); Monocytes % (auto) 2.7 %; Neutrophils # (auto) 9.83 K/uL (1.40-6.50); Neutrophils % (auto) 34.5 %
[2023-01-14 15:54] LABS: Appearance Urine Turbid (Clear); Bacteria Urine Automated Negative (Negative); Bilirubin Urine Negative (Negative); Blood Urine 1+ (Negative); Color Urine Yellow; Glucose Urine UA Negative (Negative); Ketones Urine Negative (Negative); Leukocyte Esterase Urine 3+ (Negative); Nitrite Urine Negative (Negative); Protein Urine 1+ (Negative); RBC Urine Automated 0-4 /hpf (0-4); Specific Gravity Urine 1.014 (1.000-1.030); Urobilinogen Urine Negative (Negative); WBC Urine Automated >30 /hpf (0-5); pH Urine 5.5 (4.5-7.5)
[2023-01-14] MEDS ORDERED: ONDANSETRON INJ 2 MG/ML 2 ML VIAL IV STA (16:56)
[2023-01-14] MEDS ORDERED: MoRPHine SULFATE 10 MG/ML CARP/VIAL IV STA (16:56)
[2023-01-14] MEDS ORDERED: SODIUM CHLORIDE 0.9% 1000ML 2,000 ML IV ONE (16:56)
--- NOTE | 2023-01-14 16:58 | Emergency Department Note ---
Impression & Plan Acute pyelonephritis, Acute confusion, Elevated WBC count ED Provider Note Name: KAMILA JOSE Age: 67 Sex: M Arrives Via: Walk-In Informant: Patient, Daughter ED Provider: Maxx Hardy MD Chief Complaint: Weakness Impression: As per impressions above Medical Decision Makin-year-old gentleman with a history of CLL, obesity, type 2 diabetes arrives for evaluation of worsening confusion and weakness. No fevers but he does appear unwell and tired. Urinalysis is concerning for infection. His white blood cell count is 28 however this is consistent with his CLL and is difficult to state that this is clearly related to his infectious etiology. He has no lactic acidosis. He has no procalcitonin elevation. He is not febrile. He is a bit hypotensive though not significantly and a bit tachycardic. I think this is somewhat due to dehydration now as opposed to severe sepsis. He is not in septic shock for sure. Given the patient's body habitus there is significant difficulty in getting laboratory testing and blood cultures as well as getting a good IV to give him fluids. Given his stability I would not place a central line in him at this point. Patient does have some mild hypoxia which I think is mostly due to his body habitus and obstructive sleep apnea issues. He will be treated as pyelonephritis with IV antibiotics and in the setting of this mild confusion I think he will need to be hospitalized. However I will note at time of hospitalization I do not feel he is truly severe sepsis or septic shock. He was not given 30 mL/kg IV fluid but rather 2 L were initially ordered for dehydration purposes which were given slowly due to his history of cardiomyopathy as well as difficulty with getting a good IV access. On multiple repeat evaluations patient stable he is breathing comfortably he is awake alert oriented and in no distress. Hospitalist consulted for further management. I will note the patient was complaining of some right shoulder discomfort. There is no findings on examination we even got a CT of the chest without contrast which does not reveal any clear abnormalities. Would hold off on getting a CT angio given he is already in renal insufficiency. He has chronic renal insufficiency which is only mildly worse today which I believe is secondary to dehydration and not due to sepsis. Prior Medical Record and Triage/Nursing Notes reviewed by Me Extensive external chart reviewed including previous hospitalization records and discharge summaries Differentials:Infection, dehydration, metabolic abnormality, hypo/hyperglycemia, electrolyte disturbance, anemia, hypoxia, cardiac sources, intracerebral event, toxicologic, neurologic, as well as other pathologies. Of note patient was in the department for quite some time. Initial delay secondary to extreme volumes and waiting in ER. Secondary delay was due to waiting CT scan reports by radiologist. Vital Signs: reviewed and remarkable for mild tachycardia Interventions: Normal Saline bolus 2 L IV, cefepime IV Labs:Reviewed and remarkable for WBC 28 is mildly above his normal, creatinine 3 is mildly above his normal, normal lactate, normal procalcitonin Imaging:CT of the chest abdomen pelvis without contrast as per my informal interpretation there is no clear evidence of pneumothorax, pulmonary edema, infi ltrate, free air, obstruction, ureteral stone, concerning surgical findings. Radiologist read as per chart. Cardiac/Tele Monitoring: Cardiac Monitoring: An Order was placed for continuous cardiac monitoring. The monitor shows a rate of 95 with a normal sinus rhythm. Consults:Dr Carolyn Delcid hospitalist Plan: Disposition:Hospitalization. Condition: Good History of Present Illness:67-year-old gentleman arrives for evaluation of right flank pain. He is also having right armpit pain, right back pain and generalized bodyaches. Associated with weakness confusion and fatigue. He denies any shortness of breath, headache, neck stiffness, fevers, abdominal pain, urinary burning, increase in leg swelling, rashes or other concerning signs or symptoms. Daughter notes that patient is having increasing confusion throughout the day and appears significantly fatigued. No medications prior to arrival. No falls, trauma, injuries. Patient with a history of renal disease. Apparently he has not been eating or drinking well the last day or 2. Past History:See Below Home Medications:See Below Allergies:nkda Vitals:Blood Pressure: 105/69, Pulse 112, RR 18, T 36.9C, O2 93% on RA Physical Exam: GENERAL: Patient is tired appearing and in mild distress. Morbidly obese patient is dehydrated. NECK: No masses appreciated, nomeningismus, trachea is midline. RESPIRATORY: No dyspnea. Clear to auscultation and equal bilaterally. No wheeze, no rhonchi. CARDIOVASCULAR: Tachycardic.No murmurs, rubs, gallops appreciated. GASTROINTESTINAL: Abdomen soft, non-tender, no peritonitis. BACK: No midline tenderness, mild right CVA tenderness EXTREMITIES: Normal motion all extremities, no cyanosis. Venous stasis and some pitting bilateral lower leg edema NEUROLOGIC: Alert and oriented, no acute motor or sensory deficits, no focal weakness, cranial nerves grossly intact. SKIN: No rash, no jaundice, no diaphoresis. PSYCH: Appropriate GCS: 15 ED Course: Times/Reassessments: Patient does appear to be feeling better of some IV fluids. He is breathing comfortably. Repeat volume status exam he has good cap refill he is breathing comfortably and satting 94% on 2 L nasal cannula patient is aw caleb alert oriented in no distress. Review of systems negative for any concerning findings other than he says he still has some mild right flank pain (10pm 01/16/23). Maxx Hardy MD Past Med/Surg History Medical History KATRINA (acute kidney injury) Chronic back pain CKD (chronic kidney disease), stage IV CLL (chronic lymphocytic leukemia) Per records Pt's denies Depression DM type 2 (diabetes mellitus, type 2) Uncontrolled - Hgb A1C 13.9 on 04/08/22 Started on Lantus 30 units BID and Novolog after [facility] admission 04/09/22 ; Ozempic increased by PCP 04/12/22 DVT prophylaxis Dyslipidemia GERD (gastroesophageal reflux disease) Hydronephrosis with urinary obstruction due to renal calculus Hypertension LBBB (left bundle branch block) Follows with S Cardio- last visit August 2021 Morbid obesity Nonischemic cardiomyopathy EF 45-49% per 07/2021 ECHO (improved from 25% in Jun 2021 while admitted with Covid pneumonia and acute CHF- patient close to baseline EF per cardio records August 2021) DICK on CPAP Surgical History History of cholecystectomy History of cystoscopy Family History Father Diabetes Mother Diabetes Social History Smoking Status: Never smoker Second Hand Exposure: No; Do You Dip or Chew Tobacco: No; Hx Alcohol Use: No Hx Substance Use: No Preferred Language: [place] Communication Ability: Effective Hot Strip Finisher Required: No Beliefs That Will Affect Care: Buddhism Current Living Situation: Spouse Feels Safe at Home: Yes Assistive Devices: CPAP Allergies Allergies Allergy/AdvReac Type Severity Reaction Status Date / Time No Known Allergies Allergy Verified 11/27/22 13:49 Home Meds Home Medications Medication Instructions Recorded Confirmed aspirin 81 mg tablet,delayed 81 mg PO QAM 06/13/21 01/14/23 release (Alejandro Low Dose Aspirin) carvedilol 6.25 mg tablet 6.25 mg PO BID 06/13/21 01/14/23 duloxetine 30 mg capsule,delayed 30 mg PO QAM 06/13/21 01/14/23 release folic acid 1 mg tablet 1 mg PO QAM 06/13/21 01/14/23 gabapentin 300 mg capsule 300 mg PO BID 06/13/21 01/14/23 pantoprazole 40 mg tablet,delayed 40 mg PO DAILYBB 06/13/21 01/14/23 release rosuvastatin 40 mg tablet 40 mg PO QAM 06/13/21 01/14/23 semaglutide 0.25 mg or 0.5 mg (2 0.5 mg subcut WK 06/13/21 01/14/23 mg/1.5 mL) subcutaneous pen injector (Ozempic) tramadol 50 mg tablet 50 mg PO Q6H PRN Pain 04/06/22 01/14/23 trazodone 50 mg tablet 50 mg PO HS 04/06/22 01/14/23 ergocalciferol (vitamin D2) 50 mcg 50 mcg PO DAILY 05/28/22 01/14/23 (2,000 unit) tablet potassium citrate 10 mEq (1,080 10 meq PO TID 05/28/22 01/14/23 mg) tablet,extended release losartan 100 mg tablet 100 mg PO QPM 01/14/23 01/14/23 Previous Rx's Medication Instructions Recorded blood sugar diagnostic (MicrobondsTouch #100 ea 06/19/21 Verio test strips) lancets 33 gauge (OneTouch Delica #100 ea 06/19/21 Lancets) blood sugar diagnostic (OneTouch #100 ea 04/09/22 Verio test strips) insulin aspart U-100 100 unit/mL 20 unit (0.2 mL) subcut TID #15 mL 04/09/22 (3 mL) subcutaneous pen (Novolog FlexPen U-100 Insulin aspart) insulin glargine 100 unit/mL (3 30 unit (0.3 mL) subcut BID #15 mL 04/09/22 mL) subcutaneous pen (Basaglar KwikPen U-100 Insulin) lancets 33 gauge (OneTouch Delica #100 ea 04/09/22 Lancets) pen needle, diabetic 32 gauge x #100 ea 04/09/22 5/32" (Pen Needle) furosemide 40 mg tablet 40 mg PO BID #180 tabs 09/25/22 tamsulosin 0.4 mg capsule 0.4 mg PO QPM #90 caps 01/01/23 Results & Data (ED) Vital Signs Vital Signs - 24 hr 01/14/23 13:42 01/14/23 17:03 01/14/23 19:39 Temperature 36.9 C Temperature Source Temporal Artery Scan Pulse Rate 112 H 103 H Pulse Rate [Apical] 96 H Pulse Rhythm [Apical] Regular Pulse Strength [Apical] Normal Respiratory Rate 18 24 Respiratory Effort / Characteristics Non-Labored Spontaneous Non-Labored Respiratory Depth Normal Normal Respiratory Pattern Regular Blood Pressure 105/69 Blood Pressure [Right Arm] 105/54 L Blood Pressure Mean 81 Blood Pressure Mean [Right Arm] 71 Pulse Oximetry 93 95 Oxygen Delivery Method Room Air Nasal Cannula Oxygen Flow Rate 2 Sepsis Recent Fever Within 48 Hours No Sepsis New/Unexplained Change in Mental Status No Sepsis Action Taken by Nursing No Action Required 01/14/23 21:00 01/14/23 21:00 Temperature Temperature Source Pulse Rate 93 H Pulse Rate [Apical] 95 H Pulse Rhythm [Apical] Pulse Strength [Apical] Respiratory Rate 23 Respiratory Effort / Characteristics Respiratory Depth Respiratory Pattern Blood Pressure Blood Pressure [Right Arm] 111/61 Blood Pressure Mean Blood Pressure Mean [Right Arm] 77 Pulse Oximetry 94 Oxygen Delivery Method Nasal Cannula Oxygen Flow Rate 2 Sepsis Recent Fever Within 48 Hours Sepsis New/Unexplained Change in Mental Status Sepsis Action Taken by Nursing Laboratory Data 01/14/23 14:05 01/14/23 14:05 Lab Results 01/14/23 01/14/23 01/14/23 Range/Units 14:05 14:05 15:35 WBC 28.51 H (4.8-10.8) K/ul RBC 4.22 L (4.70-6.10) M/uL Hgb 11.7 L (14.0-18.0) g/dl Hct 37.3 L (42.0-52.0) % MCV 88.4 (80.0-100.0) fL MCH 27.7 (25.0-34.0) pg MCHC 31.4 L (32.0-36.0) g/dL RDW Std Deviation 47.8 H (36.4-46.3) fL RDW Coeff of Miguel 14.9 H (11.5-14.5) % Plt Count 170 (130-400) K/uL MPV 11.1 (9.4-12.4) fL Immature Gran % (Auto) 0.4 % Neut % (Auto) 34.5 % Lymph % (Auto) 61.2 % [place] % (Auto) 2.7 % Eos % (Auto) 0.8 % Baso % (Auto) 0.4 % Neut # (Auto) 9.83 H (1.40-6.50) K/uL Lymph # (Auto) 17.45 H (1.2-3.4) K/uL [place] # (Auto) 0.78 H (0.11-0.59) K/uL Eos # (Auto) 0.23 (0-0.50) K/uL Baso # (Auto) 0.11 (0-0.2) K/uL Immature Gran # (Auto) 0.11 (0.01-0.20) K/uL Sodium 135 L (136-145) mmol/L Potassium 4.4 (3.5-5.1) mmol/L Chloride 102 (98-107) mmol/L Carbon Dioxide 23 (21-32) mmol/L Anion Gap 10 (3-11) BUN 62 H (6-23) mg/dl Creatinine 3.09 H (0.6-1.4) mg/dl Est Cr Clr Drug Dosing Not Reportable Est GFR ( Amer) 23.0 ml/min Est GFR (Non-Af Amer) 19.8 ml/min BUN/Creatinine Ratio 20.1 H (10-20) Glucose 156 H (70-99(Fasting)) mg/dl Lactate (0.4-2.0) mmol/L Calcium 9.1 (8.6-10.3) mg/dl Total Bilirubin 0.4 (0.2-1.0) mg/dl AST 19 (13-39) U/L ALT 19 (7-52) U/L Alkaline Phosphatase 97 (34-104) U/L Total Creatine Kinase (30-223) U/L Troponin I High Sens (0-20) pg/ml C-Reactive Protein (0-0.5) mg/dl Total Protein 7.2 (6.0-8.3) gm/dl Albumin 3.7 (3.4-5.0) gm/dl Globulin 3.5 (2.5-4.0) gm/dl Albumin/Globulin Ratio 1.1 (0.9-2) Procalcitonin (0-0.5) ng/ml Urine Color Yellow Urine Appearance Turbid A (Clear) Urine pH 5.5 (4.5-7.5) Ur Specific [place] 1.014 (1.000-1.030) Urine Protein 1+ H (Negative) Urine Glucose (UA) Negative (Negative) Urine Ketones Negative (Negative) Urine Blood 1+ H (Negative) Urine Nitrite Negative (Negative) Urine Bilirubin Negative (Negative) Urine Urobilinogen Negative (Negative) Ur Leukocyte Esterase 3+ H (Negative) Urine WBC (Auto) >30 H (0-5) /hpf Urine RBC (Auto) 0-4 (0-4) /hpf U Hyaline Cast (Auto) 1-5 (0-5) /lpf U Epithel Cells (Auto) 5-10 H (0-5) /lpf Urine Bacteria (Auto) Negative (Negative) Urine Yeast Present A (None Prsent) 01/14/23 01/14/23 01/14/23 Range/Units 17:29 17:29 17:29 WBC (4.8-10.8) K/ul RBC (4.70-6.10) M/uL Hgb (14.0-18.0) g/dl Hct (42.0-52.0) % MCV (80.0-100.0) fL MCH (25.0-34.0) pg MCHC (32.0-36.0) g/dL RDW Std Deviation (36.4-46.3) fL RDW Coeff of Miguel (11.5-14.5) % Plt Count (130-400) K/uL MPV (9.4-12.4) fL Immature Gran % (Auto) % Neut % (Auto) % Lymph % (Auto) % [place] % (Auto) % Eos % (Auto) % Baso % (Auto) % Neut # (Auto) (1.40-6.50) K/uL Lymph # (Auto) (1.2-3.4) K/uL [place] # (Auto) (0.11-0.59) K/uL Eos # (Auto) (0-0.50) K/uL Baso # (Auto) (0-0.2) K/uL Immature Gran # (Auto) (0.01-0.20) K/uL Sodium (136-145) mmol/L Potassium (3.5-5.1) mmol/L Chloride (98-107) mmol/L Carbon Dioxide (21-32) mmol/L Anion Gap (3-11) BUN (6-23) mg/dl Creatinine (0.6-1.4) mg/dl Est Cr Clr Drug Dosing Est GFR ( Amer) ml/min Est GFR (Non-Af Amer) ml/min BUN/Creatinine Ratio (10-20) Glucose (70-99(Fasting)) mg/dl Lactate 1.3 (0.4-2.0) mmol/L Calcium (8.6-10.3) mg/dl Total Bilirubin (0.2-1.0) mg/dl AST (13-39) U/L ALT (7-52) U/L Alkaline Phosphatase (34-104) U/L Total Creatine Kinase 80 (30-223) U/L Troponin I High Sens 29.5 H (0-20) pg/ml C-Reactive Protein 9.50 H (0-0.5) mg/dl Total Protein (6.0-8.3) gm/dl Albumin (3.4-5.0) gm/dl Globulin (2.5-4.0) gm/dl Albumin/Globulin Ratio (0.9-2) Procalcitonin 0.66 H (0-0.5) ng/ml Urine Color Urine Appearance (Clear) Urine pH (4.5-7.5) Ur Specific [place] (1.000-1.030) Urine Protein (Negative) Urine Glucose (UA) (Negative) Urine Ketones (Negative) Urine Blood (Negative) Urine Nitrite (Negative) Urine Bilirubin (Negative) Urine Urobilinogen (Negative) Ur Leukocyte Esterase (Negative) Urine WBC (Auto) (0-5) /hpf Urine RBC (Auto) (0-4) /hpf U Hyaline Cast (Auto) (0-5) /lpf U Epithel Cells (Auto) (0-5) /lpf Urine Bacteria (Auto) (Negative) Urine Yeast (None Prsent) Administered Medications Discontinued Medications Sodium Chloride (Nss 1000ml) 2,000 mls @ 999 mls/hr IV .Q2H1M ONE Stop: 01/14/23 18:56 Last Infusion: 01/14/23 21:03 Dose: 0 mls/hr Documented By: Admin: 01/14/23 17:18 Dose: 999 mls/hr Documented By: VAIBHAV Cefepime HCl (Maxipime) 2,000 mg in 20 mls @ 5 mls/min IV NOW STA Stop: 01/14/23 17:11 Last Admin: 01/14/23 17:52 Dose: 5 mls/min Documented By: VAIBHAV Morphine Sulfate (Morphine Sulfate 10 Mg/Ml Carp/Vial) 6 mg IV NOW STA Stop: 01/14/23 16:57 Last Admin: 01/14/23 17:13 Dose: 6 mg Documented By: VAIBHAV Ondansetron HCl (Ondansetron Inj 2 Mg/Ml 2 Ml Vial) 4 mg IV NOW STA Stop: 01/14/23 16:57 Last Admin: 01/14/23 17:13 Dose: 4 mg Documented By: VAIBHAV Oxycodone HCl (Oxycodone Hcl Ir 5 Mg Tab (Immediate Release)) 5 mg PO NOW STA Stop: 01/14/23 22:52 Last Admin: 01/14/23 22:55 Dose: 5 mg Documented By: DARCI Imaging Data Radiologist's Impression: Chest X-Ray 01/14/23 16:56 SINGLE VIEW CHEST CLINICAL HISTORY: Right-sided chest pain. FINDINGS: 2 AP, portable, upright chest radiographs are compared to study dated 05/27/2022. The examination is degraded by portable technique comment large body habitus, and apical lordotic positioning. The heart is enlarged. There is pulmonary vascular congestion. Scarring/atelectasis is noted at the lung bases. No airspace consolidation or large pleural effusion is identified. No pneumot horax is seen. The skeletal structures are osteopenic. The bony thorax is grossly intact. IMPRESSION: Cardiomegaly with mild pulmonary vascular congestion. ACT 112: Negative or not required by law. Electronically signed by: Enrique Sheppard M.D. 01/14/2023 5:17 PM Abdomen/Pelvis CT 01/14/23 17:26 Exam(s): CT ABDOMEN + PELVIS Without Contrast EXAM: CT Abdomen and Pelvis Without Intravenous Contrast CLINICAL HISTORY: Reason for exam: right flank pain, illness. TECHNIQUE: Axial computed tomography images of the abdomen and pelvis without intravenous contrast. CTDI is 28.14 mGy and DLP is 1654.62 mGy-cm. Automated exposure control was utilized for the study. A dose lowering technique was utilized adhering to the principles of ALARA. COMPARISON: CT abdomen and pelvis 05/27/2022. FINDINGS: Lung bases: Unremarkable. No mass. No consolidation. ABDOMEN: Liver: Unremarkable. Gallbladder and bile ducts: Cholecystectomy. No ductal dilation. Pancreas: Unremarkable. No ductal dilation. Spleen: Unremarkable. No splenomegaly. Adrenals: Unremarkable. No mass. Kidneys and ureters: Nonobstructing right renal calculi measuring up to 7 mm. Stomach and bowel: Unremarkable. No obstruction. No mucosal thickening. PELVIS: Appendix: No findings to suggest acute appendicitis. Bladder: Unremarkable. No stones. Reproductive: Unremarkable as visualized. ABDOMEN and PELVIS: Intraperitoneal space: Unremarkable. No free air. No significant fluid collection. Bones/joints: Moderate to severe osteoarthritis of the femoral acetabular joints. Degenerative changes seen in the spine. No acute fracture. No dislocation. Soft tissues: Fat-containing ventral abdominal hernia, unchanged from prior exam. Vasculature: Atherosclerotic calcifications in the abdominal aorta and branches. No abdominal aortic aneurysm. Lymph nodes: Hazy mesentery is seen with prominent mesenteric lymph nodes. Enlarged para-aortic/retroperitoneal lymph nodes, largest measuring 2 cm. IMPRESSION: 1. Nonobstructing right renal calculi measuring up to 7 mm. No ureteral calculi. 2. Hazy mesentery is seen with prominent mesenteric lymph nodes. 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 3. Enlarged para-aortic/retroperitoneal lymph nodes, largest measuring 2 cm. This is nonspecific and may be reactive. Nikita metastasis and lymphoproliferative disease are not excluded. Electronically signed by: Varghese Ramos MD 01/14/23 20:[address] 01/14/23 18:26 Exam(s): CT CHEST Without Contrast EXAM: CT Chest Without Intravenous Contrast CLINICAL HISTORY: Reason for exam: right chest pain. TECHNIQUE: Axial computed tomography images of the chest without intravenous contrast. CTDI is 28.14 mGy and DLP is 922.88 mGy-cm. Automated exposure control was utilized for the study. A dose lowering technique was utilized adhering to the principles of ALARA. COMPARISON: Chest radiograph 01/14/2023. FINDINGS: Lungs: Unremarkable. No mass. No consolidation. Pleural space: Unremarkable. No pneumothorax. No significant effusion. Heart: Trace pericardial effusion. Mild cardiomegaly. Coronary artery atherosclerotic calcifications. Mediastinum: Calcified left hilar lymph nodes. Bones/joints: Bilateral glenohumeral joint osteoarthritis. Degenerative change and ankylosis of the spine. No acute fracture. No dislocation. Soft tissues: Gynecomastia. Vasculature: Atherosclerotic calcifications are seen in the aorta. No thoracic aortic aneurysm. Lymph nodes: See above. IMPRESSION: 1. No acute abnormality identified on noncontrast examination. 2. Mild cardiomegaly. 3. Coronary artery atherosclerotic calcifications. Electronically signed by: Varghese Ramos MD 01/14/23 20:11 PM Discharge Plan Visit Data Chief Complaint: Back Injury/Pain Stated Complaint: BACK PAIN,CANT WALK ED Provider: Maxx Hardy Discharge Problem: Acute pyelonephritis, Acute confusion, Elevated WBC count Patient Disposition: Admitted As Inpatient Discharge Instructions Interventions: ED Discharge Assessment Last Done: 01/14/23 23:10 Elevated WBC count Qualifiers: Leukocytosis type: unspecified Qualified Code(s): D72.829 - Elevated white blood cell count, unspecified
[2023-01-14] MEDS ORDERED: CEFEPIME 2,000 MG/20 ML VIAL IV STA (17:08)
--- NOTE | 2023-01-14 17:19 | XRay Report ---
SINGLE VIEW CHEST CLINICAL HISTORY: Right-sided chest pain. FINDINGS: 2 AP, portable, upright chest radiographs are compared to study dated 05/27/2022. The exami nation is degraded by portable technique comment large body habitus, and apical lordotic positioning. The heart is enlarged. There is pulmonary vascular congestion. Scarring/atelectasis is noted at the lung bases. No airspace consolidation or large pleural effusion is identified. No pneumothorax is see n. The skeletal structures are osteopenic. The bony thorax is grossly intact. IMPRESSION: Cardiomegaly with mild pulmonary vascular congestion. ACT 112: Negative or not required by law. Electronically signed by: Enrique Sheppard M.D. 01/14/2023 5:17 PM
[2023-01-14 19:05] LABS: C Reactive Protein 9.5 mg/dl (0-0.5)
[2023-01-14 19:11] LABS: Troponin I High Sensitivity 29.5 pg/ml (0-20)
--- NOTE | 2023-01-14 20:12 | CT Scan Report ---
Exam(s): CT CHEST Without Contrast EXAM: CT Chest Without Intravenous Contrast CLINICAL HISTORY: Reason for exam: right chest pain. TECHNIQUE: Axial computed tomography images of the chest without intravenous contrast. CTDI is 28.14 mGy and DLP is 922.88 mGy-cm. Automated exposure control was utilized for the study. A dose lowering technique was utilized adhering to the principles of ALARA. COMPARISON: Chest radiograph 01/14/2023. FINDINGS: Lungs: Unremarkable. No mass. No consolidation. Pleural space: Unremarkable. No pneumothorax. No significant effusion. Heart: Trace pericardial effusion. Mild cardiomegaly. Coronary artery atherosclerotic calcifications. Mediastinum: Calcified left hilar lymph nodes. Bones/joints: Bilateral glenohumeral joint osteoarthritis. Degenerative change and ankylosis of the spine. No acute fracture. No dislocation. Soft tissues: Gynecomastia. Vasculature: Atherosclerotic calcifications are seen in the aorta. No thoracic aortic aneurysm. Lymph nodes: See above. IMPRESSION: 1. No acute abnormality identified on noncontrast examination. 2. Mild cardiomegaly. 3. Coronary artery atherosclerotic calcifications. Electronically signed by: Varghese Ramos MD 01/14/23 20:11 PM
--- NOTE | 2023-01-14 20:21 | CT Scan Report ---
Exam(s): CT ABDOMEN + PELVIS Without Contrast EXAM: CT Abdomen and Pelvis Without Intravenous Contrast CLINICAL HISTORY: Reason for exam: right flank pain, illness. TECHNIQUE: Axial computed tomography images of the abdomen and pelvis without intravenous contrast. CTDI is 28.14 mGy and DLP is 1654.62 mGy-cm. Automated exposure control was utilized for the study. A dose lowering technique was utilized adhering to the principles of ALARA. COMPARISON: CT abdomen and pelvis 05/27/2022. FINDINGS: Lung bases: Unremarkable. No mass. No consolidation. ABDOMEN: Liver: Unremarkable. Gallbladder and bile ducts: Cholecystectomy. No ductal dilation. Pancreas: Unremarkable. No ductal dilation. Spleen: Unremarkable. No splenomegaly. Adrenals: Unremarkable. No mass. Kidneys and ureters: Nonobstructing right renal calculi measuring up to 7 mm. Stomach and bowel: Unremarkable. No obstruction. No mucosal thickening. PELVIS: Appendix: No findings to suggest acute appendicitis. Bladder: Unremarkable. No stones. Reproductive: Unremarkable as visualized. ABDOMEN and PELVIS: Intraperitoneal space: Unremarkable. No free air. No significant fluid collection. Bones/joints: Moderate to severe osteoarthritis of the femoral acetabular joints. Degenerative changes seen in the spine. No acute fracture. No dislocation. Soft tissues: Fat-containing ventral abdominal hernia, unchanged from prior exam. Vasculature: Atherosclerotic calcifications in the abdominal aorta and branches. No abdominal aortic aneurysm. Lymph nodes: Hazy mesentery is seen with prominent mesenteric lymph nodes. Enlarged para-aortic/retroperitoneal lymph nodes, largest measuring 2 cm. IMPRESSION: 1. Nonobstructing right renal calculi measuring up to 7 mm. No ureteral calculi. 2. Hazy mesentery is seen with prominent mesenteric lymph nodes. 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 3. Enlarged para-aortic/retroperitoneal lymph nodes, largest measuring 2 cm. This is nonspecific and may be reactive. Nikita metastasis and lymphoproliferative disease are not excluded. Electronically signed by: Varghese Ramos MD 01/14/23 20:20 PM
--- NOTE | 2023-01-14 22:01 | History & Physical Report ---
Date of Service January 14, 2023 Assessment & Plan (1) Complicated UTI (urinary tract infection): Plan: 67-year-old male past medical significant for type 2 diabetes, diabetic peripheral neuropathy, chronic kidney stage IV, hyperlipidemia, obstructive sleep apnea on CPAP with oxygen, chronic systolic CHF, right heart failure, hypertension, left bundle branch block, atherosclerosis of coronary artery, morbid obesity, GERD, venous stasis dermatitis of both lower extremities, traumatic complete tear of right rotator cuff, CLL, history of COVID, history of generalized edema, persistent insomnia, lives at home with his comes because of severe pain in his right shoulder and right back region. Right shoulder pain Right back pain Ambulatory dysfunction Chest x-ray, CT chest are okay If no improvement will consult Ortho Pain control and PT OT for now UTI complicated Possible pyelonephritis Right 7 mm nonobstructing renal calculi Follows with urology We will consult urology while patient in hospital Received cefepime in the ER, will place him on Rocephin History of kidney stones on potassium citrate Abdominal lymphadenopathy on CAT scan Mostly reactive Needs follow-up Leukocytosis History of CLL Follows with heme-onc KATRNIA on chronic kidney stage IV Baseline creatinine 2-2.5 Creatinine 3.09 today Holding Lasix and losartan and getting fluids We will follow labs in a.m. Obstructive sleep apnea on CPAP nightly Chronic systolic CHF EF 45 to 49% Chronic right-sided heart failure Holding diuretics and getting fluids Monitor for volume overload Diabetes Continue home Lantus Insulin sliding scale We will follow blood sugars and HbA1c levels Glycemic pharmacy consult Morbid obesity Needs counseling Hypertension Continue Coreg Holding losartan and Lasix We will monitor the blood pressure GERD on Protonix Hyperlipidemia on statin BPH on Flomax DVT prophylaxis Lovenox Disposition med/telemetry Full code History of Present Illness Chief Complaint: Right shoulder and back pain. Found to have UTI possible pyelonephritis. Possible confusion Primary Care Provider: Valentina Scott DO 67-year-old male past medical significant for type 2 diabetes, diabetic peripheral neuropathy, chronic kidney stage IV, hyperlipidemia, obstructive sleep apnea on CPAP with oxygen, chronic systolic CHF, right heart failure, hypertension, left bundle branch block, atherosclerosis of coronary artery, morbid obesity, GERD, venous stasis dermatitis of both lower extremities, traumatic complete tear of right rotator cuff, CLL, history of COVID, history of generalized edema, persistent insomnia, lives at home with his comes because of severe pain in his right shoulder and right back region. Having difficulty lifting right shoulder because of pain and also not able to ambulate much today. Denies any fevers. Normal bowel and bladder movements. Denies any hematuria or blood in the stools. No burning micturition. No abdominal pain. No chest pain or shortness of breath. No headaches or neck pain. Vision is okay. No runny nose or sore throat or cough. No dysphagia. Currently resting comfortably and hemodynamically stable. Allergies Allergy/AdvReac Type Severity Reaction Status Date / Time No Known Allergies Allergy Verified 11/27/22 13:49 Home Medications Medication Instructions Recorded Confirmed Type aspirin 81 mg tablet,delayed 81 mg PO QAM 06/13/21 01/14/23 History release (Alejandro Low Dose Aspirin) carvedilol 6.25 mg tablet 6.25 mg PO BID 06/13/21 01/14/23 History duloxetine 30 mg capsule,delayed 30 mg PO QAM 06/13/21 01/14/23 History release folic acid 1 mg tablet 1 mg PO QAM 06/13/21 01/14/23 History gabapentin 300 mg capsule 300 mg PO BID 06/13/21 01/14/23 History pantoprazole 40 mg tablet,delayed 40 mg PO DAILYBB 06/13/21 01/14/23 History release rosuvastatin 40 mg tablet 40 mg PO QAM 06/13/21 01/14/23 History semaglutide 0.25 mg or 0.5 mg (2 0.5 mg subcut WK 06/13/21 01/14/23 History mg/1.5 mL) subcutaneous pen injector (Ozempic) blood sugar diagnostic (Made2Manage SystemsTouch #100 ea 06/19/21 11/27/22 Rx Verio test strips) lancets 33 gauge (OneTouch Delica #100 ea 06/19/21 11/27/22 Rx Lancets) tramadol 50 mg tablet 50 mg PO Q6H PRN Pain 04/06/22 01/14/23 History trazodone 50 mg tablet 50 mg PO HS 04/06/22 01/14/23 History blood sugar diagnostic (OneTouch #100 ea 04/09/22 11/27/22 Rx Verio test strips) insulin aspart U-100 100 unit/mL 20 unit (0.2 mL) subcut TID #15 mL 04/09/22 01/14/23 Rx (3 mL) subcutaneous pen (Novolog FlexPen U-100 Insulin aspart) insulin glargine 100 unit/mL (3 30 unit (0.3 mL) subcut BID #15 mL 04/09/22 01/14/23 Rx mL) subcutaneous pen (Basaglar KwikPen U-100 Insulin) lancets 33 gauge (OneTouch Delica #100 ea 04/09/22 11/27/22 Rx Lancets) pen needle, diabetic 32 gauge x #100 ea 04/09/22 11/27/22 Rx 5/32" (Pen Needle) ergocalciferol (vitamin D2) 50 mcg 50 mcg PO DAILY 05/28/22 01/14/23 History (2,000 unit) tablet potassium citrate 10 mEq (1,080 10 meq PO TID 05/28/22 01/14/23 History mg) tablet,extended release furosemide 40 mg tablet 40 mg PO BID #180 tabs 09/25/22 01/14/23 Rx tamsulosin 0.4 mg capsule 0.4 mg PO QPM #90 caps 01/01/23 01/14/23 Rx losartan 100 mg tablet 100 mg PO QPM 01/14/23 01/14/23 History Past Med/Surg History Medical History KATRINA (acute kidney injury) Chronic back pain CKD (chronic kidney disease), stage IV CLL (chronic lymphocytic leukemia) Per records Pt's denies Depression DM type 2 (diabetes mellitus, type 2) Uncontrolled - Hgb A1C 13.9 on 04/08/22 Started on Lantus 30 units BID and Novolog after [facility] admission 04/09/22 ; Ozempic increased by PCP 04/12/22 DVT prophylaxis Dyslipidemia GERD (gastroesophageal reflux disease) Hydronephrosis with urinary obstruction due to renal calculus Hypertension LBBB (left bundle branch block) Follows with S Cardio- last visit August 2021 Morbid obesity Nonischemic cardiomyopathy EF 45-49% per 07/2021 ECHO (improved from 25% in Jun 2021 while admitted with Covid pneumonia and acute CHF- patient close to baseline EF per cardio records August 2021) DICK on CPAP Surgical History History of cholecystectomy History of cystoscopy Family History Father Diabetes Mother Diabetes Social History Smoking Status: Never smoker Second Hand Exposure: No; Do You Dip or Chew Tobacco: No; Hx Alcohol Use: No Hx Substance Use: No Preferred Language: Citizen Of [place] Communication Ability: Effective Personal Fitness Manager Required: No Beliefs That Will Affect Care: None Current Living Situation: Spouse Current Living Situation Comment: with Other Information That Helps Us Care for You: No Feels Safe at Home: Yes Safety Concerns: Feels Safe At This Time Assistive Devices: CPAP Review of Systems Review of Systems: All systems reviewed & are unremarkable except as noted in Subjective Physical Exam Physical Exam: General- Morbidly obese Head- atraumatic Eyes- PERRL. ENT- oropharynx clear Neck- supple, no JVD. Lungs- clear to auscultation and percussion no added sounds Heart- regular rate and rhythm; no murmur, no gallop. Abdomen- normal bowel sounds, soft, nontender, no distension. Extremities- chronic venous stasis dermatitis seen in lower extremities. Neuro- alert, oriented x 3; PERRL, no facial palsy; no dysarthria insight ok, moves extremities. Skin- warm & dry Results & Data Results & Data Vital Signs (Past 12 Hours) Vital Signs Temp Pulse Pulse Resp BP BP Pulse Ox 01/14/23 19:39 96 H 24 105/54 L 95 01/14/23 17:03 103 H 01/14/23 13:42 36.9 C 112 H 18 105/69 93 O2 Del Method O2 Flow Rate 01/14/23 19:39 Nasal Cannula 2 01/14/23 17:03 01/14/23 13:42 Room Air Diagnostic Findings Laboratory Results WBC 28.51 K/ul (4.8-10.8) H 01/14/23 14:05 RBC 4.22 M/uL (4.70-6.10) L 01/14/23 14:05 Hgb 11.7 g/dl (14.0-18.0) L 01/14/23 14:05 Hct 37.3 % (42.0-52.0) L 01/14/23 14:05 MCV 88.4 fL (80.0-100.0) 01/14/23 14:05 MCH 27.7 pg (25.0-34.0) 01/14/23 14:05 MCHC 31.4 g/dL (32.0-36.0) L 01/14/23 14:05 RDW Std Deviation 47.8 fL (36.4-46.3) H 01/14/23 14:05 RDW Coeff of Miguel 14.9 % (11.5-14.5) H 01/14/23 14:05 Plt Count 170 K/uL (130-400) 01/14/23 14:05 MPV 11.1 fL (9.4-12.4) 01/14/23 14:05 Immature Gran % (Auto) 0.4 % 01/14/23 14:05 Neut % (Auto) 34.5 % 01/14/23 14:05 Lymph % (Auto) 61.2 % 01/14/23 14:05 [place] % (Auto) 2.7 % 01/14/23 14:05 Eos % (Auto) 0.8 % 01/14/23 14:05 Baso % (Auto) 0.4 % 01/14/23 14:05 Neut # (Auto) 9.83 K/uL (1.40-6.50) H 01/14/23 14:05 Lymph # (Auto) 17.45 K/uL (1.2-3.4) H 01/14/23 14:05 [place] # (Auto) 0.78 K/uL (0.11-0.59) H 01/14/23 14:05 Eos # (Auto) 0.23 K/uL (0-0.50) 01/14/23 14:05 Baso # (Auto) 0.11 K/uL (0-0.2) 01/14/23 14:05 Immature Gran # (Auto) 0.11 K/uL (0.01-0.20) 01/14/23 14:05 Sodium 135 mmol/L (136-145) L 01/14/23 14:05 Potassium 4.4 mmol/L (3.5-5.1) 01/14/23 14:05 Chloride 102 mmol/L (98-107) 01/14/23 14:05 Carbon Dioxide 23 mmol/L (21-32) 01/14/23 14:05 Anion Gap 10 (3-11) 01/14/23 14:05 BUN 62 mg/dl (6-23) H 01/14/23 14:05 Creatinine 3.09 mg/dl (0.6-1.4) H 01/14/23 14:05 Est Cr Clr Drug Dosing Not Reportable 01/14/23 14:05 Est GFR ( Amer) 23.0 ml/min 01/14/23 14:05 Est GFR (Non-Af Amer) 19.8 ml/min 01/14/23 14:05 BUN/Creatinine Ratio 20.1 (10-20) H 01/14/23 14:05 Glucose 156 mg/dl (70-99(Fasting)) H 01/14/23 14:05 Lactate 1.3 mmol/L (0.4-2.0) 01/14/23 17:29 Calcium 9.1 mg/dl (8.6-10.3) 01/14/23 14:05 Total Bilirubin 0.4 mg/dl (0.2-1.0) 01/14/23 14:05 AST 19 U/L (13-39) 01/14/23 14:05 ALT 19 U/L (7-52) 01/14/23 14:05 Alkaline Phosphatase 97 U/L (34-104) 01/14/23 14:05 Total Creatine Kinase 80 U/L (30-223) 01/14/23 17:29 Troponin I High Sens 29.5 pg/ml (0-20) H 01/14/23 17:29 C-Reactive Protein 9.50 mg/dl (0-0.5) H 01/14/23 17:29 Total Protein 7.2 gm/dl (6.0-8.3) 01/14/23 14:05 Albumin 3.7 gm/dl (3.4-5.0) 01/14/23 14:05 Globulin 3.5 gm/dl (2.5-4.0) 01/14/23 14:05 Albumin/Globulin Ratio 1.1 (0.9-2) 01/14/23 14:05 Procalcitonin 0.66 ng/ml (0-0.5) H 01/14/23 17:29 Urine Color Yellow 01/14/23 15:35 Urine Appearance Turbid (Clear) A 01/14/23 15:35 Urine pH 5.5 (4.5-7.5) 01/14/23 15:35 Ur Specific [place] 1.014 (1.000-1.030) 01/14/23 15:35 Urine Protein 1+ (Negative) H 01/14/23 15:35 Urine Glucose (UA) Negative (Negative) 01/14/23 15:35 Urine Ketones Negative (Negative) 01/14/23 15:35 Urine Blood 1+ (Negative) H 01/14/23 15:35 Urine Nitrite Negative (Negative) 01/14/23 15:35 Urine Bilirubin Negative (Negative) 01/14/23 15:35 Urine Urobilinogen Negative (Negative) 01/14/23 15:35 Ur Leukocyte Esterase 3+ (Negative) H 01/14/23 15:35 Urine WBC (Auto) >30 /hpf (0-5) H 01/14/23 15:35 Urine RBC (Auto) 0-4 /hpf (0-4) 01/14/23 15:35 U Hyaline Cast (Auto) 1-5 /lpf (0-5) 01/14/23 15:35 U Epithel Cells (Auto) 5-10 /lpf (0-5) H 01/14/23 15:35 Urine Bacteria (Auto) Negative (Negative) 01/14/23 15:35 Urine Yeast Present (None Prsent) A 01/14/23 15:35 Impressions Chest X-Ray 01/14/23 16:56 SINGLE VIEW CHEST CLINICAL HISTORY: Right-sided chest pain. FINDINGS: 2 AP, portable, upright chest radiographs are compared to study dated 05/27/2022. The examination is degraded by portable technique comment large body habitus, and apical lordotic positioning. The heart is enlarged. There is pulmonary vascular congestion. Scarring/atelectasis is noted at the lung bases. No airspace consolidation or large pleural effusion is identified. No pneumothorax is seen. The skeletal structures are osteopenic. The bony thorax is grossly intact. IMPRESSION: Cardiomegaly with mild pulmonary vascular congestion. ACT 112: Negative or not required by law. Electronically signed by: Enrique Sheppard M.D. 01/14/2023 5:17 PM Abdomen/Pelvis CT 01/14/23 17:26 Exam(s): CT ABDOMEN + PELVIS Without Contrast EXAM: CT Abdomen and Pelvis Without Intravenous Contrast CLINICAL HISTORY: Reason for exam: right flank pain, illness. TECHNIQUE: Axial computed tomography images of the abdomen and pelvis without intravenous contrast. CTDI is 28.14 mGy and DLP is 1654.62 mGy-cm. Automated exposure control was utilized for the study. A dose lowering technique was utilized adhering to the principles of ALARA. COMPARISON: CT abdomen and pelvis 05/27/2022. FINDINGS: Lung bases: Unremarkable. No mass. No consolidation. ABDOMEN: Liver: Unremarkable. Gallbladder and bile ducts: Cholecystectomy. No ductal dilation. Pancreas: Unremarkable. No ductal dilation. Spleen: Unremarkable. No splenomegaly. Adrenals: Unremarkable. No mass. Kidneys and ureters: Nonobstructing right renal calculi measuring up to 7 mm. Stomach and bowel: Unremarkable. No obstruction. No mucosal thickening. PELVIS: Appendix: No findings to suggest acute appendicitis. Bladder: Unremarkable. No stones. Reproductive: Unremarkable as visualized. ABDOMEN and PELVIS: Intraperitoneal space: Unremarkable. No free air. No significant fluid collection. Bones/joints: Moderate to severe osteoarthritis of the femoral acetabular joints. Degenerative changes seen in the spine. No acute fracture. No dislocation. Soft tissues: Fat-containing ventral abdominal hernia, unchanged from prior exam. Vasculature: Atherosclerotic calcifications in the abdominal aorta and branches. No abdominal aortic aneurysm. Lymph nodes: Hazy mesentery is seen with prominent mesenteric lymph nodes. Enlarged para-aortic/retroperitoneal lymph nodes, largest measuring 2 cm. IMPRESSION: 1. Nonobstructing right renal calculi measuring up to 7 mm. No ureteral calculi. 2. Hazy mesentery is seen with prominent mesenteric lymph nodes. 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 3. Enlarged para-aortic/retroperitoneal lymph nodes, largest measuring 2 cm. This is nonspecific and may be reactive. Nikita metastasis and lymphoproliferative disease are not excluded. Electronically signed by: Varghese Ramos MD 01/14/23 20:[address] 01/14/23 18:26 Exam(s): CT CHEST Without Contrast EXAM: CT Chest Without Intravenous Contrast CLINICAL HISTORY: Reason for exam: right chest pain. TECHNIQUE: Axial computed tomography images of the chest without intravenous contrast. CTDI is 28.14 mGy and DLP is 922.88 mGy-cm. Automated exposure control was utilized for the study. A dose lowering technique was utilized adhering to the principles of ALARA. COMPARISON: Chest radiograph 01/14/2023. FINDINGS: Lungs: Unremarkable. No mass. No consolidation. Pleural space: Unremarkable. No pneumothorax. No significant effusion. Heart: Trace pericardial effusion. Mild cardiomegaly. Coronary artery atherosclerotic calcifications. Mediastinum: Calcified left hilar lymph nodes. Bones/joints: Bilateral glenohumeral joint osteoarthritis. Degenerative change and ankylosis of the spine. No acute fracture. No dislocation. Soft tissues: Gynecomastia. Vasculature: Atherosclerotic calcifications are seen in the aorta. No thoracic aortic aneurysm. Lymph nodes: See above. IMPRESSION: 1. No acute abnormality identified on noncontrast examination. 2. Mild cardiomegaly. 3. Coronary artery atherosclerotic calcifications. Electronically signed by: Varghese Ramos MD 01/14/23 20:11 PM Code Status & VTE Plan VTE Prophylaxis Plan VTE Prophylaxis will be ordered: Yes
[2023-01-14] MEDS ORDERED: oxyCODONE HCL IR 5 MG TAB (IMMEDIATE RELEASE) PO STA (22:51)
[2023-01-14] MEDS ORDERED: LANTUS PER UNIT CHARGE SQ SCH (23:56)
[2023-01-14] MEDS ORDERED: GLUCOSE 10 TAB/TUBE PO PRN (23:56)
[2023-01-14] MEDS ORDERED: NITROGLYCERIN SL 0.4 MG/TAB TAB SL PRN (23:56)
[2023-01-14] MEDS ORDERED: DEXTROSE 50% 50 ML SYRINGE IV PRN (23:56)
[2023-01-14] MEDS ORDERED: CARBOHYDRATES FOR HYPOGLYCEMIA PO PRN (23:56)
[2023-01-14] MEDS ORDERED: PHARMACY GLYCEMIC MGMT CONSULT PRN (23:56)
[2023-01-14] MEDS ORDERED: GLUCAGON FOR INJ 1 MG VIAL SQ PRN (23:56)
[2023-01-14] MEDS ORDERED: GLUCOSE 40% GEL 15 GM TUBE PO PRN (23:56)
[2023-01-14] MEDS ORDERED: POLYETHYLENE (MIRALAX) 17 GM PACK PO PRN (23:56)
[2023-01-15] MEDS: Patient's HEIGHT &/or WEIGHT Needed SCH ×2 (01:06→02:25)
[2023-01-15] MEDS ORDERED: INSULIN ASPART PER UNIT CHARGE SC ONE (01:20)
[2023-01-15] MEDS: oxyCODONE HCL IR 5 MG TAB (IMMEDIATE RELEASE) PO PRN ×4 (01:45→18:36)
[2023-01-15] MEDS: GABAPENTIN 300 MG CAP PO SCH ×3 (01:46→20:24)
[2023-01-15] MEDS: SODIUM CHLORIDE 0.9% 1000ML 1,000 ML IV SCH ×2 (01:47→13:12)
[2023-01-15] MEDS: carvediloL 6.25 MG TAB PO SCH ×3 (01:47→20:25)
[2023-01-15] MEDS: ENOXAPARIN INJ 40 MG/0.4 ML SYR SQ SCH ×3 (01:55→20:25)
[2023-01-15] MEDS ORDERED: Nursing to Pharmacy Communication SCH (02:30)
[2023-01-15] MEDS: PANTOprazole 40 MG TAB PO SCH (05:50)
[2023-01-15 06:33] LABS: Hematocrit (blood only) 37.5 % (42.0-52.0); Hemoglobin 11.4 g/dl (14.0-18.0); Mean Corpuscular Hemoglobin 27.3 pg (25.0-34.0); Mean Corpuscular Hgb Conc 30.4 g/dL (32.0-36.0); Mean Corpuscular Volume 89.7 fL (80.0-100.0); Mean Platelet Volume 11.1 fL (9.4-12.4); Platelet Count 179 K/uL (130-400); RDW Coefficient of Variation 14.9 % (11.5-14.5); RDW Standard Deviation 48.1 fL (36.4-46.3); Red Blood Count 4.18 M/uL (4.70-6.10); White Blood Count 24.51 K/ul (4.8-10.8)
[2023-01-15 06:50] LABS: BUN Creatinine Ratio 21.1 (10-20); Calcium 8.9 mg/dl (8.6-10.3); Creatinine Clr Calc Pharmacy 37.4 ml/min; Est GFR (African American) 24.9 ml/min; Est GFR (Non-African American) 21.5 ml/min; Magnesium 2.2 mg/dl (1.7-2.4); Potassium 4.3 mmol/L (3.5-5.1)
[2023-01-15 07:24] LABS: Anisocytosis Present; Basophils # (auto) 0.09 K/uL (0-0.2); Basophils % (auto) 0.4 %; Eosinophils # (auto) 0.28 K/uL (0-0.50); Eosinophils % (auto) 1.1 %; Immature Granulocytes % (auto) 0.4 %; Lymphocytes # (auto) 16.37 K/uL (1.2-3.4); Lymphocytes % (auto) 66.8 %; Monocytes # (auto) 0.88 K/uL (0.11-0.59); Monocytes % (auto) 3.6 %; Neutrophils # (auto) 6.79 K/uL (1.40-6.50); Neutrophils % (auto) 27.7 %; Polychromasia 1+; Smudge Cells Present
[2023-01-15 07:46] LABS: Estimated Average Glucose 186 mg/dl; Hemoglobin A1C 8.1 % (4.5-5.6)
[2023-01-15] MEDS: traMADol HCL 50 MG TABLET PO PRN ×3 (07:50→21:05)
[2023-01-15] MEDS: CHOLECALCIFEROL 1,000 UNITS 25 MCG TAB PO SCH (07:51)
[2023-01-15] MEDS: POTASSIUM CITRATE 10 MEQ TAB PO SCH ×3 (07:51→20:24)
[2023-01-15] MEDS: FOLIC ACID 1 MG TAB PO SCH (07:52)
[2023-01-15] MEDS: ASPIRIN 81 MG ECTAB PO SCH (07:52)
[2023-01-15] MEDS: ROSUVASTATIN CALCIUM 20 MG TAB PO SCH (07:52)
[2023-01-15] MEDS: DULoxetine HCL 30 MG CAP PO SCH (07:53)
[2023-01-15] MEDS: cefTRIAXone SODIUM 2,000 MG in DEXTROSE 5% 50 ML IV SCH (07:57)
--- NOTE | 2023-01-15 08:30 | Pharmacy Report ---
Pharmacy Glycemic Short Note 2 - Date of Service January 15, 2023 - Glycemic Short BSG Results (Last 24 hours): 01/14/23 01/15/23 01/15/23 14:05 00:11 01:33 Glucose 156 H POC Glucose 141 H 158 H 01/15/23 01/15/23 05:34 08:07 Glucose 124 H POC Glucose 153 H OUTPATIENT ANTIDIABETIC REGIMEN: * Lantus 30 units SQ BID * Novolog 20u SQ TIDM * semaglutide 0.5mg SQ weekly HbA1C: 8.1% ASSESSMENT: * Patient is a 67 year old male admitted with a complicated UTI. History of DM2 on insulin therapy at home. Pharmacy consulted to assist with glycemic management while inpatient. * BSGs since arrival: [phone]/dL. Fasting acceptable this AM (153mg/dL). * On IV antibiotics and tolerating diet. Received Lantus 30 units last night and 1 unit of bolus insulin. * Continue Lantus 30 units qAM and increase to 35 units HS starting this evening. Novolog ACHS moderate stress scale based on previous glycemic data. PLAN FOR INPATIENT GLYCEMIC CONTROL: * Hold outpatient oral diabetes medications * Basal insulin * Lantus 30 units qAM, 35 units HS * Bolus insulin * NovoLog per scale ACHS or Q6hrs while NPO * Goal Range: Low 110 mg/dL - High 140 mg/dL * Correction Factor: 15 mg/dL/unit * Nutritional / Prandial insulin per carb ratio of 1 unit per 5 grams CHO consumed
--- NOTE | 2023-01-15 09:27 | Urology Consultation ---
Date of Consultation January 15, 2023 Assessment & Plan (1) Kidney stone: (2) Complicated UTI (urinary tract infection): Plan 67yo/M admitted with suspected UTI and right shoulder/back pain. Afebrile, normotensive, tachycardic. Labs reviewed- leukocytosis downtrending 2824 today, hemoglobin 11.4, creatinine 3.09 yesterday2.89 today. Continue to trend. Urine and blood cultures pending. CT abdomen pelvis reviewed and notable for nonobstructing right renal stones. No ureteral stones. Voiding spontaneously, continue to monitor. No acute intervention warranted. Reviewed CT findings with patient. We discussed that there are no passing/obstructing stones or findings on imaging to explain his right sided pain. Continue supportive care and antibiotics. Follow cultures and tailor as culture data becomes available. Plan to follow-up with urology outpatient as scheduled. Urology will follow peripherally. Please contact us with any further questions, concerns, or change in patient status. History of Present Illness Attending Physician: Tiffany Nassar MD History of Present Illness 67-year-old male past medical significant for type 2 diabetes, diabetic peripheral neuropathy, chronic kidney stage IV, hyperlipidemia, obstructive sleep apnea on CPAP, chronic systolic CHF, right heart failure, hypertension, left bundle branch block, atherosclerosis of coronary artery, morbid obesity, GERD, venous stasis dermatitis of both lower extremities, traumatic complete tear of right rotator cuff, CLL, history of COVID, history of generalized edema, persistent insomnia, nephrolithiasis admitted with suspected UTI and right shoulder/ back pain. Urology consulted for nephrolithiasis, UTI On arrival he was afebrile, mildly tachycardic. Labs- WBC 28, creatinine 3.09. UA with 1+ blood, negative nitrite, negative bacteria, 3+ LE. Urine and blood cultures are pending. On Ceftriaxone. CT abdomen pelvis shows nonobstructing right renal calculi measuring up to 7 mm. No ureteral calculi. Patient is known to the urology service, follows with Dr. Thomas for nephrolithiasis. Patient examined at bedside this AM. Awake, resting in bed on arrival. No acute distress. Denies fevers, chills, nausea, vomiting. Still with right shoulder/back pain. Denies abdominal, flank, suprapubic pain. States he does not think it is his kidney stones causing the discomfort. Voiding without issue. Denies hematuria or dysuria. Continues on Flomax. Feels he is emptying his bladder well. Denies additional urological issues or concerns. Allergies Allergy/AdvReac Type Severity Reaction Status Date / Time No Known Allergies Allergy Verified 11/27/22 13:49 Home Medications Medication Instructions Recorded Confirmed Type aspirin 81 mg tablet,delayed 81 mg PO QAM 06/13/21 01/14/23 History release (Alejandro Low Dose Aspirin) carvedilol 6.25 mg tablet 6.25 mg PO BID 06/13/21 01/14/23 History duloxetine 30 mg capsule,delayed 30 mg PO QAM 06/13/21 01/14/23 History release folic acid 1 mg tablet 1 mg PO QAM 06/13/21 01/14/23 History gabapentin 300 mg capsule 300 mg PO BID 06/13/21 01/14/23 History pantoprazole 40 mg tablet,delayed 40 mg PO DAILYBB 06/13/21 01/14/23 History release rosuvastatin 40 mg tablet 40 mg PO QAM 06/13/21 01/14/23 History semaglutide 0.25 mg or 0.5 mg (2 0.5 mg subcut WK 06/13/21 01/14/23 History mg/1.5 mL) subcutaneous pen injector (Ozempic) blood sugar diagnostic (RentFeederTouch #100 ea 06/19/21 11/27/22 Rx Verio test strips) lancets 33 gauge (OneTouch Delica #100 ea 06/19/21 11/27/22 Rx Lancets) tramadol 50 mg tablet 50 mg PO Q6H PRN Pain 04/06/22 01/14/23 History trazodone 50 mg tablet 50 mg PO HS 04/06/22 01/14/23 History blood sugar diagnostic (OneTouch #100 ea 04/09/22 11/27/22 Rx Verio test strips) insulin aspart U-100 100 unit/mL 20 unit (0.2 mL) subcut TID #15 mL 04/09/22 01/14/23 Rx (3 mL) subcutaneous pen (Novolog FlexPen U-100 Insulin aspart) insulin glargine 100 unit/mL (3 30 unit (0.3 mL) subcut BID #15 mL 04/09/22 01/14/23 Rx mL) subcutaneous pen (Basaglar KwikPen U-100 Insulin) lancets 33 gauge (OneTouch Delica #100 ea 04/09/22 11/27/22 Rx Lancets) pen needle, diabetic 32 gauge x #100 ea 04/09/22 11/27/22 Rx " (Pen Needle) ergocalciferol (vitamin D2) 50 mcg 50 mcg PO DAILY 05/28/22 01/14/23 History (2,000 unit) tablet potassium citrate 10 mEq (1,080 10 meq PO TID 05/28/22 01/14/23 History mg) tablet,extended release furosemide 40 mg tablet 40 mg PO BID #180 tabs 09/25/22 01/14/23 Rx tamsulosin 0.4 mg capsule 0.4 mg PO QPM #90 caps 01/01/23 01/14/23 Rx losartan 100 mg tablet 100 mg PO QPM 01/14/23 01/14/23 History Patient History Medical History KATRINA (acute kidney injury) Chronic back pain CKD (chronic kidney disease), stage IV CLL (chronic lymphocytic leukemia) Per records Pt's denies Depression DM type 2 (diabetes mellitus, type 2) Uncontrolled - Hgb A1C 13.9 on 04/08/22 Started on Lantus 30 units BID and Novolog after [facility] admission 04/09/22 ; Ozempic increased by PCP 04/12/22 DVT prophylaxis Dyslipidemia GERD (gastroesophageal reflux disease) Hydronephrosis with urinary obstruction due to renal calculus Hypertension LBBB (left bundle branch block) Follows with S Cardio- last visit August 2021 Morbid obesity Nonischemic cardiomyopathy EF 45-49% per 07/2021 ECHO (improved from 25% in Jun 2021 while admitted with Covid pneumonia and acute CHF- patient close to baseline EF per cardio records August 2021) DICK on CPAP Surgical History History of cholecystectomy History of cystoscopy Family History Father Diabetes Mother Diabetes Social History Smoking Status: Never smoker Second Hand Exposure: No; Do You Dip or Chew Tobacco: No; Hx Alcohol Use: No Hx Substance Use: No Preferred Language: Finnish Communication Ability: Effective Press Offbearer Required: No Beliefs That Will Affect Care: None Current Living Situation: Spouse Current Living Situation Comment: with Other Information That Helps Us Care for You: No Feels Safe at Home: Yes Safety Concerns: Feels Safe At This Time Assistive Devices: Cane, CPAP and Oxygen - at Night Review of Systems 2 Review of Systems: All systems reviewed & are unremarkable except as noted in HPI & below Physical Exam Constitutional: + obese; no acute distress Eyes: eyes not dysmorphic ENMT: Ears: no hearing impairment Neck: normal visual inspection Respiratory: normal respiratory effort; no respiratory distress and no labored breathing Cardiovascular: Extremities: + edema (BLE) Musculoskeletal: Head/Neck/Chest: normocephalic Skin: Warm and dry Neurologic: awake Psychiatric: A+Ox3, euthymic affect Results & Data Vital Signs (Past 12 Hours) Vital Signs Temp Pulse Pulse Pulse Resp BP BP 01/15/23 07:55 101 H 01/15/23 07:38 37.2 C 103 H 18 107/56 L 01/15/23 07:13 106 H 01/15/23 00:06 01/15/23 00:06 36.8 C 100 H 18 120/68 01/14/23 23:51 101 H 01/15/23 04:20 36.8 C 100 H 18 123/71 01/14/23 21:00 93 H 01/14/23 21:00 95 H 23 111/61 Pulse Ox O2 Del Method O2 Flow Rate 01/15/23 07:55 94 Nasal Cannula 2 01/15/23 07:38 88 L Room Air 01/15/23 07:13 01/15/23 00:06 Room Air, CPAP 01/15/23 00:06 92 Room Air 01/14/23 23:51 01/15/23 04:20 93 CPAP 01/14/23 21:00 01/14/23 21:00 94 Nasal Cannula 2 PG Care Time/CCT Total # of Minutes Spent Total Time Spent with Patient: Total time spent is greater than 50% in coordination of care (as documented) at patient's floor/unit and/or counseling patient: Coding Level of Care Code 87468 INT INP/OBS CARE 2/55MIN Diagnoses Kidney stone N20.0 Complicated UTI (urinary tract infection) N39.0
[2023-01-15] MEDS: INSULIN ASPART PER UNIT CHARGE SC SCH ×4 (09:31→21:04)
[2023-01-15] MEDS: LANTUS PER UNIT CHARGE SQ SCH (09:32)
[2023-01-15 10:11] LABS: Smudge Cells Present
--- NOTE | 2023-01-15 14:58 | Hospitalist Progress Note ---
Date of Service January 15, 2023 Assessment & Plan (1) Complicated UTI (urinary tract infection): Plan: 67-year-old male past medical significant for type 2 diabetes, diabetic peripheral neuropathy, chronic kidney stage IV, hyperlipidemia, obstructive sleep apnea on CPAP with oxygen, chronic systolic CHF, right heart failure, hypertension, left bundle branch block, atherosclerosis of coronary artery, morbid obesity, GERD, venous stasis dermatitis of both lower extremities, traumatic complete tear of right rotator cuff, CLL, history of COVID, history of generalized edema, persistent insomnia, lives at home with his comes because of severe pain in his right shoulder and right back region. He was admitted with severe right shoulder and right pain and noted to have UTI on admission with leukocytosis of 25 K UTI complicated Possible pyelonephritis Right 7 mm nonobstructing renal calculi with history of renal stones Has been started on intravenous cefepime in the ER and changed to Rocephin Appreciate urology input and recommendation biomembrane Clinically better and will continue current management Right shoulder pain Right back pain History of fall a few weeks back and injured the right shoulder and back. Ambulatory dysfunction could be contributed by pain Chest x-ray, CT chest are okay Clinically tenderness involving the back of her right shoulder and upper right thoracic area Joint movement is minimally painful but doubt any fracture Pain control and PT OT for now Abdominal lymphadenopathy on CAT scan Mostly reactive Needs follow-up Leukocytosis History of CLL Follows with heme-onc Leukocytosis could be secondary to CLL KATRINA on chronic kidney stage IV Baseline creatinine 2-2.5 Creatinine 3.09 today Holding Lasix and losartan and getting fluids Renal function is slightly better and the creatinine decreased from 3.09-2.89 Will keep holding Lasix and losartan for now Obstructive sleep apnea on CPAP nightly Chronic systolic CHF EF 45 to 49% Chronic right-sided heart failure Holding diuretics and getting fluids Monitor for volume overload No signs and or symptoms of fluid overload Diabetes Continue home Lantus Insulin sliding scale We will follow blood sugars and HbA1c levels Glycemic pharmacy consult Morbid obesity Needs counseling Hypertension Continue Coreg Holding losartan and Lasix We will monitor the blood pressure GERD on Protonix Hyperlipidemia on statin BPH on Flomax DVT prophylaxis Lovenox Disposition med/telemetry Full code Admission and Anticipated Discharge Date Admission Date: January 14, 2023 Subjective 01/15/2023 The patient was seen and examined in medical telemetry unit He has been complaining of pain involving right shoulder and right upper back and has had a fall few weeks ago He also has fever with chills recently complaint of dysuria Generally weak and lethargic and complains to have more shortness of breath with minimal exertion Review of Systems Review of Systems: All systems reviewed and are unremarkable except as noted below Physical Exam Physical Exam: Lying in bed with minimal distress Constitutional: well developed, well nourished, + ill appearing and + morbidly obese Eyes: PERRL, conjunctivae normal, anicteric sclerae ENMT: external ear and nose normal, oropharynx normal Neck: trachea midline, no thyromegaly Respiratory: + respiratory distress (Minimal distress at rest) Auscultation: + diminished lung sounds; no crackles Cardiovascular: Rate/Rhythm: regular rate and regular rhythm; not tachycardic Heart Sounds: normal S1 and normal S2; no murmur Extremities: + edema (1+ edema bilaterally with chronic skin changes) Gastrointestinal (Abdomen): Inspection/Auscultation: normal bowel sounds; abdomen not distended Percussion/Palpation: abdomen soft; abdomen nontender Musculoskeletal: Tenderness involving the right shoulder area and right side of the upper back. No acute arthritis involving any of the joint Neurologic: normal touch/pain/proprioception and moves all extremities; no focal motor deficits Psychiatric: A+Ox3, euthymic affect Lymphatic: no cervical or axillary lymphadenopathy Results & Data Results & Data Vital Signs (Past 12 Hours) Vital Signs Temp Pulse Pulse Resp BP Pulse Ox O2 Del Method 01/15/23 12:12 72 106/58 L 01/15/23 07:30 Nasal Cannula 01/15/23 10:34 37.1 C 113 H 20 101/65 93 Nasal Cannula 01/15/23 07:55 101 H 94 Nasal Cannula 01/15/23 07:38 37.2 C 103 H 18 107/56 L 88 L Room Air 01/15/23 07:13 106 H 01/15/23 04:20 36.8 C 100 H 18 123/71 93 CPAP O2 Flow Rate 01/15/23 12:12 01/15/23 07:30 2 01/15/23 10:34 2 01/15/23 07:55 2 01/15/23 07:38 01/15/23 07:13 01/15/23 04:20 Laboratory Results Short CBC 01/15/23 Range/Units 05:34 WBC 24.51 H (4.8-10.8) K/ul Hgb 11.4 L (14.0-18.0) g/dl Hct 37.5 L (42.0-52.0) % Plt Count 179 (130-400) K/uL BMP 01/15/23 05:34 Sodium 138 Potassium 4.3 Chloride 105 Carbon Dioxide 22 BUN 61 H Creatinine 2.89 H Glucose 124 H Calcium 8.9 Cardiac Enzymes 01/14/23 Range/Units 17:29 Total Creatine Kinase 80 (30-223) U/L Urine 01/14/23 Range/Units 15:35 Urine Color Yellow Urine Appearance Turbid A (Clear) Urine pH 5.5 (4.5-7.5) Ur Specific Clare 1.014 (1.000-1.030) Urine Protein 1+ H (Negative) Urine Glucose (UA) Negative (Negative) Medications Administered Current Inpatient Medications Acetaminophen (Acetaminophen 325 Mg Tab) 650 mg PO Q4H PRN PRN Reason: Pain or Fever Stop: 02/13/23 23:55 Aspirin (Aspirin 81 Mg Ectab) 81 mg PO QA [facility] Stop: 02/14/23 08:59 Last Admin: 01/15/23 07:52 Dose: 81 mg Carvedilol (Carvedilol 6.25 Mg Tab) 6.25 mg PO BID [facility] Stop: 02/13/23 23:55 Last Admin: 01/15/23 07:52 Dose: 6.25 mg Dextrose (Dextrose 50% 50 Ml Syringe) 25 - 50 ml IV UD PRN; Protocol PRN Reason: Hypoglycemia Protocol Stop: 02/13/23 23:55 Duloxetine HCl (Duloxetine Hcl 30 Mg Cap) 30 mg PO QA [facility] Stop: 02/14/23 08:59 Last Admin: 01/15/23 07:53 Dose: 30 mg Enoxaparin Sodium (Enoxaparin Inj 40 Mg/0.4 Ml Syr) 40 mg SQ Q12 [facility] Stop: 02/14/23 01:29 Last Admin: 01/15/23 13:11 Dose: 40 mg Folic Acid (Folic Acid 1 Mg Tab) 1 mg PO QAM [facility] Stop: 02/14/23 08:59 Last Admin: 01/15/23 07:52 Dose: 1 mg Gabapentin (Gabapentin 300 Mg Cap) 300 mg PO BID [facility] Stop: 02/13/23 23:55 Last Admin: 01/15/23 07:53 Dose: 300 mg Glucagon (Glucagon For Inj 1 Mg Vial) 1 mg SQ UD PRN; Protocol PRN Reason: Hypoglycemia Protocol Stop: 02/13/23 23:55 Glucose (Glucose 10 Tab/Tube) 4 - 8 tab PO UD PRN; Protocol PRN Reason: Hypoglycemia Treatment Stop: 02/13/23 23:55 Glucose (Glucose 40% Gel 15 Gm Tube) 15 - 30 gm PO UD PRN; Protocol PRN Reason: Hypoglycemia Protocol Stop: 02/13/23 23:55 Sodium Chloride (Nss 1000ml) 1,000 mls @ 100 mls/hr IV .Q10H [facility] Stop: 01/15/23 19:55 Last Admin: 01/15/23 13:12 Dose: 100 mls/hr Ceftriaxone Sodium 2,000 mg/ (Dextrose) 70 mls @ 100 mls/hr IV Q24H [facility]; Protocol Stop: 01/25/23 07:59 Last Infusion: 01/15/23 09:43 Dose: Infused Insulin Aspart (Insulin Aspart Per Unit Charge) 0 units SC ACHS [facility] Stop: 02/14/23 07:29 Last Admin: 01/15/23 13:11 Dose: 8 units Insulin Glargine (Lantus Per Unit Charge) 30 units SQ QAM [facility] Stop: 02/14/23 08:59 Last Admin: 01/15/23 09:32 Dose: 30 units Insulin Glargine (Lantus Per Unit Charge) 35 units SC HS [facility] Stop: 02/14/23 20:59 Miscellaneous (Carbohydrates For Hypoglycemia ) 15 - 30 gm PO UD PRN PRN Reason: Hypoglycemia Protocol Stop: 02/13/23 23:55 Miscellaneous Information (Pharmacy Glycemic Mgmt Consult) 1 each N/A UD PRN PRN Reason: Consult Stop: 02/13/23 23:55 Nitroglycerin (Nitroglycerin Sl 0.4 Mg/Tab Tab) 0.4 mg SL Q5M PRN PRN Reason: Chest Pain Stop: 02/13/23 23:55 Oxycodone HCl (Oxycodone Hcl Ir 5 Mg Tab (Immediate Release)) 5 mg PO Q4H PRN PRN Reason: Severe Pain (Scale 7, 8, 9,10) Stop: 01/28/23 23:55 Last Admin: 01/15/23 13:17 Dose: 5 mg Pantoprazole Sodium (Pantoprazole 40 Mg Tab) 40 mg PO DAILYBB [facility] Stop: 02/14/23 06:29 Last Admin: 01/15/23 05:50 Dose: 40 mg Polyethylene Glycol (Polyethylene (Miralax) 17 Gm Pack) 17 gm PO DAILY PRN PRN Reason: Constipation Stop: 02/13/23 23:55 Potassium Citrate (Potassium Citrate 10 Meq Tab) 10 meq PO TID [facility] Stop: 02/14/23 08:59 Last Admin: 01/15/23 13:11 Dose: 10 meq Rosuvastatin Calcium (Rosuvastatin Calcium 20 Mg Tab) 40 mg PO QAM [facility] Stop: 02/14/23 08:59 Last Admin: 01/15/23 07:52 Dose: 40 mg Tamsulosin HCl (Tamsulosin Hcl 0.4 Mg Cap) 0.4 mg PO QPM [facility] Stop: 02/14/23 20:59 Tramadol HCl (Tramadol Hcl 50 Mg Tablet) 50 mg PO Q6H PRN PRN Reason: Pain Stop: 02/13/23 23:55 Last Admin: 01/15/23 14:32 Dose: 50 mg Trazodone HCl (Trazodone Hcl 50 Mg Tab) 50 mg PO HS [facility] Stop: 02/14/23 20:59 Vitamin D (Cholecalciferol 1,000 Units 25 Mcg Tab) 2,000 units PO DAILY [facility] Stop: 02/14/23 08:59 Last Admin: 01/15/23 07:51 Dose: 2,000 units
[2023-01-15] MEDS: traZODone HCL 50 MG TAB PO SCH (20:25)
[2023-01-15] MEDS: TAMSULOSIN HCL 0.4 MG CAP PO SCH (20:25)
[2023-01-15] MEDS ORDERED: LANTUS PER UNIT CHARGE SC SCH (21:00)
[2023-01-15] MEDS: ACETAMINOPHEN 325 MG TAB PO PRN (21:05)
[2023-01-16] MEDS: PANTOprazole 40 MG TAB PO SCH (06:14)
[2023-01-16 06:55] LABS: Hematocrit (blood only) 37.6 % (42.0-52.0); Hemoglobin 11.6 g/dl (14.0-18.0); Mean Corpuscular Hemoglobin 27.5 pg (25.0-34.0); Mean Corpuscular Hgb Conc 30.9 g/dL (32.0-36.0); Mean Corpuscular Volume 89.1 fL (80.0-100.0); Mean Platelet Volume 10.7 fL (9.4-12.4); Platelet Count 185 K/uL (130-400); RDW Coefficient of Variation 14.7 % (11.5-14.5); RDW Standard Deviation 47.2 fL (36.4-46.3); Red Blood Count 4.22 M/uL (4.70-6.10); White Blood Count 24.35 K/ul (4.8-10.8)
[2023-01-16] MEDS: traMADol HCL 50 MG TABLET PO PRN ×3 (07:09→20:20)
[2023-01-16 07:21] LABS: BUN Creatinine Ratio 20.9 (10-20); Calcium 9.1 mg/dl (8.6-10.3); Creatinine Clr Calc Pharmacy 42.8 ml/min; Est GFR (African American) 29.1 ml/min; Est GFR (Non-African American) 25.1 ml/min; Magnesium 2.3 mg/dl (1.7-2.4); Phosphorus 3.5 mg/dl (2.5-4.9); Potassium 4.4 mmol/L (3.5-5.1)
[2023-01-16 07:44] LABS: Basophils % (auto) 0.4 %; Eosinophils # (auto) 0.28 K/uL (0-0.50); Eosinophils % (auto) 1.1 %; Immature Granulocytes % (auto) 0.4 %; Lymphocytes % (auto) 70.6 %; Monocytes # (auto) 0.98 K/uL (0.11-0.59); Neutrophils # (auto) 5.69 K/uL (1.40-6.50); Neutrophils % (auto) 23.5 %
[2023-01-16] MEDS: CHOLECALCIFEROL 1,000 UNITS 25 MCG TAB PO SCH (08:25)
[2023-01-16] MEDS: cefTRIAXone SODIUM 2,000 MG in DEXTROSE 5% 50 ML IV SCH (08:25)
[2023-01-16] MEDS: FOLIC ACID 1 MG TAB PO SCH (08:25)
[2023-01-16] MEDS: POTASSIUM CITRATE 10 MEQ TAB PO SCH ×3 (08:26→20:14)
[2023-01-16] MEDS: ROSUVASTATIN CALCIUM 20 MG TAB PO SCH (08:26)
[2023-01-16] MEDS: GABAPENTIN 300 MG CAP PO SCH ×2 (08:26→20:15)
[2023-01-16] MEDS: ASPIRIN 81 MG ECTAB PO SCH (08:26)
[2023-01-16] MEDS: DULoxetine HCL 30 MG CAP PO SCH (08:27)
[2023-01-16] MEDS: carvediloL 6.25 MG TAB PO SCH ×2 (08:27→20:15)
[2023-01-16] MEDS: ENOXAPARIN INJ 40 MG/0.4 ML SYR SQ SCH ×2 (08:28→20:14)
[2023-01-16] MEDS: oxyCODONE HCL IR 5 MG TAB (IMMEDIATE RELEASE) PO PRN ×3 (08:33→17:33)
[2023-01-16] MEDS: INSULIN ASPART PER UNIT CHARGE SC SCH ×4 (08:41→20:22)
[2023-01-16] MEDS: LANTUS PER UNIT CHARGE SQ SCH (08:41)
[2023-01-16] MEDS ORDERED: LANTUS PER UNIT CHARGE SQ SCH ×2 (09:00→21:00)
[2023-01-16] MEDS: ACETAMINOPHEN 325 MG TAB PO PRN (11:32)
[2023-01-16] MEDS: DICLOFENAC SOD 1% GEL 100 GM TUBE EXT SCH ×3 (12:38→20:15)
--- NOTE | 2023-01-16 13:22 | Pharmacy Report ---
Pharmacy Glycemic Short Note 2 - Date of Service January 16, 2023 - Glycemic Short BSG Results (Last 24 hours): 01/15/23 01/15/23 01/16/23 17:13 20:24 06:17 Glucose 110 H POC Glucose 114 H 102 H 01/16/23 01/16/23 08:10 11:58 Glucose POC Glucose 132 H 162 H OUTPATIENT ANTIDIABETIC REGIMEN: * Lantus 30 units SQ BID * Novolog 20u SQ TIDM * semaglutide 0.5mg SQ weekly HbA1C: 8.1% ASSESSMENT: 01/16 * Patient received total of 96 units of insulin yesterday, of which 65 units were basal * Fasting BSG improving 110 mg/dL - may scale back slightly to home dose for today * No change to CF/CR 01/15 * Patient is a 67 year old male admitted with a complicated UTI. History of DM2 on insulin therapy at home. Pharmacy consulted to assist with glycemic management while inpatient. * BSGs since arrival: [phone]/dL. Fasting acceptable this AM (153mg/dL). * On IV antibiotics and tolerating diet. Received Lantus 30 units last night and 1 unit of bolus insulin. * Continue Lantus 30 units qAM and increase to 35 units HS starting this evening. Novolog ACHS moderate stress scale based on previous glycemic data. PLAN FOR INPATIENT GLYCEMIC CONTROL: * Hold outpatient oral diabetes medications * Basal insulin * Lantus 30 units BID * Bolus insulin * NovoLog per scale ACHS or Q6hrs while NPO * Goal Range: Low 110 mg/dL - High 140 mg/dL * Correction Factor: 15 mg/dL/unit * Nutritional / Prandial insulin per carb ratio of 1 unit per 5 grams CHO consumed
--- NOTE | 2023-01-16 15:24 | Hospitalist Progress Note ---
Date of Service January 16, 2023 Assessment & Plan (1) Complicated UTI (urinary tract infection): Plan: 67-year-old male past medical significant for type 2 diabetes, diabetic peripheral neuropathy, chronic kidney stage IV, hyperlipidemia, obstructive sleep apnea on CPAP with oxygen, chronic systolic CHF, right heart failure, hypertension, left bundle branch block, atherosclerosis of coronary artery, morbid obesity, GERD, venous stasis dermatitis of both lower extremities, traumatic complete tear of right rotator cuff, CLL, history of COVID, history of generalized edema, persistent insomnia, lives at home with his comes because of severe pain in his right shoulder and right back region. He was admitted with severe right shoulder and right pain and noted to have UTI on admission with leukocytosis of 25 K UTI complicated Possible pyelonephritis Right 7 mm nonobstructing renal calculi with history of renal stones Has been started on intravenous cefepime in the ER and changed to Rocephin Appreciate urology input and recommendation biomembrane Clinically better and will continue current management Urine culture is growing staphylococcus which is sensitive to oxacillin Previous history of Staph aureus bacteremia and required prolonged course of antibiotic Blood cultures have been negative Patient has been feeling better and denies any urological symptoms Will get ID evaluation and treatment recommendation Right shoulder pain Right back pain History of fall a few weeks back and injured the right shoulder and back. Ambulatory dysfunction could be contributed by pain Chest x-ray, CT chest are okay Clinically tenderness involving the back of her right shoulder and upper right thoracic area Joint movement is minimally painful but doubt any fracture Pain control and PT OT for now We will apply diclofenac gel locally Abdominal lymphadenopathy on CAT scan Mostly reactive Needs follow-up Leukocytosis History of CLL Follows with heme-onc Leukocytosis could be secondary to CLL KATRINA on chronic kidney stage IV Baseline creatinine 2-2.5 Creatinine 3.09 today Holding Lasix and losartan and getting fluids Renal function is slightly better and the creatinine decreased from 3.09-2.89 Will keep holding Lasix and losartan for now Creatinine is little better at 2.54 which is at his baseline Obstructive sleep apnea on CPAP nightly Chronic systolic CHF EF 45 to 49% Chronic right-sided heart failure Holding diuretics and getting fluids Monitor for volume overload No signs and or symptoms of fluid overload Diabetes Continue home Lantus Insulin sliding scale We will follow blood sugars and HbA1c levels Glycemic pharmacy consult Morbid obesity Needs counseling Hypertension Continue Coreg Holding losartan and Lasix We will monitor the blood pressure GERD on Protonix Hyperlipidemia on statin BPH on Flomax DVT prophylaxis Lovenox Disposition med/telemetry Full code Discussed with the son in detail Admission and Anticipated Discharge Date Admission Date: January 14, 2023 Subjective 01/15/2023 The patient was seen and examined in medical telemetry unit He has been complaining of pain involving right shoulder and right upper back and has had a fall few weeks ago He also has fever with chills recently complaint of dysuria Generally weak and lethargic and complains to have more shortness of breath with minimal exertion 01/16/2023 The patient was seen and examined in medical telemetry unit He has been feeling much better but he still complains of pain at the right side of upper back and shoulder area Denies any problem with urine and bowel habit No fever and no chills Review of Systems Review of Systems: All systems reviewed and are unremarkable except as noted below Physical Exam Physical Exam: Sitting on a chair without any acute distress Constitutional: well developed, well nourished and + morbidly obese; not ill appearing Eyes: PERRL, conjunctivae normal, anicteric sclerae ENMT: external ear and nose normal, oropharynx normal Neck: trachea midline, no thyromegaly Respiratory: + respiratory distress (Minimal distress at rest) Auscultation: + diminished lung sounds; no crackles Cardiovascular: Rate/Rhythm: regular rate and regular rhythm; not tachycardic Heart Sounds: normal S1 and normal S2; no murmur Extremities: + edema (1+ edema bilaterally with chronic skin changes) Gastrointestinal (Abdomen): Inspection/Auscultation: normal bowel sounds; abdomen not distended Percussion/Palpation: abdomen soft; abdomen nontender Musculoskeletal: Localized tenderness noted right lower thoracic area Neurologic: normal touch/pain/proprioception and moves all extremities; no focal motor deficits Psychiatric: A+Ox3, euthymic affect Lymphatic: no cervical or axillary lymphadenopathy Results & Data Results & Data Vital Signs (Past 12 Hours) Vital Signs Temp Pulse Pulse Resp BP Pulse Ox O2 Del Method 01/16/23 14:48 92 H 01/16/23 11:26 36.7 C 87 18 130/72 94 Room Air 01/16/23 07:00 90 01/16/23 09:42 Room Air 01/16/23 07:33 36.5 C 88 18 119/76 93 Room Air Laboratory Results Short CBC 01/16/23 Range/Units 06:17 WBC 24.35 H (4.8-10.8) K/ul Hgb 11.6 L (14.0-18.0) g/dl Hct 37.6 L (42.0-52.0) % Plt Count 185 (130-400) K/uL BMP 01/16/23 06:17 Sodium 138 Potassium 4.4 Chloride 105 Carbon Dioxide 26 BUN 53 H Creatinine 2.54 H D Glucose 110 H Calcium 9.1 Medications Administered Current Inpatient Medications Acetaminophen (Acetaminophen 325 Mg Tab) 650 mg PO Q4H PRN PRN Reason: Pain or Fever Stop: 02/13/23 23:55 Last Admin: 01/16/23 11:32 Dose: 650 mg Aspirin (Aspirin 81 Mg Ectab) 81 mg PO [facility] Stop: 02/14/23 08:59 Last Admin: 01/16/23 08:26 Dose: 81 mg Carvedilol (Carvedilol 6.25 Mg Tab) 6.25 mg PO BID [facility] Stop: 02/13/23 23:55 Last Admin: 01/16/23 08:27 Dose: 6.25 mg Dextrose (Dextrose 50% 50 Ml Syringe) 25 - 50 ml IV UD PRN; Protocol PRN Reason: Hypoglycemia Protocol Stop: 02/13/23 23:55 Diclofenac Sodium (Diclofenac Sod 1% Gel 100 Gm Tube) 2 gm EXT QID [facility]; Protocol Stop: 02/15/23 12:59 Last Admin: 01/16/23 12:38 Dose: 2 gm Duloxetine HCl (Duloxetine Hcl 30 Mg Cap) 30 mg PO [facility] Stop: 02/14/23 08:59 Last Admin: 01/16/23 08:27 Dose: 30 mg Enoxaparin Sodium (Enoxaparin Inj 40 Mg/0.4 Ml Syr) 40 mg SQ Q12 [facility] Stop: 02/14/23 01:29 Last Admin: 01/16/23 08:28 Dose: 40 mg Folic Acid (Folic Acid 1 Mg Tab) [facility] Stop: 02/14/23 08:59 Last Admin: 01/16/23 08:25 Dose: 1 mg Gabapentin (Gabapentin 300 Mg Cap) 300 mg PO BID [facility] Stop: 02/13/23 23:55 Last Admin: 01/16/23 08:26 Dose: 300 mg Glucagon (Glucagon For Inj 1 Mg Vial) 1 mg SQ UD PRN; Protocol PRN Reason: Hypoglycemia Protocol Stop: 02/13/23 23:55 Glucose (Glucose 10 Tab/Tube) 4 - 8 tab PO UD PRN; Protocol PRN Reason: Hypoglycemia Treatment Stop: 02/13/23 23:55 Glucose (Glucose 40% Gel 15 Gm Tube) 15 - 30 gm PO UD PRN; Protocol PRN Reason: Hypoglycemia Protocol Stop: 02/13/23 23:55 Cefazolin Sodium (Ancef 2000mg) 2,000 mg in 15 mls @ 3.75 mls/min IV Q12H [facility]; Protocol Stop: 01/26/23 07:59 Insulin Aspart (Insulin Aspart Per Unit Charge) 0 units SC ACHS [facility] Stop: 02/14/23 07:29 Last Admin: 01/16/23 12:37 Dose: 15 units Insulin Glargine (Lantus Per Unit Charge) 30 units SQ BID [facility] Stop: 02/15/23 20:59 Miscellaneous (Carbohydrates For Hypoglycemia ) 15 - 30 gm PO UD PRN PRN Reason: Hypoglycemia Protocol Stop: 02/13/23 23:55 Miscellaneous Information (Pharmacy Glycemic Mgmt Consult) 1 each N/A UD PRN PRN Reason: Consult Stop: 02/13/23 23:55 Nitroglycerin (Nitroglycerin Sl 0.4 Mg/Tab Tab) 0.4 mg SL Q5M PRN PRN Reason: Chest Pain Stop: 02/13/23 23:55 Oxycodone HCl (Oxycodone Hcl Ir 5 Mg Tab (Immediate Release)) 5 mg PO Q4H PRN PRN Reason: Severe Pain (Scale 7, 8, 9,10) Stop: 01/28/23 23:55 Last Admin: 01/16/23 12:37 Dose: 5 mg Pantoprazole Sodium (Pantoprazole 40 Mg Tab) 40 mg PO DAILYBB [facility] Stop: 02/14/23 06:29 Last Admin: 01/16/23 06:14 Dose: 40 mg Polyethylene Glycol (Polyethylene (Miralax) 17 Gm Pack) 17 gm PO DAILY PRN PRN Reason: Constipation Stop: 02/13/23 23:55 Potassium Citrate (Potassium Citrate 10 Meq Tab) 10 meq PO TID [facility] Stop: 02/14/23 08:59 Last Admin: 01/16/23 12:38 Dose: 10 meq Rosuvastatin Calcium (Rosuvastatin Calcium 20 Mg Tab) 40 mg PO QAM [facility] Stop: 02/14/23 08:59 Last Admin: 01/16/23 08:26 Dose: 40 mg Tamsulosin HCl (Tamsulosin Hcl 0.4 Mg Cap) 0.4 mg PO QPM [facility] Stop: 02/14/23 20:59 Last Admin: 01/15/23 20:25 Dose: 0.4 mg Tramadol HCl (Tramadol Hcl 50 Mg Tablet) 50 mg PO Q6H PRN PRN Reason: Pain Stop: 02/13/23 23:55 Last Admin: 01/16/23 13:31 Dose: 50 mg Trazodone HCl (Trazodone Hcl 50 Mg Tab) 50 mg PO HS [facility] Stop: 02/14/23 20:59 Last Admin: 01/15/23 20:25 Dose: 50 mg Vitamin D (Cholecalciferol 1,000 Units 25 Mcg Tab) 2,000 units PO DAILY [facility] Stop: 02/14/23 08:59 Last Admin: 01/16/23 08:25 Dose: 2,000 units
[2023-01-16] MEDS: FUROSEMIDE 40 MG TAB PO SCH (19:04)
[2023-01-16] MEDS: traZODone HCL 50 MG TAB PO SCH (20:15)
[2023-01-16] MEDS: TAMSULOSIN HCL 0.4 MG CAP PO SCH (20:15)
[2023-01-17] MEDS: PANTOprazole 40 MG TAB PO SCH (06:00)
[2023-01-17] MEDS: oxyCODONE HCL IR 5 MG TAB (IMMEDIATE RELEASE) PO PRN ×2 (07:29→12:17)
[2023-01-17] MEDS ORDERED: ceFAZolin 2000MG 2,000 MG/15 ML SYR IV SCH (08:00)
[2023-01-17 08:08] LABS: Hematocrit (blood only) 37.9 % (42.0-52.0); Mean Corpuscular Hemoglobin 27.6 pg (25.0-34.0); Mean Corpuscular Hgb Conc 31.7 g/dL (32.0-36.0); Mean Corpuscular Volume 87.3 fL (80.0-100.0); Mean Platelet Volume 10.9 fL (9.4-12.4); Platelet Count 194 K/uL (130-400); RDW Coefficient of Variation 14.6 % (11.5-14.5); RDW Standard Deviation 46.9 fL (36.4-46.3); Red Blood Count 4.34 M/uL (4.70-6.10)
[2023-01-17 08:32] LABS: BUN Creatinine Ratio 22.8 (10-20); Calcium 9.5 mg/dl (8.6-10.3); Creatinine Clr Calc Pharmacy 53.8 ml/min; Est GFR (African American) 38.4 ml/min; Est GFR (Non-African American) 33.1 ml/min; Magnesium 2.1 mg/dl (1.7-2.4); Potassium 4.6 mmol/L (3.5-5.1)
[2023-01-17] MEDS: INSULIN ASPART PER UNIT CHARGE SC SCH ×4 (08:39→21:28)
[2023-01-17] MEDS: LANTUS PER UNIT CHARGE SQ SCH ×2 (08:41→21:31)
[2023-01-17] MEDS: ENOXAPARIN INJ 40 MG/0.4 ML SYR SQ SCH ×2 (08:42→21:24)
[2023-01-17] MEDS: DULoxetine HCL 30 MG CAP PO SCH (08:42)
[2023-01-17] MEDS: traMADol HCL 50 MG TABLET PO PRN ×2 (08:42→14:50)
[2023-01-17] MEDS: CHOLECALCIFEROL 1,000 UNITS 25 MCG TAB PO SCH (08:43)
[2023-01-17] MEDS: FOLIC ACID 1 MG TAB PO SCH (08:43)
[2023-01-17] MEDS: DICLOFENAC SOD 1% GEL 100 GM TUBE EXT SCH ×4 (08:43→21:24)
[2023-01-17] MEDS: GABAPENTIN 300 MG CAP PO SCH ×2 (08:43→21:24)
[2023-01-17] MEDS: ROSUVASTATIN CALCIUM 20 MG TAB PO SCH (08:43)
[2023-01-17] MEDS: POTASSIUM CITRATE 10 MEQ TAB PO SCH ×3 (08:44→21:24)
[2023-01-17] MEDS: ASPIRIN 81 MG ECTAB PO SCH (08:44)
[2023-01-17] MEDS: carvediloL 6.25 MG TAB PO SCH ×2 (08:44→21:23)
[2023-01-17] MEDS: FUROSEMIDE 40 MG TAB PO SCH ×2 (08:44→15:44)
[2023-01-17 08:53] LABS: Basophils % (auto) 0.4 %; Eosinophils # (auto) 0.26 K/uL (0-0.50); Eosinophils % (auto) 1.1 %; Immature Granulocytes % (auto) 0.4 %; Lymphocytes # (auto) 17.23 K/uL (1.2-3.4); Lymphocytes % (auto) 70.3 %; Monocytes # (auto) 0.83 K/uL (0.11-0.59); Monocytes % (auto) 3.4 %; Neutrophils # (auto) 5.98 K/uL (1.40-6.50); Neutrophils % (auto) 24.4 %
--- NOTE | 2023-01-17 09:17 | Hospitalist Progress Note ---
Date of Service January 17, 2023 Assessment & Plan (1) Complicated UTI (urinary tract infection): Plan: 67-year-old male past medical significant for type 2 diabetes, diabetic peripheral neuropathy, chronic kidney stage IV, hyperlipidemia, obstructive sleep apnea on CPAP with oxygen, chronic systolic CHF, right heart failure, hypertension, left bundle branch block, atherosclerosis of coronary artery, morbid obesity, GERD, venous stasis dermatitis of both lower extremities, traumatic complete tear of right rotator cuff, CLL, history of COVID, history of generalized edema, persistent insomnia, lives at home with his comes because of severe pain in his right shoulder and right back region. He was admitted with severe right shoulder and right pain and noted to have UTI on admission with leukocytosis of 25 K UTI complicated Possible pyelonephritis Right 7 mm nonobstructing renal calculi with history of renal stones Has been started on intravenous cefepime in the ER and changed to Rocephin, now cephalexin Urine culture is growing MSSA Previous history of Staph aureus bacteremia and required prolonged course of antibiotic Blood cultures remain negative Per ID evaluation, cont abx for total two weeks. Right shoulder pain Right back pain-both likely msk in nature. History of fall a few weeks back and injured the right shoulder and back. Restricted ROM with pain in right arm. MRI right shoulder. Scheduled Tylenol and PRRN oxycodone for pain We will apply diclofenac gel locally Abdominal lymphadenopathy on CAT scan Mostly reactive, consider outpatient follow-up imaging. Leukocytosis 2/2 History of CLL Follows with heme-onc Acute kidney injury in setting of chronic kidney stage IV Baseline creatinine 2-2.5, he is improved to baseline. Resolved Obstructive sleep apnea on CPAP nightly Chronic systolic CHF EF 45 to 49% Chronic right-sided heart failure Cont Lasix per home regimen. DMII A1C is 8.1, improved control Inpatient glucose is at goal. Cont basal bolus insulin. Glycemic pharmacy consult Morbid obesity-lifetsyle recommendations recommended to decrease overall percent body fat. BMI 58 Hypertension-chronic, at goal. Continue Coreg Cont holding losartan and Lasix Cont to monitor. BPH-chronic, stable. Cont Flomax per home regimen. DVT prophylaxis-Lovenox Full code Dispo-to home pending MRI results and PT/OT recommendations I spent a total of 60 minutes coordinating, documenting, and providing care for this patient excluding time spent in the performance of separately billed services Landy Virk, [facility] Hospitalist Admission and Anticipated Discharge Date Admission Date: January 14, 2023 Subjective 67 yo morbidly obese man presents with worsening right shoulder pain still painful but oxycodone has helped somewhat also reoprts some discomofort in left glute ambulates around room reports falling on his right side approx 2-3 months ago with ongoing pain in shoulder denies UTI symptoms Review of Systems Review of Systems: All systems were reviewed and negative except as indicated on subjective above. Physical Exam Physical Exam: CONSTITUTIONAL: morbidly obese, vitals as above, generally well-appearing, NAD EYES: normal conjunctivae, no scleral icterus ENT: external ear and nose normal, MMM NECK: trachea midline RESPIRATORY: clear to auscultation bilaterally, no crackles, rales or wheezes, normal respiratory effort CARDIOVASCULAR: regular rate and rhythm, S1 and 2 heard without murmurs, gallops or rubs, no JVD, no peripheral edema CHEST: inspection of chest was normal GASTROINTESTINAL: soft, nontender, ND, no guarding MUSCULOSKELETAL: strength 5/5 throughout, head is normocephalic and atraumatic, SKIN: warm and dry NEUROLOGIC: CN 2-12 grossly intact, no sensory deficit, normal cognition, normal speech, no tremor PSYCHIATRIC: alert cooperative and oriented to person, place and time. Euthymic mood, makes good eye contact, language grossly intact, recent and remote memory grossly intact. Results & Data Results & Data Vital Signs (Past 12 Hours) Vital Signs Temp Pulse Resp BP BP Pulse Ox O2 Del Method 01/17/23 07:26 Room Air 01/17/23 07:22 36.8 C 103 H 20 121/80 94 Room Air 01/16/23 23:41 36.7 C 112 H 18 161/84 H 94 Room Air, CPAP Laboratory Results Short CBC 01/17/23 Range/Units 07:14 WBC 24.50 H (4.8-10.8) K/ul Hgb 12.0 L (14.0-18.0) g/dl Hct 37.9 L (42.0-52.0) % Plt Count 194 (130-400) K/uL BMP 01/17/23 07:14 Sodium 138 Potassium 4.6 Chloride 105 Carbon Dioxide 25 BUN 46 H Creatinine 2.02 H D Glucose 110 H Calcium 9.5 Medications Administered Current Inpatient Medications Acetaminophen (Acetaminophen 325 Mg Tab) 650 mg PO Q4H PRN PRN Reason: Pain or Fever Stop: 02/13/23 23:55 Last Admin: 01/16/23 11:32 Dose: 650 mg Aspirin (Aspirin 81 Mg Ectab) 81 mg PO QAM [facility] Stop: 02/14/23 08:59 Last Admin: 01/17/23 08:44 Dose: 81 mg Carvedilol (Carvedilol 6.25 Mg Tab) 6.25 mg PO BID [facility] Stop: 02/13/23 23:55 Last Admin: 01/17/23 08:44 Dose: 6.25 mg Dextrose (Dextrose 50% 50 Ml Syringe) 25 - 50 ml IV UD PRN; Protocol PRN Reason: Hypoglycemia Protocol Stop: 02/13/23 23:55 Diclofenac Sodium (Diclofenac Sod 1% Gel 100 Gm Tube) 2 gm EXT QID [facility]; Protocol Stop: 02/15/23 12:59 Last Admin: 01/17/23 08:43 Dose: 2 gm Duloxetine HCl (Duloxetine Hcl 30 Mg Cap) [facility] [place] Stop: 02/14/23 08:59 Last Admin: 01/17/23 08:42 Dose: 30 mg Enoxaparin Sodium (Enoxaparin Inj 40 Mg/0.4 Ml Syr) 40 mg SQ Q12 [facility] Stop: 02/14/23 01:29 Last Admin: 01/17/23 08:42 Dose: 40 mg Folic Acid (Folic Acid 1 Mg Tab) 1 mg PO QAM [facility] Stop: 02/14/23 08:59 Last Admin: 01/17/23 08:43 Dose: 1 mg Furosemide (Furosemide 40 Mg Tab) 40 mg PO BID17 [facility] Stop: 02/15/23 17:59 Last Admin: 01/17/23 08:44 Dose: 40 mg Gabapentin (Gabapentin 300 Mg Cap) 300 mg PO BID [facility] Stop: 02/13/23 23:55 Last Admin: 01/17/23 08:43 Dose: 300 mg Glucagon (Glucagon For Inj 1 Mg Vial) 1 mg SQ UD PRN; Protocol PRN Reason: Hypoglycemia Protocol Stop: 02/13/23 23:55 Glucose (Glucose 10 Tab/Tube) 4 - 8 tab PO UD PRN; Protocol PRN Reason: Hypoglycemia Treatment Stop: 02/13/23 23:55 Glucose (Glucose 40% Gel 15 Gm Tube) 15 - 30 gm PO UD PRN; Protocol PRN Reason: Hypoglycemia Protocol Stop: 02/13/23 23:55 Cefazolin Sodium (Ancef 2000mg) 2,000 mg in 15 mls @ 3.75 mls/min IV Q12H [facility]; Protocol Stop: 01/26/23 07:59 Last Admin: 01/17/23 07:30 Dose: 3.75 mls/min Insulin Aspart (Insulin Aspart Per Unit Charge) 0 units SC ACHS [facility] Stop: 02/14/23 07:29 Last Admin: 01/17/23 08:39 Dose: 11 units Insulin Glargine (Lantus Per Unit Charge) 0 units SQ BID [facility]; Protocol Stop: 02/16/23 08:59 Last Admin: 01/17/23 08:41 Dose: 25 units Miscellaneous (Carbohydrates For Hypoglycemia ) 15 - 30 gm PO UD PRN PRN Reason: Hypoglycemia Protocol Stop: 02/13/23 23:55 Miscellaneous Information (Pharmacy Glycemic Mgmt Consult) 1 each N/A UD PRN PRN Reason: Consult Stop: 02/13/23 23:55 Nitroglycerin (Nitroglycerin Sl 0.4 Mg/Tab Tab) 0.4 mg SL Q5M PRN PRN Reason: Chest Pain Stop: 02/13/23 23:55 Oxycodone HCl (Oxycodone Hcl Ir 5 Mg Tab (Immediate Release)) 5 mg PO Q4H PRN PRN Reason: Severe Pain (Scale 7, 8, 9,10) Stop: 01/28/23 23:55 Last Admin: 01/17/23 07:29 Dose: 5 mg Pantoprazole Sodium (Pantoprazole 40 Mg Tab) 40 mg PO DAILYBB [facility] Stop: 02/14/23 06:29 Last Admin: 01/17/23 06:00 Dose: 40 mg Polyethylene Glycol (Polyethylene (Miralax) 17 Gm Pack) 17 gm PO DAILY PRN PRN Reason: Constipation Stop: 02/13/23 23:55 Potassium Citrate (Potassium Citrate 10 Meq Tab) 10 meq PO TID [facility] Stop: 02/14/23 08:59 Last Admin: 01/17/23 08:44 Dose: 10 meq Rosuvastatin Calcium (Rosuvastatin Calcium 20 Mg Tab) 40 mg PO QAM [facility] Stop: 02/14/23 08:59 Last Admin: 01/17/23 08:43 Dose: 40 mg Tamsulosin HCl (Tamsulosin Hcl 0.4 Mg Cap) 0.4 mg PO QPM [facility] Stop: 02/14/23 20:59 Last Admin: 01/16/23 20:15 Dose: 0.4 mg Tramadol HCl (Tramadol Hcl 50 Mg Tablet) 50 mg PO Q6H PRN PRN Reason: Pain Stop: 02/13/23 23:55 Last Admin: 01/17/23 08:42 Dose: 50 mg Trazodone HCl (Trazodone Hcl 50 Mg Tab) 50 mg PO HS [facility] Stop: 02/14/23 20:59 Last Admin: 01/16/23 20:15 Dose: 50 mg Vitamin D (Cholecalciferol 1,000 Units 25 Mcg Tab) 2,000 units PO DAILY [facility] Stop: 02/14/23 08:59 Last Admin: 01/17/23 08:43 Dose: 2,000 units
--- NOTE | 2023-01-17 11:22 | Pharmacy Report ---
Pharmacy Glycemic Short Note 2 - Date of Service January 17, 2023 - Glycemic Short BSG Results (Last 24 hours): 01/16/23 01/16/23 01/16/23 11:58 16:50 20:11 Glucose POC Glucose 162 H 91 99 01/17/23 01/17/23 07:14 08:13 Glucose 110 H POC Glucose 107 H OUTPATIENT ANTIDIABETIC REGIMEN: * Lantus 30 units SQ BID * Novolog 20u SQ TIDM * semaglutide 0.5mg SQ weekly HbA1C: 8.1% ASSESSMENT: 01/17 * BSG's ranged 91-162 mg/dL yesterday. Two BSG's below 100 mg/dL although no hypoglycemia noted. PO intake good at 60-65 g CHO with three meals yesterday * Overall control good but with two BSG's slightly below 100 mg/dL yesterday will make slight adjustments to regimen as follows: * Continue Lantus 30 units BID, but reduce dose to 25 units if BSG < 110 mg/dL * Loosen CHO ratio from 5 to 6 01/16 * Patient received total of 96 units of insulin yesterday, of which 65 units were basal * Fasting BSG improving 110 mg/dL - may scale back slightly to home dose for today * No change to CF/CR 01/15 * Patient is a 67 year old male admitted with a complicated UTI. History of DM2 on insulin therapy at home. Pharmacy consulted to assist with glycemic ma nagement while inpatient. * BSGs since arrival: [phone]/dL. Fasting acceptable this AM (153mg/dL). * On IV antibiotics and tolerating diet. Received Lantus 30 units last night and 1 unit of bolus insulin. * Continue Lantus 30 units qAM and increase to 35 units HS starting this evening. Novolog ACHS moderate stress scale based on previous glycemic data. PLAN FOR INPATIENT GLYCEMIC CONTROL: * Hold outpatient oral diabetes medications * Basal insulin * Lantus 30 units BID (reduce to 25 units if BSG less than 110 mg/dL) * Bolus insulin * NovoLog per scale ACHS or Q6hrs while NPO * Goal Range: Low 110 mg/dL - High 140 mg/dL * Correction Factor: 15 mg/dL/unit * Nutritional / Prandial insulin per carb ratio of 1 unit per 6 grams CHO consumed
[2023-01-17] MEDS: ACETAMINOPHEN 500 MG TAB PO SCH ×2 (14:50→21:26)
[2023-01-17] MEDS: ceFAZolin 2000MG 2,000 MG/15 ML SYR IV SCH (15:44)
[2023-01-17] MEDS ORDERED: ONDANSETRON INJ 2 MG/ML 2 ML VIAL IV STA (18:54)
[2023-01-17] MEDS ORDERED: LOSARTAN POTASSIUM 50 MG TAB PO SCH (21:00)
[2023-01-17] MEDS: traZODone HCL 50 MG TAB PO SCH (21:25)
[2023-01-17] MEDS: TAMSULOSIN HCL 0.4 MG CAP PO SCH (21:25)
[2023-01-18] MEDS: ceFAZolin 2000MG 2,000 MG/15 ML SYR IV SCH ×3 (00:36→14:22)
[2023-01-18] MEDS: PANTOprazole 40 MG TAB PO SCH (06:00)
[2023-01-18] MEDS: ACETAMINOPHEN 500 MG TAB PO SCH ×2 (06:00→13:35)
[2023-01-18] MEDS: oxyCODONE HCL IR 5 MG TAB (IMMEDIATE RELEASE) PO PRN ×3 (06:04→14:51)
[2023-01-18 06:25] LABS: Hematocrit (blood only) 36.2 % (42.0-52.0); Hemoglobin 11.7 g/dl (14.0-18.0); Mean Corpuscular Hemoglobin 27.9 pg (25.0-34.0); Mean Corpuscular Hgb Conc 32.3 g/dL (32.0-36.0); Mean Corpuscular Volume 86.4 fL (80.0-100.0); Mean Platelet Volume 10.8 fL (9.4-12.4); Platelet Count 174 K/uL (130-400); RDW Coefficient of Variation 14.6 % (11.5-14.5); RDW Standard Deviation 45.5 fL (36.4-46.3); Red Blood Count 4.19 M/uL (4.70-6.10); White Blood Count 24.14 K/ul (4.8-10.8)
[2023-01-18 07:10] LABS: BUN Creatinine Ratio 20.3 (10-20); Calcium 9.3 mg/dl (8.6-10.3); Creatinine Clr Calc Pharmacy 51.2 ml/min; Est GFR (African American) 36.2 ml/min; Est GFR (Non-African American) 31.3 ml/min
[2023-01-18 07:18] LABS: Basophils # (auto) 0.11 K/uL (0-0.2); Basophils % (auto) 0.5 %; Eosinophils # (auto) 0.31 K/uL (0-0.50); Eosinophils % (auto) 1.3 %; Immature Granulocytes # (auto) 0.08 K/uL (0.01-0.20); Immature Granulocytes % (auto) 0.3 %; Lymphocytes # (auto) 16.55 K/uL (1.2-3.4); Lymphocytes % (auto) 68.6 %; Monocytes # (auto) 1.03 K/uL (0.11-0.59); Monocytes % (auto) 4.3 %; Neutrophils # (auto) 6.06 K/uL (1.40-6.50); Smudge Cells Present
[2023-01-18] MEDS: traMADol HCL 50 MG TABLET PO PRN (08:21)
[2023-01-18] MEDS: GABAPENTIN 300 MG CAP PO SCH (08:21)
[2023-01-18] MEDS: carvediloL 6.25 MG TAB PO SCH (08:22)
[2023-01-18] MEDS: FOLIC ACID 1 MG TAB PO SCH (08:22)
[2023-01-18] MEDS: FUROSEMIDE 40 MG TAB PO SCH (08:22)
[2023-01-18] MEDS: CHOLECALCIFEROL 1,000 UNITS 25 MCG TAB PO SCH (08:22)
[2023-01-18] MEDS: ROSUVASTATIN CALCIUM 20 MG TAB PO SCH (08:22)
[2023-01-18] MEDS: DULoxetine HCL 30 MG CAP PO SCH (08:22)
[2023-01-18] MEDS: POTASSIUM CITRATE 10 MEQ TAB PO SCH ×2 (08:22→13:35)
[2023-01-18] MEDS: ASPIRIN 81 MG ECTAB PO SCH (08:22)
[2023-01-18] MEDS: ENOXAPARIN INJ 40 MG/0.4 ML SYR SQ SCH (08:23)
[2023-01-18] MEDS: DICLOFENAC SOD 1% GEL 100 GM TUBE EXT SCH ×2 (08:23→13:35)
[2023-01-18] MEDS: LANTUS PER UNIT CHARGE SQ SCH (09:11)
[2023-01-18] MEDS: INSULIN ASPART PER UNIT CHARGE SC SCH ×2 (09:11→13:34)
--- NOTE | 2023-01-18 13:15 | Magnetic Resonance Report ---
MRI OF THE RIGHT SHOULDER CLINICAL HISTORY: Right shoulder pain. Decreased range of motion. COMPARISON STUDY: No priors. TECHNIQUE: MRI of the right shoulder was performed utilizing various T1 and T2 weighted sequences in the axial, sagittal, coronal planes. IV contrast was not administered for this examination. Note that interpretation is suboptimal without correlate. The examination is degraded by motion artifact, as w ell as by large body habitus which required a larger [id number]. FINDINGS: Rotator cuff: There is diffuse rotator cuff tendinopathy. There is full-thickness rupture with retrac tion of the supraspinatus, infraspinatus, and subscapular tendons. There is tendinopathy of the teres minor which remains intact. There is subacromial and subdeltoid bursal fluid. Productive degenerativ e changes seen at the acromioclavicular joint. Biceps tendon: The long head of the biceps tendon is not visualized and this is likely ruptured/retra cted. Labrum: There is circumferential degeneration/tearing of the labrum. Shoulder joint: There is a small joint effusion. There is moderate to severe osteoarthritic change of the glenohumeral articulation with full-thickness cartilage loss along the glenoid and humeral head and bony overgrowth. There is superior subluxation of the humeral head velocities of acromial space. Musculature and soft tissues: There is asymmetric atrophy within the bodies of supraspinatus, infrasp inatus, and subscapularis. IMPRESSION: 1. Significantly degraded examination as above. 2. There is full-thickness rupture with retraction of the supraspinatus, infraspinatus, and subscapul thomas tendons. 3. The long of the biceps tendon is not identified. This is likely ruptured and retracted. 4. There are circumferential degeneration/tearing of the labrum. 5. Moderate to severe osteoarthritic change and joint effusion as above. 6. There is asymmetric muscular atrophy of supraspinatus, infraspinatus, and subscapularis. ACT 112: Negative or not required by law. Electronically signed by: Enrique Sheppard M.D. 01/18/2023 1:14 PM
--- NOTE | 2023-01-18 13:46 | Discharge Summary ---
Discharge Summary Date of Service January 18, 2023 Admission HPI Per Admitting Provider 67-year-old male past medical significant for type 2 diabetes, diabetic peripheral neuropathy, chronic kidney stage IV, hyperlipidemia, obstructive sleep apnea on CPAP with oxygen, chronic systolic CHF, right heart failure, hypertension, left bundle branch block, atherosclerosis of coronary artery, morbid obesity, GERD, venous stasis dermatitis of both lower extremities, traumatic complete tear of right rotator cuff, CLL, history of COVID, history of generalized edema, persistent insomnia, lives at home with his comes because of severe pain in his right shoulder and right back region. Having difficulty lifting right shoulder because of pain and also not able to ambulate much today. Denies any fevers. Normal bowel and bladder movements. Denies any hematuria or blood in the stools. No burning micturition. No abdominal pain. No chest pain or shortness of breath. No headaches or neck pain. Vision is okay. No runny nose or sore throat or cough. No dysphagia. Currently resting comfortably and hemodynamically stable. Principal Dx & Hospital Course #1 = Principal Diagnosis (1) Complicated UTI (urinary tract infection): 67-year-old male past medical significant for type 2 diabetes, diabetic peripheral neuropathy, chronic kidney stage IV, hyperlipidemia, obstructive sleep apnea on CPAP with oxygen, chronic systolic CHF, right heart failure, hypertension, left bundle branch block, atherosclerosis of coronary artery, morbid obesity, GERD, venous stasis dermatitis of both lower extremities, traumatic complete tear of right rotator cuff, CLL, history of COVID, history of generalized edema, persistent insomnia, lives at home with his comes because of severe pain in his right shoulder and right back region. He was admitted with severe right shoulder and right pain and noted to have UTI on admission with leukocytosis of 25 K UTI complicated Possible pyelonephritis Right 7 mm nonobstructing renal calculi with history of renal stones Has been started on intravenous cefepime in the ER and changed to Rocephin, now cephalexin Urine culture is growing MSSA Previous history of Staph aureus bacteremia and required prolonged course of antibiotic Blood cultures remain negative Per ID evaluation, cont abx for total two weeks. Right shoulder pain Right back pain-both likely msk in nature. History of fall a few weeks back and injured the right shoulder and back. Restricted ROM with pain in right arm. MRI right shoulder. Scheduled Tylenol and PRRN oxycodone for pain We will apply diclofenac gel locally Abdominal lymphadenopathy on CAT scan Mostly reactive, consider outpatient follow-up imaging. Leukocytosis 2/2 History of CLL Follows with heme-onc Acute kidney injury in setting of chronic kidney stage IV Baseline creatinine 2-2.5, he is improved to baseline. Resolved Obstructive sleep apnea on CPAP nightly Chronic systolic CHF EF 45 to 49% Chronic right-sided heart failure Cont Lasix per home regimen. DMII A1C is 8.1, improved control Inpatient glucose is at goal. Cont basal bolus insulin. Glycemic pharmacy consult Morbid obesity-lifetsyle recommendations recommended to decrease overall percent body fat. BMI 58 Hypertension-chronic, at goal. Continue Coreg Cont holding losartan and Lasix Cont to monitor. BPH-chronic, stable. Cont Flomax per home regimen. DVT prophylaxis-Lovenox Full code Dispo-to home pending MRI results and PT/OT recommendations I spent a total of 60 minutes coordinating, documenting, and providing care for this patient excluding time spent in the performance of separately billed services Landy Virk DO [facility] Hospitalist Discharge Exam CONSTITUTIONAL: morbidly obese, vitals as above, generally well-appearing, NAD EYES: normal conjunctivae, no scleral icterus ENT: external ear and nose normal, MMM NECK: trachea midline RESPIRATORY: clear to auscultation bilaterally, no crackles, rales or wheezes, normal respiratory effort CARDIOVASCULAR: regular rate and rhythm, S1 and 2 heard without murmurs, gallops or rubs, no JVD, no peripheral edema CHEST: inspection of chest was normal GASTROINTESTINAL: soft, nontender, ND, no guarding MUSCULOSKELETAL: strength 5/5 throughout, head is normocephalic and atraumatic, SKIN: warm and dry NEUROLOGIC: CN 2-12 grossly intact, no sensory deficit, normal cognition, normal speech, no tremor PSYCHIATRIC: alert cooperative and oriented to person, place and time. Euthymic mood, makes good eye contact, language grossly intact, recent and remote memory grossly intact. Updated Medication List Medication Instructions Recorded Confirmed Type aspirin 81 mg tablet,delayed 81 mg PO QAM 06/13/21 01/14/23 History release (Alejandro Low Dose Aspirin) carvedilol 6.25 mg tablet 6.25 mg PO BID 06/13/21 01/14/23 History duloxetine 30 mg capsule,delayed 30 mg PO QAM 06/13/21 01/14/23 History release folic acid 1 mg tablet 1 mg PO QAM 06/13/21 01/14/23 History gabapentin 300 mg capsule 300 mg PO BID 06/13/21 01/14/23 History pantoprazole 40 mg tablet,delayed 40 mg PO DAILYBB 06/13/21 01/14/23 History release rosuvastatin 40 mg tablet 40 mg PO QAM 06/13/21 01/14/23 History semaglutide 0.25 mg or 0.5 mg (2 0.5 mg subcut WK 06/13/21 01/14/23 History mg/1.5 mL) subcutaneous pen injector (Ozempic) blood sugar diagnostic (OneTouch #100 ea 06/19/21 11/27/22 Rx Verio test strips) lancets 33 gauge (OneTouch Delica #100 ea 06/19/21 11/27/22 Rx Lancets) tramadol 50 mg tablet 50 mg PO Q6H PRN Pain 04/06/22 01/14/23 History trazodone 50 mg tablet 50 mg PO HS 04/06/22 01/14/23 History blood sugar diagnostic (OneTouch #100 ea 04/09/22 11/27/22 Rx Verio test strips) insulin aspart U-100 100 unit/mL 20 unit (0.2 mL) subcut TID #15 mL 04/09/22 01/14/23 Rx (3 mL) subcutaneous pen (Novolog FlexPen U-100 Insulin aspart) insulin glargine 100 unit/mL (3 30 unit (0.3 mL) subcut BID #15 mL 04/09/22 01/14/23 Rx mL) subcutaneous pen (Basaglar KwikPen U-100 Insulin) lancets 33 gauge (OneTouch Delica #100 ea 04/09/22 11/27/22 Rx Lancets) pen needle, diabetic 32 gauge x #100 ea 04/09/22 11/27/22 Rx 5/32" (Pen Needle) ergocalciferol (vitamin D2) 50 mcg 50 mcg PO DAILY 05/28/22 01/14/23 History (2,000 unit) tablet potassium citrate 10 mEq (1,080 10 meq PO TID 05/28/22 01/14/23 History mg) tablet,extended release furosemide 40 mg tablet 40 mg PO BID #180 tabs 09/25/22 01/14/23 Rx tamsulosin 0.4 mg capsule 0.4 mg PO QPM #90 caps 01/01/23 01/14/23 Rx losartan 100 mg tablet 100 mg PO QPM 01/14/23 01/14/23 History acetaminophen 500 mg tablet 1,000 mg PO Q8 #60 tabs 01/18/23 Rx (Tylenol Extra Strength) carvedilol 12.5 mg tablet (Coreg) 12.5 mg PO BID #60 tabs 01/18/23 Rx Hospital Stay Data Consultations 01/14/23 20:28 ED Decision to Admit Stat 01/15/23 08:00 Consult Urology Routine 01/16/23 09:13 Consult Infectious Diseases Routine Diagnostic Imagining Performed 01/14/23 17:26 CT abd pelvis wo con Stat 01/14/23 18:26 CT chest diagnostic wo con Stat 01/18/23 07:00 MR shoulder RT wo con Routine Pending Results Patient Have Any Pending Studies at Discharge: No Discharge Instructions Given to Patient (Per Discharging Provider) Please take all medications as instructed on discharge list below. Your heart rate was elevated to the low 100s while in the hospital. As a result, we will double your current dose of carvedilol to 12.5mg twice daily. You are being given additional antibiotics to complete the course for your urinary tract infection. You were found to have a rotator cuff tear on the right and will need to followup with an electronic commerce specialist as outpatient. Please follow-up with your primary care provider to obtain a referral. It is recommended that you follow-up with your primary care physician within one week of the hospital stay so they can check your heart rate, provide any refills for narcotic medications, provide a referral to see someone for your shoulder. Weight loss is strongly recommended. Please incorporate diet changes such as avoiding high calorie drinks or late night snacks as a start to better health. Reducing your percent body fat and increasing lean muscle mass is the goal! It was a pleasure taking care of you! Please call if you have any questions or problems. You can reach a [facility] hospitalist on duty at [facility] 24 hours a day by calling [phone]. Take care of yourself. Landy Virk, [facility] Center[facility]
== END 2023-01-18 15:13 | disposition home or self-care (01) | DRG 690 ==
LOC: ED 13:29 → SUATTDRO 21:22 → 2N 21:22

== ENCOUNTER 2025-02-02 16:29 | Inpatient (IN) ==
--- NOTE | 2025-02-02 16:45 | Emergency Department Note ---
Impression & Plan Acute kidney injury superimposed on CKD, CLL (chronic lymphocytic leukemia), Anemia ED Provider Note NAME: KAMILA JOSE AGE: 69 SEX: M : 1955 ARRIVES VIA: Ambulance INFORMANT: Patient, ED PROVIDER(S): Charlie Durand MD CHIEF COMPLAINT: Outpatient referral [facility] normal lab work MEDICAL DECISION MAKING: Patient presents due to concern for abnormal outpatient blood work. IV was established and blood work was obtained. Patient with a white count of 79 with a hemoglobin of 7.9 platelet count of 86. Reviewed the patient's prior history from [facility] does show that he does have a history of CLL. Patient's kidney function with a creatinine of 4 baseline is around 2.5. Patient does follow with Dr. Duran. TSH is elevated free T4 is normal. The patient did have screening chest x-ray performed which shows cardiomegaly. Given the patient's KATRINA I did speak the on-call hospital service Ronda Oliva and the patient was admitted by Dr. Cool. Discussion w/ other healthcare providers: Ronda Oliva PA-C and Dr. Cool inpatient medicine service Prior /Outside records reviewed: I reviewed part of a discharge summary obtained from [facility] which noted the patient does have a history of UTI bacteremia sepsis CLL chronic idiopathic from cytopenia leukocytosis neutropenia AKTRINA CKD hypercapnic respiratory failure pneumonia septic shock. Patient was then admitted to the ICU for septic shock secondary to UTI versus pneumonia Hospital course complicated by acute hypoxemic respiratory failure requiring intubation KATRINA. Patient did have neutropenic fever ESBL Klebsiella bacteremia urine culture with Klebsiella. Patient was to finish Levaquin. Patient with known history of chronic lymphocytic leukemia chronic leukocytosis diagnosed April 2021. Patient reportedly had TTE on December 22 showed EF of 35% with diffuse hypokinesis. Also has anemia of chronic disease and chronic thrombocytopenia. Differential diagnosis: Infection, dehydration, metabolic abnormality, hypo/hyperglycemia, electrolyte imbalance, anemia, UTI, pneumonia, thyroid dysfunction among others were considered. Diagnostics, as interpreted by me: ECG: Machine read as A-fib but appears to have P waves likely sinus with left bundle branch block, ventricular rate of 80, left axis deviation no obvious Sgarbossa criteria. Cardiac monitoring: An order was placed for continuous cardiac monitoring. The monitor shows a rate of 79 with sinus rhythm. Patient was placed on pulse oximetry Medical decision rules: None Imaging studies: I informally interpreted the patient's chest x-ray with cardiomegaly with formal report to follow. HPI: Patient presents due to concern for abnormal lab values. Patient reports that he he was seen by home health today had some blood work that was done and was referred here. He denies any significant symptoms no chest pain or shortness of breath. The patient does complain that he does have some weakness with ambulation. He reports that he was inpatient at [facility] and was discharged sometime within the last week. He reports that it was a 20-day stay. PAST MEDICAL HISTORY: See Below PAST SURGICAL HISTORY: See Below SOCIAL HISTORY: See Below HOME MEDICATIONS: See Below ALLERGIES: See Below VITALS: See Below PHYSICAL EXAMINATION: GENERAL: NAD, non-toxic. EYE EXAM: Normal conjunctiva. PERRL, no anisocoria and EOM's grossly intact w/o pain. OROPHARYNX: Moist mucus membranes, grossly normal dentition. NECK: Trachea midline, no stridor. LUNGS: Clear to auscultation. Normal chest wall mechanics. HEART: NSR, no MRG. ABDOMEN: Abdomen soft, non-tender, no masses, no rebound or guarding. BACK: No CVA TTP. SKIN: No rashes and no bruising. UPPER EXTREMITIES: Upper extremities are grossly normal. LOWER EXTREMITIES: Grossly normal, bilateral lower extremity edema, 2 open wounds without surrounding erythema noted on the left lower leg with associated bullae approximately 3 x 3 cm that is not hemorrhagic. NEURO EXAM: Awake and alert, follows commands, no obvious facial asymmetry, normal speech, moves all 4 extremities. Past Med/Surg History Problem List (Updated 02/02/25 @ 23:46 by Charlie Durand MD) Anemia (Acute) Acute kidney injury superimposed on CKD (Acute) HFrEF (heart failure with reduced ejection fraction) Right rotator cuff tear Acute confusion (Acute) Elevated WBC count (Acute) Morbid obesity Complicated UTI (urinary tract infection) Weakness (Acute) Kidney stone (Acute) Hyperglycemia Nephrolithiasis, uric acid CLL (chronic lymphocytic leukemia) (Acute) Per records Pt's denies CKD (chronic kidney disease), stage IV (Acute) Nonischemic cardiomyopathy EF 45-49% per 07/2021 ECHO (improved from 25% in Jun 2021 while admitted with Covid pneumonia and acute CHF- patient close to baseline EF per cardio records August 2021) DICK on CPAP DM type 2 (diabetes mellitus, type 2) Uncontrolled - Hgb A1C 13.9 on 04/08/22 Started on Lantus 30 units BID and Novolog after [facility] admission 04/09/22 ; Ozempic increased by PCP 04/12/22 Medical History Acute pyelonephritis Depression GERD (gastroesophageal reflux disease) DVT prophylaxis Hydronephrosis with urinary obstruction due to renal calculus Chronic back pain Dyslipidemia KATRINA (acute kidney injury) LBBB (left bundle branch block) Follows with [facility]- last visit August 2021 Hypertension Surgical History History of cystoscopy History of cholecystectomy Family History Father Diabetes Mother Diabetes Social History Smoking Status: Never smoker Second Hand Exposure: No; Do You Dip or Chew Tobacco: No; Hx Alcohol Use: No Hx Substance Use: No Preferred Language: Yakut Communication Ability: Effective Waiter Required: No Beliefs That Will Affect Care: None Current Living Situation: Spouse Current Living Situation Comment: with Feels Safe at Home: Yes Assistive Devices: Cane, CPAP and Oxygen - at Night Allergies Allergies Allergy/AdvReac Type Severity Reaction Status Date / Time No Known Allergies Allergy Verified 11/03/24 13:48 Home Meds Home Medications Medication Instructions Recorded Confirmed aspirin 81 mg tablet,delayed 81 mg PO QAM 06/13/21 11/03/24 release (Alejandro Low Dose Aspirin) duloxetine 30 mg capsule,delayed 30 mg PO QAM 06/13/21 11/03/24 release folic acid 1 mg tablet 1 mg PO QAM 06/13/21 11/03/24 gabapentin 300 mg capsule 300 mg PO BID 06/13/21 11/03/24 pantoprazole 40 mg tablet,delayed 40 mg PO DAILYBB 06/13/21 11/03/24 release rosuvastatin 40 mg tablet 40 mg PO QAM 06/13/21 11/03/24 trazodone 50 mg tablet 50 mg PO HS 04/06/22 11/03/24 ergocalciferol (vitamin D2) 50 mcg 50 mcg PO DAILY 05/28/22 11/03/24 (2,000 unit) tablet potassium citrate 10 mEq (1,080 10 meq PO TID 05/28/22 11/03/24 mg) tablet,extended release semaglutide 0.25 mg or 0.5 mg (2 2 mg subcut WK 04/14/24 11/03/24 mg/1.5 mL) subcutaneous pen injector (Ozempic) Previous Rx's Medication Instructions Recorded blood sugar diagnostic (OneTouch #100 ea 06/19/21 Verio test strips) lancets 33 gauge (OneTouch Delica #100 ea 06/19/21 Lancets) blood sugar diagnostic (OneTouch #100 ea 04/09/22 Verio test strips) insulin aspart U-100 100 unit/mL 20 unit (0.2 mL) subcut TID #15 mL 04/09/22 (3 mL) subcutaneous pen (Novolog FlexPen U-100 Insulin aspart) insulin glargine 100 unit/mL (3 30 unit (0.3 mL) subcut BID #15 mL 04/09/22 mL) subcutaneous pen (Basaglar KwikPen U-100 Insulin) lancets 33 gauge (OneTouch Delica #100 ea 04/09/22 Lancets) pen needle, diabetic 32 gauge x #100 ea 04/09/22 5/32" (Pen Needle) acetaminophen 500 mg tablet 1,000 mg (2 x 500 mg) PO Q8 #60 01/18/23 (Tylenol Extra Strength) tabs carvedilol 12.5 mg tablet (Coreg) 12.5 mg PO BID #60 tabs 01/18/23 losartan 100 mg tablet 100 mg PO QPM #90 tabs 04/23/23 tamsulosin 0.4 mg capsule 0.4 mg PO QPM #90 caps 12/31/23 furosemide 40 mg tablet 40 mg PO BID #180 tabs 09/08/24 allopurinol 100 mg tablet 100 mg PO .COMPLEX #36 tabs 09/29/24 Results & Data (ED) Vital Signs Vital Signs - 24 hr 02/02/25 16:34 02/02/25 16:40 02/02/25 17:07 Temperature 37.0 C Temperature Source Oral Pulse Rate 80 Pulse Rate [Apical] 82 Pulse Rate from SpO2 Sensor Respiratory Rate 20 19 Respiratory Effort / Characteristics Non-Labored Spontaneous Non-Labored Spontaneous Respiratory Depth Normal Normal Respiratory Pattern Regular Regular Blood Pressure 110/68 Blood Pressure [Right Arm] Blood Pressure Mean 82 Blood Pressure Mean [Right Arm] Blood Pressure Position Semi-fowlers Blood Pressure Position [Right Arm] Pulse Oximetry 95 96 Oxygen Delivery Method Room Air Room Air Sepsis Recent Fever Within 48 Hours No Sepsis New/Unexplained Change in Mental Status No Sepsis Action Taken by Nursing No Action Required 02/02/25 17:12 02/02/25 17:12 02/02/25 17:13 Temperature Temperature Source Pulse Rate Pulse Rate [Apical] 80 Pulse Rate from SpO2 Sensor Respiratory Rate 22 Respiratory Effort / Characteristics Non-Labored Spontaneous Respiratory Depth Normal Respiratory Pattern Regular Blood Pressure 112/69 112/69 Blood Pressure [Right Arm] 112/69 Blood Pressure Mean 100 100 Blood Pressure Mean [Right Arm] 83 Blood Pressure Position Blood Pressure Position [Right Arm] Semi-fowlers Pulse Oximetry 93 Oxygen Delivery Method Room Air Sepsis Recent Fever Within 48 Hours Sepsis New/Unexplained Change in Mental Status Sepsis Action Taken by Nursing 02/02/25 17:18 02/02/25 18:00 02/02/25 18:00 Temperature Temperature Source Pulse Rate 79 77 Pulse Rate [Apical] Pulse Rate from SpO2 Sensor 79 Respiratory Rate 20 Respiratory Effort / Characteristics Respiratory Depth Respiratory Pattern Blood Pressure 122/64 Blood Pressure [Right Arm] Blood Pressure Mean 104 Blood Pressure Mean [Right Arm] Blood Pressure Position Blood Pressure Position [Right Arm] Pulse Oximetry 96 Oxygen Delivery Method Sepsis Recent Fever Within 48 Hours Sepsis New/Unexplained Change in Mental Status Sepsis Action Taken by Nursing 02/02/25 18:00 02/02/25 18:00 02/02/25 18:30 Temperature 37.0 C Temperature Source Oral Pulse Rate Pulse Rate [Apical] 77 Pulse Rate from SpO2 Sensor Respiratory Rate 20 Respiratory Effort / Characteristics Non-Labored Spontaneous Respiratory Depth Normal Respiratory Pattern Regular Blood Pressure 122/64 122/64 Blood Pressure [Right Arm] 118/88 Blood Pressure Mean 104 104 Blood Pressure Mean [Right Arm] 98 Blood Pressure Position Blood Pressure Position [Right Arm] Semi-fowlers Pulse Oximetry 96 Oxygen Delivery Method Room Air Sepsis Recent Fever Within 48 Hours Sepsis New/Unexplained Change in Mental Status Sepsis Action Taken by Skilled Nursing Medications Current Medication List: was personally reviewed by me Laboratory Data Attestation: I reviewed the patient's lab results. 02/02/25 16:50 02/02/25 16:50 Lab Results 02/02/25 Range/Units 16:50 WBC 79.99 H* (4.8-10.8) K/ul RBC 2.71 L (4.70-6.10) M/uL Hgb 7.9 L (14.0-18.0) g/dl Hct 27.7 L (42.0-52.0) % MCV 102.2 H (80.0-100.0) fL MCH 29.2 (25.0-34.0) pg MCHC 28.5 L (32.0-36.0) g/dL RDW Std Deviation 65.3 H (36.4-46.3) fL RDW Coeff of Miguel 17.8 H (11.5-14.5) % Plt Count 86 L (130-400) K/uL MPV 9.9 (9.4-12.4) fL Immature Gran % (Auto) 0.2 % Neut % (Auto) 0.8 % Lymph % (Auto) 94.0 % Yell % (Auto) 4.1 % Eos % (Auto) 0.7 % Baso % (Auto) 0.2 % Neut # (Auto) 0.58 L* (1.40-6.50) K/uL Lymph # (Auto) 75.23 H (1.20-3.40) K/uL Yell # (Auto) 3.27 H (0.11-0.59) K/uL Eos # (Auto) 0.59 H (0.00-0.50) K/uL Baso # (Auto) 0.19 (0.00-0.20) K/uL Immature Gran # (Auto) 0.13 (0.01-0.20) K/uL Absolute Nucleated RBC 0.14 H (0.00-0.12) K/uL Nucleated RBC % (auto) 0.2 % Smudge Cells Present Anisocytosis Present Sodium 136 (136-145) mmol/L Potassium 4.6 (3.5-5.1) mmol/L Chloride 104 (98-107) mmol/L Carbon Dioxide 24 (21-32) mmol/L Anion Gap 8 (3-11) BUN 42 H (6-23) mg/dl Creatinine 4.05 H (0.6-1.4) mg/dl Est Cr Clr Drug Dosing 23.6 ml/min eGFR 15.21 BUN/Creatinine Ratio 10.4 (10-20) Glucose 169 H (70-99(Fasting)) mg/dl Calcium 8.6 (8.6-10.3) mg/dl Magnesium 1.9 (1.7-2.4) mg/dl Total Bilirubin 0.5 (0.2-1.0) mg/dl AST 14 (13-39) U/L ALT 8 (7-52) U/L Alkaline Phosphatase 87 (34-104) U/L Troponin I High Sens 21.9 H (0-20) pg/ml Total Protein 6.6 (6.0-8.3) gm/dl Albumin 3.5 (3.4-5.0) gm/dl Globulin 3.1 (2.5-4.0) gm/dl Albumin/Globulin Ratio 1.1 (0.9-2) TSH 10.515 H (0.300-4.500) uIu/ml Free T4 0.89 (0.61-1.60) ng/dl Administered Medications Gabapentin (Gabapentin 300 Mg Cap) 300 mg PO BID IRENE Stop: 03/04/25 21:15 Last Admin: 02/02/25 23:33 Dose: 300 mg Documented By: SUSANNAH Tamsulosin HCl (Tamsulosin Hcl 0.4 Mg Cap) 0.4 mg PO QPM IRENE Stop: 03/04/25 21:15 Last Admin: 02/02/25 23:33 Dose: 0.4 mg Documented By: SUSANNAH Trazodone HCl (Trazodone Hcl 50 Mg Tab) 50 mg PO HS IRENE Stop: 03/04/25 21:15 Last Admin: 02/02/25 23:33 Dose: 50 mg Documented By: SUSANNAH Imaging Data Radiologist's Impression: Chest X-Ray 02/02/25 16:53 Clinical History: Weakness Technique: A frontal view of the chest was obtained Comparison is made to the prior examination dated 01/14/2023 Findings: There are no confluent pulmonary infiltrates. The heart is mild enlarged. No pleural effusion or pneumothorax is seen. There is no definite pulmonary nodule. No fracture is noted. There is scoliosis. 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
[2025-02-02 17:11] LABS: Hematocrit (blood only) 27.7 % (42.0-52.0); Hemoglobin 7.9 g/dl (14.0-18.0); Mean Corpuscular Hemoglobin 29.2 pg (25.0-34.0); Mean Corpuscular Volume 102.2 fL (80.0-100.0); Platelet Count 86 K/uL (130-400); RDW Standard Deviation 65.3 fL (36.4-46.3); Red Blood Count 2.71 M/uL (4.70-6.10); White Blood Count 79.99 K/ul (4.8-10.8)
--- NOTE | 2025-02-02 17:20 | XRay Report ---
Clinical History: Weakness Technique: A frontal view of the chest was obtained Comparison is made to the prior examination dated 01/14/2023 Findings: There are no confluent pulmonary infiltrates. The heart is mild enlarged. No pleural effusion or pneumothorax is seen. There is no definite pulmonary nodule. No fracture is noted. There is scoliosis. 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
[2025-02-02 17:22] LABS: Alanine Aminotransferase 8.0 U/L (7-52); Albumin Globulin Ratio 1.1 (0.9-2); Alkaline Phosphatase 87.0 U/L (34-104); Anion Gap 8.0 (3-11); Bilirubin,Total 0.5 mg/dl (0.2-1.0); Blood Urea Nitrogen 42.0 mg/dl (6-23); Calcium 8.6 mg/dl (8.6-10.3); Carbon Dioxide 24.0 mmol/L (21-32); Chloride 104.0 mmol/L (98-107); Creatinine Clr Calc Pharmacy 23.6 ml/min; Globulin 3.1 gm/dl (2.5-4.0); Glucose 169.0 mg/dl (70-99(Fasting)); Magnesium 1.9 mg/dl (1.7-2.4); Potassium 4.6 mmol/L (3.5-5.1); Sodium 136.0 mmol/L (136-145); Total Protein 6.6 gm/dl (6.0-8.3)
[2025-02-02 17:36] LABS: Thyroid Stimulating Hormone 10.515 uIu/ml (0.300-4.500)
[2025-02-02 17:47] LABS: Anisocytosis Present; Smudge Cells Present
[2025-02-02 17:52] LABS: Immature Granulocytes # (auto) 0.13 K/uL (0.01-0.20); Immature Granulocytes % (auto) 0.2 %
--- NOTE | 2025-02-02 18:44 | History & Physical Report ---
Date of Service February 02, 2025 Assessment & Plan (1) Weakness: (2) HFrEF (heart failure with reduced ejection fraction): (3) DM type 2 (diabetes mellitus, type 2): (4) CLL (chronic lymphocytic leukemia): Plan Being is a 69-year-old male with a past medical history of morbid obesity, HFpEF, pulmonary hypertension, Pickwickian syndrome, DICK, hypertension, hyperlipidemia, DMII, CLL, nephrolithiasis, OA/DJD, and chronic kidney disease. admitted for nephrology consultation, PT/OT evals and further workup #weakness - in the setting of recent discharge from [facility], since WBC is chronically elevated in the setting of CLL. No signs of infection on admissionchecks x-ray without pneumonia, Afebrile, not tachycardic, skin lesion does not look infected UA pending Of note, pt with many chronic problems - agreeable to palliative consult Wound care consult placed PT/OT #KATRINA on CKD - Follows with Dr. Lee with baseline creatinine 2.5-3. Did require 2 dialysis sessions during his recent [place] stay. Creatinine 4.05 on admission Consult nephrology Possible fluid overload but not dialysis patient. Defer fluids and diuretics until nephrology weighs in. Hold lasix and losartan # HFrEF | Elevated troponin - Follows with [facility], last Echo with EF 20-25% Defer additional fluids with KATRINA Elevated troponin, 21.9, likely secondary to poor renal clearance. Denies CP EKG in ER read by computer as afib, no hx of afib, appears regular to me with P waves. Will monitor on tele - and recheck EKG in AM. Not on anticoagulation - family reports he was on at one point and taken off and unsure why Continue carvedilol BID #DMT2 Home meds: Glargine 30u BID, Aspart 20u TID - held continue lantus 25u BID + SSI Continue gabapentin #CLL - Follows with Dr. Gray Continue allopurinol for tumor lysis No current treatment # Elevated TSH TSH 10.5, T4 WNL Recommend recheck outpatient *Pt and family unaware what medications he is taking or supposed to be taking - reports med [place] [facility] but they have been following old regimen. not taking plavix Dispo: admit to med/tele DVT proh: reassess tomorrow - lovenox not a good option with KATRINA, heparin not a good option with low platelets, SCDs and apurva hose not a good option with skin wound. History of Present Illness Chief Complaint: weaknes, abnormal labs Primary Care Provider: LISA Wilson Sameera is a 69-year-old male with a past medical history of morbid obesity, HFpEF, pulmonary hypertension, Pickwickian syndrome, DICK, hypertension, hyperlipidemia, DMII, CLL, nephrolithiasis, OA/DJD, and chronic kidney disease. with recent admission to [facility] with possible respiratory arrest, septic shock from a UTI requiring ICU admission. He was discharged from [facility] to [facility] rehab and was discharged from [facility] on Monday 01/29. and daughter are at bedside and provide additional history.'s being states that he was feeling well after discharge from rehab but has gone downhill since then. Did have a fall yesterday while trying to get into the car to go to his PCPs, he presented to [facility] where they provided wound care and discharged him home. Family has noticed more weakness. He denies fevers or chills. No current treatment for his CLL. He is producing urine without issues. Did require dialysis twice during his [facility] stay but he is not a normal dialysis patient. Does not weigh himself every day but thinks his dry weight would be around 307. Did take his medications this morning he wishes to be a full code Allergies Allergy/AdvReac Type Severity Reaction Status Date / Time No Known Allergies Allergy Verified 11/03/24 13:48 Home Medications Medication Instructions Recorded Confirmed Type aspirin 81 mg tablet,delayed 81 mg PO QAM 06/13/21 11/03/24 History release (Alejandro Low Dose Aspirin) duloxetine 30 mg capsule,delayed 30 mg PO QAM 06/13/21 11/03/24 History release folic acid 1 mg tablet 1 mg PO QAM 06/13/21 11/03/24 History gabapentin 300 mg capsule 300 mg PO BID 06/13/21 11/03/24 History pantoprazole 40 mg tablet,delayed 40 mg PO DAILYBB 06/13/21 11/03/24 History release rosuvastatin 40 mg tablet 40 mg PO QAM 06/13/21 11/03/24 History blood sugar diagnostic (OneTouch #100 ea 06/19/21 11/03/24 Rx Verio test strips) lancets 33 gauge (OneTouch Delica #100 ea 06/19/21 11/03/24 Rx Lancets) trazodone 50 mg tablet 50 mg PO HS 04/06/22 11/03/24 History blood sugar diagnostic (OneTouch #100 ea 04/09/22 11/03/24 Rx Verio test strips) insulin aspart U-100 100 unit/mL 20 unit (0.2 mL) subcut TID #15 mL 04/09/22 Rx (3 mL) subcutaneous pen (Novolog FlexPen U-100 Insulin aspart) insulin glargine 100 unit/mL (3 30 unit (0.3 mL) subcut BID #15 mL 04/09/22 11/03/24 Rx mL) subcutaneous pen (Basaglar KwikPen U-100 Insulin) lancets 33 gauge (OneTouch Delica #100 ea 04/09/22 11/03/24 Rx Lancets) pen needle, diabetic 32 gauge x #100 ea 04/09/22 11/03/24 Rx 5/32" (Pen Needle) ergocalciferol (vitamin D2) 50 mcg 50 mcg PO DAILY 05/28/22 11/03/24 History (2,000 unit) tablet potassium citrate 10 mEq (1,080 10 meq PO TID 05/28/22 11/03/24 History mg) tablet,extended release acetaminophen 500 mg tablet 1,000 mg (2 x 500 mg) PO Q8 #60 01/18/23 11/03/24 Rx (Tylenol Extra Strength) tabs carvedilol 12.5 mg tablet (Coreg) 12.5 mg PO BID #60 tabs 01/18/23 11/03/24 Rx losartan 100 mg tablet 100 mg PO QPM #90 tabs 04/23/23 11/03/24 Rx tamsulosin 0.4 mg capsule 0.4 mg PO QPM #90 caps 12/31/23 11/03/24 Rx semaglutide 0.25 mg or 0.5 mg (2 2 mg subcut WK 04/14/24 11/03/24 History mg/1.5 mL) subcutaneous pen injector (Ozempic) furosemide 40 mg tablet 40 mg PO BID #180 tabs 09/08/24 11/03/24 Rx allopurinol 100 mg tablet 100 mg PO .COMPLEX #36 tabs 09/29/24 11/03/24 Rx Past Med/Surg History Problem List (Updated 02/02/25 @ 19:23 by Ronda Broderick PA-C) HFrEF (heart failure with reduced ejection fraction) Right rotator cuff tear Acute confusion (Acute) Elevated WBC count (Acute) Morbid obesity Complicated UTI (urinary tract infection) Weakness (Acute) Kidney stone (Acute) Hyperglycemia Nephrolithiasis, uric acid CLL (chronic lymphocytic leukemia) Per records Pt's denies CKD (chronic kidney disease), stage IV (Acute) Nonischemic cardiomyopathy EF 45-49% per 07/2021 ECHO (improved from 25% in Jun 2021 while admitted with Covid pneumonia and acute CHF- patient close to baseline EF per cardio records August 2021) DICK on CPAP DM type 2 (diabetes mellitus, type 2) Uncontrolled - Hgb A1C 13.9 on 04/08/22 Started on Lantus 30 units BID and Novolog after [facility] admission 04/09/22 ; Ozempic increased by PCP 04/12/22 Medical History Acute pyelonephritis KATRINA (acute kidney injury) Chronic back pain CKD (chronic kidney disease), stage IV CLL (chronic lymphocytic leukemia) Depression DM type 2 (diabetes mellitus, type 2) DVT prophylaxis Dyslipidemia GERD (gastroesophageal reflux disease) Hydronephrosis with urinary obstruction due to renal calculus Hypertension LBBB (left bundle branch block) Morbid obesity Nonischemic cardiomyopathy DICK on CPAP Surgical History History of cholecystectomy History of cystoscopy Family History Father Diabetes Mother Diabetes Social History Smoking Status: Never smoker Second Hand Exposure: No; Do You Dip or Chew Tobacco: No; Hx Alcohol Use: No Hx Substance Use: No Preferred Language: Czech Communication Ability: Effective Sugar Controller Required: No Beliefs That Will Affect Care: None Current Living Situation: Spouse Current Living Situation Comment: with Feels Safe at Home: Yes Assistive Devices: Cane, CPAP and Oxygen - at Night Review of Systems Review of Systems: All systems reviewed & are unremarkable except as noted in Subjective Physical Exam Physical Exam: General: NAD, VS as above, obese Resp: accessory muscle use, lungs clear to auscultation, shallow breathing, no wheezing or adventitious sounds, on room air CV: RRR, no murmur, Abd: normal bowel sounds, non tender, Extremities: Moves all extremities, 2+ with pitting edema to bilateral legs Neuro: A&O x3, Skin: lesion to left lower leg open, without signs of infection, bulla also present Results & Data Results & Data Vital Signs (Past 12 Hours) Vital Signs Temp Pulse Pulse Resp BP BP Pulse Ox 02/02/25 18:30 98.6 F 77 20 118/88 96 02/02/25 18:00 122/64 02/02/25 18:00 122/64 02/02/25 18:00 122/64 02/02/25 18:00 77 20 96 02/02/25 17:18 79 02/02/25 17:13 80 22 112/69 93 02/02/25 17:12 112/69 02/02/25 17:12 112/69 02/02/25 17:07 96 02/02/25 16:40 82 19 02/02/25 16:34 98.6 F 80 20 110/68 95 O2 Del Method 02/02/25 18:30 Room Air 02/02/25 18:00 02/02/25 18:00 02/02/25 18:00 02/02/25 18:00 02/02/25 17:18 02/02/25 17:13 Room Air 02/02/25 17:12 02/02/25 17:12 02/02/25 17:07 02/02/25 16:40 Room Air 02/02/25 16:34 Room Air Laboratory Results CBC reviewed, chemistry reviewed, troponin reviewed Diagnostic Findings chest x-ray reviewed Supervising Physician Co-Signing Physician Notes Patient was seen and examined independently I discussed the case with Ronda Campo PA-C I reviewed pertinent past medical social family history and also the plan of care and agree with the plan of care. Patient went recent respiratory wrist surgery with chemotherapy infusion and transferred [facility] where he underwent treatment for heart failure renal failure diabetes. Patient suffers from CLL and has significant leukocytosis. Patient presents with a decline from discharge from [facility]. He now is in acute kidney injury with creatinine of 4. He has signif icant swelling to his lower extremities and difficulty ambulating. Physical exam finds him to be in no distress when laying in the semirecumbent position. He has some bruises on his body from falling. His cardiac exam is distant but regular his lungs are diminished bilaterally his extremities are 2+ edema with chronic venous stasis changes to his lower extremities Workup for metabolic encephalopathy is pending. At this point in time we will have renal consultation to determine how to best treat his worsening KATRINA since he likely has a bit of cardiorenal syndrome at this time holding Lasix and losartan. Will treat his diabetes with basal bolus insulin Any exceptions will be noted below PG Care Time/CCT Total # of Minutes Spent Total Time Spent with Patient: Total time spent is greater than 50% in coordination of care (as documented) at patient's floor/unit and/or counseling patient: Coding Level of Care Code 78217 INT INP/OBS CARE 3/75MIN Diagnoses Weakness R53.1 HFrEF (heart failure with reduced ejection fraction) I50.20 DM type 2 (diabetes mellitus, type 2) E11.9 CLL (chronic lymphocytic leukemia) C91.10
[2025-02-02] MEDS ORDERED: ACETAMINOPHEN 325 MG TAB PO PRN (21:16)
[2025-02-02] MEDS ORDERED: GLUCAGON FOR INJ 1 MG VIAL SQ PRN (21:16)
[2025-02-02] MEDS ORDERED: GLUCOSE 10 TAB/TUBE PO PRN (21:16)
[2025-02-02] MEDS ORDERED: POLYETHYLENE (MIRALAX) 17 GM PACK PO PRN (21:16)
[2025-02-02] MEDS ORDERED: DEXTROSE 50% 50 ML SYRINGE IV PRN (21:16)
[2025-02-02] MEDS ORDERED: GLUCOSE 40% GEL 15 GM TUBE PO PRN (21:16)
[2025-02-02] MEDS ORDERED: CARBOHYDRATES FOR HYPOGLYCEMIA PO PRN (21:16)
[2025-02-02] MEDS: TAMSULOSIN HCL 0.4 MG CAP PO SCH (23:33)
[2025-02-02] MEDS: GABAPENTIN 300 MG CAP PO SCH (23:33)
[2025-02-03] MEDS: LANTUS PER UNIT CHARGE SQ SCH (00:14)
[2025-02-03] MEDS: INSULIN ASPART PER UNIT CHARGE SC SCH (00:14)
[2025-02-03 08:30] LABS: Hematocrit (blood only) 24.7 % (42.0-52.0); Hemoglobin 7.2 g/dl (14.0-18.0); Mean Corpuscular Hemoglobin 29.4 pg (25.0-34.0); Mean Corpuscular Volume 100.8 fL (80.0-100.0); Platelet Count 70 K/uL (130-400); RDW Standard Deviation 63.6 fL (36.4-46.3); Red Blood Count 2.45 M/uL (4.70-6.10); White Blood Count 65.78 K/ul (4.8-10.8)
[2025-02-03 08:37] LABS: Anion Gap 8.0 (3-11); Blood Urea Nitrogen 42.0 mg/dl (6-23); Calcium 8.2 mg/dl (8.6-10.3); Carbon Dioxide 24.0 mmol/L (21-32); Chloride 106.0 mmol/L (98-107); Creatinine Clr Calc Pharmacy 23.1 ml/min; Glucose 126.0 mg/dl (70-99(Fasting)); Potassium 4.1 mmol/L (3.5-5.1); Sodium 138.0 mmol/L (136-145)
[2025-02-03] MEDS: ASPIRIN 81 MG ECTAB PO SCH (08:58)
[2025-02-03] MEDS: ROSUVASTATIN CALCIUM 20 MG TAB PO SCH (08:58)
[2025-02-03] MEDS: FOLIC ACID 1 MG TAB PO SCH (08:59)
[2025-02-03 09:08] LABS: Polychromasia 2+; Smudge Cells Present; Stomatocytes 2+
[2025-02-03 09:12] LABS: Immature Granulocytes # (auto) 0.12 K/uL (0.01-0.20); Immature Granulocytes % (auto) 0.2 %
--- NOTE | 2025-02-03 09:19 | Palliative Care Consultation ---
Date of Consultation February 03, 2025 Assessment & Plan (1) Weakness generalized: (2) Advanced care planning/counseling discussion: I had a face to face ACP meeting at bedside with Samerea for 45min: We laid some groundwork for "what-if" scenarios. He was able to tell me he has had a rough year with setbacks/admissions and maybe more time in medical places than at home/missed his 50th wedding anniversary etc. I asked if he had ever spoken with about what he'd want if things started changing/not improving and he admitted he had not but that it sounded like a good idea. He admitted feeling like "things are changing" and we spoke about how these changes/decline may be signs that our care goals/priorities/wishes need to be revisited and shifted. He shared is impaired/in wheelchair and until recent, he was primary caregiver at home. He requires a walker for all ambulation. Any walking over 10 feet exerts him to where he needs to sit/rest/recover. He is easily dyspneic. He states he would like to return to [facility] for more rehab +Gen weakness +Mod fatigue, muscles weak, feels the [facility] hospital was helping but then he was dc He does not like getting too much information at any time, does better with small usable bites and time to absorb the information in between. Admits he and have never talked about "things to do at the end, it always feels like there's more time for that and so why talk now and get upset for no reason?" He is having a lot of pain in that right hip that he says has been getting injected in by a local OSH provider. He was using tramadol 100mg QM and then 200mg Afternoon and PM. I renal adjusted this to 75mg Q8H prn for now. Code status was not discussed today, as it would have been too overwhelming and patient does not tolerate being over informed. Dr. Gray/oncology will be visiting later this afternoon. Pt is not likely a candidate for further cancer directed treatment. (3) Dyspnea and respiratory abnormalities: (4) Palliative care by specialist: Introduced Palliative Medicine and explained our role in patient's care. Patient and/or family were receptive to palliative services for goals of care discussions. Reviewed we are different from hospice, a home health nurse visiting service. (5) Chronic pain of right hip: Home tramadol dose needing renal adjustment Will try Tramadol 75mg PO q8h prn, max dose for his CrCL max daily dose is 200mg/day Plan As above Pt is willing to go back to [facility] for more rehab Thank you for allowing us to participate in the ongoing care of this patient. Please page with any additional concerns. 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 Follows with Dr Lee, known CKD. Hx CLL dc Apr 2021 managed by [facility] and Dr Gray locally; he is on a regimen of Obinutuzimab + Acalabrutinib Chart review indicates pt was initially followed by Dr Moon at [facility] and due to insurance change, he had to switch providers and transferred to Dr Gray at [facility]. s/p recent admission to [facility] followed by dc to [facility] - required dialysis at [facility] x 2 sessions Recently dc from [facility] WBC chronically elevated d/t CLL On Allopurinol for tumor lysis PMH: morbid obesity, cardiorenal syndrome from HFpEF and pulmonary hypertension, Pickwickian syndrome, DICK, hypertension, hyperlipidemia, DMII, CLL, nephrolithiasis, OA/DJD, and chronic kidney disease. Sameera is , 4 children, retired electronics maintenance technician. He denies tobacco use, ETOH use and never any prior substance abuse. Allergies Allergy/AdvReac Type Severity Reaction Status Date / Time No Known Allergies Allergy Verified 11/03/24 13:48 Home Medications Medication Instructions Recorded Confirmed Type aspirin 81 mg tablet,delayed 81 mg PO QAM 06/13/21 11/03/24 History release (Alejandro Low Dose Aspirin) duloxetine 30 mg capsule,delayed 30 mg PO QAM 06/13/21 11/03/24 History release folic acid 1 mg tablet 1 mg PO QAM 06/13/21 11/03/24 History gabapentin 300 mg capsule 300 mg PO BID 06/13/21 11/03/24 History pantoprazole 40 mg tablet,delayed 40 mg PO DAILYBB 06/13/21 11/03/24 History release rosuvastatin 40 mg tablet 40 mg PO QAM 06/13/21 11/03/24 History blood sugar diagnostic (OneTouch #100 ea 06/19/21 11/03/24 Rx Verio test strips) lancets 33 gauge (OneTouch Delica #100 ea 06/19/21 11/03/24 Rx Lancets) trazodone 50 mg tablet 50 mg PO HS 04/06/22 11/03/24 History blood sugar diagnostic (OneTouch #100 ea 04/09/22 11/03/24 Rx Verio test strips) insulin aspart U-100 100 unit/mL 20 unit (0.2 mL) subcut TID #15 mL 04/09/22 11/03/24 Rx (3 mL) subcutaneous pen (Novolog FlexPen U-100 Insulin aspart) insulin glargine 100 unit/mL (3 30 unit (0.3 mL) subcut BID #15 mL 04/09/22 11/03/24 Rx mL) subcutaneous pen (Basaglar KwikPen U-100 Insulin) lancets 33 gauge (OneTouch Delica #100 ea 04/09/22 11/03/24 Rx Lancets) pen needle, diabetic 32 gauge x #100 ea 04/09/22 11/03/24 Rx 5/32" (Pen Needle) ergocalciferol (vitamin D2) 50 mcg 50 mcg PO DAILY 05/28/22 11/03/24 History (2,000 unit) tablet potassium citrate 10 mEq (1,080 10 meq PO TID 05/28/22 11/03/24 History mg) tablet,extended release acetaminophen 500 mg tablet 1,000 mg (2 x 500 mg) PO Q8 #60 01/18/23 11/03/24 Rx (Tylenol Extra Strength) tabs carvedilol 12.5 mg tablet (Coreg) 12.5 mg PO BID #60 tabs 01/18/23 11/03/24 Rx losartan 100 mg tablet 100 mg PO QPM #90 tabs 04/23/23 11/03/24 Rx tamsulosin 0.4 mg capsule 0.4 mg PO QPM #90 caps 12/31/23 11/03/24 Rx semaglutide 0.25 mg or 0.5 mg (2 2 mg subcut WK 04/14/24 11/03/24 History mg/1.5 mL) subcutaneous pen injector (Ozempic) furosemide 40 mg tablet 40 mg PO BID #180 tabs 09/08/24 11/03/24 Rx allopurinol 100 mg tablet 100 mg PO .COMPLEX #36 tabs 09/29/24 11/03/24 Rx Patient History Medical History Acute pyelonephritis Depression GERD (gastroesophageal reflux disease) DVT prophylaxis Hydronephrosis with urinary obstruction due to renal calculus Chronic back pain Dyslipidemia KATRINA (acute kidney injury) LBBB (left bundle branch block) Follows with [facility]- last visit August 2021 Hypertension Surgical History History of cystoscopy History of cholecystectomy Family History Father Diabetes Mother Diabetes Social History Smoking Status: Never smoker Second Hand Exposure: No; Do You Dip or Chew Tobacco: No; Hx Alcohol Use: No Hx Substance Use: No Preferred Language: Maori Communication Ability: Effective Server Security Administrator Required: No Beliefs That Will Affect Care: None Current Living Situation: Spouse Current Living Situation Comment: with Other Information That Helps Us Care for You: No Feels Safe at Home: Yes Safety Concerns: Feels Safe At This Time Assistive Devices: Walker Physical Exam Constitutional: + obese and + frail appearing dyspnea with conversation Eyes: PERRL ENMT: dentition fair MM sl dry no obvious thrush +Pickwickian neck Neck: trachea midline, + short neck, + thick neck and + limited neck extension Respiratory: diminished due to habitus no overt wheezing +conversational dyspnea Cardiovascular: distant S1S2 Gastrointestinal (Abdomen): obese, +pannus soft, NTP BS+ Skin: venous stasis changes LLE BLE edema 2+ Neurologic: AAOx2 blunted affect Results & Data Vital Signs (Past 12 Hours) Vital Signs Temp Pulse Pulse Resp BP BP BP 02/03/25 07:36 36.7 C 83 20 131/73 02/03/25 04:44 02/03/25 04:15 105 H 02/03/25 04:09 36.9 C 105 H 20 129/75 02/03/25 03:30 79 18 124/63 02/03/25 03:00 79 22 127/59 L 02/03/25 02:30 82 20 119/65 02/03/25 01:30 78 20 114/78 02/03/25 01:00 78 20 123/67 02/03/25 00:31 80 22 115/60 02/03/25 00:20 80 22 111/71 02/02/25 23:00 81 20 118/69 02/02/25 22:27 80 22 115/74 Pulse Ox O2 Del Method 02/03/25 07:36 92 Room Air 02/03/25 04:44 Room Air 02/03/25 04:15 02/03/25 04:09 96 Room Air 02/03/25 03:30 93 Room Air 02/03/25 03:00 93 Room Air 02/03/25 02:30 93 Room Air 02/03/25 01:30 92 Room Air 02/03/25 01:00 92 Room Air 02/03/25 00:31 92 Room Air 02/03/25 00:20 97 Room Air 02/02/25 23:00 99 Room Air 02/02/25 22:27 100 Room Air Laboratory Results 02/03/25 02/03/25 02/02/25 Range/Units 08:40 08:03 23:53 WBC 65.78 H* (4.8-10.8) K/ul RBC 2.45 L (4.70-6.10) M/uL Hgb 7.2 L (14.0-18.0) g/dl Hct 24.7 L (42.0-52.0) % MCV 100.8 H (80.0-100.0) fL MCH 29.4 (25.0-34.0) pg MCHC 29.1 L (32.0-36.0) g/dL RDW Std Deviation 63.6 H (36.4-46.3) fL RDW Coeff of Miguel 17.7 H (11.5-14.5) % Plt Count 70 L (130-400) K/uL MPV 10.2 (9.4-12.4) fL Immature Gran % (Auto) 0.2 % Neut % (Auto) 0.7 % Lymph % (Auto) 93.5 % Hopkins % (Auto) 4.5 % Eos % (Auto) 0.8 % Baso % (Auto) 0.3 % Neut # (Auto) 0.48 L* (1.40-6.50) K/uL Lymph # (Auto) 61.50 H (1.20-3.40) K/uL Hopkins # (Auto) 2.95 H (0.11-0.59) K/uL Eos # (Auto) 0.52 H (0.00-0.50) K/uL Baso # (Auto) 0.21 H (0.00-0.20) K/uL Immature Gran # (Auto) 0.12 (0.01-0.20) K/uL Absolute Nucleated RBC 0.15 H (0.00-0.12) K/uL Nucleated RBC % (auto) 0.2 % Smudge Cells Present Polychromasia 2+ Anisocytosis Stomatocytes 2+ Sodium 138 (136-145) mmol/L Potassium 4.1 (3.5-5.1) mmol/L Chloride 106 (98-107) mmol/L Carbon Dioxide 24 (21-32) mmol/L Anion Gap 8 (3-11) BUN 42 H (6-23) mg/dl Creatinine 4.08 H (0.6-1.4) mg/dl Est Cr Clr Drug Dosing 23.1 ml/min eGFR 15.07 BUN/Creatinine Ratio 10.3 (10-20) Glucose 126 H (70-99(Fasting)) mg/dl POC Glucose 140 H 143 H (70-99) mg/dl Calcium 8.2 L (8.6-10.3) mg/dl Magnesium (1.7-2.4) mg/dl Total Bilirubin (0.2-1.0) mg/dl AST (13-39) U/L ALT (7-52) U/L Alkaline Phosphatase (34-104) U/L Troponin I High Sens (0-20) pg/ml Total Protein (6.0-8.3) gm/dl Albumin (3.4-5.0) gm/dl Globulin (2.5-4.0) gm/dl Albumin/Globulin Ratio (0.9-2) TSH (0.300-4.500) uIu/ml Free T4 (0.61-1.60) ng/dl 02/02/25 02/02/25 02/02/25 Range/Units 22:38 18:53 16:50 WBC 79.99 H* (4.8-10.8) K/ul RBC 2.71 L (4.70-6.10) M/uL Hgb 7.9 L (14.0-18.0) g/dl Hct 27.7 L (42.0-52.0) % MCV 102.2 H (80.0-100.0) fL MCH 29.2 (25.0-34.0) pg MCHC 28.5 L (32.0-36.0) g/dL RDW Std Deviation 65.3 H (36.4-46.3) fL RDW Coeff of Miguel 17.8 H (11.5-14.5) % Plt Count 86 L (130-400) K/uL MPV 9.9 (9.4-12.4) fL Immature Gran % (Auto) 0.2 % Neut % (Auto) 0.8 % Lymph % (Auto) 94.0 % Hopkins % (Auto) 4.1 % Eos % (Auto) 0.7 % Baso % (Auto) 0.2 % Neut # (Auto) 0.58 L* (1.40-6.50) K/uL Lymph # (Auto) 75.23 H (1.20-3.40) K/uL Hopkins # (Auto) 3.27 H (0.11-0.59) K/uL Eos # (Auto) 0.59 H (0.00-0.50) K/uL Baso # (Auto) 0.19 (0.00-0.20) K/uL Immature Gran # (Auto) 0.13 (0.01-0.20) K/uL Absolute Nucleated RBC 0.14 H (0.00-0.12) K/uL Nucleated RBC % (auto) 0.2 % Smudge Cells Present Polychromasia Anisocytosis Present Stomatocytes Sodium 136 (136-145) mmol/L Potassium 4.6 (3.5-5.1) mmol/L Chloride 104 (98-107) mmol/L Carbon Dioxide 24 (21-32) mmol/L Anion Gap 8 (3-11) BUN 42 H (6-23) mg/dl Creatinine 4.05 H (0.6-1.4) mg/dl Est Cr Clr Drug Dosing 23.6 ml/min eGFR 15.21 BUN/Creatinine Ratio 10.4 (10-20) Glucose 169 H (70-99(Fasting)) mg/dl POC Glucose 146 H (70-99) mg/dl Calcium 8.6 (8.6-10.3) mg/dl Magnesium 1.9 (1.7-2.4) mg/dl Total Bilirubin 0.5 (0.2-1.0) mg/dl AST 14 (13-39) U/L ALT 8 (7-52) U/L Alkaline Phosphatase 87 (34-104) U/L Troponin I High Sens 19.9 21.9 H (0-20) pg/ml Total Protein 6.6 (6.0-8.3) gm/dl Albumin 3.5 (3.4-5.0) gm/dl Globulin 3.1 (2.5-4.0) gm/dl Albumin/Globulin Ratio 1.1 (0.9-2) TSH 10.515 H (0.300-4.500) uIu/ml Free T4 0.89 (0.61-1.60) ng/dl Diagnostic Findings Chest X-Ray 02/02/25 16:53 Clinical History: Weakness Technique: A frontal view of the chest was obtained Comparison is made to the prior examination dated 01/14/2023 Findings: There are no confluent pulmonary infiltrates. The heart is mild enlarged. No pleural effusion or pneumothorax is seen. There is no definite pulmonary nodule. No fracture is noted. There is scoliosis. 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 Medications Administered Vital Signs Temp 36.7 C 02/03/25 07:36 Pulse 83 02/03/25 07:36 Resp 20 02/03/25 07:36 BP 131/73 02/03/25 07:36 Pulse Ox 92 02/03/25 07:36 O2 Del Method Room Air 02/03/25 07:36 Intake & Output 02/02/25 02/03/25 02/03/25 18:59 06:59 18:59 Weight 143.2 kg 140.2 kg Other: Other Intake Source sips Weight Measurement Method Built in Bedscale Standing Scale PG Care Time/CCT Total # of Minutes Spent Total Time Spent with Patient: Total time spent is greater than 50% in coordination of care (as documented) at patient's floor/unit and/or counseling patient: I spent 120 minutes overall addressing this case: 20 min in medical data review/discussion with referring provider(s) and/or preparation for the visit incl OSH data review ([employer] EMR link, PSH + [facility] Oncology Notes) 20 min in direct interaction with the patient/exam 45 min in Advance Care Planning/Goals of Care discussions as detailed above in note (must be >16min) 15 min in subsequent review and synthesis of assessment and plan 20 min communicating with other providers regarding the patient's case: Dr Gray/pt's oncologist/will be in to see pt later today, primary team,nursing Advanced Care Planning 54239 Advanced Care Planning 30 Min 19312 Advanced Care Planning Additional 30 [place] [address] IN/OBS CONSULT LVL 5,80M (25 - SIGNIFICANT, SEPARATELY IDENTIFIABLE ) Patient Type New Medical Decision Making High Complexity Diagnoses Weakness generalized R53.1 Advanced care planning/counseling discussion Z71.89 Dyspnea and respiratory abnormalities R06.00; R06.89 Palliative care by specialist Z51.5 Chronic pain of right hip M25.551; G89.29 Additional Codes Advanced Care Planning - 27214 Advanced Care Planning 30 Min: 25934 Advanced Care Planning 30 Min ([id number]) Advanced Care Planning - 07042 Advanced Care Planning Additional 30 Min: 99134 Advanced Care Planning Additional 30 Min ([id number]) Comment [id number], [id number]
--- NOTE | 2025-02-03 10:16 | Nephrology Consultation ---
Date of Consultation February 03, 2025 Assessment & Plan (1) KATRINA (acute kidney injury): (2) Weakness: (3) Anemia: (4) CKD (chronic kidney disease), stage IV: (5) Nonischemic cardiomyopathy: (6) DM type 2 (diabetes mellitus, type 2): Plan 69 y o male with complex past medical history including stage IV CKD, hypertension, diabetes, nephrolithiasis, history of CML, obstructive sleep apnea, admitted to the hospital with outpatient lab showing KATRINA, creatinine 4.1 with baseline creatinine around 2.5-3.0 mg/dl and generalized weakness and weakness in bilateral lower extremity with difficulty with ambulation. Currently no sign of volume overload, blood pressure acceptable. Has been voiding normally. Electrolyte acceptable. Otherwise asymptomatic except lower extremity weakness. --Continue to hold diuretics, monitor intake and output --Repeat lab in a.m. --Check iron study, Epogen as needed. --dose meds for egFR <30 --PT evaluation and treatment Thank you for allowing me to participate in your patient's care. It was a pleasure to see Sameera History of Present Illness Reason for Consultation: KATRINA, advanced CKD Attending Physician: Desmond Anderson MD History of Present Illness Mr. Sameera Whaley is a 69-year-old male with past medical history of stage IV CKD, nephrolithiasis, type 2 diabetes, hypertension, obstructive sleep apnea and CLL admitted to the hospital early abnormal outpatient labs showing worsening of kidney function and progressive weakness in bilateral lower extremity. N ephrology consult requested for management of KATRINA with underlying advanced CKD. EMR records were reviewed in detail during patient's visit. Sameera Was referred to ER yesterday by his home health nurse after outpatient lab showing worsening kidney function. He reports his main concern has been progressive weakness of bilateral lower extremity and difficulty with ambulation. He was at [facility] few weeks ago with respiratory failure and there is some report that he needed dialysis therefore 2 sessions. However it seems like his kidney function recovered and he was taken off of dialysis. He was discharged to [facility] and from [facility] he was discharged home on 01/29/2025. He reports he has been having difficulty with walking even few feeds, his legs would feel really weak and develop specially he feels weakness in his bilateral thigh. He denied any shortness of breath or chest pain. Appetite has been decent. Urine output has been his usual. On admission yesterday lab was notable for creatinine KATRINA, creatinine was 4.1 electrolyte was acceptable. Hemoglobin 7.9, WBC 80K open with history of CLL, platelet 86. Chest x-ray showed cardiomegaly without pulmonary congestion or pleural effusion. Previously urinalysis showed no proteinuria. Prior renal imaging was otherwise unremarkable. Lasix and lisinopril was stopped on admission. Past medical history is significant for stage IV CKD, b/l cr lately around ~2.5- 3.0 mg/dL secondary to cardiorenal syndrome, last EF was 45 to 50% improved from 25% in [address] abdomen pelvis in 2022 showed nephrolithiasis and he was following closely urologically. Had ureteral stent in March 2024 for left-sided obstructing stone. History of sepsis with UTI and MSSA bacteremia in May 2024. Has morbid obesity, has been on Ozempic and has been losing weight and lost more than 50 pounds. Has not been on SGLT2 inhibitors because of recurrent urinary tract infection. Has history of left lower extremity ulcer, was following with wound care. Has history of CLL, has been following with oncology recently noted to have progressive disease with recent during visit in first week of December and there was plan to start him on Acalabutinib and Obinutuzumab, oncology was consulted. Deep reports otherwise feeling well this morning, denies shortness of breath or chest pain. Reports decent appetite. However he is mainly bothered by significant weakness in his thighs and difficulty with ambulation. Allergies Allergy/AdvReac Type Severity Reaction Status Date / Time No Known Allergies Allergy Verified 11/03/24 13:48 Home Medications Medication Instructions Recorded Confirmed Type aspirin 81 mg tablet,delayed 81 mg PO QAM 06/13/21 11/03/24 History release (Alejandro Low Dose Aspirin) duloxetine 30 mg capsule,delayed 30 mg PO QAM 06/13/21 11/03/24 History release folic acid 1 mg tablet 1 mg PO QAM 06/13/21 11/03/24 History gabapentin 300 mg capsule 300 mg PO BID 06/13/21 11/03/24 History pantoprazole 40 mg tablet,delayed 40 mg PO DAILYBB 06/13/21 11/03/24 History release rosuvastatin 40 mg tablet 40 mg PO QAM 06/13/21 11/03/24 History blood [facility] ([facility]/21 11/03/24 Rx Verio test strips) lancets 33 gauge (OneTouch Delica #100 ea 06/19/21 11/03/24 Rx Lancets) trazodone 50 mg tablet 50 mg PO HS 04/06/22 11/03/24 History blood sugar diagnostic (OneTouch #100 ea 04/09/22 11/03/24 Rx Verio test strips) insulin aspart U-100 100 unit/mL 20 unit (0.2 mL) subcut TID #15 mL 04/09/22 11/03/24 Rx (3 mL) subcutaneous pen (Novolog FlexPen U-100 Insulin aspart) insulin glargine 100 unit/mL (3 30 unit (0.3 mL) subcut BID #15 mL 04/09/22 11/03/24 Rx mL) subcutaneous pen (Basaglar KwikPen U-100 Insulin) lancets 33 gauge (OneTouch Delica #100 ea 04/09/22 11/03/24 Rx Lancets) pen needle, diabetic 32 gauge x #100 ea 04/09/22 11/03/24 Rx 5/32" (Pen Needle) ergocalciferol (vitamin D2) 50 mcg 50 mcg PO DAILY 05/28/22 11/03/24 History (2,000 unit) tablet potassium citrate 10 mEq (1,080 10 meq PO TID 05/28/22 11/03/24 History mg) tablet,extended release acetaminophen 500 mg tablet 1,000 mg (2 x 500 mg) PO Q8 #60 01/18/23 11/03/24 Rx (Tylenol Extra Strength) tabs carvedilol 12.5 mg tablet (Coreg) 12.5 mg PO BID #60 tabs 01/18/23 11/03/24 Rx losartan 100 mg tablet 100 mg PO QPM #90 tabs 04/23/23 11/03/24 Rx tamsulosin 0.4 mg capsule 0.4 mg PO QPM #90 caps 12/31/23 11/03/24 Rx semaglutide 0.25 mg or 0.5 mg (2 2 mg subcut WK 04/14/24 11/03/24 History mg/1.5 mL) subcutaneous pen injector (Ozempic) furosemide 40 mg tablet 40 mg PO BID #180 tabs 09/08/24 11/03/24 Rx allopurinol 100 mg tablet 100 mg PO .COMPLEX #36 tabs 09/29/24 11/03/24 Rx Patient History Medical History Acute pyelonephritis Depression GERD (gastroesophageal reflux disease) DVT prophylaxis Hydronephrosis with urinary obstruction due to renal calculus Chronic back pain Dyslipidemia KATRINA (acute kidney injury) LBBB (left bundle branch block) Follows with [facility]- last visit August 2021 Hypertension Surgical History History of cystoscopy History of cholecystectomy Family History Father Diabetes Mother Diabetes Social History Smoking Status: Never smoker Second Hand Exposure: No; Do You Dip or Chew Tobacco: No; Hx Alcohol Use: No Hx Substance Use: No Preferred Language: Urdu Communication Ability: Effective Senior Loan Processor Required: No Beliefs That Will Affect Care: None Current Living Situation: Spouse Current Living Situation Comment: with Other Information That Helps Us Care for You: No Feels Safe at Home: Yes Safety Concerns: Feels Safe At This Time Assistive Devices: Walker Review of Systems Review of Systems: Detailed review of system was done and pertinent positives and negatives are mentioned above. Physical Exam Constitutional: WD/WN, vitals as above + ill appearing and + morbidly obese; no acute distress Eyes: + anicteric sclerae Neck: normal visual inspection Respiratory: no respiratory distress Auscultation: lungs clear to auscultation bilaterally Cardiovascular: Rate/Rhythm: regular rate and regular rhythm Heart Sounds: normal S1 and normal S2 Extremities: + edema Gastrointestinal (Abdomen): abdomen obese, non tender Musculoskeletal: Extremities: extremities normal to inspection Skin: + lesion, + wound and + skin atrophy venous stasis changes in b/l LE Neurologic: no focal motor deficits Psychiatric: Orientation: alert and oriented x 3 Affect: euthymic affect Results & Data Vital Signs (Past 12 Hours) Vital Signs Temp Pulse Pulse Resp BP BP BP 02/03/25 07:36 36.7 C 83 20 131/73 02/03/25 04:44 02/03/25 04:15 105 H 02/03/25 04:09 36.9 C 105 H 20 129/75 02/03/25 03:30 79 18 124/63 02/03/25 03:00 79 22 127/59 L 02/03/25 02:30 82 20 119/65 02/03/25 01:30 78 20 114/78 02/03/25 01:00 78 20 123/67 02/03/25 00:31 80 22 115/60 02/03/25 00:20 80 22 111/71 02/02/25 23:00 81 20 118/69 02/02/25 22:27 80 22 115/74 Pulse Ox O2 Del Method 02/03/25 07:36 92 Room Air 02/03/25 04:44 Room Air 02/03/25 04:15 02/03/25 04:09 96 Room Air 02/03/25 03:30 93 Room Air 02/03/25 03:00 93 Room Air 02/03/25 02:30 93 Room Air 02/03/25 01:30 92 Room Air 02/03/25 01:00 92 Room Air 02/03/25 00:31 92 Room Air 02/03/25 00:20 97 Room Air 02/02/25 23:00 99 Room Air 02/02/25 22:27 100 Room Air PG Care Time/CCT Total # of Minutes Spent Total Time Spent with Patient: Total time spent is greater than 50% in coordination of care (as documented) at patient's floor/unit and/or counseling patient: Coding Level of Care Code 44073 INT INP/OBS CARE MIN Diagnoses KATRINA (acute kidney injury) N17.9 Weakness R53.1 Anemia D64.9 Anemia type: unspecified type CKD (chronic kidney disease), stage IV N18.4 Nonischemic cardiomyopathy I42.8 DM type 2 (diabetes mellitus, type 2) E11.9 (3) Anemia Anemia type: unspecified type Qualified Code(s): D64.9 - Anemia, unspecified
[2025-02-03 11:07] VITALS: O2SAT 93
--- NOTE | 2025-02-03 16:04 | Oncology Consultation ---
Date of Consultation February 03, 2025 Assessment & Plan (1) KATRINA (acute kidney injury): Continue medical care as ordered and await nephrology's decision on whether this gentleman requires further hemodialysis or they anticipate full recovery of renal function. (2) Advanced care planning/counseling discussion: Specifically engaged in discussion regarding his current situation with his copious medical problems and complications brought on by induction chemotherapy even though his exposure was a single dose of Obinutuzumab Which resulted in tumor lysis syndrome and his other medical problems resulting in prolonged hospitalization and rehabilitation and rehospitalization at present time. I asked the patient and his daughter to consider hospice at this juncture keeping in mind that hospice can be Revocated If he improves clinically. Without further chemotherapy his hematologic malignancy will progress rapidly and he will probably not survive more than a month or 2. The challenge moving forward is improvement in performance status before I would be willing to entertain alternative therapy for his hematologic malignancy. Patient and daughter fully understand this concept. (3) Weakness generalized: PT and OT and rehabilitation if the patient opts not to pursue hospice or palliative home care. (4) Acute kidney injury superimposed on CKD: Per nephrology's recommendations. (5) CLL (chronic lymphocytic leukemia): This gentleman suffers from rapidly progressing chronic lymphocytic leukemia and was given induction chemotherapy in mid December which unfortunately led to tumor lysis syndrome and a prolonged hospitalization at the [facility]. He was sent to rehabilitation was home for couple of days but apparently complained of weakness and increased swelling of his lower extremities prompting his admission to [facility]. Engaged in lengthy discussion regarding where we go from here therapeutically. I made it very clear his current performance status prohibits aggressive approach to his hematologic malignancy but would certainly entertain an alternative regimen if he recovers medically. Patient and daughter fully understand the performance status includes his ability to ambulate and perform daily functions without assistance. Clearly the patient is deconditioned from his prolonged hospitalizations. What is unclear is how much time is on his side to allow appropriate recovery. Patient had rapidly increasing WBCs as well as bulky lymphadenopathy on his radiographic studies which led to induction therapy he has only received 1 dose of chemotherapy which is inadequate to treat his disease. Unfortunately there is nothing I can do from a temporizing perspective that would be not detrimental to his current clinical state. What ever is decided I made it very clear I am happy to see him and reevaluate him [id number] as time goes on and once the medical team here at [facility] feels he is stable enough to either go into a rehabilitative facility or home with hospice if the patient decides to do so. I am available to return and engage in further discussion with the patient and the medical team as necessary moving forward. Thank you for allowing me to participate in this gentlemen's care. History of Present Illness Reason for Consultation: Patient known to my service with chronic lymphocytic leukemia deletion 6 q. 21 VÍCTOR deletion, 13 q. deletion and IgH V mutation Attending Physician: Desmond Anderson MD History of Present Illness Mr. Whaley is a very pleasant somewhat unfortunate morbidly obese 68-year-old gentleman well-known to my service currently under care for rapidly progressing chronic lymphocytic leukemia. He was originally diagnosed in April 2021 and was under observation for the last 6 months or so his WBCs were rapidly increasing and at that time of induction chemotherapy his WBCs were in excess of 100,000. With his multitude of medical problems clearly outlined he was definitely high risk going into treatment when I saw him the beginning of December there was rapid increase in his WBC count with lymphocyte count doubling time around 4 months. We did send him for staging radiographic studies which demonstrated bulky adenopathy and splenomegaly. When we decided to proceed with treatment in mid December the patient had experienced confusion and a presumed TIA. However CT and MRI proved negative. That said because of his rapidly progress romeo disease it was decided to proceed with obinutuzumab and acalabrutinib waiting for insurance authorization. Unfortunately, Mr. Simms only received 1 cycle of obinutuzumab and subsequently went into acute renal failure attributable to tumor lysis. He was subsequently admitted to [facility] and then transferred to the [facility] where he spent nearly a month and then subsequently sent home for rehabilitation and has been hospitalized on numerous occasions. This gentleman suffers from acute on chronic renal failure as well as cardiomyopathy as well as numerous other medical problems his overall performance status is currently suboptimal to consider further chemotherapy at this time. I was able to engage both Mr. Whaley and his daughter and answered their questions as best possible. Nephrology here at [facility] is in consultation currently observing the patient has not required further hemodialysis and is indeterminant rather his renal func tion will recover to normal. Engaged in possible scenarios regarding his care moving forward including if he fully recovers medically we could consider alternative therapy for CLL. This would require his performance status to improve dramatically. Explained to risks of further therapy including tumor lysis because his disease has been minimally treated and thus would need to be very cautious with dosing and preparation with copious amounts of fluid, allopurinol or rasburicase prophylaxis.As to avoid recurrent tumor lysis. Also discussed the possibility of enrolling in hospice or palliative care and requested Mr. Whaley formally declare his CODE STATUS. He has expressed interest in returning home as soon as possible and we will wait for nephrology's input in this regard. Patient fully und erstands that any further therapy is going to be risky however the alternative is Disease progression and . Allergies Allergy/AdvReac Type Severity Reaction Status Date / Time No Known Allergies Allergy Verified 11/03/24 13:48 Home Medications Medication Instructions Recorded Confirmed Type aspirin 81 mg tablet,delayed 81 mg PO QAM 06/13/21 11/03/24 History release (Alejandro Low Dose Aspirin) duloxetine 30 mg capsule,delayed 30 mg PO QAM 06/13/21 11/03/24 History release folic acid 1 mg tablet 1 mg PO QAM 06/13/21 11/03/24 History gabapentin 300 mg capsule 300 mg PO BID 06/13/21 11/03/24 History pantoprazole 40 mg tablet,delayed 40 mg PO DAILYBB 06/13/21 11/03/24 History release rosuvastatin 40 mg tablet 40 mg PO QAM 06/13/21 11/03/24 History blood sugar diagnostic (OneTouch #100 ea 06/19/21 11/03/24 Rx Verio test strips) lancets 33 gauge (OneTouch Delica #100 ea 06/19/21 11/03/24 Rx Lancets) trazodone 50 mg tablet 50 mg PO HS 04/06/22 11/03/24 History blood sugar diagnostic (OneTouch #100 ea 04/09/22 11/03/24 Rx Verio test strips) insulin aspart U-100 100 unit/mL 20 unit (0.2 mL) subcut TID #15 mL 04/09/22 11/03/24 Rx (3 mL) subcutaneous pen (Novolog FlexPen U-100 Insulin aspart) insulin glargine 100 unit/mL (3 30 unit (0.3 mL) subcut BID #15 mL 04/09/22 11/03/24 Rx mL) subcutaneous pen (Basaglar KwikPen U-100 Insulin) lancets 33 gauge (OneTouch Delica #100 ea 04/09/22 11/03/24 Rx Lancets) pen needle, diabetic 32 gauge x #100 ea 04/09/22 11/03/24 Rx 5/32" (Pen Needle) ergocalciferol (vitamin D2) 50 mcg 50 mcg PO DAILY 05/28/22 11/03/24 History (2,000 unit) tablet potassium citrate 10 mEq (1,080 10 meq PO TID 05/28/22 11/03/24 History mg) tablet,extended release acetaminophen 500 mg tablet 1,000 mg (2 x 500 mg) PO Q8 #60 01/18/23 11/03/24 Rx (Tylenol Extra Strength) tabs carvedilol 12.5 mg tablet (Coreg) 12.5 mg PO BID #60 tabs 01/18/23 11/03/24 Rx losartan 100 mg tablet 100 mg PO QPM #90 tabs 04/23/23 11/03/24 Rx tamsulosin 0.4 mg capsule 0.4 mg PO QPM #90 caps 12/31/23 11/03/24 Rx semaglutide 0.25 mg or 0.5 mg (2 2 mg subcut WK 04/14/24 11/03/24 History mg/1.5 mL) subcutaneous pen injector (Ozempic) furosemide 40 mg tablet 40 mg PO BID #180 tabs 09/08/24 11/03/24 Rx allopurinol 100 mg tablet 100 mg PO .COMPLEX #36 tabs 09/29/24 11/03/24 Rx Patient History Medical History Acute pyelonephritis Depression GERD (gastroesophageal reflux disease) DVT prophylaxis Hydronephrosis with urinary obstruction due to renal calculus Chronic back pain Dyslipidemia KATRINA (acute kidney injury) LBBB (left bundle branch block) Follows with [facility]- last visit August 2021 Hypertension Surgical History History of cystoscopy History of cholecystectomy Family History Father Diabetes Mother Diabetes Social History Smoking Status: Never smoker Second Hand Exposure: No; Do You Dip or Chew Tobacco: No; Hx Alcohol Use: No Hx Substance Use: No Preferred Language: Turkmen Communication Ability: Effective Director Digital Communications Required: No Beliefs That Will Affect Care: None Current Living Situation: Spouse Current Living Situation Comment: with Other Information That Helps Us Care for You: No Feels Safe at Home: Yes Safety Concerns: Feels Safe At This Time Assistive Devices: CPAP Results & Data Vital Signs (Past 12 Hours) Vital Signs Temp Pulse Pulse Resp BP BP Pulse Ox 02/03/25 11:06 36.6 C 108 H 20 122/67 93 02/03/25 07:36 36.7 C 83 20 131/73 92 02/03/25 07:15 98 H 02/03/25 04:44 02/03/25 04:15 105 H 02/03/25 04:09 36.9 C 105 H 20 129/75 96 O2 Del Method 02/03/25 11:06 Room Air 02/03/25 07:36 Room Air 02/03/25 07:15 02/03/25 04:44 Room Air 02/03/25 04:15 02/03/25 04:09 Room Air
--- NOTE | 2025-02-03 17:18 | Hospitalist Progress Note ---
"Date of Service February 03, 2025 Assessment & Plan (1) Weakness: (2) HFrEF (heart failure with reduced ejection fraction): (3) DM type 2 (diabetes mellitus, type 2): (4) CLL (chronic lymphocytic leukemia): Plan Being is a 69-year-old male with a past medical history of morbid obesity, HFpEF, pulmonary hypertension, Pickwickian syndrome, DICK, hypertension, hyperlipidemia, DMII, CLL, nephrolithiasis, OA/DJD, and chronic kidney disease. admitted for nephrology consultation, PT/OT evals and further workup #weakness - in the setting of recent discharge from [facility], since WBC is chronically elevated in the setting of CLL. No signs of infection on admissionchecks x-ray without pneumonia, Afebrile, not tachycardic, skin lesion does not look infected UA pending Of note, pt with many chronic problems - agreeable to palliative consult , no change in CODE STATUS at this time but starting to explore options for what if scenarios. Focusing on pain control that his renal function will allow Wound care consult placed PT/ OTrecommend rehab #KATRINA on CKD - Follows with Dr. Lee with baseline creatinine 2.5-3. Did require 2 dialysis sessions during his recent [place] stay. Creatinine 4.05 on admission Consult nephrology hold diuretics, check iron studies Hold lasix and losartan # HFrEF | Elevated troponin - Follows with [facility], last Echo with EF 20-25% Defer additional fluids with KATRINA Elevated troponin, 21.9, likely secondary to poor renal clearance. Denies CP EKG in ER read by computer as afib, no hx of afib, appears regular to me with P waves. no telemetry on the monitor, recreate EKG with left bundle branch block, no A-fib. Left bundle branch block is chronic. Not on anticoagulation - family reports he was on at one point and taken off and unsure why Continue carvedilol BID #DMT2 Home meds: Glargine 30u BID, Aspart 20u TID - held continue lantus 25u BID + SSI Continue gabapentin #CLL - Follows with Dr. Gray Continue allopurinol for tumor lysis Dr. foster consulted - No current treatment as patient is not stable/well enough. could consider in the future but disease is going to progress without treatment estimates 1-2 months to live. # Elevated TSH TSH 10.5, T4 WNL Recommend recheck outpatient *Pt and family unaware what medications he is taking or supposed to be taking - reports med were changed at [facility] from [facility] and rehab but they have been following old regimen. not taking plavix Dispo: continued inpatient stay, stable for downgrade to medical DVT proh: reassess tomorrow - lovenox not a good option with KATRINA, heparin not a good option with low platelets, SCDs and apurva hose not a good option with skin wound. Case discussed with palliative YONG, oncologist. Admission and Anticipated Discharge Date Admission Date: February 02, 2025 Subjective patient seen resting in bed this morning prior to working with therapy. Trending up with the nurse and did not go well walking back to the bathroom. He reports pain in his right hip states that he normally gets injections in [place] but is overdue for 1. Otherwise voices no complaints. telemetry sinus rhythm IVCD 80s and 90s Review of Systems Review of Systems: All systems reviewed & are unremarkable except as noted in Subjective Physical Exam Physical Exam: General: NAD, VS as above, obese Resp: accessory muscle use, lungs clear to auscultation, shallow breathing, no wheezing or adventitious sounds, on room air CV: RRR, no murmur, Abd: normal bowel sounds, non tender, Extremities: Moves all extremities, 2+ with pitting edema to bilateral legs Neuro: A&O x3, Skin: lesion to left lower leg open, without signs of infection, bulla also present Results & Data Results & Data Vital Signs (Past 12 Hours) Vital Signs Temp Pulse Pulse Resp BP Pulse Ox O2 Del Method 02/03/25 11:06 97.9 F 108 H 20 122/67 93 Room Air 02/03/25 07:36 98.0 F 83 20 131/73 92 Room Air 02/03/25 07:15 98 H Laboratory Results CBC and chemistry reviewed PG Care Time/CCT Total # of Minutes Spent Total Time Spent with Patient: Total time spent is greater than 50% in coordination of care (as documented) at patient's floor/unit and/or counseling patient: Coding Level of Care Code 27157 SUB INP/OBS CARE 3/50MIN Diagnoses Weakness R53.1 HFrEF (heart failure with reduced ejection fraction) I50.20 DM type 2 (diabetes mellitus, type 2) E11.9 CLL (chronic lymphocytic leukemia) C91.10"
[2025-02-04 07:37] VITALS: RESP 18; TEMP 97.7
[2025-02-04 07:38] LABS: Hematocrit (blood only) 23.7 % (42.0-52.0); Hemoglobin 7.0 g/dl (14.0-18.0); Mean Corpuscular Hemoglobin 29.4 pg (25.0-34.0); Mean Corpuscular Volume 99.6 fL (80.0-100.0); Platelet Count 67 K/uL (130-400); RDW Standard Deviation 63.0 fL (36.4-46.3); Red Blood Count 2.38 M/uL (4.70-6.10); White Blood Count 62.20 K/ul (4.8-10.8)
[2025-02-04 07:47] LABS: Anion Gap 7.0 (3-11); Blood Urea Nitrogen 48.0 mg/dl (6-23); Calcium 8.1 mg/dl (8.6-10.3); Carbon Dioxide 23.0 mmol/L (21-32); Chloride 107.0 mmol/L (98-107); Creatinine Clr Calc Pharmacy 21.7 ml/min; Glucose 109.0 mg/dl (70-99(Fasting)); Iron 44.0 mcg/dl (35-175); Potassium 4.4 mmol/L (3.5-5.1); Sodium 137.0 mmol/L (136-145); Total Iron Binding Cap Calc 357.0 mcg/dl (250-450); Transferrin 255.0 mg/dl (200-360); Transferrin (FE) Percent Satur 12.0 % (20-50)
[2025-02-04 08:07] LABS: Ferritin 39.2 ng/ml (8-388)
[2025-02-04 08:14] LABS: Immature Granulocytes # (auto) 0.08 K/uL (0.01-0.20); Immature Granulocytes % (auto) 0.1 %; Polychromasia 2+; Smudge Cells Present; Tear Drop Cells 1+
--- NOTE | 2025-02-04 09:58 | Nephrology Progress Note ---
Date of Service February 04, 2025 Assessment & Plan (1) KATRINA (acute kidney injury): (2) Weakness: (3) Anemia: (4) CKD (chronic kidney disease), stage IV: (5) Nonischemic cardiomyopathy: (6) DM type 2 (diabetes mellitus, type 2): Plan 69 y o male with complex past medical history including stage IV CKD, hypertension, diabetes, nephrolithiasis, history of CML, obstructive sleep apnea, admitted to the hospital with outpatient lab showing KATRINA, creatinine 4.1 with baseline creatinine around 2.5-3.0 mg/dl and generalized weakness and weakness in bilateral lower extremity with difficulty with ambulation. Recent history of rapidly progressive CML and started on treatment and received 1 dose of Obinutuzumab in late December leading to rhabdomyolysis and prolonged hospitalization at [facility] where he required 1 dialysis session and after that kidney function recovered and since then he has not been getting any dialysis while he was at rehab after the hospitalization. Currently no sign of volume overload, blood pressure acceptable. Has been voiding normally. Electrolyte acceptable. Otherwise asymptomatic except lower extremity weakness. Slight worsening of kidney function noted however electrolyte acceptable voiding normally and no uremic symptoms. --Unclear at this point whether kidney function is going to continue to worsen and eventually he will need dialysis as changing kidney function is somewhat recent, still possible that this is acute kidney injury and kidney function may improve and go back to baseline. Do not see any acute indication for dialysis at this time. If oncology feels that they can start him on treatment for progressive CML, he will be at risk for kidney injury and eventually he may end up needing dialysis however no indication to start on dialysis preemptively. Discussed with Mr. Whaley in detail and explained that with either choices significant risk for complication with therapy for CML or worsening of kidney function. He repeatedly mentioned that he just wants to go home and scared. Spoke with his daughter Ana Rosa over telephone ) and discussed the in detail with her. She feels that she she knows what her dad's wishes are and where he wants to be and feels that he will not be able to tolerate all of these options that we may have to take if we want to continue with aggressive treatment. After detailed discussion she felt like it would best to just go home with hospice care and wanted to know how soon we can arrange that. Informed the primary team about the decision from Mr. Whaley and his daughter. Plan at this time is to start the process to go home with hospice care. --dose meds for eGFR <30 Admission and Anticipated Discharge Date Admission Date: February 02, 2025 Jez Brasher was seen and evaluated this morning. He reports feeling about the same, no shortness of breath or chest pain but continues to have weakness in his legs and thigh muscles making ambulation somewhat difficult. Kidney function worsened slightly, creatinine up to 4.4 today, electrolyte acceptable. Voiding normally. Hemoglobin 7.0 with iron deficiency ferritin 39. Transferrin saturation 12%. Blood pressure relatively low but asymptomatic. He repeatedly mention that he is scared and expressed his wishes to just go home. Review of Systems Review of Systems: Detailed review of system was done and pertinent positives and negatives are mentioned above. Physical Exam Constitutional: WD/WN, vitals as above + ill appearing and + morbidly obese; no acute distress Eyes: + anicteric sclerae Neck: normal visual inspection Respiratory: no respiratory distress Auscultation: lungs clear to auscultation bilaterally Cardiovascular: Rate/Rhythm: regular rate and regular rhythm Heart Sounds: normal S1 and normal S2 Extremities: + edema Musculoskeletal: Extremities: extremities normal to inspection Skin: + lesion, + wound and + skin atrophy Neurologic: no focal motor deficits Psychiatric: Orientation: alert and oriented x 3 Affect: euthymic affect Results & Data Vital Signs (Past 12 Hours) Vital Signs Temp Pulse Resp BP Pulse Ox O2 Del Method O2 Flow Rate 02/04/25 07:37 36.5 C 71 18 106/65 93 Room Air 02/03/25 23:41 36.6 C 76 20 102/62 93 CPAP 2 PG Care Time/CCT Total # of Minutes Spent Total Time Spent with Patient: Total time spent is greater than 50% in coordination of care (as documented) at patient's floor/unit and/or counseling patient: Coding Level of Care Code 35808 SUB INP/OBS CARE 3/50MIN Diagnoses KATRINA (acute kidney injury) N17.9 Weakness R53.1 Anemia D64.9 Anemia type: unspecified type CKD (chronic kidney disease), stage IV N18.4 Nonischemic cardiomyopathy I42.8 DM type 2 (diabetes mellitus, type 2) E11.9 (3) Anemia Anemia type: unspecified type Qualified Code(s): D64.9 - Anemia, unspecified
--- NOTE | 2025-02-04 12:19 | Communication Note ---
Date of Service: February 04, 2025 Palliative Medicine ACP Note Sameera's daughter, Yoko, called me to say they have met as a family and want to expeditiously move forward with home hospice dc, they elected [facility]. She is asking for dc today/kalyani if possible. She says she can drive him home and only needs one person to help her get him in her vehicle. She will have plenty of help at home to get him into the house. We had a detailed conversation about hospice philosophy/scope of services - she is anxious they will "stop everything" and for now wants him to stay on his routine meds but would be comfortable with stopping non essential meds such as his crestor and vitamins/supplements but not other meds. Please make sure the hospice team is aware of this bc if they try to comprehensively dc meds, family will resist and likely revoke hospice and return to [facility]. TS 22min ACP [id number] Thank you for allowing us to participate in the ongoing care of this patient. Please page with any additional concerns. Johnna Arroyo DNP Director, Palliative Medicine
[2025-02-04] MEDS: LORazepam 0.5 MG TAB PO STA (13:24)
--- NOTE | 2025-02-04 13:27 | Discharge Summary ---
Discharge Summary Date of Service February 04, 2025 Principal Dx & Hospital Course #1 = Principal Diagnosis (1) Weakness: (2) HFrEF (heart failure with reduced ejection fraction): (3) DM type 2 (diabetes mellitus, type 2): (4) CLL (chronic lymphocytic leukemia): Plan Being is a 69-year-old male with a past medical history of morbid obesity, HFpEF, pulmonary hypertension, Pickwickian syndrome, DICK, hypertension, hyperlipidemia, DMII, CLL, nephrolithiasis, OA/DJD, and chronic kidney disease. admitted for nephrology consultation, PT/OT evals and further workup. Sameera was seen by nephrology, oncology and palliative care. Patient had realistic conversations about his disease progression and prognosis. Patient values being home with his the most and has opted to go home with hospice. Ativan, morphine and zofran have been prescribed. #weakness - in the setting of recent discharge from [facility], since WBC is chronically elevated in the setting of CLL. No signs of infection on admissionchecks x-ray without pneumonia, Afebrile, not tachycardic, skin lesion does not look infected. PT/ OTrecommend rehab, but plan for home with [facility]. #KATRINA on CKD - Follows with Dr. Lee with baseline creatinine 2.5-3. Did require 2 dialysis sessions during his recent [facility] stay. Creatinine 4.05 on admission and slowly trending upward. Unclear if this would improve, pt would not want dialysis. Hold lasix and losartan # HFrEF | Elevated troponin - Follows with [facility], last Echo with EF 20-25% Elevated troponin, 21.9, likely secondary to poor renal clearance. Denies CP. EKG in ER read by computer as afib, no hx of afib, appears regular to me with P waves. no telemetry on the monitor, recreate EKG with left bundle branch block, no A-fib. Left bundle branch block is chronic. Continue carvedilol BID #DMT2 - Home meds: Glargine 30u BID, Aspart 20u TID - continue. Continue gabapentin. #CLL - Follows with Dr. Gray. Continue allopurinol for tumor lysis. Dr. foster consulted - No current treatment as patient is not stable/well enough. could consider in the future but disease is going to progress without treatment estimates 1-2 months to live. # Elevated TSH - TSH 10.5, T4 WNL . no further management with hospice. Dispo: home with hospice today Notes For Next Care Provider home with hospice Admission HPI Per Admitting Provider Sameera is a 69-year-old male with a past medical history of morbid obesity, HFpEF, pulmonary hypertension, Pickwickian syndrome, DICK, hypertension, hyperlipidemia, DMII, CLL, nephrolithiasis, OA/DJD, and chronic kidney disease. with recent admission to [facility] with possible respiratory arrest, septic shock from a UTI requiring ICU admission. He was discharged from [facility] to [facility]hab and was discharged from [facility] on Monday 01/29. and daughter are at bedside and provide additional history.'s being states that he was feeling well after discharge from rehab but has gone downhill since then. Did have a fall yesterday while trying to get into the car to go to his PCPs, he presented to [place] where they provided wound care and discharged him home. Family has noticed more weakness. He denies fevers or chills. No current treatment for his CLL. He is producing urine without issues. Did require dialysis twice during his [facility] stay but he is not a normal dialysis patient. Does not weigh himself every day but thinks his dry weight would be around 307. Did take his medications this morning he wishes to be a full code Discharge Exam General: NAD, VS as above, obese Resp: accessory muscle use, lungs clear to auscultation, shallow breathing, no wheezing or adventitious sounds, on room air CV: RRR, no murmur, Abd: normal bowel sounds, non tender, Neuro: A&O x3, Discharge Plan Discharge Items Patient Disposition: Hospice - Home Reason For Visit: KATRINA ON CKD, WEAKNESS Discharge Diagnosis: CKD, CLL Condition on Discharge: Fair Activity: As commented below Activity Comment: As able, focus on comfort Non-emergency contact: Specialist Call non-emergency contact if: you have any medication questions, your symptoms worsen, your pain is not controlled and your temperature is above 101 Follow-up/Referrals: Rhonda Ramos CRNP [Primary Care Provider] - Diet: Regular Addtl Attending Provider Instructions: Mr. Whaley, You were hospitalized after having weakness and increased kidney numbers at home. After discussions with your family, palliative, nephrology and your oncologist you have decided to go home with your family on hospice. I think this is the best choice for you to have quality time with your family. You will be returning home with hospice. At this point you do not need to follow up with any of your regular doctors or specialist, your hospice agency is now your main point of contact. They will be available 24 to answer any and all questions that you may have. They will be able to order medications and help with dosing when needed. I have sent in the following medications if needed before hospice is able to send meds: - zofran (ondansetron) - as needed for nausea - morphine - as needed for pain or air hunger - ativan (lorazepam) - as needed for anxiety/agitation or restlessness You can continue to take the home tramadol for pain. You can continue to take your home medications for now. If there is a day you do not feel like taking your medications that is okay. I have stopped the lasix, potassium and losartan as these can make your kidney function worse. Your hospice nurse can provide a laguna catheter at any time! Enjoy this time with your family. Thanks for allowing us to participate in your care. Pending Studies at Discharge: No Stand-Alone Forms: My [facility] Medications and DC Order Prescriptions: New lorazepam [Ativan] 0.5 mg tablet 0.5 mg PO Q8H PRN (Reason: anxiety or agita) Qty: 20 0RF morphine 10 mg/5 mL solution 5 mg PO Q4H PRN (Reason: pain) Qty: 100 0RF ondansetron 4 mg tablet,disintegrating 4 mg PO Q6H PRN (Reason: nausea and vomiting) Qty: 20 0RF Continued tamsulosin 0.4 mg capsule 0.4 mg PO QPM Qty: 90 3RF Rx Instructions: Take one tablet at night time. allopurinol 100 mg tablet 100 mg PO .COMPLEX Qty: 36 2RF Rx Instructions: 100 mg orally saturday, saturday, saturday; pantoprazole 40 mg tablet,delayed release (DR/EC) 40 mg PO DAILYBB gabapentin 300 mg capsule 300 mg PO BID folic acid 1 mg tablet 1 mg PO QAM rosuvastatin 40 mg tablet 40 mg PO QAM duloxetine 30 mg capsule,delayed release(DR/EC) 30 mg PO QAM aspirin [Alejandro Low Dose Aspirin] 81 mg Tablet,Delayed Release (Dr/Ec) 81 mg PO QAM (DME) lancets [OneTouch Delica Lancets] 33 gauge misc See Rx Instructions .Route Qty: 100 0RF Rx Instructions: As directed. To check 1x/day (DME) OneTouch Verio test strips Strip See Rx Instructions .Route Qty: 100 0RF Rx Instructions: As directed. To check 1x/day Ozempic 0.25 mg or 0.5 mg(2 mg/1.5 mL) pen injector 2 mg SUBCUT WK Rx Instructions: INJECT EVERY SATURDAY trazodone 50 mg tablet 50 mg PO HS insulin aspart U-100 [Novolog FlexPen U-100 Insulin] 100 unit/mL (3 mL) insulin pen 20 unit subcut TID Qty: 15 0RF insulin glargine [Basaglar KwikPen U-100 Insulin] 100 unit/mL (3 mL) insulin pen 30 unit subcut BID Qty: 15 0RF (DME) pen needle, diabetic [Pen Needle] 32 gauge x 5/32" needle See Rx Instructions .Route Qty: 100 0RF Rx Instructions: As directed (DME) OneTouch Verio test strips Strip See Rx Instructions .Route Qty: 100 0RF Rx Instructions: As directed (DME) lancets [OneTouch Delica Lancets] 33 gauge misc See Rx Instructions .Route Qty: 100 0RF Rx Instructions: As directed ergocalciferol (vitamin D2) 50 mcg (2,000 unit) Tablet 50 mcg PO DAILY carvedilol [Coreg] 12.5 mg tablet 12.5 mg PO BID Qty: 60 0RF Rx Instructions: must administer with a meal/food acetaminophen [Tylenol Extra Strength] 500 mg Tablet 1,000 mg PO Q8 Qty: 60 0RF Discontinued losartan 100 mg tablet 100 mg PO QPM Qty: 90 3RF Hold Instructions: Home Medication placed on hold at Doctor's office furosemide 40 mg tablet 40 mg PO BID Qty: 180 1RF Rx Instructions: MAY TAKE AN EXTRA TABLET IN THE AM FOR FLUID RETENTION. potassium citrate 10 mEq (1,080 mg) tablet extended release 10 meq PO TID Hold Instructions: Home Medication placed on hold at Doctor's office Discharge Orders: Discharge Order (Routine); Ordered 02/04/25 Ordered By: Ronda Burrows/Other Patient Handouts: [facility] Admission Data Admit Date/Time: 02/02/25 18:50 Attending Provider: Desmond Anderson Admit Provider: Angel Cool Primary Care Provider: Rhonda Ramos Other Providers: Angel Cool; Hortencia Wood; Kristal Edmond; Josefa Arroyo; Paras Gray V.; [facility] Other Interventions: Discharge Summary Assessment (RN) Last Done: 02/04/25 13:48 Hospital Stay Data Consultations 02/02/25 17:57 ED Decision to Admit Stat 02/02/25 18:42 Consult Nephrology Routine 02/02/25 21:16 Consult Palliative Care Routine 02/03/25 09:42 Consult Oncology Routine Diagnostic Imagining Performed Chest X-Ray 02/02/25 16:53 Clinical History: Weakness Technique: A frontal view of the chest was obtained Comparison is made to the prior examination dated 01/14/2023 Findings: There are no confluent pulmonary infiltrates. The heart is mild enlarged. No pleural effusion or pneumothorax is seen. There is no definite pulmonary nodule. No fracture is noted. There is scoliosis. 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 Pending Results Patient Have Any Pending Studies at Discharge: No Discharge Instructions Given to Patient (Per Discharging Provider) Mr. Whaley, Bryson were hospitalized after having weakness and increased kidney numbers at home. After discussions with your family, palliative, nephrology and your oncologist you have decided to go home with your family on hospice. I think this is the best choice for you to have quality time with your family. You will be returning home with hospice. At this point you do not need to follow up with any of your regular doctors or specialist, your hospice agency is now your main point of contact. They will be available 31/12 to answer any and all questions that you may have. They will be able to order medications and help with dosing when needed. I have sent in the following medications if needed before hospice is able to send meds: - zofran (ondansetron) - as needed for nausea - morphine - as needed for pain or air hunger - ativan (lorazepam) - as needed for anxiety/agitation or restlessness You can continue to take the home tramadol for pain. You can continue to take your home medications for now. If there is a day you do not feel like taking your medications that is okay. I have stopped the lasix, potassium and losartan as these can make your kidney function worse. Your hospice nurse can provide a laguna catheter at any time! Enjoy this time with your family. Thanks for allowing us to participate in your care. Total Time Total Time Spent Total Time Spent (In Minutes): Time spent day of discharge 45 minutes including direct patient care, medication reconciliation, documentation, review of labs and images, and coordination of care. case discussed with CM, nephrology, palliaitve care and oncology Coding Level of Care Code 74807 INP/OBS DISCH >30 MIN Diagnoses Weakness R53.1 HFrEF (heart failure with reduced ejection fraction) I50.20 DM type 2 (diabetes mellitus, type 2) E11.9 CLL (chronic lymphocytic leukemia) C91.10
[2025-02-04 13:49] VITALS: BP 129/75; PULSE 108
--- NOTE | 2025-02-04 15:27 | Advance Care Plan Prog Note ---
Advanced Care Planning Note Date of Discussion February 04, 2025 ACP Discussion Diagnoses requiring ACP discussion: CKD, CLL, ambulatory dysfunction, HF A [id number] discussion with the Sameera, and later with Sameera, his sister, and daughter regarding the patient's advanced care planning took place during this hospitalization on the above date. The discussion included the explanation and discussion of advance directives and associated forms/documents, as well as the patient's current code status. We also discussed at length the patient's medical conditions (both acute and chronic), general prognosis, treatment options, and goals of care. The following summarizes the discussion: The most important thing to Sameera is to be at home with his . States they just celebrated their 50 year anniversary. He did not realize how sick he was and feels like he does not have any good o ptions. He expressed good understanding about the severity of disease process. With this first conversation, patient was willing to change his CODE STATUS to DNR/DNI. Revisited this afternoon with family present. Everyone is on board for home with hospice, would like to take him home [facility]. Plently of family home to help with care. Advance Care Planning/Goals of Care Will continue to support the patient/family and Will continue to discuss both short- and long-term goals of care Status DNR Total Time I spent a total of 35 minutes was spent on this discussion, including counseling, answering questions, and completing, if any, pertinent advanced care planning forms/documents.
--- NOTE | 2025-02-05 05:44 | Electrocardiogram Report ---
Test Reason : Blood Pressure : */* mmHG Vent. Rate : 80 BPM Atrial Rate : * BPM P-R Int : * ms QRS Dur : 162 ms QT Int : 416 ms P-R-T Axes : * -51 95 degrees QTcB Int : 479 ms Sinus rhythm Premature atrial complexes Left axis deviation Non-specific intra-ventricular conduction block Minimal voltage criteria for LVH, may be normal variant ( [employer] product ) Abnormal ECG When compared with ECG of 27-May-2022 22:46, Non-specific intra-ventricular conduction block has replaced Left bundle branch block Confirmed by Jamie Menendez ([id number]) on 02/05/2025 5:44:36 AM Referred By: Rhonda Ramos Confirmed By: Jamie Menendez
--- NOTE | 2025-02-05 05:45 | Electrocardiogram Report ---
Test Reason : Blood Pressure : */* mmHG Vent. Rate : 102 BPM Atrial Rate : 102 BPM P-R Int : 186 ms QRS Dur : 162 ms QT Int : 384 ms P-R-T Axes : -8 -42 101 degrees QTcB Int : 500 ms Sinus tachycardia with Premature ventricular complexes Left axis deviation Left bundle branch block Abnormal ECG When compared with ECG of 02-Feb-2025 16:35, Left bundle branch block has replaced Non-specific intra-ventricular conduction block Premature ventricular complexes are now Present Confirmed by Jamie Menendez ([id number]) on 02/05/2025 5:45:12 AM Referred By: Rhonda Ramos Confirmed By: Jamie Menendez
== END 2025-02-04 14:16 | disposition hospice, home (50) | DRG 683 ==
LOC: ED 16:29 → SUATTDRO 18:50 → EDINP 18:50 → 2N 21:16